=== PATIENT | female | born 1965 | race Two or more races ===

== ENCOUNTER → 2020-08-04 08:57 | Outpatient (BNVA) | payer OTHER, SELFPAY | PROVIDERS: PCP Physician Assistant; Referring Provider Physician Assistant; Visit Provider Surgery | DX: Z76.89 Persons encountering health services in other specified circumstances (principal) ==

== ENCOUNTER 2020-09-07 07:04 | Outpatient (REF) | payer OTHER, SELFPAY ==
[2020-09-07 07:45] LABS: MANUAL DIFF FLAG NO
[2020-09-07 07:52] LABS: Basophils Percent Auto 0.7 % (0-2); Eosinophils Absolute Auto 0.3 X10*3/uL (0.0-0.4); Eosinophils Percent Auto 4.5 % (0-4); Hematocrit 40.1 % (37-47); Hemoglobin 12.8 g/dl (12.0-16.0); Imm Gran Abs Auto 0.03 X10*3/uL (0.00-0.03); Imm Gran Pct Auto 0.5 % (0.0-0.4); Lymphocytes Absolute Auto 1.7 X10*3/uL (1.2-4.9); Lymphocytes Percent Auto 29.1 % (20-40); Mean Corpuscular HGB Conc 31.9 g/dl (31.0-35.0); Mean Corpuscular Hemoglobin 30.1 pg (27.0-33.0); Mean Corpuscular Volume 94.4 fL (80-98); Mean Platelet Volume 9.8 fL (9.4-12.3); Monocytes Absolute Auto 0.3 X10*3/uL (0.1-1.2); Monocytes Percent Auto 4.2 % (2-11); Neutrophils Absolute Auto 3.6 X10*3/uL (2.0-8.3); Platelet Count 352 X10*3/uL (160-400); Red Blood Count 4.25 X10*6/uL (4.20-5.50); Red Cell Distribution Width 12.5 % (11.0-16.0); White Blood Count 5.9 X10*3/uL (4.8-10.8)
[2020-09-07 08:25] LABS: Alanine Aminotransferase 82 U/L (0-31); Alkaline Phosphatase 161 U/L (39-117); Amylase 64 U/L (28-100); Aspartate Amino Transferase 64 U/L (5-31); Bilirubin Direct 0.2 mg/dL (0.0-0.5); Bilirubin Total 0.4 mg/dL (0.0-1.0); Lipase 26 U/L (8-78); Total Protein 6.9 g/dL (6.5-8.0)
== END 2020-09-07 07:05 | disposition home or self-care (01) ==
LOC: HO.LAB 07:04
PROVIDERS: PCP Physician Assistant; Visit Provider Internal Medicine
DX: R10.13 Epigastric pain (principal)
CPT/HCPCS: 36415; 80076; 82150; 83690; 85025

== ENCOUNTER 2020-09-13 07:14 | Outpatient (REF) | payer OTHER, SELFPAY ==
[2020-09-13 08:31] LABS: Alanine Aminotransferase 43 U/L (0-31); Albumin Level 4.2 g/dL (3.5-5.0); Alkaline Phosphatase 158 U/L (39-117); Aspartate Amino Transferase 33 U/L (5-31); Bilirubin Direct 0.2 mg/dL (0.0-0.5); Bilirubin Total 0.5 mg/dL (0.0-1.0); Iron 73 mcg/dL (30-160); Percent Iron Saturation 21 % (15-50); Total Iron Binding Capacity 344 mcg/dL (228-428); Total Protein 7.5 g/dL (6.5-8.0); Unsaturated Iron Binding 271 ug/dL
[2020-09-13 13:28] LABS: Ferritin 32 ng/mL (10-250)
[2020-09-14 09:04] LABS: HBS Num1 0.62 mIU/mL (0-7.99); HBc Num1 0.06 S/CO (0.00-0.79); HBsAGNum1 0.16 S/CO (0.00-0.99); Hepatitis B Core Antibody Nonreactive (Nonreactive); Hepatitis B Surface Antigen Negative (Negative); ~HepC Num1 0.07 S/CO (0.00-0.79); ~Hepatitis B Surface Antibody NONREACTIVE (Nonreactive); ~Hepatitis C Antibody Nonreactive (Nonreactive)
[2020-09-14 13:57] LABS: Mitochondrial Antibodies NEGATIVE (NEGATIVE)
[2020-09-14 14:22] LABS: Anti Nuclear Antibody Screen NEGATIVE (NEGATIVE)
[2020-09-14 16:42] LABS: Alpha 1 Anti-trypsin 135 mg/dL (83-199)
[2020-09-19 11:12] LABS: Smooth Muscle Antibody <20 U (<20)
== END 2020-09-13 07:15 | disposition home or self-care (01) ==
LOC: HO.LAB 07:14
PROVIDERS: PCP Physician Assistant; Visit Provider Internal Medicine
DX: Z01.84 Encounter for antibody response examination (principal); R79.89 Other specified abnormal findings of blood chemistry
CPT/HCPCS: 36415; 80076; 82103; 82728; 83540; 86038; 86039; 86255; 86256; 86704; 86706; 86803; 87340

== ENCOUNTER 2021-01-16 07:06 | Outpatient (REF) | payer OTHER, SELFPAY ==
[2021-01-16 08:30] LABS: Alanine Aminotransferase 20 U/L (0-31); Alkaline Phosphatase 166 U/L (39-117); Aspartate Amino Transferase 23 U/L (5-31); Bilirubin Direct 0.2 mg/dL (0.0-0.5); Bilirubin Total 0.6 mg/dL (0.0-1.0); Total Protein 7.3 g/dL (6.5-8.0)
== END 2021-01-16 07:07 | disposition home or self-care (01) ==
LOC: HO.LAB 07:06
PROVIDERS: PCP Physician Assistant; Visit Provider Internal Medicine
DX: R79.89 Other specified abnormal findings of blood chemistry (principal); K76.0 Fatty (change of) liver, not elsewhere classified
CPT/HCPCS: 36415; 80076

== ENCOUNTER 2021-04-21 07:15 | Outpatient (REF) | payer OTHER, SELFPAY ==
--- NOTE | ~2021-04-21 | MM_ITS ---
EXAMINATION: MM SCREENING DIGITAL BREAST TOMOSYNTHESIS, BILATERAL CLINICAL INFORMATION: Screening. Asymptomatic. The lifetime risk of breast cancer based on the Tyrer-Cuzick Model is 14%. COMPARISON: Mammography: 01/22/2020, 01/16/2019, 12/19/2016, 12/12/2016 TECHNIQUE: Digital breast tomosynthesis is performed in both the craniocaudal and mediolateral oblique views along with computer-aided detection (CAD). Synthesized 2D images are generated from the tomosynthesis. FINDINGS: There are scattered areas of fibroglandular density (ACR BI-RADS breast composition Category b). There are no significant masses, abnormal calcifications, or other abnormalities. Parenchymal pattern is similar to prior studies. No significant changes. MM/MM tomosynthesis screening BI IMPRESSION: No mammographic evidence of malignancy. ASSESSMENT: BI-RADS 1: Negative RECOMMENDATION: Routine annual mammography screening. This patient's information was entered into a reminder system with a target due date for their next mammogram.
== END 2021-04-21 07:16 | disposition home or self-care (01) ==
LOC: HO.MAMMO 07:15
PROVIDERS: Visit Provider Physician Assistant
DX: Z12.31 Encounter for screening mammogram for malignant neoplasm of breast (principal)
CPT/HCPCS: 77063; 77067

== ENCOUNTER 2021-08-31 06:33 | Outpatient (REF) | payer OTHER, SELFPAY ==
[2021-08-31 07:38] LABS: Hematocrit 44.1 % (37-47); Mean Corpuscular HGB Conc 31.7 g/dl (31.0-35.0); Mean Corpuscular Volume 94.4 fL (80-98); Mean Platelet Volume 9.8 fL (9.4-12.3); Platelet Count 408 X10*3/uL (160-400); Red Blood Count 4.67 X10*6/uL (4.20-5.50); Red Cell Distribution Width 11.6 % (11.0-16.0); White Blood Count 6.6 X10*3/uL (4.8-10.8)
[2021-08-31 08:05] LABS: Alanine Aminotransferase 22 U/L (0-31); Albumin Level 4.1 g/dL (3.5-5.0); Alkaline Phosphatase 153 U/L (39-117); Anion Gap 14 (12-20); Aspartate Amino Transferase 22 U/L (5-31); Bilirubin Total 0.5 mg/dL (0.0-1.0); Blood Urea Nitrogen 14 mg/dL (9-16); Calcium 9.6 mg/dL (8.4-10.2); Carbon Dioxide 28 mmol/L (22-29); Chloride 104 mmol/L (96-108); Cholesterol 245 mg/dL; Estimated Glomerular Filt Rate 52; Glucose Fasting 96 mg/dL (60-99); HDL Cholesterol 54 mg/dL; LDL Cholesterol Calculated 165 mg/dl; Potassium 4.3 mmol/L (3.3-5.1); Sodium 142 mmol/L (135-145); Total Protein 7.6 g/dL (6.5-8.0); Triglycerides 134 mg/dL
[2021-08-31 08:26] LABS: TSH reflex Free T4 0.86 uIU/mL (0.32-4.0)
[2021-08-31 08:27] LABS: Free T4 (Free Thyroxine) 1.32 ng/dL (0.71-1.85); Thyroid Stimulating Hormone 0.87 uIU/mL (0.32-4.0)
== END 2021-08-31 06:34 | disposition home or self-care (01) ==
LOC: HO.LAB 06:33
PROVIDERS: Absent Provider Physician Assistant; PCP Physician Assistant; Visit Provider Internal Medicine
DX: E03.9 Hypothyroidism, unspecified (principal); I10 Essential (primary) hypertension
CPT/HCPCS: 36415; 80053; 80061; 84439; 84443; 85027

== ENCOUNTER 2021-09-06 14:03 | Outpatient (REF) | payer OTHER, SELFPAY ==
[2021-09-06 14:19] LABS: MANUAL DIFF FLAG NO
[2021-09-06 14:39] LABS: Basophils Percent Auto 0.6 % (0-2); Eosinophils Absolute Auto 0.2 X10*3/uL (0.0-0.4); Eosinophils Percent Auto 3.7 % (0-4); Hematocrit 41.9 % (37.0-47.0); Hemoglobin 13.8 g/dl (12.0-16.0); Imm Gran Abs Auto 0.02 X10*3/uL (0.00-0.03); Imm Gran Pct Auto 0.3 % (0.0-0.4); Lymphocytes Absolute Auto 2.8 X10*3/uL (1.2-4.9); Lymphocytes Percent Auto 42.7 % (20-40); Mean Corpuscular HGB Conc 32.9 g/dl (31.0-35.0); Mean Corpuscular Hemoglobin 30.9 pg (27.0-33.0); Mean Corpuscular Volume 93.7 fL (80.0-98.0); Mean Platelet Volume 9.3 fL (9.4-12.3); Monocytes Absolute Auto 0.3 X10*3/uL (0.1-1.2); Neutrophils Absolute Auto 3.13 x10*3/uL (2.0-8.3); Neutrophils Percent Auto 47.7 % (45-73); Platelet Count 406 X10*3/uL (160-400); Red Blood Count 4.47 X10*6/uL (4.20-5.50); Red Cell Distribution Width 11.6 % (11.0-16.0); White Blood Count 6.6 X10*3/uL (4.8-10.8)
[2021-09-06 15:03] LABS: Alanine Aminotransferase 35 U/L (0-31); Albumin Level 4.2 g/dL (3.5-5.0); Alkaline Phosphatase 160 U/L (39-117); Anion Gap 13 (12-20); Aspartate Amino Transferase 30 U/L (5-31); Bilirubin Total 0.3 mg/dL (0.0-1.0); Blood Urea Nitrogen 12 mg/dL (9-16); Calcium 9.5 mg/dL (8.4-10.2); Carbon Dioxide 28 mmol/L (22-29); Chloride 106 mmol/L (96-108); Estimated Glomerular Filt Rate 59; Glucose Random 106 mg/dL (60-115); Potassium 4.3 mmol/L (3.3-5.1); Sodium 143 mmol/L (135-145); Total Protein 7.5 g/dL (6.5-8.0)
[2021-09-06 15:26] LABS: Creatinine Urine 136.55 mg/dL; Protein/Creatinine Ratio, Ur 0.06 (<0.2); Total Protein Urine Random 8 mg/dL (<12)
== END 2021-09-06 14:04 | disposition home or self-care (01) ==
LOC: HO.LAB 14:03
PROVIDERS: PCP Physician Assistant; Visit Provider Internal Medicine Hypertension Specialist
DX: R19.09 Other intra-abdominal and pelvic swelling, mass and lump (principal)
CPT/HCPCS: 36415; 80053; 84156; 85025

== ENCOUNTER 2021-09-10 14:31 | Outpatient (REF) | payer OTHER, SELFPAY ==
[2021-09-10 14:43] LABS: MANUAL DIFF FLAG NO
[2021-09-10 15:12] LABS: Basophils Percent Auto 0.5 % (0-2); Eosinophils Absolute Auto 0.2 X10*3/uL (0.0-0.4); Eosinophils Percent Auto 2.7 % (0-4); Hematocrit 42.6 % (37.0-47.0); Hemoglobin 13.8 g/dl (12.0-16.0); Imm Gran Abs Auto 0.02 X10*3/uL (0.00-0.03); Imm Gran Pct Auto 0.3 % (0.0-0.4); Lymphocytes Absolute Auto 2.6 X10*3/uL (1.2-4.9); Lymphocytes Percent Auto 34.6 % (20-40); Mean Corpuscular HGB Conc 32.4 g/dl (31.0-35.0); Mean Corpuscular Hemoglobin 30.6 pg (27.0-33.0); Mean Corpuscular Volume 94.5 fL (80.0-98.0); Mean Platelet Volume 9.4 fL (9.4-12.3); Monocytes Absolute Auto 0.3 X10*3/uL (0.1-1.2); Monocytes Percent Auto 4.5 % (2-11); Neutrophils Absolute Auto 4.4 x10*3/uL (2.0-8.3); Neutrophils Percent Auto 57.4 % (45-73); Platelet Count 402 X10*3/uL (160-400); Red Blood Count 4.51 X10*6/uL (4.20-5.50); Red Cell Distribution Width 11.5 % (11.0-16.0); White Blood Count 7.6 X10*3/uL (4.8-10.8)
[2021-09-10 15:28] LABS: Anion Gap 14 (12-20); Blood Urea Nitrogen 12 mg/dL (9-16); Calcium 9.9 mg/dL (8.4-10.2); Carbon Dioxide 28 mmol/L (22-29); Chloride 103 mmol/L (96-108); Estimated Glomerular Filt Rate 59; Glucose Random 90 mg/dL (60-115); Potassium 4.8 mmol/L (3.3-5.1); Sodium 140 mmol/L (135-145)
[2021-09-10 17:55] LABS: Creatinine Urine 123.94 mg/dL; Protein/Creatinine Ratio, Ur 0.09 (<0.2); Total Protein Urine Random 11 mg/dL (<12)
[2021-09-10 17:56] LABS: Appearance Urine HAZY; Color Urine YELLOW; Glucose Urine UA NEG (NEG); Leukocyte Esterase Urine NEG (NEG); Nitrite Urine POS (NEG); Specific Gravity - Urine 1.025 (1.005-1.025); Urine Blood 1+ (NEG); Urine Ketones NEG (NEG); Urine Protein NEG (NEG-TRACE)
[2021-09-10 18:50] LABS: Bacteria Urine 4+ /LPF
== END 2021-09-10 14:32 | disposition home or self-care (01) ==
LOC: HO.LAB 14:31
PROVIDERS: PCP Physician Assistant; Visit Provider Internal Medicine Hypertension Specialist
DX: R19.09 Other intra-abdominal and pelvic swelling, mass and lump (principal)
CPT/HCPCS: 36415; 80048; 81001; 84156; 85025

== ENCOUNTER 2021-11-13 07:39 | Outpatient (REF) | payer OTHER, SELFPAY ==
--- NOTE | ~2021-11-13 | CT_ITS ---
EXAMINATION: CT ABDOMEN AND PELVIS WITHOUT CONTRAST CLINICAL INFORMATION: Epigastric/abdominal pain COMPARISON: Previous CT scans of the abdomen and pelvis most recent June 2020 TECHNIQUE: Multidetector volumetric imaging was performed from the superior aspect of the liver through the pubic symphysis. Sagittal and coronal reformatted images were obtained on the technologist's workstation. This CT examination was performed using dose optimization techniques as appropriate, variously including the following: *Automated exposure control *Adjustment of mA and/or kV according to patient size (this includes techniques or standardized protocols for targeted exams where dose is matched to indication/reason for exam; i.e. extremities or head) *Use of iterative reconstruction technique DLP: 511 mGy-cm FINDINGS: LUNG BASES: The visualized lung bases are unremarkable. LIVER, GALLBLADDER, AND BILIARY TREE: The liver is normal in size, shape, and attenuation. No focal hepatic lesion or biliary ductal dilatation is present. The gallbladder has been removed. PANCREAS: Unremarkable. SPLEEN: Unremarkable. ADRENAL GLANDS: There is a stable 2.5 x 2.8 cm right adrenal lesion. Hounsfield units without contrast measure 19 which is indeterminate. This is similar to multiple old exams just suggestive of a benign adrenal lesion. The left adrenal gland has been removed. KIDNEYS AND URETERS: There is a small 1 cm low-attenuation lesion in the posterior upper pole of the right kidney that is stable and probably represents a cyst. The right kidney is otherwise unremarkable. The left kidney has been removed. BLADDER: Not optimally distended. GASTROINTESTINAL TRACT: The small and large bowel are unremarkable. The appendix is not seen. ABDOMINAL WALL: There are postsurgical changes to the anterior abdominal wall. There is atrophy of the left rectus muscle. No fluid collection is seen. No hernia is seen. The previously identified superficial abdominal wall fluid collections June 2020 have resolved. LYMPH NODES: Normal. VASCULAR: Unremarkable. PELVIC VISCERA: The uterus appears to have been removed. No pelvic mass is seen. OSSEOUS STRUCTURES: Unremarkable. CT/CT abdomen pelvis wo con IMPRESSION: No acute findings. Postsurgical changes following left radical nephrectomy. Stable 2.5 x 2.8 cm right adrenal lesion and probable right renal cyst. Fleischner guidelines were followed.
[2021-11-13] MEDS: Barium Sulfate Oral (Mocha) 450 ML ORAL.SUSP 900 ML PO (09:59)
== END 2021-11-13 07:40 | disposition home or self-care (01) ==
LOC: HO.CT 07:39
PROVIDERS: PCP Physician Assistant; Visit Provider Internal Medicine
DX: R10.13 Epigastric pain (principal)
CPT/HCPCS: 74176

== ENCOUNTER 2022-03-26 06:00 | Outpatient (REF) | payer OTHER, SELFPAY ==
[2022-03-26 07:25] LABS: Hematocrit 40.8 % (37.0-47.0); Hemoglobin 12.8 g/dl (12.0-16.0); Mean Corpuscular HGB Conc 31.4 g/dl (31.0-35.0); Mean Corpuscular Hemoglobin 30.3 pg (27.0-33.0); Mean Corpuscular Volume 96.5 fL (80.0-98.0); Mean Platelet Volume 9.7 fL (9.4-12.3); Platelet Count 358 X10*3/uL (160-400); Red Blood Count 4.23 X10*6/uL (4.20-5.50); Red Cell Distribution Width 11.8 % (11.0-16.0); White Blood Count 6.6 X10*3/uL (4.8-10.8)
[2022-03-26 07:50] LABS: Alanine Aminotransferase 32 U/L (0-31); Albumin Level 3.7 g/dL (3.5-5.0); Alkaline Phosphatase 142 U/L (39-117); Anion Gap 13 (12-20); Aspartate Amino Transferase 25 U/L (5-31); Bilirubin Total 0.4 mg/dL (0.0-1.0); Blood Urea Nitrogen 15 mg/dL (9-16); Calcium 9.2 mg/dL (8.4-10.2); Carbon Dioxide 26 mmol/L (22-29); Chloride 108 mmol/L (96-108); Cholesterol 235 mg/dL; Estimated Glomerular Filt Rate > 60; Glucose Fasting 97 mg/dL (60-99); HDL Cholesterol 58 mg/dL; LDL Cholesterol Calculated 156 mg/dl; Potassium 4.6 mmol/L (3.3-5.1); Sodium 142 mmol/L (135-145); Total Protein 6.8 g/dL (6.5-8.0); Triglycerides 108 mg/dL
[2022-03-26 08:14] LABS: TSH reflex Free T4 1.59 uIU/mL (0.32-4.0)
== END 2022-03-26 06:01 | disposition home or self-care (01) ==
LOC: HO.LAB 06:00
PROVIDERS: PCP Physician Assistant; Visit Provider Physician Assistant
DX: E03.9 Hypothyroidism, unspecified (principal); E78.9 Disorder of lipoprotein metabolism, unspecified
CPT/HCPCS: 36415; 80053; 80061; 84443; 85027

== ENCOUNTER 2022-04-23 16:33 | Outpatient (REF) | payer OTHER, SELFPAY ==
[2022-04-29 06:07] LABS: Metanephrine, Free <25 pg/mL (<=57); Normetanephrines, Free 44 pg/mL (<=148); Total Metanephrine, Free 44 pg/mL (<=205)
== END 2022-04-23 16:34 | disposition home or self-care (01) ==
LOC: HO.LAB 16:33
PROVIDERS: PCP Physician Assistant; Visit Provider Internal Medicine Endocrinology, Diabetes & Metabolism
DX: D35.00 Benign neoplasm of unspecified adrenal gland (principal); E66.9 Obesity, unspecified
CPT/HCPCS: 36415; 83835

== ENCOUNTER 2022-04-26 06:24 | Outpatient (REF) | payer OTHER, SELFPAY ==
--- NOTE | ~2022-04-26 | US_ITS ---
EXAMINATION: US ABDOMEN LIMITED CLINICAL INFORMATION: Left upper quadrant lump. COMPARISON: CT abdomen and pelvis without contrast dated 11/13/2021. Ultrasound abdomen limited dated 05/12/2018. Ultrasound abdomen complete dated 01/23/2018. X-ray abdomen dated 11/15/2011. TECHNIQUE: Real-time imaging of the left upper quadrant abdominal wall anterior to the ribs. FINDINGS: No abnormality is evident by ultrasound. No soft tissue mass, fluid collection or hernia is appreciated. US/US abdomen limited IMPRESSION: No abnormality seen by ultrasound.
[2022-04-26 11:01] LABS: Cortisol Random 1.6 ug/dL
[2022-05-08 11:52] LABS: Dexamethasone 396 ng/dL
== END 2022-04-26 06:25 | disposition home or self-care (01) ==
LOC: HO.US 06:24
PROVIDERS: Absent Provider Internal Medicine Endocrinology, Diabetes & Metabolism; PCP Physician Assistant; Visit Provider Physician Assistant
DX: D35.00 Benign neoplasm of unspecified adrenal gland (principal); R19.02 Left upper quadrant abdominal swelling, mass and lump
CPT/HCPCS: 36415; 76705; 80299; 82533

== ENCOUNTER 2022-04-29 07:19 | Outpatient (REF) | payer OTHER, SELFPAY ==
--- NOTE | ~2022-04-29 | MM_ITS ---
EXAMINATION: MM SCREENING DIGITAL BREAST TOMOSYNTHESIS, BILATERAL CLINICAL INFORMATION: Screening. Asymptomatic. The lifetime risk of breast cancer based on the Tyrer-Cuzick Model is 13%. COMPARISON: Mammography: 04/21/2021, 01/22/2020, 01/16/2019 TECHNIQUE: Digital breast tomosynthesis is performed in both the craniocaudal and mediolateral oblique views along with computer-aided detection (CAD). Synthesized 2D images are generated from the tomosynthesis. Additional left MLO view is provided. FINDINGS: There are scattered areas of fibroglandular density (ACR BI-RADS breast composition Category b). There are no significant masses, abnormal calcifications, or other abnormalities. Parenchymal pattern is similar to prior studies. No developing density. The axilla and skin contours are unremarkable. No significant changes. MM/MM tomosynthesis screening BI IMPRESSION: No mammographic evidence of malignancy. ASSESSMENT: BI-RADS 1: Negative RECOMMENDATION: Routine annual mammography screening. This patient's information was entered into a reminder system with a target due date for their next mammogram.
== END 2022-04-29 07:20 | disposition home or self-care (01) ==
LOC: HO.MAMMO 07:19
PROVIDERS: PCP Physician Assistant; Visit Provider Physician Assistant
DX: Z12.31 Encounter for screening mammogram for malignant neoplasm of breast (principal)
CPT/HCPCS: 77063; 77067

== ENCOUNTER 2022-08-13 08:20 | Outpatient (REF) | payer OTHER, SELFPAY ==
[2022-08-13 08:31] LABS: MANUAL DIFF FLAG NO
[2022-08-13 08:34] LABS: Basophils Absolute Auto 0.1 X10*3/uL (0.0-0.2); Basophils Percent Auto 0.8 % (0-2); Eosinophils Absolute Auto 0.2 X10*3/uL (0.0-0.4); Eosinophils Percent Auto 2.6 % (0-4); Hemoglobin 13.8 g/dl (12.0-16.0); Imm Gran Abs Auto 0.03 X10*3/uL (0.00-0.03); Imm Gran Pct Auto 0.5 % (0.0-0.4); Lymphocytes Absolute Auto 1.7 X10*3/uL (1.2-4.9); Mean Corpuscular HGB Conc 32.1 g/dl (31.0-35.0); Mean Corpuscular Hemoglobin 30.3 pg (27.0-33.0); Mean Corpuscular Volume 94.5 fL (80.0-98.0); Mean Platelet Volume 9.1 fL (9.4-12.3); Monocytes Absolute Auto 0.3 X10*3/uL (0.1-1.2); Neutrophils Absolute Auto 4.3 x10*3/uL (2.0-8.3); Neutrophils Percent Auto 66.1 % (45-73); Platelet Count 382 X10*3/uL (160-400); Red Blood Count 4.55 X10*6/uL (4.20-5.50); Red Cell Distribution Width 11.7 % (11.0-16.0); White Blood Count 6.4 X10*3/uL (4.8-10.8)
[2022-08-13 09:04] LABS: Alanine Aminotransferase 31 U/L (0-31); Albumin Level 4.2 g/dL (3.5-5.0); Alkaline Phosphatase 170 U/L (39-117); Amylase 74 U/L (28-100); Aspartate Amino Transferase 32 U/L (5-31); Bilirubin Direct < 0.2 mg/dL (0.0-0.5); Bilirubin Total 0.2 mg/dL (0.0-1.0); Lipase 35 U/L (8-78); Total Protein 7.7 g/dL (6.5-8.0)
== END 2022-08-13 08:21 | disposition home or self-care (01) ==
LOC: HO.LAB 08:20
PROVIDERS: PCP Physician Assistant; Visit Provider Internal Medicine
DX: R10.13 Epigastric pain (principal)
CPT/HCPCS: 36415; 80076; 82150; 83690; 85025

== ENCOUNTER 2022-08-14 07:26 | Outpatient (REF) | payer OTHER, SELFPAY | END 2022-08-14 07:27 | disposition home or self-care (01) | LOC: HO.LNP 07:26 | PROVIDERS: Visit Provider Internal Medicine | DX: R10.13 Epigastric pain (principal) | CPT/HCPCS: 87338 ==

== ENCOUNTER 2022-08-28 11:07 | Outpatient (REF) | payer OTHER, SELFPAY ==
--- NOTE | 2022-08-28 | ECG_ITS ---
Test Reason : preop Blood Pressure : / mmHG Vent. Rate : 075 BPM Atrial Rate : 075 BPM P-R Int : 148 ms QRS Dur : 062 ms QT Int : 366 ms P-R-T Axes : 055 050 064 degrees QTc Int : 408 ms Normal sinus rhythm Normal ECG When compared with ECG of 09-MAY-2020 10:37, No significant change was found Referred By: Chintan Cardenas Electronically Signed By:KT AYALA MD
--- NOTE | ~2022-08-28 | XR_ITS ---
EXAMINATION: XR CHEST CLINICAL INFORMATION: Preop COMPARISON: Previous chest x-ray most recent May 2020 TECHNIQUE: 2 views of the chest were obtained. FINDINGS: No significant abnormality is noted involving the heart, lungs, mediastinum, bony thorax or soft tissues. Surgical clips under the left hemidiaphragm. XR/XR chest 2V IMPRESSION: Unremarkable examination.
[2022-08-28 11:27] LABS: MANUAL DIFF FLAG NO
[2022-08-28 11:50] LABS: Basophils Absolute Auto 0.1 X10*3/uL (0.0-0.2); Basophils Percent Auto 0.9 % (0-2); Eosinophils Absolute Auto 0.2 X10*3/uL (0.0-0.4); Eosinophils Percent Auto 2.2 % (0-4); Hematocrit 42.9 % (37.0-47.0); Hemoglobin 13.7 g/dl (12.0-16.0); INTERNATIONAL NORM RATIO 0.9 (0.9-1.1); Imm Gran Abs Auto 0.04 X10*3/uL (0.00-0.03); Imm Gran Pct Auto 0.6 % (0.0-0.4); Lymphocytes Absolute Auto 1.9 X10*3/uL (1.2-4.9); Lymphocytes Percent Auto 28.2 % (20-40); Mean Corpuscular HGB Conc 31.9 g/dl (31.0-35.0); Mean Corpuscular Hemoglobin 29.8 pg (27.0-33.0); Mean Corpuscular Volume 93.3 fL (80.0-98.0); Mean Platelet Volume 9.5 fL (9.4-12.3); Monocytes Absolute Auto 0.3 X10*3/uL (0.1-1.2); Monocytes Percent Auto 4.2 % (2-11); Neutrophils Absolute Auto 4.4 x10*3/uL (2.0-8.3); Neutrophils Percent Auto 63.9 % (45-73); Platelet Count 401 X10*3/uL (160-400); Prothrombin Time 10.8 SEC (10.0-13.1); Red Cell Distribution Width 11.5 % (11.0-16.0); White Blood Count 6.9 X10*3/uL (4.8-10.8)
[2022-08-28 11:52] LABS: Partial Thromboplastin Time 34.1 SEC (26.0-36.4)
[2022-08-28 12:06] LABS: Estimated Average Glucose 97 mg/dL
[2022-08-28 12:16] LABS: Anion Gap 17 (12-20); Blood Urea Nitrogen 16 mg/dL (9-16); Carbon Dioxide 29 mmol/L (22-29); Chloride 104 mmol/L (96-108); Estimated Glomerular Filt Rate 47; Glucose Random 93 mg/dL (60-115); Potassium 4.6 mmol/L (3.3-5.1); Sodium 145 mmol/L (135-145)
[2022-08-28 12:26] LABS: Appearance Urine Clear; Color Urine Dark Yellow; Glucose Urine UA Negative (Negative); Leukocyte Esterase Urine Small (1+) (Negative); Nitrite Urine Negative (Negative); PH 7.5 (5.0-9.0); Specific Gravity - Urine 1.015 (1.005-1.025); UMIC TRIGGER UA YES; Urine Blood Negative (Negative); Urine Ketones Negative (Negative); Urine Protein Negative (Neg-Trace)
[2022-08-28 12:27] LABS: HIV AB/AG Nonreactive (Nonreactive); HIV Num 1 0.06 S/CO (0.00-0.99)
[2022-08-28 12:30] LABS: HCG Quantitative < 2 mIU/mL; T4 Thyroxine 8.7 ug/dL (4.5-12.0); Thyroid Stimulating Hormone 0.42 uIU/mL (0.32-4.0)
[2022-08-28 12:44] LABS: Bacteria Urine Trace (None Seen); Hyaline Casts Urine 0-2 /LPF (0-2); RBC Urine 0-2 /HPF (0-2); WBC Urine 0-5 /HPF (0-5)
[2022-08-29 17:02] LABS: T3 Uptake 26 % (22-35)
== END 2022-08-28 11:08 | disposition home or self-care (01) ==
LOC: HO.XRAY 11:07
PROVIDERS: PCP Physician Assistant; Visit Provider Plastic Surgery
DX: Z01.818 Encounter for other preprocedural examination (principal)
CPT/HCPCS: 36415; 71046; 80048; 81001; 81003; 83036; 84436; 84443; 84479; 84702; 85025; 85610; 85730; 87389; 93005

== ENCOUNTER 2022-08-30 10:22 | Outpatient (REF) | payer OTHER, SELFPAY ==
[2022-08-30 11:58] LABS: HIV AB/AG Nonreactive (Nonreactive); HIV Num 1 0.06 S/CO (0.00-0.99)
[2022-08-30 12:01] LABS: HCG Quantitative 3 mIU/mL
== END 2022-08-30 10:23 | disposition home or self-care (01) ==
LOC: HO.LAB 10:22
PROVIDERS: Visit Provider Plastic Surgery
DX: Z01.818 Encounter for other preprocedural examination (principal); Z11.4 Encounter for screening for human immunodeficiency virus [HIV]
CPT/HCPCS: 36415; 84702; 87389

== ENCOUNTER 2022-10-22 08:44 | Outpatient (REF) | payer OTHER, SELFPAY ==
[2022-10-30 15:33] LABS: Saliva Cortisol 0.21 mcg/dL
== END 2022-10-22 08:45 | disposition home or self-care (01) ==
LOC: HO.LAB 08:44
PROVIDERS: Visit Provider Internal Medicine Endocrinology, Diabetes & Metabolism
DX: D35.00 Benign neoplasm of unspecified adrenal gland (principal)
CPT/HCPCS: 82530

== ENCOUNTER → 2022-10-23 15:59 | Outpatient (BNVA) | payer OTHER, SELFPAY | PROVIDERS: PCP Physician Assistant; Visit Provider Internal Medicine Endocrinology, Diabetes & Metabolism | DX: D35.00 Benign neoplasm of unspecified adrenal gland (principal) ==

== ENCOUNTER 2022-11-11 08:10 | Outpatient (REF) | payer OTHER, SELFPAY ==
[2022-11-20 14:48] LABS: Saliva Cortisol <0.03 mcg/dL
== END 2022-11-11 08:11 | disposition home or self-care (01) ==
LOC: HO.LNP 08:10
PROVIDERS: Visit Provider Internal Medicine Endocrinology, Diabetes & Metabolism
DX: D35.00 Benign neoplasm of unspecified adrenal gland (principal)
CPT/HCPCS: 82530

== ENCOUNTER 2022-11-11 09:04 | Outpatient (REF) | payer OTHER, SELFPAY | END 2022-11-11 09:05 | disposition home or self-care (01) | LOC: HO.LAB 09:04 | PROVIDERS: PCP Physician Assistant; Visit Provider Internal Medicine Endocrinology, Diabetes & Metabolism | DX: Z13.89 Encounter for screening for other disorder (principal) ==

== ENCOUNTER 2023-03-18 06:50 | Outpatient (REF) | payer OTHER, SELFPAY ==
--- NOTE | ~2023-03-18 | XR_ITS ---
EXAMINATION: XR KNEE AP STANDING CLINICAL INFORMATION: Pain COMPARISON: Previous x-ray from 2018 TECHNIQUE: AP bilateral standing view of the knees was obtained. FINDINGS: Bones and soft tissues are normal. No fracture or joint effusion. Alignment is anatomic. Joint spaces are well maintained. No abnormal soft tissue calcification. XR/XR knee standing BI IMPRESSION: Normal knees.
--- NOTE | ~2023-03-18 | XR_ITS ---
EXAMINATION: Bilateral ankle x-ray CLINICAL INFORMATION: Pain COMPARISON: None. TECHNIQUE: 3 views of each ankle FINDINGS: Bone alignment is normal. No fracture or dislocation. Normal ankle mortise. Normal soft tissues. XR/XR ankle LT 2V IMPRESSION: Unremarkable examination.
--- NOTE | ~2023-03-18 | XR_ITS ---
EXAMINATION: Bilateral ankle x-ray CLINICAL INFORMATION: Pain COMPARISON: None. TECHNIQUE: 3 views of each ankle FINDINGS: Bone alignment is normal. No fracture or dislocation. Normal ankle mortise. Normal soft tissues. XR/XR ankle RT 2V IMPRESSION: Unremarkable examination.
[2023-03-18 07:44] LABS: Hemoglobin 13.7 g/dl (12.0-16.0); Mean Corpuscular HGB Conc 31.9 g/dl (31.0-35.0); Mean Corpuscular Hemoglobin 30.1 pg (27.0-33.0); Mean Corpuscular Volume 94.5 fL (80.0-98.0); Mean Platelet Volume 9.9 fL (9.4-12.3); Platelet Count 402 X10*3/uL (160-400); Red Blood Count 4.55 X10*6/uL (4.20-5.50); Red Cell Distribution Width 11.7 % (11.0-16.0); White Blood Count 5.8 X10*3/uL (4.8-10.8)
[2023-03-18 08:24] LABS: Alanine Aminotransferase 25 U/L (0-31); Alkaline Phosphatase 159 U/L (39-117); Anion Gap 14 (12-20); Aspartate Amino Transferase 25 U/L (5-31); Bilirubin Total 0.5 mg/dL (0.0-1.0); Blood Urea Nitrogen 11 mg/dL (9-16); Calcium 9.7 mg/dL (8.4-10.2); Carbon Dioxide 26 mmol/L (22-29); Chloride 108 mmol/L (96-108); Cholesterol 270 mg/dL; Estimated Glomerular Filt Rate > 60; Glucose Fasting 95 mg/dL (60-99); HDL Cholesterol 55 mg/dL; LDL Cholesterol Calculated 191 mg/dl; Potassium 4.8 mmol/L (3.3-5.1); Rheumatoid Factor < 13.0 IU/mL (<15.0); Sodium 143 mmol/L (135-145); Total Protein 7.2 g/dL (6.5-8.0); Triglycerides 123 mg/dL
[2023-03-18 08:27] LABS: TSH reflex Free T4 1.01 uIU/mL (0.32-4.0)
[2023-03-23 12:23] LABS: Cyclic Citrullinated Peptide <16 UNITS
== END 2023-03-18 06:51 | disposition home or self-care (01) ==
LOC: HO.LAB 06:50
PROVIDERS: PCP Physician Assistant; Visit Provider Physician Assistant
DX: E03.9 Hypothyroidism, unspecified (principal); E78.9 Disorder of lipoprotein metabolism, unspecified; M25.561 Pain in right knee; M25.562 Pain in left knee; M25.571 Pain in right ankle and joints of right foot; M25.572 Pain in left ankle and joints of left foot
CPT/HCPCS: 36415; 73565; 73600; 80053; 80061; 84443; 85027; 86200; 86431

== ENCOUNTER → 2023-04-22 15:52 | Outpatient (BNVA) | payer OTHER, SELFPAY | PROVIDERS: PCP Physician Assistant; Visit Provider Internal Medicine Endocrinology, Diabetes & Metabolism ==

== ENCOUNTER 2023-05-08 07:38 | Outpatient (REF) | payer OTHER, SELFPAY ==
--- NOTE | ~2023-05-08 | MM_ITS ---
EXAMINATION: MM SCREENING DIGITAL BREAST TOMOSYNTHESIS, BILATERAL CLINICAL INFORMATION: Screening. Asymptomatic. The lifetime risk of breast cancer based on the Tyrer-Cuzick Model is 11.4%. COMPARISON: Mammography: This study is compared with prior exams dating back to 2017. TECHNIQUE: Digital breast tomosynthesis is performed in both the craniocaudal and mediolateral oblique views along with computer-aided detection (CAD). Synthesized 2D images are generated from the tomosynthesis. FINDINGS: There are scattered areas of fibroglandular density (ACR BI-RADS breast composition Category b). There are no significant masses, abnormal calcifications, or other abnormalities. MM/MM tomosynthesis screening BI IMPRESSION: No mammographic evidence of malignancy. ASSESSMENT: BI-RADS BI-RADS 1 - Negative RECOMMENDATION: Routine annual mammography screening. 1 year F/U This examination should not preclude the clinical evaluation of a suspicious palpable abnormality. This patient's information was entered into a reminder system with a target due date for their next mammogram.
== END 2023-05-08 07:39 | disposition home or self-care (01) ==
LOC: HO.MAMMO 07:38
PROVIDERS: PCP Physician Assistant; Visit Provider Physician Assistant
DX: Z12.31 Encounter for screening mammogram for malignant neoplasm of breast (principal)
CPT/HCPCS: 77063; 77067

== ENCOUNTER → 2023-05-08 07:45 | Outpatient (BNV) | payer OTHER, SELFPAY | PROVIDERS: PCP Physician Assistant; Visit Provider Radiology Diagnostic Radiology | DX: Z12.31 Encounter for screening mammogram for malignant neoplasm of breast (principal) | CPT/HCPCS: 77063; 77067 ==

== ENCOUNTER 2023-06-12 15:50 | Outpatient (AMB) | payer OTHER, SELFPAY ==
[2023-06-12 16:02] VITALS: BP 122/80; PULSE 71; O2SAT 99; BMI 31.8
--- NOTE | 2023-06-12 16:02 | MHC.PC.OV ---
Vital Signs 06/12/23 16:02 Height 5 ft 4 in Weight 185 lb BMI 31.8 BP 122/80 Blood Pressure Location Lt brachial Position Sitting Pulse 71 Pulse Source Pulse Oximeter Temp Source Skin Pulse Oximetry (%) 99 Oxygen Delivery Method Room Air Intake Visit Reasons: L side stomach pain Intake Note: pt states on ongoing abdominal pain Sql Database Developer Required: No Allergies Iodinated Contrast Media [IV DYE, IODINE CONTAINING CONTRAST ] Allergy (Intermediate, Verified 06/12/23 16:22) HIVES bupropion [From WELLBUTRIN] Allergy (Unknown, Verified 06/12/23 16:22) HALLUCINATION Medication List - Last Reconciled 06/12/23 by JAIDEN Severino levothyroxine 125 mcg PO DAILY 90 days omeprazole 40 mg PO QAM pravastatin 10 mg PO DAILY 30 days sumatriptan succinate take 1 tab at onset of headache; if no relief may repeat 1 tab after at least 2 hrs; max = 4 tabs/24 hr PO zolpidem 10 mg PO BEDTIME PRN 30 days Tobacco use date assessed: 06/12/23 Dental Screening Dental Screen Date: 06/12/23 Did you have a dental visit in the last 12 months?: Yes Did you have a dental problem in the last 6 months where you did not have access to dental care?: No Was dental information given to patient?: Patient has dentist HPI L side stomach pain HPI Details Patient is a 58-year-old female who presents today with intermittent left upper quadrant pain for very long time now. Patient of MATILDA Rutledge. medical history significant for hypothyroid is, migraine, insomnia, adrenal adenoma-followed by endocrinology, hyperlipidemia, history of left nephrectomy. Patient denies nausea or vomiting, reports GERD is stable with omeprazole. Reports chronic constipation alternating with diarrhea for long time now. No shortness of breath or chest pain. Denies pain presently. No fever or chills. Reports bilateral arms increased pigmentation since 04/2023, denies changes in body wash, no new medications, no new detergent. Denies pruritus. [facility] Medical History Adrenal adenoma Hypothyroidism Migraine Urinary frequency Surgical History History of abdominoplasty History of arthroscopy of left knee History of arthroscopy of right shoulder History of cholecystectomy History of hysterectomy History of nephrectomy History of ovarian cystectomy History of tubal ligation Family History Father History of throat cancer Mother No problems noted. Sister History of breast cancer History of ovarian cancer Brother History of kidney problems Maternal Grandmother History of pancreatic cancer Brother No problems noted. Son No problems noted. Daughter No problems noted. Daughter No problems noted. Daughter No problems noted. Social History Housing: House Alcohol intake: current Alcohol intake frequency: holidays/special occasions only Patient Tobacco Use Status: Never used Tobacco e-Cigarette/Vaping Use: Never Used Second Hand Smoke Exposure: No service: No Current occupational status: employed Current occupation: Working at [employer] Cognitive needs: No Hearing needs: No Vision needs: Yes Questionnaire Thrive Questionnaire Date Thrive assessed: 03/17/23 AUDIT C Alcohol Use Questionnaire (AUDIT-C) 1. How often do you have a drink containing alcohol?: Never Total Score: 0 Score Reviewed/Action Taken: No GEORGE-7 AMB Questionnaire GEORGE-7 Date GEORGE - 7 assessed: 03/17/23 Source: Developed by Drs. Yadiel Loera, Jeanne Rea, Dennys Vivar and colleagues, with an educational adamaris from [employer]. Review of Systems Const Denies body aches, Denies chills, Denies fever(s) and Denies headache(s) Eyes Denies change in vision ENT Denies dizziness, Denies otalgia, Denies headache(s), Denies nasal discharge, Denies sinus pain and Denies sore throat Card Denies chest pain, Denies edema, Denies lightheadedness and Denies dyspnea Resp Denies cough, Denies dyspnea and Denies wheezing GI Reports abdominal pain, Reports constipation, Reports diarrhea, Denies nausea and Denies vomiting Denies dysuria Musc Denies myalgias Skin/Breast Reports rash Neuro Denies dizziness and Denies headache(s) Aller/Immun Denies wheezing Physical exam (Primary Care) Vital Signs: Last Vital Signs Pulse 71 06/12/23 16:02 BP 122/80 06/12/23 16:02 Pulse Ox 99 06/12/23 16:02 Oxygen Delivery Method Room Air 08/10/23 16:02 BMI result Body Mass Index 31.8 Tobacco/Smoking Status: Tobacco use Status Tobacco use date assessed 06/12/23 06/12/23 16:06 Patient Tobacco Use Status Never used Tobacco 06/12/23 16:06 e-Cigarette/Vaping Use Never Used 06/12/23 16:06 Thrive Assessment: Date of Thrive Assessment Date Thrive assessed 03/17/23 06/12/23 16:06 Const General: cooperative and no acute distress Orientation/consciousness: patient oriented x3 HENMT Head: Yes normocephalic and Yes atraumatic Ears: TM's normal bilaterally Face and sinus: Yes sinuses nontender Mouth: oropharynx normal and moist mucous membranes Throat: Yes posterior oropharynx normal Eyes General: appearance normal, both eyes and all related structures Pupils: Equal, round and reactive pupils present EOM: EOMs intact bilaterally Neck Neck: Yes normal visual inspection, Yes full ROM and Yes no lymphadenopathy Resp Effort & Inspection: normal respiratory effort and able to speak in complete sentences Auscultation: clear to auscultation bilaterally, no crackles, no rales, no rhonchi and no wheezes Cardio Rate: regular rate Rhythm: regular rhythm Heart sounds: S1 normal heart sound present, S2 normal heart sound present and no murmurs GI Palpation (GI): Soft to palpation, not firm, Tenderness to palpation present (GI) in the LUQ; with no rebound tenderness, no guarding, not rigid and no hepatosplenomegaly Auscultation: normal bowel sounds General: No CVA tenderness Back/Spine/Pelvis Back: No CVA tenderness Skin Other: Bilateral upper extremity distal aspect with mildly increased pigmentation, patient denies pruritus, no signs of infection noted Neuro General: patient oriented x3 Cranial nerves: Yes Equal, round and reactive pupils present Gait exam (Neuro): Normal gait present Extrem General: Yes full ROM and No edema Results AMB Urinalysis, Automated UA Leukoctes 0 Arpan/uL Last Edit by RAYNE Blakely on 06/12/23 16:14 UA Nitrite Negative Last Edit by RAYNE Blakely on 06/12/23 16:14 UA Urobilinogen 0.2 mg/dL Last Edit by RAYNE Blakely on 06/12/23 16:14 UA Protein 0 mg/dL Last Edit by Leni Huishin A on 06/12/23 16:14 UA pH 6.0 Last Edit by Leni Huishin A on 06/12/23 16:14 UA Blood 10 Efrain/uL Last Edit by Leni Byers A on 06/12/23 16:14 UA Specific Elcho 1.030 Last Edit by Leni Huishin A on 06/12/23 16:14 UA Ketone Negative Last Edit by Leni Huishin A on 06/12/23 16:14 UA Bilirubin 0 mg/dL Last Edit by Leni Huishin A on 06/12/23 16:14 UA Glucose 0 mg/dL Last Edit by Leni Modesta A on 06/12/23 16:14 Results Reviewed Results Reviewed: Laboratory Last Values Urine pH (Auto) 6.0 06/12/23 16:12 Specific Elcho (Auto) 1.030 06/12/23 16:12 Urine Protein (Auto) 0 mg/dL 06/12/23 16:12 Glucose (UA)(Auto) 0 mg/dL 06/12/23 16:12 Urine Ketones (Auto) Negative 06/12/23 16:12 Urine Blood (Auto) 10 Efrain/uL 06/12/23 16:12 Urine Nitrite (Auto) Negative 06/12/23 16:12 Urine Bilirubin (Auto) 0 mg/dL 06/12/23 16:12 Urine Urobilinogen (Auto) 0.2 mg/dL 06/12/23 16:12 Leukocyte Esterase (Auto) 0 Arpan/uL 06/12/23 16:12 Assessment and Plan Assessment & Plan (1) Rash: Code(s): R21 - Rash and other nonspecific skin eruption Plan: Bilateral upper extremity distal aspect with mildly increased pigmentation, patient denies pruritus, no signs of infection noted Dermatology referral for an evaluation and treatment (2) LUQ pain: Code(s): R10.12 - Left upper quadrant pain Plan: Patient presents with intermittent left upper quadrant pain for very long time now, denies pain in the office today. Physical exam with left upper quadrant tenderness, no rebound tenderness. Will order blood work and obtain abdominal ultrasound. Patient denies any urinary symptoms. Urinalysis negative for UTI, but did show blood 10, will send urine for culture. Blood work ordered. Keep appointment with PCP as scheduled or follow-up sooner as needed. Signs and symptoms reviewed when to notify provider or go to the emergency department. Patient agreed with plan. Orders: Orders Comprehensive Met. Panel Today R10.12 - Left upper quadrant pain Lipase Today R10.12 - Left upper quadrant pain Complete Blood Count Auto Diff Today R10.12 - Left upper quadrant pain US abdomen complete Today R10.12 - Left upper quadrant pain Urine Culture Today R10.12 - Left upper quadrant pain AMB Urinalysis Automated Today R10.9 - Unspecified abdominal pain Referrals Dermatology Referral R21 - Rash and other nonspecific skin eruption Coding Level of Care Code Est Pt Level 3 (96752) Diagnoses Rash R21 LUQ pain R10.12
== END 2023-06-12 16:40 | disposition home or self-care (01) ==
LOC: HO.HMGH 15:50
PROVIDERS: PCP Physician Assistant; Visit Provider Nurse Practitioner Family
DX: R21 Rash and other nonspecific skin eruption (principal); R10.12 Left upper quadrant pain; R10.9 Unspecified abdominal pain
CPT/HCPCS: 81003; 99213

== ENCOUNTER 2023-06-12 16:39 | Outpatient (REF) | payer OTHER, SELFPAY | END 2023-06-12 16:40 | disposition home or self-care (01) | LOC: HO.LAB 16:39 | PROVIDERS: Visit Provider Nurse Practitioner Family | DX: R10.12 Left upper quadrant pain (principal) | CPT/HCPCS: 87086 ==

== ENCOUNTER 2023-06-16 10:38 | Outpatient (REF) | payer OTHER, SELFPAY ==
[2023-06-16 10:50] LABS: MANUAL DIFF FLAG NO
[2023-06-16 13:47] LABS: Basophils Percent Auto 0.7 % (0-2); Eosinophils Absolute Auto 0.3 X10*3/uL (0.0-0.4); Eosinophils Percent Auto 4.5 % (0-4); Hematocrit 43.2 % (37.0-47.0); Hemoglobin 13.6 g/dl (12.0-16.0); Imm Gran Abs Auto 0.01 X10*3/uL (0.00-0.03); Imm Gran Pct Auto 0.2 % (0.0-0.4); Lymphocytes Absolute Auto 2.2 X10*3/uL (1.2-4.9); Lymphocytes Percent Auto 36.4 % (20-40); Mean Corpuscular HGB Conc 31.5 g/dl (31.0-35.0); Mean Corpuscular Hemoglobin 29.9 pg (27.0-33.0); Mean Corpuscular Volume 94.9 fL (80.0-98.0); Mean Platelet Volume 10.3 fL (9.4-12.3); Monocytes Absolute Auto 0.3 X10*3/uL (0.1-1.2); Monocytes Percent Auto 4.8 % (2-11); Neutrophils Absolute Auto 3.2 x10*3/uL (2.0-8.3); Neutrophils Percent Auto 53.4 % (45-73); Platelet Count 375 X10*3/uL (160-400); Red Blood Count 4.55 X10*6/uL (4.20-5.50); Red Cell Distribution Width 11.9 % (11.0-16.0)
[2023-06-16 15:04] LABS: Alanine Aminotransferase 36 U/L (0-31); Alkaline Phosphatase 156 U/L (39-117); Anion Gap 13 (12-20); Aspartate Amino Transferase 44 U/L (5-31); Blood Urea Nitrogen 10 mg/dL (9-16); Calcium 9.5 mg/dL (8.4-10.2); Carbon Dioxide 25 mmol/L (22-29); Chloride 108 mmol/L (96-108); Estimated Glomerular Filt Rate > 60; Glucose Random 83 mg/dL (60-115); Lipase 18 U/L (8-78); Potassium 3.9 mmol/L (3.3-5.1); Sodium 142 mmol/L (135-145); Total Protein 7.8 g/dL (6.5-8.0)
[2023-06-16 18:49] LABS: Bilirubin Total 0.5 mg/dL (0.0-1.0)
== END 2023-06-16 10:39 | disposition home or self-care (01) ==
LOC: HO.LAB 10:38
PROVIDERS: PCP Physician Assistant; Visit Provider Nurse Practitioner Family
DX: R10.12 Left upper quadrant pain (principal)
CPT/HCPCS: 36415; 80053; 83690; 85025

== ENCOUNTER 2023-07-17 07:56 | Outpatient (REF) | payer OTHER, SELFPAY ==
--- NOTE | ~2023-07-17 | US_ITS ---
EXAMINATION: US ABDOMEN LIMITED CLINICAL INFORMATION: Left upper quadrant pain. COMPARISON: CT abdomen and pelvis 11/13/2021. TECHNIQUE: Real-time imaging of the left upper quadrant area of pain, spleen. FINDINGS: Spleen is normal in size measuring 8.9 cm in span. Status post left nephrectomy. Otherwise unremarkable upper quadrant ultrasound. US/US abdomen limited IMPRESSION: 1. Spleen is normal in size measuring 8.9 cm in span. 2. Status post left nephrectomy.
== END 2023-07-17 07:57 | disposition home or self-care (01) ==
LOC: HO.US 07:56
PROVIDERS: PCP Physician Assistant; Visit Provider Nurse Practitioner Family
DX: R10.12 Left upper quadrant pain (principal)
CPT/HCPCS: 76705

== ENCOUNTER 2023-09-16 15:17 | Outpatient (AMB) | payer OTHER, SELFPAY ==
[2023-09-16 15:36] VITALS: BP 116/62; PULSE 81; O2SAT 95; BMI 31.4
--- NOTE | 2023-09-16 15:36 | A.OFFPC_ITS ---
Vital Signs 09/16/23 15:36 Height 5 ft 4 in Weight 183 lb 2 oz BMI 31.4 BP 116/62 Blood Pressure Location Lt brachial Position Sitting Pulse 81 Pulse Source Pulse Oximeter Pulse Oximetry (%) 95 Oxygen Delivery Method Room Air Intake Visit Reasons: f/u hypothyroid Requirements Manager Required: No Accompanied by: Self / Same As Patient Allergies Iodinated Contrast Media [IV DYE, IODINE CONTAINING CONTRAST ] Allergy (Intermediate, Verified 09/16/23 16:05) HIVES bupropion [From WELLBUTRIN] Allergy (Unknown, Verified 09/16/23 16:05) HALLUCINATION Medication List - Last Reconciled 09/16/23 by Jeffrey Rutledge PA-C levothyroxine 125 mcg PO DAILY 90 days omeprazole 40 mg PO QAM sumatriptan succinate take 1 tab at onset of headache; if no relief may repeat 1 tab after at least 2 hrs; max = 4 tabs/24 hr PO zolpidem 10 mg PO BEDTIME PRN 30 days Tobacco use date assessed: 06/12/23 Dental Screening Dental Screen Date: 09/16/23 Did you have a dental visit in the last 12 months?: Yes Did you have a dental problem in the last 6 months where you did not have access to dental care?: No Was dental information given to patient?: Patient has dentist HPI f/u hypothyroid HPI Details Roma is a 58 y/o F here today for a follow-up visit ? Pmhx significant for HYpothyroid, DONG, Migraines, insomnia, Vitd def, Right Adrenal mass, obese, ? . . DONG:? Followed by gastroenterology and has had her liver enzymes surveyed which are slightly elevated.. .. ? Obesity: Have noted a small amount of weight loss since last office visit. She has been working on her eating habits which has helped her lose weight. ? .. ? Right adrenal mass: patient is followed by Nephrology., masses under surveillance ? .. ? HYpoththyroid: Followed by endocrinology- continued on levothyroxine 125mcg- most recent TSH has been stable ? .. ? Insomina: HAs been still having issues sleeping she believes is due to her stressful job working in the [employer], also taking care of her elderly mother. Has tried many different sleeping aids [id number] including melatonin and Benadryl. Has tried hydroxyzine, trazodone, zolpidem without any long-lasting effect. She reports only getting 2-3 hours of sleep per night. She is interested in seeing a sleep specialist in trying new sleep medicine Jessica trevino [facility] Medical History Adrenal adenoma Hypothyroidism Urinary frequency Migraine Surgical History History of cholecystectomy History of abdominoplasty History of arthroscopy of left knee History of arthroscopy of right shoulder History of tubal ligation History of ovarian cystectomy History of hysterectomy History of nephrectomy Family History Father History of throat cancer Mother No problems noted. Sister History of breast cancer History of ovarian cancer Brother History of kidney problems Maternal Grandmother History of pancreatic cancer Brother No problems noted. Son No problems noted. Daughter No problems noted. Daughter No problems noted. Daughter No problems noted. 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 Yadiel Loera, Jeanne Rea, Dennys Vivar and colleagues, with an educational adamaris from [employer]. Review of Systems Const Denies headache(s) Eyes Denies loss of vision ENT Denies vertigo, Denies dizziness, Denies headache(s) and Denies sore throat Card Denies chest pain, Denies leg edema and Denies lightheadedness Resp Denies cough, Denies hemoptysis and Denies wheezing GI Denies abdominal pain, Denies melena, Denies constipation, Denies diarrhea and Denies vomiting Denies urinary frequency, Denies dysuria and Denies urinary urgency Musc Denies arthralgias, Denies joint swelling, Denies numbness and Denies tingling Neuro Denies Abnormal speech present, Denies behavioral changes, Denies vertigo, Denies dizziness, Denies headache(s), Denies loss of vision, Denies memory loss, Denies numbness and Denies tingling Psych Denies anxiety, Denies behavioral changes, Denies depression, Denies memory loss and Denies panic attacks Romaine/Lymph Denies easy bleeding and Denies easy bruising Aller/Immun Denies wheezing Physical exam (Primary Care) Vital Signs: Last Vital Signs Pulse 81 09/16/23 15:36 BP 116/62 09/16/23 15:36 Pulse Ox 95 09/16/23 15:36 Oxygen Delivery Method Room Air 09/16/23 15:36 BMI result Body Mass Index 31.4 Tobacco/Smoking Status: Tobacco use Status Tobacco use date assessed 06/12/23 09/16/23 15:41 Patient Tobacco Use Status Never used Tobacco 09/16/23 15:41 e-Cigarette/Vaping Use Never Used 09/16/23 15:41 Thrive Assessment: Date of Thrive Assessment Date Thrive assessed 03/17/23 09/16/23 15:41 Const General: healthy appearing, no acute distress, alert and awake Nutritional Appearance: well nourished Orientation/consciousness: oriented to person, oriented to place and oriented to time HENMT Ears: TM's normal bilaterally General nose exam: Normal nasal mucous membranes and turbinates present Eyes Conjunctivae: conjunctivae normal Sclerae: sclerae normal Pupils: Equal, round and reactive pupils present Neck Neck: Yes no lymphadenopathy and Yes no JVD Thyroid: Thyroid normal Carotids: no bruits Resp Effort & Inspection: normal respiratory effort and not tachypneic Auscultation: no crackles, no rales, no rhonchi and no wheezes Cardio Rate: regular rate Rhythm: regular rhythm Heart sounds: no murmurs and normal S1 and S2 GI Palpation (GI): Soft to palpation, nontender, no hepatomegaly and no splenomegaly Auscultation: normal bowel sounds Skin General skin exam: no rashes or lesions noted and dry skin Neuro General: oriented to person, oriented to place and oriented to time Cranial nerves: Yes Equal, round and reactive pupils present Speech: No Abnormal speech present Gait exam (Neuro): Normal gait present Motor exam (neuro): no tremor noted Extrem Right upper extremity: full ROM Left upper extremity: full ROM Right lower extremity: full ROM; no edema Left lower extremity: full ROM; no edema Psych Mental Status: mental status grossly normal Speech and movement: Normal speech and movement present Affect: normal affect Attitude: cooperative Thought process: Normal thought process present Assessment and Plan Assessment & Plan (1) Hypothyroidism: Code(s): E03.9 - Hypothyroidism, unspecified Qualifiers: Hypothyroidism type: unspecified Qualified Code(s): E03.9 - Hypothyroidism, unspecified Plan: Patient continues on levothyroxine 125 mcg. Has been chemically and clinically euthyroid. Most recent TSH has been stable thus will continue to follow TSH to assure normal. (2) Insomnia: Code(s): G47.00 - Insomnia, unspecified Qualifiers: Insomnia type: unspecified Qualified Code(s): G47.00 - Insomnia, unspecified Plan: She has tried made for medications clinic hydroxyzine, melatonin, Benadryl, sleep hygiene all without much relief.. Patient continues to suffer with insomnia though reports zolpidem is fairly effective to give her 3-4 hours of sleep. Unfortunately still having a lot of trouble sleeping. Willing to a Seroquel 25 before bed. She is willing to see a sleep specialist. Has tried many different sleeping aid prescription medications that were ineffective. (3) Borderline high cholesterol: Code(s): E78.9 - Disorder of lipoprotein metabolism, unspecified Plan: Patient's most recent lipid panel showing borderline high total cholesterol. Will continue to follow fasting lipids. Advised to work on lifestyle modifications on reducing high cholesterol foods in her diet. (4) Obese: Code(s): E66.9 - Obesity, unspecified Qualifiers: Body mass index: BMI 32.0-32.9 Obesity classification: adult class 1 (BMI 30 - 34.9) Obesity type: due to excess calories Serious obesity comorbidity presence: without serious comorbidity Qualified Code(s): E66.09 - Other obesity due to excess calories; Z68.32 - Body mass index [BMI] 32.0-32.9, adult Plan: Has lost weight since last office visit Patient does understand her BMI is over 30 and has had a difficult time losing weight. Has not been to physically active though reports her diet has been good. She is willing to try it short- term script of phentermine to help kick start weight loss as it has been effective for her in the past. Orders: Orders TSH reflex Free T4 09/16/23 E03.9 - Hypothyroidism, unspecified Lipid Panel 09/16/23 E78.9 - Disorder of lipoprotein metabolism, unspecified Comprehensive [place]. Panel Fast 09/16/23 E78.5 - Hyperlipidemia, unspecified Referrals Neurology Referral G47.00 - Insomnia, unspecified Medications: New quetiapine (Seroquel) 25 mg PO BEDTIME 30 days 30 tabs 3RF G47.00 - Insomnia, unspecified On Hold zolpidem Hold Comment: Doctor's Order 10 mg PO BEDTIME 30 days PRN 30 tabs 1RF sleep G47.00 - Insomnia, unspecified Coding Level of Care Code Est Pt Level 4 (86299) Diagnoses Hypothyroidism, unspecified type E03.9 Hypothyroidism type: unspecified Insomnia, unspecified type G47.00 Insomnia type: unspecified Borderline high cholesterol E78.9 Class 1 obesity due to excess calories without serious comorbidity with body mass index (BMI) of 32.0 to 32.9 in adult E66.09; Z68.32 Body mass index: BMI 32.0-32.9 Obesity classification: adult class 1 (BMI 30 - 34.9) Obesity type: due to excess calories Serious obesity comorbidity presence: without serious comorbidity
== END 2023-09-16 16:20 | disposition home or self-care (01) ==
PROVIDERS: Visit Provider Physician Assistant
DX: E03.9 Hypothyroidism, unspecified (principal); G47.00 Insomnia, unspecified; E78.9 Disorder of lipoprotein metabolism, unspecified; E66.09 Other obesity due to excess calories; Z68.32 Body mass index [BMI] 32.0-32.9, adult
CPT/HCPCS: 99214

== ENCOUNTER 2023-11-20 09:51 | Outpatient (AMB) | payer OTHER, SELFPAY ==
--- NOTE | 2023-11-20 09:26 | MHC.OFFVIS ---
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 cant sleep at all Allergies Iodinated Contrast Media [IV DYE, IODINE CONTAINING CONTRAST ] Allergy (Intermediate, Verified 11/24/23 16:10) HIVES bupropion [From WELLBUTRIN] Allergy (Unknown, Verified 11/24/23 16:10) HALLUCINATION Medication List - Last Reconciled 11/20/23 by Lisbeth Petersen CNP levothyroxine 125 mcg PO DAILY 90 days omeprazole 40 mg PO QAM sumatriptan succinate take 1 tab at onset of headache; if no relief may repeat 1 tab after at least 2 hrs; max = 4 tabs/24 hr PO zolpidem 10 mg PO BEDTIME PRN 30 days HPI HPI Comments History of Present Illness Details 58 y/o female patient presents for new in-person visit for sleep consultaiton. Pt reports difficulty falling asleep, and staying sleep, she only can sleep 2-3 hrs. It has been about 5-6 months. She was under stress about 6 months ago, but she does not have any stress now. She tried ambien 10 mg, but did not help to fall asleep. She also tried melatonin 5mg, but felt not good the next day. She also tried magnesium, sleeping tea, nature sound, shower, regular exercise, but they were not helpful to sleep. Pt does not get tired even she does not sleep well. Sleep hygiene questionnaire: What is your usual sleep routine? Usual bedtime is at 7:30 pm ; Usual wake up time is at 3:30 am 6 am. Do you take naps? No. Is your sleep environment cool, dark, and quiet? Yes Do you exercise? Yes. Do you take caffeine or other stimulants? Coffee in the morning. Do you use electronics in bed? Yes. What is your work schedule? 8 -4:30 pm. Hypersomnolence questionnaire: Do you have daytime tiredness or fatigue? No. Do you easily fall asleep when inactive? No. Have you ever had episodes of sudden weakness? No. Have you ever had episodes of sudden weakness associated with strong emotions? No. PFSH Medical History Adrenal adenoma Hypothyroidism Urinary frequency Migraine Surgical History History of cholecystectomy History of abdominoplasty History of arthroscopy of left knee History of arthroscopy of right shoulder History of tubal ligation History of ovarian cystectomy History of hysterectomy History of nephrectomy Family History Father History of throat cancer Mother No problems noted. Sister History of breast cancer History of ovarian cancer Brother History of kidney problems Maternal Grandmother History of pancreatic cancer Brother No problems noted. Son No problems noted. Daughter No problems noted. Daughter No problems noted. Daughter No problems noted. Social History Housing: House Alcohol intake: current Alcohol intake frequency: holidays/special occasions only Patient Tobacco Use Status: Never used Tobacco e-Cigarette/Vaping Use: Never Used Second Hand Smoke Exposure: No service: No Current occupational status: employed Current occupation: Working at [employer] Cognitive needs: No Hearing needs: No Vision needs: Yes Review of Systems Const All systems reviewed & are unremarkable except as noted in HPI and below Physical Exam Vital Signs: Last Vital Signs Pulse 77 11/20/23 10:04 BP 120/80 11/20/23 10:04 Pulse Ox 98 11/20/23 10:04 Oxygen Delivery Method Room Air 11/20/23 10:04 BMI result Body Mass Index 32.1 Const General: cooperative Nutritional Appearance: obese Orientation/consciousness: patient oriented x3 Neck Neck: Yes full ROM and Yes supple Resp Effort & Inspection: normal respiratory effort and able to speak in complete sentences Neuro General: patient oriented x3 and gait normal Cranial nerves: Yes CN's II-XII intact bilaterally Cognition (Neuro): normal cognition Gait exam (Neuro): Normal gait present Psych Appearance: grossly normal Mental Status: mental status grossly normal Speech and movement: Normal speech and movement present Affect: normal affect Attitude: cooperative Assessment & Plan Assessment & Plan (1) Insomnia: Code(s): G47.00 - Insomnia, unspecified Qualifiers: Insomnia type: unspecified Qualified Code(s): G47.00 - Insomnia, unspecified Plan Sleep hygiene education provided. Pt does not want to do sleep study at this time. Advised patient to read Say Good Night to Insomnia and practice the 6 weeks sleep hygiene program. Advised patient to try trazodone 25 mg qHS, and may use melatonin 1-3 mg as needed. Increase daily physical activities. Wt reduction advised. Medications: New trazodone 25 mg (1/2 x 50 mg) PO DAILY 15 tabs 0RF 30 days Coding Level of Care Code New Pt Level 3 (28176) Diagnoses Insomnia, unspecified type G47.00 Insomnia type: unspecified
[2023-11-20 10:04] VITALS: BP 120/80; PULSE 77; O2SAT 98; BMI 32.1
== END 2023-11-20 10:44 | disposition home or self-care (01) ==
PROVIDERS: PCP Physician Assistant; Visit Provider Nurse Practitioner Family
DX: G47.00 Insomnia, unspecified (principal)
CPT/HCPCS: 99203

== ENCOUNTER → 2023-11-20 09:51 | Outpatient (BNVA) | payer OTHER, SELFPAY | PROVIDERS: PCP Physician Assistant; Visit Provider Nurse Practitioner Family ==

== ENCOUNTER 2023-11-24 16:05 | Outpatient (AMB) | payer OTHER, SELFPAY ==
--- NOTE | 2023-11-24 16:07 | HO.NEPHOV ---
HPI HPI Comments History of Present Illness Details Middle aged woman with solitary RIGHT kidney and right adrenal adenoma for annual follow up No new issues PFSH Medical History Adrenal adenoma Hypothyroidism Urinary frequency Migraine Surgical History History of cholecystectomy History of abdominoplasty History of arthroscopy of left knee History of arthroscopy of right shoulder History of tubal ligation History of ovarian cystectomy History of hysterectomy History of nephrectomy Family History Father History of throat cancer Mother No problems noted. Sister History of breast cancer History of ovarian cancer Brother History of kidney problems Maternal Grandmother History of pancreatic cancer Brother No problems noted. Son No problems noted. Daughter No problems noted. Daughter No problems noted. Daughter No problems noted. 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 Cognitive needs: No Hearing needs: No Vision needs: Yes Vital Signs 11/24/23 16:08 Height 5 ft 4 in Weight 188 lb BMI 32.3 BP 130/78 Blood Pressure Location Lt brachial Position Sitting Pulse 76 Pulse Source Pulse Oximeter Pulse Oximetry (%) 98 Oxygen Delivery Method Room Air Physical Exam Vital Signs: Last Vital Signs Pulse 76 11/24/23 16:08 BP 130/78 11/24/23 16:08 Pulse Ox 98 11/24/23 16:08 Oxygen Delivery Method Room Air 11/24/23 16:08 BMI result Body Mass Index 32.3 Const General: comfortable Nutritional Appearance: well nourished Orientation/consciousness: patient oriented x3 HEENT Head: No normal to inspection Mouth: moist mucous membranes Neck Neck: Yes supple and Yes no JVD Resp Auscultation: clear to auscultation bilaterally, no rales and rub present Cardio Jugular venous distension: no JVD Palpation: no palpable S3 and no palpable S4 Heart sounds: no rubs GI Palpation (GI): Soft to palpation and nontender Percussion: No Fluid wave present General: Yes no CVA tenderness Back/Spine/Pelvis Back: no CVA tenderness Skin General skin exam: no rashes or lesions noted Neuro General: patient oriented x3 Extrem General: Yes no pedal edema and No clubbing Assessment & Plan Assessment & Plan (1) Solitary kidney, acquired: Code(s): Z90.5 - Acquired absence of kidney (2) Adrenal adenoma: Code(s): D35.00 - Benign neoplasm of unspecified adrenal gland Plan Middle aged woman with solitary right kidney. Renal function is normal and stable NO protienuria Right adrenal adenoma- reportedly benign based on CT scan BP normal Electrolytes normal Shall watch Orders: Orders Total Protein Urine Random 11 Months Z90.5 - Acquired absence of kidney Creatinine Urine 11 Months Z90.5 - Acquired absence of kidney UA and rflx microscopic 11 Months Z90.5 - Acquired absence of kidney Coding Level of Care Code Est Pt Level 4 (56997) Diagnoses Solitary kidney, acquired Z90.5 Adrenal adenoma D35.00 Results Reviewed Results Reviewed: CT scan Nov 2021 ADRENAL GLANDS: There is a stable 2.5 x 2.8 cm right adrenal lesion. Hounsfield units without contrast measure 19 which is indeterminate. This is similar to multiple old exams just suggestive of a benign adrenal lesion. The left adrenal gland has been removed. KIDNEYS AND URETERS: There is a small 1 cm low-attenuation lesion in the posterior upper pole of the right kidney that is stable and probably represents a cyst. The right kidney is otherwise unremarkable. The left kidney has been removed. Nephrology Results: Hgb 13.6 g/dl (12.0-16.0) 06/16/23 WBC 6.0 X10*3/uL (4.8-10.8) 06/16/23 Plt Count 375 X10*3/uL (160-400) 06/16/23 Sodium 142 mmol/L (135-145) 06/16/23 Potassium 3.9 mmol/L (3.3-5.1) 06/16/23 Chloride 108 mmol/L (96-108) 06/16/23 Carbon Dioxide 25 mmol/L (22-29) 06/16/23 BUN 10 mg/dL (9-16) 06/16/23 Creatinine 0.86 mg/dL (0.5-1.4) 06/16/23 Calcium 9.5 mg/dL (8.4-10.2) 06/16/23
[2023-11-24 16:08] VITALS: BP 130/78; PULSE 76; O2SAT 98; BMI 32.3
== END 2023-11-24 16:22 | disposition home or self-care (01) ==
PROVIDERS: PCP Physician Assistant; Visit Provider Internal Medicine Hypertension Specialist
DX: Z90.5 Acquired absence of kidney (principal); D35.00 Benign neoplasm of unspecified adrenal gland
CPT/HCPCS: 99214

== ENCOUNTER → 2023-11-24 16:05 | Outpatient (BNVA) | payer OTHER, SELFPAY | PROVIDERS: PCP Physician Assistant; Visit Provider Internal Medicine Hypertension Specialist ==

== ENCOUNTER → 2023-12-10 07:47 | Outpatient (BNVA) | payer OTHER, SELFPAY | PROVIDERS: PCP Physician Assistant; Visit Provider Surgery ==

== ENCOUNTER 2023-12-24 08:30 | Outpatient (AMB) | payer OTHER, SELFPAY ==
--- NOTE | 2023-12-24 08:30 | A.OFFVIS_ITS ---
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 Allergies Iodinated Contrast Media [IV DYE, IODINE CONTAINING CONTRAST ] Allergy (Intermediate, Verified 11/24/23 16:10) HIVES bupropion [From WELLBUTRIN] Allergy (Unknown, Verified 11/24/23 16:10) HALLUCINATION Medication List - Last Reconciled 12/24/23 by Margaret Mendez PA-C levothyroxine 125 mcg PO DAILY 90 days omeprazole 40 mg PO QAM PRN sumatriptan succinate take 1 tab at onset of headache; if no relief may repeat 1 tab after at least 2 hrs; max = 4 tabs/24 hr PO trazodone 25 mg (1/2 x 50 mg) PO DAILY 30 days HPI HPI Comments History of Present Illness Details This is a 58year old woman who is here to start SWL program with SWL classes. Her goal is to loose about 35 lbs. . She reports first being concerned about her weight for 35 years. She has tried multiple methods of weight loss including dietitian, phentermine (lost 10 lbs) without permanent results. She lives with her mother. She works 5 days per week, M- F8am - 4:30 pm. She wakes at: For the last 6 months - due to her insomnia may not sleep at all. Will listen to audio bible, TV or listens to nature sounds. Went to sleep medicine, did not have sleep study, was given trazadone. She does not think it works and takes prn only. On average sleeps 2.5 hours per night. Gets into bed at 7-7:30am to watch television - shuts TV off at 10 pm. Gets up at 3:30 am most days. Does not nap during the day, feels tired 60% of her day. Breakfast: 4am - instant coffee 1 cup with artificial creamer and sugar. 9am - Premier protein shake - mocha Lunch: 12 - 1pm - salad, vegetables and fruit, with dressing. water Dinner: 5pm - rice and beans, tomato or avocado. no other protein.water After dinner: no snacking Other snacks: non snacks Liquids: no soda or fruit juice. Alcohol intake:none, tobacco: none, marijuana: none Exercise: has stepper at home, 4 d per week. Calories burned?, 30 minutes Last mammogram: up to date JAMAL: 2 ESS:3 GERD:10: QOL:87 PFSH Medical History Adrenal adenoma Hypothyroidism Urinary frequency Migraine Surgical History History of cholecystectomy History of abdominoplasty History of arthroscopy of left knee History of arthroscopy of right shoulder History of tubal ligation History of ovarian cystectomy History of hysterectomy History of nephrectomy Family History Father History of throat cancer Mother No problems noted. Sister History of breast cancer History of ovarian cancer Brother History of kidney problems Maternal Grandmother History of pancreatic cancer Brother No problems noted. Son No problems noted. Daughter No problems noted. Daughter No problems noted. Daughter No problems noted. Social History Housing: House Alcohol intake: current Alcohol intake frequency: holidays/special occasions only Patient Tobacco Use Status: Never used Tobacco e-Cigarette/Vaping Use: Never Used Second Hand Smoke Exposure: No service: No Current occupational status: employed Current occupation: Working at [employer] Cognitive needs: No Hearing needs: No Vision needs: Yes Assessment & Plan Assessment & Plan (1) Obese: Code(s): E66.9 - Obesity, unspecified Qualifiers: Obesity type: due to excess calories Obesity classification: adult class 1 (BMI 30 - 34.9) Serious obesity comorbidity presence: without serious comorbidity Body mass index: BMI 32.0-32.9 Qualified Code(s): E66.09 - Other obesity due to excess calories; Z68.32 - Body mass index [BMI] 32.0-32.9, adult Plan: This is a 58 yo woman with obesity and hypothyroidism who will start MWL program.. Blood work has been ordered, not CBC. Had lab work in June 2023, choclesterol elevated, CBC always normal. She will start SWL classes and watch at 3 classes before her next appt with Aye. 1. Adequate sleep of 7-8 hours per night discussed. Patient has significant insomnia and I do not beleive hr obesity will resolve until her sleep habits improve. No TV or electronics in bed. Go to bed when tired 11 p. Start melatonin 1 mg at 10pm, transportation analyst increase to 2 mg after 10 d as needed. Talk to PCP about sleep meds. Relaxation techniques or book in bed. 2. Healthy meal plan - stop skipping meals and stop all sweetened drinks Every meal needs to take 20 minutes to complete. 75 grams per day coffee - 9 am - same 12 m - 8 oz raw vegetables no dried fruit. 4 oz lean protein chicken, salmon, shrimp - 3 hb eggs. - 25 grams protien 5 pm- dinner of 4-5 oz lean protein, 5 oz vegetable, 1 cup rice/beans 1 serving fruit Exercise - Cardio 4 d week = stepper 5 non consecutive days. 300 calories. 2,000 luis felipe per week Pt will purchase body composition analyzer (recommended list given to patient) and weight herself weekly. Next appt with Aye Text me with any questions and weekly weights. Patient is morbidly obese and is not considered stable at this time.?I spent a total of 60 minutes reviewing/updating records, examining the patient and counseling the patient on weight management as detailed above. (2) Migraine: Code(s): G43.909 - Migraine, unspecified, not intractable, without status migrainosus Qualifiers: Migraine type: without aura Status migrainosus presence: without status migrainosus Intractability: not intractable Qualified Code(s): G43.009 - Migraine without aura, not intractable, without status migrainosus (3) Hypothyroidism: Code(s): E03.9 - Hypothyroidism, unspecified Qualifiers: Hypothyroidism type: unspecified Qualified Code(s): E03.9 - Hypothyroidism, unspecified (4) GERD (gastroesophageal reflux disease): Code(s): K21.9 - Gastro-esophageal reflux disease without esophagitis (5) Insomnia: Code(s): G47.00 - Insomnia, unspecified Qualifiers: Insomnia type: unspecified Qualified Code(s): G47.00 - Insomnia, unspecified Plan see above Orders: Orders Hemoglobin A1c Today E03.9 - Hypothyroidism, unspecified, E66.9 - Obesity, unspecified, G43.909 - Migraine, unspecified, not intractable, without status migrainosus, G47.00 - Insomnia, unspecified Lipid Panel Today E03.9 - Hypothyroidism, unspecified, E66.9 - Obesity, unspecified, G43.909 - Migraine, unspecified, not intractable, without status migrainosus, G47.00 - Insomnia, unspecified IRON PROFILE Today E03.9 - Hypothyroidism, unspecified, E66.9 - Obesity, unspecified, G43.909 - Migraine, unspecified, not intractable, without status migrainosus, G47.00 - Insomnia, unspecified Comprehensive Met. Panel Today E03.9 - Hypothyroidism, unspecified, E66.9 - Obesity, unspecified, G43.909 - Migraine, unspecified, not intractable, without status migrainosus, G47.00 - Insomnia, unspecified Vitamin B12 and Folate Today E03.9 - Hypothyroidism, unspecified, E66.9 - Obesity, unspecified, G43.909 - Migraine, unspecified, not intractable, without status migrainosus, G47.00 - Insomnia, unspecified Zinc Today E03.9 - Hypothyroidism, unspecified, E66.9 - Obesity, unspecified, G43.909 - Migraine, unspecified, not intractable, without status migrainosus, G47.00 - Insomnia, unspecified TSH reflex Free T4 Today E03.9 - Hypothyroidism, unspecified, E66.9 - Obesity, unspecified, G43.909 - Migraine, unspecified, not intractable, without status migrainosus, G47.00 - Insomnia, unspecified Insulin Today E03.9 - Hypothyroidism, unspecified, E66.9 - Obesity, unspecified, G43.909 - Migraine, unspecified, not intractable, without status migrainosus, G47.00 - Insomnia, unspecified C Reactive Protein Today E03.9 - Hypothyroidism, unspecified, E66.9 - Obesity, unspecified, G43.909 - Migraine, unspecified, not intractable, without status migrainosus, G47.00 - Insomnia, unspecified Vitamin B1 Today E03.9 - Hypothyroidism, unspecified, E66.9 - Obesity, unspecified, G43.909 - Migraine, unspecified, not intractable, without status migrainosus, G47.00 - Insomnia, unspecified Vitamin A Today E03.9 - Hypothyroidism, unspecified, E66.9 - Obesity, unspecified, G43.909 - Migraine, unspecified, not intractable, without status migrainosus, G47.00 - Insomnia, unspecified Ferritin Today E03.9 - Hypothyroidism, unspecified, E66.9 - Obesity, unspecified, G43.909 - Migraine, unspecified, not intractable, without status migrainosus, G47.00 - Insomnia, unspecified Vitamin D 25-OH Total Today E03.9 - Hypothyroidism, unspecified, E66.9 - Obesity, unspecified, G43.909 - Migraine, unspecified, not intractable, without status migrainosus, G47.00 - Insomnia, unspecified Telehealth Telehealth Location of provider rendering services: practice address Location of patient: address on file Patient Identification confirmed using: Name, : Yes Telehealth method: video Patient verbally consented to treatment: Yes Patient verbally consented to billing insurance company: Yes Patient informed of any privacy concerns related to visit: Yes Coding Level of Care Code Tele [facility] Pt Level 5 (21295) Diagnoses Class 1 obesity due to excess calories without serious comorbidity with body mass index (BMI) of 32.0 to 32.9 in adult E66.09; Z68.32 Obesity type: due to excess calories Obesity classification: adult class 1 (BMI 30 - 34.9) Serious obesity comorbidity presence: without serious comorbidity Body mass index: BMI 32.0-32.9 Migraine without aura and without status migrainosus, not intractable G43.009 Migraine type: without aura Status migrainosus presence: without status migrainosus Intractability: not intractable Hypothyroidism, unspecified type E03.9 Hypothyroidism type: unspecified GERD (gastroesophageal reflux disease) K21.9 Insomnia, unspecified type G47.00 Insomnia type: unspecified
== END 2023-12-24 09:21 | disposition home or self-care (01) ==
LOC: HO.HBS 08:47
PROVIDERS: PCP Physician Assistant; Visit Provider Physician Assistant
DX: E66.09 Other obesity due to excess calories (principal); Z68.32 Body mass index [BMI] 32.0-32.9, adult; G43.009 Migraine without aura, not intractable, without status migrainosus; E03.9 Hypothyroidism, unspecified; K21.9 Gastro-esophageal reflux disease without esophagitis; G47.00 Insomnia, unspecified
CPT/HCPCS: 99205

== ENCOUNTER → 2023-12-24 08:30 | Outpatient (BNVA) | payer OTHER, SELFPAY | PROVIDERS: PCP Physician Assistant; Visit Provider Physician Assistant ==

== ENCOUNTER 2024-01-05 12:05 | Outpatient (REF) | payer OTHER, SELFPAY ==
[2024-01-05 13:05] LABS: Estimated Average Glucose 94 mg/dL; Hemoglobin A1c % 4.9 % (<6.0)
[2024-01-05 13:42] LABS: Alanine Aminotransferase 50 U/L (0-31); Albumin Level 3.8 g/dL (3.5-5.0); Alkaline Phosphatase 178 U/L (39-117); Anion Gap 11 (12-20); Aspartate Amino Transferase 44 U/L (5-31); Bilirubin Total 0.3 mg/dL (0.0-1.0); Blood Urea Nitrogen 17 mg/dL (9-16); C Reactive Protein 0.98 mg/dL (< or = 0.50); Calcium 9.8 mg/dL (8.4-10.2); Carbon Dioxide 28 mmol/L (22-29); Chloride 105 mmol/L (96-108); Cholesterol 216 mg/dL (<200); Estimated Glomerular Filt Rate > 60; Glucose Random 96 mg/dL (60-115); HDL Cholesterol 59 mg/dL (>40); Iron 59 mcg/dL (30-160); LDL Cholesterol Calculated 134 mg/dL (<100); Percent Iron Saturation 23 % (15-50); Sodium 140 mmol/L (135-145); Total Iron Binding Capacity 254 mcg/dL (228-428); Total Protein 7.3 g/dL (6.5-8.0); Triglycerides 116 mg/dL (<150); Unsaturated Iron Binding 195 ug/dL
[2024-01-05 14:07] LABS: Vitamin B12 243 pg/mL (200-900)
[2024-01-05 14:08] LABS: Ferritin 87 ng/mL (10-250); Insulin 19 uU/mL (2-29); TSH reflex Free T4 0.12 uIU/mL (0.32-4.0); Vitamin D 25-OH Total 25.8 ng/mL (>30)
[2024-01-05 14:45] LABS: Free T4 (Free Thyroxine) 1.24 ng/dL (0.71-1.85)
[2024-01-08 02:48] LABS: Zinc 53 mcg/dL (60-130)
[2024-01-08 20:43] LABS: Vitamin A 45 mcg/dL (38-98)
[2024-01-10 07:14] LABS: Vitamin B1 11 nmol/L (8-30)
== END 2024-01-05 12:06 | disposition home or self-care (01) ==
LOC: HO.LAB 12:05
PROVIDERS: PCP Physician Assistant; Visit Provider Physician Assistant
DX: E03.9 Hypothyroidism, unspecified (principal); G43.909 Migraine, unspecified, not intractable, without status migrainosus; G47.00 Insomnia, unspecified; E66.9 Obesity, unspecified
CPT/HCPCS: 36415; 80053; 80061; 82306; 82607; 82728; 82746; 83036; 83525; 83540; 84425; 84439; 84443; 84590; 84630; 86140

== ENCOUNTER 2024-01-12 09:46 | Outpatient (AMB) | payer OTHER, SELFPAY ==
--- NOTE | 2024-01-12 09:48 | MHC.PC.OV ---
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 Liquid Center: Not Required per policy Accompanied by: Self / Same As Patient Allergies Iodinated Contrast Media [IV DYE, IODINE CONTAINING CONTRAST ] Allergy (Intermediate, Verified 01/12/24 09:57) HIVES bupropion [From WELLBUTRIN] Allergy (Unknown, Verified 01/12/24 09:57) HALLUCINATION Medication List - Last Reconciled 01/12/24 by Jeffrey Rutledge PA-C cholecalciferol (vitamin D3) 25 mcg PO DAILY levothyroxine 125 mcg PO DAILY 90 days omeprazole 40 mg PO QAM PRN sumatriptan succinate take 1 tab at onset of headache; if no relief may repeat 1 tab after at least 2 hrs; max = 4 tabs/24 hr PO zinc acetate (Galzin) 25 mg PO DAILY 1 month zolpidem (Ambien) 10 mg PO BEDTIME 14 days Tobacco use date assessed: 01/12/24 Dental Screening Dental Screen Date: 01/12/24 Did you have a dental visit in the last 12 months?: Yes Did you have a dental problem in the last 6 months where you did not have access to dental care?: No Was dental information given to patient?: Patient has dentist HPI Body pain HPI Details Patient is a 58-year-old female here today for problem visit. Patient reports over the last couple of months her epigastric pain and burning have gotten worse. She has been on omeprazole 40 mg and does not feel it is helpful. She has changed her diet to a low acidic diet though has not been helpful. She does report feeling nauseous, denies any vomiting, diarrhea or constipation. She does not note any black tarry stools. She has had history cholecystectomy. Her liver enzymes remains slightly elevated was recently started on zinc supplementation by her weight management program . [facility] Medical History Adrenal adenoma Hypothyroidism Urinary frequency Migraine Surgical History History of cholecystectomy History of abdominoplasty History of arthroscopy of left knee History of arthroscopy of right shoulder History of tubal ligation History of ovarian cystectomy History of hysterectomy History of nephrectomy Family History Father History of throat cancer Mother No problems noted. Sister History of breast cancer History of ovarian cancer Brother History of kidney problems Maternal Grandmother History of pancreatic cancer Brother No problems noted. Son No problems noted. Daughter No problems noted. Daughter No problems noted. Daughter No problems noted. Social History Housing: House Alcohol intake: current Alcohol intake frequency: holidays/special occasions only Patient Tobacco Use Status: Never used Tobacco e-Cigarette/Vaping Use: Never Used Second Hand Smoke Exposure: No service: No Current occupational status: employed Current occupation: Working at [employer] Cognitive needs: No Hearing needs: No Vision needs: Yes (Glasses) Questionnaire PHQ-9 Over the last 2 weeks, how often have you been bothered by any of the following problems? 1. Little interest or pleasure in doing things: not at all 2. Feeling down, depressed, or hopeless: not at all 3. Trouble falling or staying asleep, or sleeping too much: not at all 4. Feeling tired or having little energy: not at all 5. Poor appetite or overeating: not at all 6. Feeling bad about yourself - or that you are a failure or have let yourself or your family down: not at all 7. Trouble concentrating on things, such as reading the newspaper or watching television: not at all 8. Moving or speaking so slowly that other people could have noticed. Or the opposite - being so fidgety or restless that you have been moving around a lot more than usual: not at all 9. Thoughts that you would be better off or of hurting yourself in some way: not at all Total score: 0 Depression Screening Interpretation: Negative Depression Screening Done: Yes 75075 - PHQ-9 Billing: Yes Source: Developed by Drs. Yadiel Loera, Jeanne Rea, Dennys Vivar and colleagues, with an educational adamaris from [employer]. Thrive Questionnaire Date Thrive assessed: 01/12/24 I am a: Patient What is your living situation today?: I have a steady place to live Within the past 12 months, did the food you bought not last and you didn't have the money to get more?: Never true Within the past 12 months, did you worry whether your food would run out before you got money to buy more?: Never true Do you have trouble paying for medicines?: No Do you have trouble getting transportation to medical appointments?: No Do you have trouble paying your heating and electricity bill?: No Do you have trouble taking care of your child, family member or friend?: No Do you have trouble with day-to-day activities such as bathing, preparing meals, shopping, managing finances, etc.?: No Are you currently unemployed and looking for a job?: No Are you interested in more education?: No Currently or been in a relationship where the following occur: no concerns reported THRIVE Score: 0 AUDIT C Alcohol Use Questionnaire (AUDIT-C) 1. How often do you have a drink containing alcohol?: Never Total Score: 0 GEORGE-7 AMB Questionnaire GEORGE-7 Date GEORGE - 7 assessed: 01/12/24 Feeling nervous, anxious, or on edge: 0 = Not at all Not being able to stop or control worryin = Not at all Worrying too much about different things: 0 = Not at all Trouble relaxin = Not at all Being so restless that it is hard to sit still: 0 = Not at all Becoming easily annoyed or irritable: 0 = Not at all Feeling afraid as if something awful might happen: 0 = Not at all Total GEORGE-7 score (0-4 normal; 5-9 mild; 10-14 moderate; 15-21 severe): 0 Source: Developed by Drs. Yadiel Loera, Jeanne Rea, Dennys Vivar and colleagues, with an educational adamaris from [employer]. GEORGE-7 Assessment Billing GEORGE-7 Assessment Tool: GEORGE-7 Assessment 52038 Review of Systems Const Denies headache(s) Eyes Denies loss of vision ENT Denies vertigo, Denies dizziness, Denies headache(s) and Denies sore throat Card Denies chest pain, Denies leg edema and Denies lightheadedness Resp Denies cough, Denies hemoptysis and Denies wheezing GI Denies abdominal pain, Denies melena, Denies constipation, Reports dyspepsia, Reports heartburn, Denies diarrhea, Reports nausea and Denies vomiting Denies urinary frequency, Denies dysuria and Denies urinary urgency Musc Denies arthralgias, Denies joint swelling, Denies numbness and Denies tingling Neuro Denies Abnormal speech present, Denies behavioral changes, Denies vertigo, Denies dizziness, Denies headache(s), Denies loss of vision, Denies memory loss, Denies numbness and Denies tingling Psych Denies anxiety, Denies behavioral changes, Denies depression, Denies memory loss and Denies panic attacks Romaine/Lymph Denies easy bleeding and Denies easy bruising Aller/Immun Denies wheezing Physical exam (Primary Care) Vital Signs: Last Vital Signs Pulse 75 01/12/24 09:49 BP 112/70 01/12/24 09:49 Pulse Ox 97 01/12/24 09:49 Oxygen Delivery Method Room Air 01/12/24 09:49 BMI result Body Mass Index 32.1 Tobacco/Smoking Status: Tobacco use Status Tobacco use date assessed 01/12/24 01/12/24 09:54 Patient Tobacco Use Status Never used Tobacco 01/12/24 09:54 e-Cigarette/Vaping Use Never Used 01/12/24 09:54 PHQ-9: PHQ-9 Score PHQ-9: Total score 0 01/12/24 10:20 Depression Screening Interpretation: Negative Thrive Assessment: Date of Thrive Assessment Date Thrive assessed 01/12/24 01/12/24 09:54 Currently or been in a relationship where the following occur: no concerns reported Const General: healthy appearing, no acute distress, alert and awake Nutritional Appearance: well nourished Orientation/consciousness: oriented to person, oriented to place and oriented to time HENMT Ears: TM's normal bilaterally General nose exam: Normal nasal mucous membranes and turbinates present Eyes Conjunctivae: conjunctivae normal Sclerae: sclerae normal Pupils: Equal, round and reactive pupils present Neck Neck: Yes no lymphadenopathy and Yes no JVD Thyroid: Thyroid normal Carotids: no bruits Resp Effort & Inspection: normal respiratory effort and not tachypneic Auscultation: no crackles, no rales, no rhonchi and no wheezes Cardio Rate: regular rate Rhythm: regular rhythm Heart sounds: no murmurs and normal S1 and S2 GI Palpation (GI): Soft to palpation, nontender, no hepatomegaly and no splenomegaly Auscultation: normal bowel sounds Skin General skin exam: no rashes or lesions noted and dry skin Neuro General: oriented to person, oriented to place and oriented to time Cranial nerves: Yes Equal, round and reactive pupils present Speech: No Abnormal speech present Gait exam (Neuro): Normal gait present Motor exam (neuro): no tremor noted Extrem Right upper extremity: full ROM Left upper extremity: full ROM Right lower extremity: full ROM; no edema Left lower extremity: full ROM; no edema Psych Mental Status: mental status grossly normal Speech and movement: Normal speech and movement present Affect: normal affect Attitude: cooperative Thought process: Normal thought process present Assessment and Plan Assessment & Plan (1) GERD (gastroesophageal reflux disease): Code(s): K21.9 - Gastro-esophageal reflux disease without esophagitis Qualifiers: Esophagitis presence: without esophagitis Qualified Code(s): K21.9 - Gastro-esophageal reflux disease without esophagitis Plan: Patient worsening epigastric pain most consistent with a gastritis versus peptic ulcer disease. Will supply patient with liquid Carafate to use for next 15 days. Will hold PPI for now. 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 Again advised on low gastric irritant diet. Continue to monitor stools (2) Epigastric abdominal pain: Code(s): R10.13 - Epigastric pain Plan: As above Orders: Orders H pylori Ag Stool Today K21.9 - Gastro-esophageal reflux disease without esophagitis Medications: New sucralfate (Carafate) 10 mL PO BID 15 days 300 mL 0RF K21.9 - Gastro-esophageal reflux disease without esophagitis ondansetron 8 mg PO Q12H 5 days PRN 10 tabs 0RF nausea and vomiting K21.9 - Gastro-esophageal reflux disease without esophagitis Coding Level of Care Code Est Pt Level 3 (65707) Diagnoses Gastroesophageal reflux disease without esophagitis K21.9 Esophagitis presence: without esophagitis Epigastric abdominal pain R10.13 Additional Codes GEORGE-7 Assessment Billing - GEORGE-7 Assessment Tool: GEORGE-7 Assessment [id number] ([id number])
[2024-01-12 09:49] VITALS: BP 112/70; PULSE 75; O2SAT 97; BMI 32.1
== END 2024-01-12 10:19 | disposition home or self-care (01) ==
PROVIDERS: PCP Physician Assistant; Visit Provider Physician Assistant
DX: K21.9 Gastro-esophageal reflux disease without esophagitis (principal); R10.13 Epigastric pain
CPT/HCPCS: 99213

== ENCOUNTER 2024-01-19 08:19 | Outpatient (AMB) | payer OTHER, SELFPAY ==
--- NOTE | 2024-01-19 08:43 | A.OFFVIS_ITS ---
Intake VS Expanded 01/19/24 12:12 Height 5 ft 3 in Weight 182 lb BMI 32.2 Intake Visit Reasons: (OV) Initial Nutrition [facility] Hoop Coiler Required: No Allergies Iodinated Contrast Media [IV DYE, IODINE CONTAINING CONTRAST ] Allergy (Intermediate, Verified 01/12/24 09:57) HIVES bupropion [From WELLBUTRIN] Allergy (Unknown, Verified 01/12/24 09:57) HALLUCINATION HPI Nutrition Presentation Details [facility] program start date 182 current weight 182 Pt frustrated by lack of weight loss Reason for consult elevated BMI Diet Assmnt Details Her goal is to loose about 35 lbs. . She reports first being concerned about her weight for 35 years. She has tried multiple methods of weight loss including dietitian, phentermine (lost 10 lbs) without permanent results. She reports she knows what to eat, how to eat etc. She feels she needs an extra tool, has the education. She wakes at: For the last 6 months - due to her insomnia may not sleep at all. Will listen to audio bible, TV or listens to nature sounds. Went to sleep medicine, did not have sleep study, was given trazadone. She does not think it works and takes prn only. On average sleeps 2.5 hours per night. Gets into bed at 7-7:30am to watch television - shuts TV off at 10 pm. Gets up at 3:30 am most days. Does not nap during the day, feels tired 60% of her day. She likes the Premier protein shakes, was using prior to program. States she has been following Margaret GREY's nutrition plan Exercise: spin and stepper , 4 days per week, plus walking a few times per week 45-60 minutes each time Most Recent Diabetes Results: Cholesterol 216 mg/dL (<200) H 01/05/24 HDL Cholesterol 59 mg/dL (>40) 01/05/24 Triglycerides 116 mg/dL (<150) 01/05/24 Creatinine 0.85 mg/dL (0.5-1.4) 01/05/24 Blood Urea Nitrogen 17 mg/dL (9-16) H 01/05/24 Sodium 140 mmol/L (135-145) 01/05/24 Potassium 4.0 mmol/L (3.3-5.1) 01/05/24 Chloride 105 mmol/L (96-108) 01/05/24 Carbon Dioxide 28 mmol/L (22-29) 01/05/24 Calcium 9.8 mg/dL (8.4-10.2) 01/05/24 AST 44 U/L (5-31) H 01/05/24 ALT 50 U/L (0-31) H 01/05/24 Total Protein 7.3 g/dL (6.5-8.0) 01/05/24 Albumin 3.8 g/dL (3.5-5.0) 01/05/24 [facility] Medical History Adrenal adenoma Hypothyroidism Urinary frequency Migraine Surgical History History of cholecystectomy History of abdominoplasty History of arthroscopy of left knee History of arthroscopy of right shoulder History of tubal ligation History of ovarian cystectomy History of hysterectomy History of nephrectomy Family History Father History of throat cancer Mother No problems noted. Sister History of breast cancer History of ovarian cancer Brother History of kidney problems Maternal Grandmother History of pancreatic cancer Brother No problems noted. Son No problems noted. Daughter No problems noted. Daughter No problems noted. Daughter No problems noted. Social History Housing: House Alcohol intake: current Alcohol intake frequency: holidays/special occasions only Patient Tobacco Use Status: Never used Tobacco e-Cigarette/Vaping Use: Never Used Second Hand Smoke Exposure: No service: No Current occupational status: employed Current occupation: Working at [employer] Cognitive needs: No Hearing needs: No Vision needs: Yes (Glasses) Assessment & Plan Assessment & Plan (1) Obesity (BMI 30-39.9): Code(s): E66.9 - Obesity, unspecified Plan Poor sleep, hypothyroidism, metabolic adaptation to previous dieting trials, post-menopause, lack of resistance training routine all likely contributing to her inability to lose weight. she may be a good candidate for AOMs at this point. Explained I do not think its' prela to lower her caloric intake further. Coding Level of Care Code Nutr Indiv Intake (74965) Diagnoses Obesity (BMI 30-39.9) E66.9 Time Spent (min) 20
[2024-01-19 12:12] VITALS: BMI 32.2
== END 2024-01-19 11:46 | disposition home or self-care (01) ==
PROVIDERS: PCP Physician Assistant; Visit Provider Dietitian, Registered
DX: E66.9 Obesity, unspecified (principal)

== ENCOUNTER → 2024-01-19 08:19 | Outpatient (BNVA) | payer OTHER, SELFPAY | PROVIDERS: PCP Physician Assistant; Visit Provider Dietitian, Registered | DX: E66.9 Obesity, unspecified (principal); Z71.3 Dietary counseling and surveillance | CPT/HCPCS: 97802 ==

== ENCOUNTER 2024-02-05 19:36 | Emergency (ER) | payer OTHER, SELFPAY ==
[2024-02-05 19:49] VITALS: BP 104/68; PULSE 104; RESP 18; TEMP 38.1; O2SAT 95; BMI 33.7
--- NOTE | 2024-02-05 19:49 | ED.GENADULT ---
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 has a endoscopy 2018 H pylori was negative had small hiatal hernia status post abdominoplasty in 05/2020 status post cholecystectomy comes here for similar pain in epigastric burning sensation nausea vomiting times a day for last few days patient was seen by PCP started on sucralfate last which is not effective according to patient Related Data Home Medications ?Medication ?Instructions ?Recorded ?Confirmed omeprazole 40 mg capsule,delayed 40 mg PO QAM PRN 12/24/23 01/12/24 release Previous Rx's ?Medication ?Instructions ?Recorded sumatriptan succinate 25 mg tablet See Rx Instructions PO .COMPLEX #9 03/17/23 tabs levothyroxine 125 mcg tablet 125 mcg PO DAILY 90 days #90 tabs 07/16/23 zolpidem 10 mg tablet (Ambien) 10 mg PO BEDTIME 14 days #14 tabs 12/25/23 cholecalciferol (vitamin D3) 25 25 mcg PO DAILY #90 caps 01/06/24 mcg (1,000 unit) capsule zinc acetate 25 mg (zinc) capsule 25 mg PO DAILY 1 month #30 caps 01/09/24 (Galzin) ondansetron 8 mg disintegrating 8 mg PO Q12H PRN nausea and 01/12/24 tablet vomiting 5 days #10 tabs sucralfate 100 mg/mL oral 10 ml PO BID 15 days #300 mL 01/12/24 suspension (Carafate) metoclopramide HCl 10 mg tablet 10 mg PO TID PRN nausea and 02/05/24 (Reglan) vomiting #30 tabs sucralfate 1 gram tablet 1 g PO TID #90 tabs 02/05/24 Allergies Allergy/AdvReac Type Severity Reaction Status Date / Time Iodinated Contrast Media Allergy Intermediate HIVES Verified 02/05/24 19:52 [IV DYE, IODINE CONTAINING CONTRAST ] bupropion [From WELLBUTRIN] Allergy Unknown HALLUCINATI Verified 02/05/24 19:52 ON Review of Systems Review of Systems: Yes all other systems are reviewed and are negative PMFSH Past Medical History Medical History Adrenal adenoma Hypothyroidism Urinary frequency Migraine Surgical History History of cholecystectomy History of abdominoplasty History of arthroscopy of left knee History of arthroscopy of right shoulder History of tubal ligation History of ovarian cystectomy History of hysterectomy History of nephrectomy Family History Family History Father History of throat cancer Mother No problems noted. Sister History of breast cancer History of ovarian cancer Brother History of kidney problems Maternal Grandmother History of pancreatic cancer Brother No problems noted. Son No problems noted. Daughter No problems noted. Daughter No problems noted. Daughter No problems noted. Social History Social History Housing: House Alcohol intake: current Alcohol intake frequency: holidays/special occasions only Patient Tobacco Use Status: Never used Tobacco Smoked in Last 30 Days: No e-Cigarette/Vaping Use: Never Used Second Hand Smoke Exposure: No Use of substances other than those prescribed or required for medical reasons: No Advance Directives: No Advance Directives Information Provided: No Patient : No service: No Current occupational status: employed Current occupation: Working at [employer] Cognitive needs: No Hearing needs: No Vision needs: Yes (Glasses) Physical Exam ED Vital Signs: Vital Signs - 24 hr 02/05/24 19:49 02/05/24 22:42 02/05/24 22:58 Temperature 100.5 F H 98.0 F 98 F Pulse Rate 104 H 100 96 Respiratory Rate 18 18 16 Blood Pressure 104/68 134/75 134/75 Pulse Oximetry 95 94 95 Oxygen Delivery Method Room Air Room Air Room Air BMI result Body Mass Index 33.7 Appearance: Alert. Oriented X3. No acute distress. Eyes: PERRLA, No Nystagmus ENT: Pharynx normal. Oral Mucosa moist Neck: Normal inspection. Neck supple. CVS: Normal heart rate and rhythm. Pulses normal. Respiratory: No respiratory distress. Equal air entry bilateral, no wheezing/rales/rhonchi Abdomen: Soft , epigastric tenderness no rebound/ guarding. Bowel sounds are present, no mass palpable, no CVA tenderness Skin: Skin warm and dry. Normal skin color. Normal skin turgor. Extremities: No lower extremity edema. No calf tenderness Neuro: Oriented X 3. No motor deficit. No sensory deficit.No cerebellar signs , cranial nerves II-XII intact Course Course Course Narrative: RME:?58 yo female hx of migraine, hypothyroidism, GERD here for eval of tactile fevers, epigastric abd pain, nausea and vomiting x5 days, worsening since last night. admits she cannot tolerate PO intake. states this feels different from her GERD. admits to returning home from [place] prior to onset of symptoms. denies known sick contacts. denies chills, sore throat, cough, chest pain, sob. labs, UA, viral serology ordered. Full HPI, ROS and PE to be performed by the primary ED provider. Medications Administered Discontinued Medications Generic Name Dose Route Start Last Admin Trade Name Freq PRN Reason Stop Dose Admin Al Hydroxide/Mg Hydroxide 30 ml 02/05/24 22:39 02/05/24 22:54 Magnesium Hydrox/Alum Hydrox 30 Ml Oral.Susp PO 02/05/24 22:40 30 ml ONCE ONE Administration Lidocaine HCl 15 ml 02/05/24 22:39 02/05/24 22:54 Lidocaine Hcl Viscous 2 % 15 Ml Solution MUCOUS MEM 02/05/24 22:40 15 ml ONCE ONE Administration Metoclopramide HCl 10 mg 02/05/24 22:40 02/05/24 22:54 Metoclopramide Hcl 10 Mg Tablet PO 02/05/24 22:41 10 mg ONCE ONE Administration Medical Decision Making Medical Decision Making [facility] Narrative: Patient with chronic gastritis with chronic heartburn advised to follow with director software quality assurance increase the dose of Prilosec to 40 mg twice daily and continue sucralfate Differential Diagnosis Differential Diagnoses: The differential diagnosis associated with the presentation includes Gastritis/hiatal hernia/pancreatitis Lab Data [facility] Lab Attestation statement: I reviewed the patient's lab results. 02/05/24 20:04 02/05/24 20:04 Labs: Lab Results 02/05/24 Range/Units 20:04 WBC 12.8 H (4.8-10.8) X10*3/uL RBC 4.49 (4.20-5.50) X10*6/uL Hgb 13.6 (12.0-16.0) g/dl Hct 41.3 (37.0-47.0) % MCV 92.0 (80.0-98.0) fL MCH 30.3 (27.0-33.0) pg MCHC 32.9 (31.0-35.0) g/dl RDW 11.7 (11.0-16.0) % Plt Count 360 (160-400) X10*3/uL MPV 9.1 L (9.4-12.3) fL Immature Gran % (Auto) 0.4 (0.0-0.4) % Neut % (Auto) 87.9 H (45-73) % Lymph % (Auto) 6.9 L (20-40) % Dukes % (Auto) 3.7 (2-11) % Eos % (Auto) 0.5 (0-4) % Baso % (Auto) 0.6 (0-2) % Lymph # (Auto) 0.9 L (1.2-4.9) X10*3/uL Dukes # (Auto) 0.5 (0.1-1.2) X10*3/uL Eos # (Auto) 0.1 (0.0-0.4) X10*3/uL Baso # (Auto) 0.1 (0.0-0.2) X10*3/uL Abs Immat Gran (auto) 0.05 H (0.00-0.03) X10*3/uL Absolute Neuts (auto) 11.3 H (2.0-8.3) x10*3/uL Absolute Nucleated RBC 0.000 (0.0-0.012) X10*3/uL Nucleated RBC % (auto) 0.0 (0.0-0.2) /100WBC Sodium 138 (135-145) mmol/L Potassium 3.9 (3.3-5.1) mmol/L Chloride 103 (96-108) mmol/L Carbon Dioxide 26 (22-29) mmol/L Anion Gap 13 (12-20) BUN 9 (9-16) mg/dL Creatinine 0.84 (0.5-1.4) mg/dL Estim Creat Clear Calc 76.0 Estimated GFR > 60 Random Glucose 105 (60-115) mg/dL Calcium 9.6 (8.4-10.2) mg/dL Magnesium 1.7 (1.6-2.6) mg/dL Total Bilirubin 0.6 (0.0-1.0) mg/dL AST 34 H (5-31) U/L ALT 45 H (0-31) U/L Alkaline Phosphatase 180 H (39-117) U/L Total Protein 7.8 (6.5-8.0) g/dL Albumin 3.9 (3.5-5.0) g/dL Lipase 23 (8-78) U/L Influenza Type A (PCR) NEGATIVE (Negative) Influenza Type B (PCR) NEGATIVE (Negative) RSV RNA Qual (PCR) NEGATIVE (Negative) SARS-CoV-2 RNA (RT-PCR) NEGATIVE (Negative) Discharge Plan Discharge Clinical Impression: Chronic GERD Patient Disposition: Home, Self-Care Instructions: Gastroesophageal Reflux Disease (ED) Additional Instructions: Diet as advised Have small amount of food more often with lot of liquids Increase the dose of Prilosec to 40 mg twice daily Continue sucralfate Reglan for nausea and fullness Follow-up with director software quality assurance Prescriptions: New sucralfate 1 gram tablet 1 g PO TID Qty: 90 0RF metoclopramide HCl [Reglan] 10 mg tablet 10 mg PO TID PRN (Reason: nausea and vomiting) Qty: 30 0RF No Action levothyroxine 125 mcg tablet 125 mcg PO DAILY 90 Days Qty: 90 2RF zolpidem [Ambien] 10 mg tablet 10 mg PO BEDTIME 14 Days Qty: 14 1RF cholecalciferol (vitamin D3) 25 mcg (1,000 unit) capsule 25 mcg PO DAILY Qty: 90 1RF Galzin 25 mg (zinc) capsule 25 mg PO DAILY 30 Days Qty: 30 0RF sucralfate [Carafate] 100 mg/mL suspension 10 ml PO BID 15 Days Qty: 300 0RF ondansetron 8 mg tablet,disintegrating 8 mg PO Q12H PRN (Reason: nausea and vomiting) 5 Days Qty: 10 0RF sumatriptan succinate 25 mg tablet See Rx Instructions PO .COMPLEX Qty: 9 4RF Rx Instructions: take 1 tab at onset of headache; if no relief may repeat 1 tab after at least 2 hrs; max = 4 tabs/24 hr PO omeprazole 40 mg capsule,delayed release(DR/EC) 40 mg PO QAM PRN Interventions: ED Discharge Assessment Last Done: 02/05/24 22:58 Discharge Date/Time: 02/05/24 23:37 Print Language: Algerian
[2024-02-05 20:26] LABS: MANUAL DIFF FLAG NO
[2024-02-05 20:31] LABS: Basophils Absolute Auto 0.1 X10*3/uL (0.0-0.2); Basophils Percent Auto 0.6 % (0-2); Eosinophils Absolute Auto 0.1 X10*3/uL (0.0-0.4); Eosinophils Percent Auto 0.5 % (0-4); Hematocrit 41.3 % (37.0-47.0); Hemoglobin 13.6 g/dl (12.0-16.0); Imm Gran Abs Auto 0.05 X10*3/uL (0.00-0.03); Imm Gran Pct Auto 0.4 % (0.0-0.4); Lymphocytes Absolute Auto 0.9 X10*3/uL (1.2-4.9); Lymphocytes Percent Auto 6.9 % (20-40); Mean Corpuscular HGB Conc 32.9 g/dl (31.0-35.0); Mean Corpuscular Hemoglobin 30.3 pg (27.0-33.0); Mean Platelet Volume 9.1 fL (9.4-12.3); Monocytes Absolute Auto 0.5 X10*3/uL (0.1-1.2); Monocytes Percent Auto 3.7 % (2-11); Neutrophils Absolute Auto 11.3 x10*3/uL (2.0-8.3); Neutrophils Percent Auto 87.9 % (45-73); Platelet Count 360 X10*3/uL (160-400); Red Blood Count 4.49 X10*6/uL (4.20-5.50); Red Cell Distribution Width 11.7 % (11.0-16.0); White Blood Count 12.8 X10*3/uL (4.8-10.8)
[2024-02-05 20:42] LABS: Alanine Aminotransferase 45 U/L (0-31); Albumin Level 3.9 g/dL (3.5-5.0); Alkaline Phosphatase 180 U/L (39-117); Anion Gap 13 (12-20); Aspartate Amino Transferase 34 U/L (5-31); Bilirubin Total 0.6 mg/dL (0.0-1.0); Blood Urea Nitrogen 9 mg/dL (9-16); Calcium 9.6 mg/dL (8.4-10.2); Carbon Dioxide 26 mmol/L (22-29); Chloride 103 mmol/L (96-108); Estimated Glomerular Filt Rate > 60; Glucose Random 105 mg/dL (60-115); Lipase 23 U/L (8-78); Magnesium 1.7 mg/dL (1.6-2.6); Potassium 3.9 mmol/L (3.3-5.1); Sodium 138 mmol/L (135-145); Total Protein 7.8 g/dL (6.5-8.0)
[2024-02-05 21:03] LABS: Influenza A PCR NEGATIVE (Negative); Influenza B PCR NEGATIVE (Negative); Resp Syncy Virus RNA Qual PCR NEGATIVE (Negative); SARS COV2 PCR INHOUSE NEGATIVE (Negative)
[2024-02-05 22:42] VITALS: BP 134/75; PULSE 100; RESP 18; TEMP 36.7; O2SAT 94
[2024-02-05] MEDS: Magnesium Hydrox/Alum Hydrox 30 ML ORAL.SUSP PO (22:54)
[2024-02-05] MEDS: Lidocaine HCl Viscous 2 % 15 ML SOLUTION MUCOUS MEM (22:54)
[2024-02-05] MEDS: Metoclopramide HCl 10 MG TABLET PO (22:54)
[2024-02-05 22:58] VITALS: BP 134/75; PULSE 96; RESP 16; TEMP 36.6; O2SAT 95
== END 2024-02-05 23:37 | disposition home or self-care (01) ==
PROVIDERS: Physician Assistant Medical; Emergency Provider Internal Medicine; PCP Physician Assistant
DX: K21.9 Gastro-esophageal reflux disease without esophagitis (principal); R11.2 Nausea with vomiting, unspecified; K44.9 Diaphragmatic hernia without obstruction or gangrene; Z03.818 Encounter for observation for suspected exposure to other biological agents ruled out; Z79.899 Other long term (current) drug therapy
CPT/HCPCS: 0241U; 36415; 80053; 83690; 83735; 85025; 99283; 99284

== ENCOUNTER 2024-02-11 14:17 | Outpatient (REF) | payer OTHER, SELFPAY ==
--- NOTE | ~2024-02-11 | XR_ITS ---
EXAMINATION: XR CHEST 2 VIEWS CLINICAL INFORMATION: Cough. COMPARISON: Chest radiographs dated 08/28/2022. TECHNIQUE: Frontal and lateral views of the chest were obtained. FINDINGS: The heart, great vessels, pulmonary vasculature and mediastinum are normal. The lungs show no focal infiltrate, effusion or pneumothorax. There is no acute osseous abnormality. There are upper abdominal surgical clips. XR/XR chest 2V IMPRESSION: No active cardiopulmonary disease.
== END 2024-02-11 14:18 | disposition home or self-care (01) ==
LOC: HO.XRAY 14:17
PROVIDERS: PCP Physician Assistant; Visit Provider Physician Assistant
DX: R05.9 Cough, unspecified (principal)
CPT/HCPCS: 71046

== ENCOUNTER 2024-03-18 15:49 | Outpatient (AMB) | payer OTHER, SELFPAY ==
--- NOTE | 2024-03-18 15:52 | MHC.PC.OV ---
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 Accompanied by: Self / Same As Patient Allergies Iodinated Contrast Media [IV DYE, IODINE CONTAINING CONTRAST ] Allergy (Intermediate, Verified 03/18/24 15:55) HIVES bupropion [From WELLBUTRIN] Allergy (Unknown, Verified 03/18/24 15:55) HALLUCINATION Medication List - Last Reconciled 03/18/24 by Jeffrey Rutledge PA-C cholecalciferol (vitamin D3) 25 mcg PO DAILY levothyroxine 125 mcg PO DAILY 90 days metoclopramide HCl (Reglan) 10 mg PO TID PRN omeprazole 40 mg PO QAM PRN ondansetron 8 mg PO Q12H PRN 5 days sucralfate 1 g PO TID sucralfate (Carafate) 10 mL PO BID 15 days sumatriptan succinate take 1 tab at onset of headache; if no relief may repeat 1 tab after at least 2 hrs; max = 4 tabs/24 hr PO zinc acetate (Galzin) 25 mg PO DAILY 1 month zolpidem (Ambien) 10 mg PO BEDTIME 14 days Tobacco use date assessed: 01/12/24 Dental Screening Dental Screen Date: 01/12/24 HPI pe HPI Details Roma is a 58 y/o F here today for a routine annual physical ? Pmhx significant for HYpothyroid, DONG, Migraines, insomnia, Vitd def, Right Adrenal mass, obese, ? Concerns--> has a lump over the posterior aspect of her left shoulder. Has had surgical removal of a lipoma in the past though seems to have recurred. She would like to see general surgeon for again a removal. She also reports feeling very achy in her joints over the last several years. She does attribute this to age. Has gotten rheumatology workup in the past which was negative. . DONG:? Followed by gastroenterology and has had her liver enzymes surveyed which are slightly elevated.. .. ? Obesity: Have noted a small amount of weight loss since last office visit. She has been working on her eating habits which has helped her lose weight. ? .. ? Right adrenal mass: patient is followed by Nephrology., masses under surveillance ? .. ? HYpoththyroid: Followed by endocrinology- continued on levothyroxine 125mcg- most recent TSH has been stable ? .. ? Insomina: Patient continues with p.r.n. use of Ambien 10 mg with good effect on sleep. 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 Colonoscopy 2014- normal - repeat 10 yrs ? Vaccine: Up-to-date with tetanus, declines flu, UTD? COVID ( [facility])?, Considering shingles vaccine PFSH Medical History Adrenal adenoma Hypothyroidism Urinary frequency Migraine Surgical History History of cholecystectomy History of abdominoplasty History of arthroscopy of left knee History of arthroscopy of right shoulder History of tubal ligation History of ovarian cystectomy History of hysterectomy History of nephrectomy Family History Father History of throat cancer Mother No problems noted. Sister History of breast cancer History of ovarian cancer Brother History of kidney problems Maternal Grandmother History of pancreatic cancer Brother No problems noted. Son No problems noted. Daughter No problems noted. Daughter No problems noted. Daughter No problems noted. Social History (Updated 03/18/24 @ 15:59 by Jeffrey Rutledge PA-C) Housing: House Alcohol intake: current Alcohol intake frequency: holidays/special occasions only Patient Tobacco Use Status: Never used Tobacco e-Cigarette/Vaping Use: Never Used Second Hand Smoke Exposure: No service: No Current occupational status: employed Current occupation: Working at [employer] Cognitive needs: No Hearing needs: No Vision needs: Yes (Glasses) Questionnaire Thrive Questionnaire Date Thrive assessed: 01/12/24 GEORGE-7 AMB Questionnaire GEORGE-7 Date GEORGE - 7 assessed: 01/12/24 Source: Developed by Drs. Yadiel Loera, Jeanne Rea, Dennys Vivar and colleagues, with an educational adamaris from [employer]. Review of Systems Const Denies body aches, Denies chills, Denies excessive sweating, Denies fatigue, Denies fever(s) and Denies headache(s) Eyes Denies blurry vision ENT Denies dysphagia, Denies vertigo, Denies dizziness, Denies headache(s), Denies hearing loss and Denies tinnitus Card Denies chest pain, Denies chest pain with activity, Denies syncope, Denies irregular heart rhythm and Denies dyspnea Resp Denies chest congestion, Denies cough, Denies hemoptysis, Denies dyspnea and Denies wheezing GI Denies abdominal pain, Denies melena, Denies hematochezia, Denies coffee ground emesis, Denies dysphagia, Denies diarrhea, Denies nausea and Denies vomiting Denies urinary frequency, Denies dysuria, Denies urinary hesitancy and Denies urinary urgency Musc Denies arthralgias, Denies limited range of motion, Denies muscle cramps and Denies muscle weakness Skin/Breast Denies rash and Denies skin ulcer Neuro Denies Abnormal speech present, Denies confusion, Denies vertigo, Denies dizziness, Denies syncope, Denies headache(s), Denies memory loss and Denies seizure-like activity Psych Denies anxiety, Denies confusion, Denies depression, Denies memory loss, Denies panic attacks and Denies paranoia Endo Denies excessive sweating, Denies fatigue, Denies flushing, Denies polydipsia and Denies polyuria Aller/Immun Denies wheezing Physical exam (Primary Care) Tobacco/Smoking Status: Tobacco use Status Tobacco use date assessed 01/12/24 03/18/24 15:54 Patient Tobacco Use Status Never used Tobacco 03/18/24 15:54 e-Cigarette/Vaping Use Never Used 03/18/24 15:54 Thrive Assessment: Date of Thrive Assessment Date Thrive assessed 01/12/24 03/18/24 15:54 Const General: cooperative, comfortable, no acute distress, alert and awake; No confusion Orientation/consciousness: oriented to person, oriented to place, patient oriented x3 and No confusion HENMT Head: Yes normocephalic Ears: external ears normal and TM's normal bilaterally Face and sinus: No sinus tenderness Mouth: Normal oral and palatal mucosa present and tongue normal Teeth and gingiva: dentition normal and gingiva normal Throat: Yes posterior oropharynx normal, Yes tonsils normal and Yes uvula midline Eyes Conjunctivae: conjunctivae normal Sclerae: sclerae normal Pupils: Equal, round and reactive pupils present EOM: EOMs intact bilaterally Direct Ophthalmoscopy: No no photophobia Neck Neck: Yes no lymphadenopathy, No tender and Yes no JVD Thyroid: Thyroid normal Carotids: no bruits Chest Chest palpation & inspection: no tenderness Resp Effort & Inspection: normal respiratory effort, no audible wheezes, not labored and no stridor Auscultation: no crackles, no rales, no rhonchi and no wheezes Cardio Jugular venous distension: no JVD Rate: regular rate, not bradycardic and not tachycardic Rhythm: regular rhythm Bruits: no carotid bruits Peripheral pulses: Peripheral pulses 2+ throughout GI Inspection: Yes normal to inspection, No abdominal wall ecchymosis and No visible herniation Palpation (GI): Soft to palpation, nontender, no guarding, not rigid and No hepatosplenomegaly present Auscultation: normoactive bowel sounds General: Yes no CVA tenderness Back/Spine/Pelvis Back: no CVA tenderness and No back tenderness Cervical Spine: cervical ROM normal Thoracic/Lumbar Spine: thoracic and lumbar spine normal to inspection, straight leg raise negative bilaterally, No thoraco-lumbar ROM limited and No lumbar spinal tenderness Back/spine/pelvis image: 1. RIGHT SUBCUTANEOUS SOFT LUMP IN THE AREA OUTLINED. Skin Lesions: no lesions Rashes: no rashes Wounds: no wounds Neuro General: oriented to person, oriented to place, patient oriented x3, CN's II-XI intact bilaterally and No confusion Cranial nerves: Yes Equal, round and reactive pupils present and Yes Normal accommodation reflex present Cognition (Neuro): normal cognition Speech: No Abnormal speech present Gait exam (Neuro): Normal gait present Motor exam (neuro): 5/5 motor strength present throughout Extrem Right upper extremity: full ROM; no cyanosis Left upper extremity: full ROM; no cyanosis Right lower extremity: no edema Left lower extremity: no edema Psych Appearance: grossly normal Mental Status: mental status grossly normal Affect: normal affect Attitude: cooperative Thought process: Normal thought process present Assessment and Plan Assessment & Plan (1) Annual physical exam: Code(s): Z00.00 - Encounter for general adult medical examination without abnormal findings (2) Hypothyroidism: Code(s): E03.9 - Hypothyroidism, unspecified Qualifiers: Hypothyroidism type: unspecified Qualified Code(s): E03.9 - Hypothyroidism, unspecified Plan: Patient continues on levothyroxine 125 mcg. MOST RECENT TSH SLIGHTLY LOW. WILL RECHECK TSH IN IF CONTINUES TO BE LOW WILL REDUCE HER LEVOTHYROXINE DOSE TO 100 MCG. (3) Insomnia: Code(s): G47.00 - Insomnia, unspecified Qualifiers: Insomnia type: unspecified Qualified Code(s): G47.00 - Insomnia, unspecified Plan: Patient reports Ambien 10 mg has been very effective for her sleep. (4) Borderline high cholesterol: Code(s): E78.9 - Disorder of lipoprotein metabolism, unspecified Plan: Patient's most recent lipid panel showing borderline high total cholesterol. Will continue to follow fasting lipids. Advised to work on lifestyle modifications on reducing high cholesterol foods in her diet. (5) Obese: Code(s): E66.9 - Obesity, unspecified Qualifiers: Obesity type: due to excess calories Obesity classification: adult class 1 (BMI 30 - 34.9) Serious obesity comorbidity presence: without serious comorbidity Body mass index: BMI 32.0-32.9 Qualified Code(s): E66.09 - Other obesity due to excess calories; Z68.32 - Body mass index [BMI] 32.0-32.9, adult Plan: Has lost weight since last office visit Patient does understand her BMI is over 30 and has had a difficult time losing weight. Has not been to physically active though reports her diet has been good. She is willing to try it short-term script of phentermine to help kick start weight loss as it has been effective for her in the past. (6) Lipoma: Code(s): D17.9 - Benign lipomatous neoplasm, unspecified Qualifiers: Lipoma location: upper extremity Laterality: right Qualified Code(s): D17.21 - Benign lipomatous neoplasm of skin and subcutaneous tissue of right arm Plan: Would like to see general surgeon again for removal of subcutaneous mass Orders: Orders Complete Blood Count no Diff 6 Months E78.9 - Disorder of lipoprotein metabolism, unspecified Comprehensive [place]. Panel Fast 6 Months E78.9 - Disorder of lipoprotein metabolism, unspecified TSH reflex Free T4 Today E03.9 - Hypothyroidism, unspecified Lipid Panel 6 Months E78.9 - Disorder of lipoprotein metabolism, unspecified Referrals General Surgery Referral D17.21 - Benign lipomatous neoplasm of skin and subcutaneous tissue of right arm Medications: Refilled zolpidem (Ambien) 10 mg PO BEDTIME 14 days 14 tabs 3RF G47.00 - Insomnia, unspecified Patient Instructions: Goal: Continue to maintain euthyroid Barriers: Adherence to healthy eating habits and physical activity Coding Level of Care Code Est Pt Prev Care 40-64y(47126) Diagnoses Annual physical exam Z00.00 Hypothyroidism, unspecified type E03.9 Hypothyroidism type: unspecified Insomnia, unspecified type G47.00 Insomnia type: unspecified Borderline high cholesterol E78.9 Class 1 obesity due to excess calories without serious comorbidity with body mass index (BMI) of 32.0 to 32.9 in adult E66.09; Z68.32 Obesity type: due to excess calories Obesity classification: adult class 1 (BMI 30 - 34.9) Serious obesity comorbidity presence: without serious comorbidity Body mass index: BMI 32.0-32.9 Lipoma of right upper extremity D17.21 Lipoma location: upper extremity Laterality: right
[2024-03-18 15:55] VITALS: BP 120/78; PULSE 78; O2SAT 98; BMI 33.0
== END 2024-03-18 16:22 | disposition home or self-care (01) ==
PROVIDERS: PCP Physician Assistant; Visit Provider Physician Assistant
DX: Z00.00 Encounter for general adult medical examination without abnormal findings (principal); E03.9 Hypothyroidism, unspecified; G47.00 Insomnia, unspecified; E78.9 Disorder of lipoprotein metabolism, unspecified; E66.09 Other obesity due to excess calories; Z68.32 Body mass index [BMI] 32.0-32.9, adult; D17.21 Benign lipomatous neoplasm of skin and subcutaneous tissue of right arm
CPT/HCPCS: 99396

== ENCOUNTER 2024-03-19 06:21 | Outpatient (REF) | payer OTHER, SELFPAY ==
[2024-03-19 08:59] LABS: Alanine Aminotransferase 19 U/L (0-31); Albumin Level 3.9 g/dL (3.5-5.0); Alkaline Phosphatase 145 U/L (39-117); Anion Gap 15 (12-20); Aspartate Amino Transferase 20 U/L (5-31); Bilirubin Total 0.3 mg/dL (0.0-1.0); Blood Urea Nitrogen 15 mg/dL (9-16); Calcium 9.6 mg/dL (8.4-10.2); Carbon Dioxide 24 mmol/L (22-29); Chloride 108 mmol/L (96-108); Cholesterol 229 mg/dL (<200); Estimated Glomerular Filt Rate > 60; Glucose Fasting 87 mg/dL (60-99); HDL Cholesterol 53 mg/dL (>40); LDL Cholesterol Calculated 156 mg/dL (<100); Potassium 4.2 mmol/L (3.3-5.1); Sodium 143 mmol/L (135-145); Total Protein 7.4 g/dL (6.5-8.0); Triglycerides 103 mg/dL (<150)
[2024-03-19 09:00] LABS: TSH reflex Free T4 0.36 uIU/mL (0.32-4.0)
== END 2024-03-19 06:22 | disposition home or self-care (01) ==
LOC: HO.LAB 06:21
PROVIDERS: PCP Physician Assistant; Visit Provider Physician Assistant
DX: E03.9 Hypothyroidism, unspecified (principal); E78.9 Disorder of lipoprotein metabolism, unspecified; E78.5 Hyperlipidemia, unspecified
CPT/HCPCS: 36415; 80053; 80061; 84443

== ENCOUNTER 2024-03-30 15:37 | Outpatient (AMB) | payer OTHER, SELFPAY ==
--- NOTE | 2024-03-30 15:39 | A.OFFVIS_ITS ---
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 Noticed enlarging since 2wks. Had a lipoma removed from back many yrs ago. Patient c/o: tender to touch. Clinic Cma Required: No Accompanied by: Self / Same As Patient Allergies Iodinated Contrast Media [IV DYE, IODINE CONTAINING CONTRAST ] Allergy (Intermediate, Verified 03/18/24 15:55) HIVES bupropion [From WELLBUTRIN] Allergy (Unknown, Verified 03/18/24 15:55) HALLUCINATION HPI Comments Details: Patient presents for evaluation of a right posterior recurrent lipoma. She had this excised several years ago but it has recurred and increased in size and become more symptomatic. She would like to have it removed. Chart was reviewed and patient evaluated [facility] Medical History Adrenal adenoma Hypothyroidism Urinary frequency Migraine Surgical History History of cholecystectomy History of abdominoplasty History of arthroscopy of left knee History of arthroscopy of right shoulder History of tubal ligation History of ovarian cystectomy History of hysterectomy History of nephrectomy Family History Father History of throat cancer Mother No problems noted. Sister History of breast cancer History of ovarian cancer Brother History of kidney problems Maternal Grandmother History of pancreatic cancer Brother No problems noted. Son No problems noted. Daughter No problems noted. Daughter No problems noted. Daughter No problems noted. Social History Housing: House Alcohol intake: current Alcohol intake frequency: holidays/special occasions only Patient Tobacco Use Status: Never used Tobacco e-Cigarette/Vaping Use: Never Used Second Hand Smoke Exposure: No service: No Current occupational status: employed Current occupation: Working at [email or web address] Cognitive needs: No Hearing needs: No Vision needs: Yes (Glasses) Physical Exam Vital Signs: Last Vital Signs Pulse 80 03/30/24 15:44 BP 142/87 H 03/30/24 15:44 BMI result Body Mass Index 32.8 Chest Other: Chest breath sounds bilaterally, HS 1 in 2 GI Other: Abdomen is soft, benign Extrem Other: Patient has a right posterior scar from a previous excision of a soft tissue mass. Exam demonstrates approximately 6 x 4 cm recurrent lipoma of the same area. Assessment & Plan Assessment & Plan (1) Lipoma: Code(s): D17.9 - Benign lipomatous neoplasm, unspecified Category: Surgical Qualifiers: Laterality: right Lipoma location: upper extremity Qualified Code(s): D17.21 - Benign lipomatous neoplasm of skin and subcutaneous tissue of right arm Plan Risks, benefits, and alternatives of excision of recurrent right posterior shoulder lipoma were reviewed with the patient and included but not limited to bleeding, infection, recurrence, numbness, pain, scarring, seroma formation, wound dehiscence and the patient wished to proceed. All questions answered. Arrangements were made for this. Coding Level of Care Code New Pt Level 5 (79971) Diagnoses Lipoma of right upper extremity D17.21 Laterality: right Lipoma location: upper extremity
[2024-03-30 15:44] VITALS: BP 142/87; PULSE 80; BMI 32.8
== END 2024-03-30 15:52 | disposition home or self-care (01) ==
PROVIDERS: PCP Physician Assistant; Visit Provider Surgery
DX: D17.21 Benign lipomatous neoplasm of skin and subcutaneous tissue of right arm (principal)
CPT/HCPCS: 99204

== ENCOUNTER → 2024-03-30 15:37 | Outpatient (BNVA) | payer OTHER, SELFPAY | PROVIDERS: PCP Physician Assistant; Visit Provider Surgery ==

== ENCOUNTER 2024-04-23 09:04 | Day surgery (SDC) | payer OTHER, SELFPAY ==
[2024-04-21 07:11] VITALS: BMI 32.8
--- NOTE | 2024-04-21 10:22 | HO.ANESPROP2 ---
Documented by User: Leticia Landers NP 04/21/24 10:23 HPI - Anesthesia Eval Consult details Narrative: 58yo F for Right Wide Local Excision Lipoma Recurrent Post Shoulder Mass/Lipoma PMFSH Active Problems Active Problems: All Active Problems Lipoma (Acute) Cough (Acute) Pharyngitis (Acute) Epigastric abdominal pain (Acute) GERD (gastroesophageal reflux disease) (Acute) Solitary kidney, acquired (Acute) Rash (Acute) LUQ pain (Acute) HLD (hyperlipidemia) (Acute) Bilateral ankle joint pain (Acute) Bilateral knee pain (Acute) Polyarthralgia (Acute) Adrenal adenoma (Acute) Pre-op exam (Acute) Abdominal wall mass of left upper quadrant (Acute) Obese (Acute) Borderline high cholesterol (Acute) Urinary tract infection (Acute) Cellulitis (Acute) Insomnia (Acute) Annual physical exam (Acute) Infection following a procedure, other surgical site, initial encounter (Acute) Migraine (Acute) Hypothyroidism (Acute) Past Medical History Medical History GERD (gastroesophageal reflux disease) Borderline high cholesterol Adrenal adenoma Hypothyroidism Urinary frequency Migraine Family History Family History Father History of throat cancer Mother No problems noted. Sister History of breast cancer History of ovarian cancer Brother History of kidney problems Maternal Grandmother History of pancreatic cancer Brother No problems noted. Son No problems noted. Daughter No problems noted. Daughter No problems noted. Daughter No problems noted. Surgical History Surgical History History of cholecystectomy History of abdominoplasty History of arthroscopy of left knee History of arthroscopy of right shoulder History of tubal ligation History of ovarian cystectomy History of hysterectomy History of nephrectomy Social History Social History Housing: House Alcohol intake: current Alcohol intake frequency: holidays/special occasions only Patient Tobacco Use Status: Never used Tobacco e-Cigarette/Vaping Use: Never Used Second Hand Smoke Exposure: No Use of substances other than those prescribed or required for medical reasons: No Are you DNR?: No Advance Directives: No Advance Directives Information Provided: Yes service: No Current occupational status: employed Current occupation: Working at [employer] Cognitive needs: No Hearing needs: No Vision needs: Yes (Glasses) Meds Allergies Allergy/AdvReac Type Severity Reaction Status Date / Time Iodinated Contrast Media Allergy Intermediate HIVES Verified 04/23/24 09:30 [IV DYE, IODINE CONTAINING CONTRAST ] bupropion [From WELLBUTRIN] Allergy Unknown HALLUCINATI Verified 04/23/24 09:30 ON Home Medications ?Medication ?Instructions ?Recorded ?Confirmed ?Last Taken ?Type omeprazole 40 mg capsule,delayed 40 mg PO QAM 12/24/23 04/23/24 04/23/24 03:00 History release Exam Height,Weight and Vital Signs: Height 5 ft 3 in Weight 83.915 kg Pertinent Lab Results Pertinent Lab Results: Laboratory Tests 02/05/24 03/19/24 20:04 06:39 WBC 12.8 H Hgb 13.6 Hct 41.3 Plt Count 360 Sodium 143 Potassium 4.2 Chloride 108 Carbon Dioxide 24 BUN 15 Creatinine 0.90 Assessment and Plan Assessment Anesthesia Assessment: Chart Reviewed Documented by User: Rossana Medina MD 04/23/24 10:12 [facility] Past Medical History Medical History GERD (gastroesophageal reflux disease) Borderline high cholesterol Adrenal adenoma Hypothyroidism Urinary frequency Migraine Family History Family History Father History of throat cancer Mother No problems noted. Sister History of breast cancer History of ovarian cancer Brother History of kidney problems Maternal Grandmother History of pancreatic cancer Brother No problems noted. Son No problems noted. Daughter No problems noted. Daughter No problems noted. Daughter No problems noted. Surgical History Surgical History History of cholecystectomy History of abdominoplasty History of arthroscopy of left knee History of arthroscopy of right shoulder History of tubal ligation History of ovarian cystectomy History of hysterectomy History of nephrectomy History of Problems with Anesthesia: No Social History Social History Housing: House Alcohol intake: current Alcohol intake frequency: holidays/special occasions only Patient Tobacco Use Status: Never used Tobacco e-Cigarette/Vaping Use: Never Used Second Hand Smoke Exposure: No Use of substances other than those prescribed or required for medical reasons: No Are you DNR?: No Advance Directives: No Advance Directives Information Provided: Yes service: No Current occupational status: employed Current occupation: Working at [employer] Cognitive needs: No Hearing needs: No Vision needs: Yes (Glasses) Meds Allergies Allergy/AdvReac Type Severity Reaction Status Date / Time Iodinated Contrast Media Allergy Intermediate HIVES Verified 04/23/24 09:30 [IV DYE, IODINE CONTAINING CONTRAST ] bupropion [From WELLBUTRIN] Allergy Unknown HALLUCINATI Verified 04/23/24 09:30 ON Home Medications ?Medication ?Instructions ?Recorded ?Confirmed ?Last Taken ?Type omeprazole 40 mg capsule,delayed 40 mg PO QAM 12/24/23 04/23/24 04/23/24 03:00 History release Exam Airway Mallampati Class: II TM Dist: >3cm Neck ROM: Full Loose/Missing/Broken Teeth: No Heart: RRR Lungs: CTA Assessment and Plan Assessment Anesthesia Assessment: Anesthesia Plan Discussed Final Anesthetic Review History of Problems with Anesthesia: No NPO: Yes ASA Class: II Final Preanesthetic Review: Meds/Allgs Chart Reviewed, Consent Obtained/Reviewed and Anes Risks/Benef Reviewed Patient Risk: Low Procedure Risk: Low Anesthetic Plan Anesthetic Plan: MAC: Disposition: Standard PACU
--- NOTE | 2024-04-22 12:29 | MHC.SHP ---
Pre-Procedural Eval Section A - 24 Hr Update-Section A only Date of Service: 04/23/24 The patient is an INPATIENT: No Changes since office visit: No Cold of Flu in the past 2 weeks, No New Medical Problems, No Changes in Medication and No Patient answered all questions Section B - Complete if H&P > 30 days Chief Complaint: Benign lipomatous neoplasm of skin and subcutaneou Allergies: Allergies Allergy/AdvReac Type Severity Reaction Status Date / Time Iodinated Contrast Media Allergy Intermediate HIVES Verified 03/18/24 15:55 [IV DYE, IODINE CONTAINING CONTRAST ] bupropion [From WELLBUTRIN] Allergy Unknown HALLUCINATI Verified 03/18/24 15:55 ON Plan I have reviewed the history and physical and performed a pertinent physical examination on my patient. No changes have occurred unless specified. Time Spent With Patient Time: Total time managing care of this patient today ____ minutes.
[2024-04-23 09:34] VITALS: BMI 32.7
[2024-04-23 09:36] VITALS: BP 138/83; PULSE 82; RESP 15; TEMP 36.2; O2SAT 98
[2024-04-23] MEDS: Lactated Ringers 1,000 ML 100 ML IVCONT (09:48)
--- NOTE | 2024-04-23 12:10 | W.PM.OPN ---
Operative Note Operative Note Date of Service: 04/23/24 Narrative: Preoperative diagnosis: [] Recurrent right posterior shoulder lipoma Postop diagnosis: [The same Procedure [] wide local excision recurrent left posterior shoulder lipoma Surgeon: [] Jatin Histopathology Technician: [] Mio Type of Anesthesia: [] MAC Indication for surgery: [] Final specimen measured approximately 8 x 5 cm consistent with of a multilobulated lipoma Findings: [] Patient brought to the operating room, placed on operative table in supine position, after an adequate level of MAC anesthesia was induced, patient was placed in left lateral decubitus position. Shoulder area was prepped and draped in usual sterile fashion. Using an incision from the prior scar from the previous surgery, this carried down through skin, subcutaneous tissue, were circumferentially flaps were developed using Bovie and excision using Bovie of a lipoma as described above was uneventfully performed. This was dissected down to the deltoid muscle. Specimen sent to pathology. Wound was irrigated, secured hemostasis, and closed using interrupted inverted dermal 3-0 Vicryl sutures followed by Steri-Strips and sterile dressings. Wound was infiltrated at the beginning at the end of the case with 0.5% Marcaine/1% lidocaine. Sponge, needle, and instrument counts reported correct. Patient tolerated the procedure well and emerged from anesthesia stable condition. EBL minimal
[2024-04-23 12:12] VITALS: BP 130/81; PULSE 81; RESP 16; TEMP 36.6; O2SAT 97
[2024-04-23 12:15] VITALS: BP 134/77; PULSE 74; RESP 16; O2SAT 97
[2024-04-23 12:20] VITALS: BP 143/97; PULSE 71; RESP 16; O2SAT 97
[2024-04-23 12:25] VITALS: BP 157/101; PULSE 66; RESP 16; O2SAT 97
[2024-04-23 12:38] VITALS: BP 153/85; PULSE 71; RESP 16; TEMP 36.6; O2SAT 97
== END 2024-04-23 13:00 | disposition home or self-care (01) ==
PROVIDERS: PCP Physician Assistant; Visit Provider Surgery
PROC: (CPT 23071; principal; 2024-04-23 11:20)
DX: D17.21 Benign lipomatous neoplasm of skin and subcutaneous tissue of right arm (principal); Z91.041 Radiographic dye allergy status; E03.9 Hypothyroidism, unspecified; R35.0 Frequency of micturition; Z90.5 Acquired absence of kidney; Z88.8 Allergy status to other drugs, medicaments and biological substances; Z98.890 Other specified postprocedural states
CPT/HCPCS: 23071; 88304; J0690; J1100; J2250; J2405; J2704; J2795; J3010

== ENCOUNTER → 2024-04-23 09:04 | Outpatient (BNV) | payer OTHER, SELFPAY | PROVIDERS: PCP Physician Assistant; Visit Provider Surgery | DX: D17.21 Benign lipomatous neoplasm of skin and subcutaneous tissue of right arm (principal) | CPT/HCPCS: 23071 ==

== ENCOUNTER 2024-05-03 10:48 | Outpatient (AMB) | payer OTHER, SELFPAY ==
--- NOTE | 2024-05-03 10:58 | A.OFFVIS_ITS ---
Intake Visit Reasons: S/P WLE recurrent Rt. post shoulder mass/lipoma Intake Note: Patient here s/p WLE lipoma on Rt post shoulder. Reports incision healing well. Patient c/o: no concerns. EXC: 04-23-24. Project Management It Specialist Required: No Accompanied by: Self / Same As Patient Allergies Iodinated Contrast Media [IV DYE, IODINE CONTAINING CONTRAST ] Allergy (Intermediate, Verified 05/03/24 11:01) HIVES bupropion [From WELLBUTRIN] Allergy (Unknown, Verified 05/03/24 11:01) HALLUCINATION HPI Comments Details: Patient presents follow-up status post attempted lung biopsy. This was technically unable to be performed per IR. In the meantime, patient is scheduled at the end of this month for bilateral mastectomies with reconstruction and Reserve. Genetic testing also was positive. Patient has no new respiratory issues. She is complaining of costal pain which I have suggested she discuss with her Reserve physicians. The meantime, patient has no new respiratory issues or complaints. [facility] Medical History GERD (gastroesophageal reflux disease) Borderline high cholesterol Adrenal adenoma Hypothyroidism Urinary frequency Migraine Surgical History (Updated 05/03/24 @ 11:23 by Ariel Steiner MD) Hx of surgical procedure (04/23/24) History of cholecystectomy History of abdominoplasty History of arthroscopy of left knee History of arthroscopy of right shoulder History of tubal ligation History of ovarian cystectomy History of hysterectomy History of nephrectomy Family History Father History of throat cancer Mother No problems noted. Sister History of breast cancer History of ovarian cancer Brother History of kidney problems Maternal Grandmother History of pancreatic cancer Brother No problems noted. Son No problems noted. Daughter No problems noted. Daughter No problems noted. Daughter No problems noted. Social History Housing: House Alcohol intake: current Alcohol intake frequency: holidays/special occasions only Patient Tobacco Use Status: Never used Tobacco e-Cigarette/Vaping Use: Never Used Second Hand Smoke Exposure: No service: No Current occupational status: employed Current occupation: Working at [employer] Cognitive needs: No Hearing needs: No Vision needs: Yes (Glasses) Physical Exam Chest Other: Status quo Assessment & Plan Assessment & Plan (1) Lesion of lung: Code(s): R91.1 - Solitary pulmonary nodule Category: Surgical Plan: Current plan is to repeat CT scan of chest in 6 months for surveillance of the lung lesion. All questions answered. Patient will see me after that study. Orders: Orders CT chest wo/w IV con 6 Months R91.1 - Solitary pulmonary nodule Coding Level of Care Code Est Pt Level 4 (25756) Diagnoses Lesion of lung R91.1
--- NOTE | 2024-05-03 11:26 | MHC.OFFVIS ---
Intake Visit Reasons: S/P WLE recurrent Rt. post shoulder mass/lipoma Allergies Iodinated Contrast Media [IV DYE, IODINE CONTAINING CONTRAST ] Allergy (Intermediate, Verified 05/03/24 11:01) HIVES bupropion [From WELLBUTRIN] Allergy (Unknown, Verified 05/03/24 11:01) HALLUCINATION Medication List - Last Reconciled 05/03/24 by Ariel Steiner MD cholecalciferol (vitamin D3) 25 mcg PO DAILY levothyroxine 125 mcg PO DAILY 90 days omeprazole 40 mg PO QAM sumatriptan succinate take 1 tab at onset of headache; if no relief may repeat 1 tab after at least 2 hrs; max = 4 tabs/24 hr PO zolpidem 10 mg PO BEDTIME 14 days HPI Comments Details: Patient presents for follow-up. She has no wound issues or complaints. Pathology is benign. [facility] Medical History GERD (gastroesophageal reflux disease) Borderline high cholesterol Adrenal adenoma Hypothyroidism Urinary frequency Migraine Surgical History (Updated 05/03/24 @ 11:23 by Ariel Steiner MD) Hx of surgical procedure (04/23/24) History of cholecystectomy History of abdominoplasty History of arthroscopy of left knee History of arthroscopy of right shoulder History of tubal ligation History of ovarian cystectomy History of hysterectomy History of nephrectomy Family History Father History of throat cancer Mother No problems noted. Sister History of breast cancer History of ovarian cancer Brother History of kidney problems Maternal Grandmother History of pancreatic cancer Brother No problems noted. Son No problems noted. Daughter No problems noted. Daughter No problems noted. Daughter No problems noted. Social History Housing: House Alcohol intake: current Alcohol intake frequency: holidays/special occasions only Patient Tobacco Use Status: Never used Tobacco e-Cigarette/Vaping Use: Never Used Second Hand Smoke Exposure: No service: No Current occupational status: employed Current occupation: Working at [employer] Cognitive needs: No Hearing needs: No Vision needs: Yes (Glasses) Physical Exam Extrem Other: Shoulder wound incisions clean dry intact , healing well Assessment & Plan Assessment & Plan (1) Lesion of lung: Code(s): R91.1 - Solitary pulmonary nodule Category: Surgical Plan: Patient has been given local instructions, and will follow-up p.r.n.. All questions answered. Orders: Orders CT chest wo/w IV con 6 Months R91.1 - Solitary pulmonary nodule Coding Level of Care Code Global (98388) Diagnoses Lesion of lung R91.1
== END 2024-05-03 11:28 | disposition home or self-care (01) ==
PROVIDERS: PCP Physician Assistant; Visit Provider Surgery
DX: R91.1 Solitary pulmonary nodule (principal)
CPT/HCPCS: 99024

== ENCOUNTER → 2024-05-03 10:48 | Outpatient (BNVA) | payer OTHER, SELFPAY | PROVIDERS: PCP Physician Assistant; Visit Provider Surgery ==

== ENCOUNTER 2024-05-05 07:42 | Outpatient (REF) | payer OTHER, SELFPAY ==
--- NOTE | ~2024-05-05 | XR_ITS ---
EXAMINATION: XR ANKLE, RIGHT CLINICAL INFORMATION: Pain in right ankle and joints of right foot. COMPARISON: 03/18/2023. TECHNIQUE: AP, lateral, and mortise views of the right ankle. FINDINGS: Soft tissue swelling more notable laterally. Linear lucency along the inferior aspect of the fibula is characteristic of a mildly displaced fracture. Ankle mortise is preserved. Tiny dorsal and plantar calcaneal spurs. Ankle joint effusion. XR/XR ankle RT min 3V IMPRESSION: Mildly displaced fracture of the inferior aspect of the lateral malleolus with soft tissue swelling and joint effusion. This study was presented to me May for interpretation. PSA staff will provide results to referring provider at this time.
== END 2024-05-05 07:43 | disposition home or self-care (01) ==
LOC: HO.HOSX 07:42
PROVIDERS: PCP Physician Assistant; Visit Provider Internal Medicine Endocrinology, Diabetes & Metabolism
DX: S93.401A Sprain of unspecified ligament of right ankle, initial encounter (principal); E66.9 Obesity, unspecified; E03.9 Hypothyroidism, unspecified; D35.00 Benign neoplasm of unspecified adrenal gland; X58.XXXA Exposure to other specified factors, initial encounter; Y93.9 Activity, unspecified; Y92.9 Unspecified place or not applicable; Y99.9 Unspecified external cause status
CPT/HCPCS: 73610

== ENCOUNTER 2024-05-05 07:42 | Outpatient (AMB) | payer OTHER, SELFPAY ==
--- NOTE | 2024-05-05 07:43 | MHC.OFFVIS ---
Vital Signs 05/05/24 07:44 Height 5 ft 3 in Weight 184 lb 4.903 oz BMI 32.6 BP 130/82 Blood Pressure Location Lt brachial Position Sitting Pulse 84 Pulse Source Pulse Oximeter Intake Visit Reasons: f/u adrenal adenoma, hypothyroidism-confirmed Intake Note: Patient present today for adrenal adenoma and hypothyroidism follow up visit. 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 Accompanied by: Self / Same As Patient Allergies bupropion [From WELLBUTRIN] Allergy (Intermediate, Verified 05/05/24 07:48) HALLUCINATION Iodinated Contrast Media [IV DYE, IODINE CONTAINING CONTRAST ] Allergy (Intermediate, Verified 05/05/24 07:48) HIVES Medication List - Last Reconciled 05/05/24 by Yadiel Cm MD cholecalciferol (vitamin D3) 25 mcg PO DAILY levothyroxine 125 mcg PO DAILY 90 days omeprazole 40 mg PO QAM sumatriptan succinate take 1 tab at onset of headache; if no relief may repeat 1 tab after at least 2 hrs; max = 4 tabs/24 hr PO zolpidem 10 mg PO BEDTIME 14 days HPI Comments Details: This is a 59-year-old female for management of obesity and hypothyroidism. Patient has ?There is a stable 2.5 x 2.8 cm right adrenal lesion and history of left adrenalectomy. She previously had a dexamethasone suppression test which was normal in 2018. A recent repeat dexamethasone suppression test showed cortisol level 1.6. . A midnight salivary cortisol at midnight was normal For the hypothyroidism she is currently on 125 mcg levothyroxine. No sx of Junie's . No sx of pheo. [facility] Medical History (Updated 05/05/24 @ 08:45 by Ann Strauss PA-C) Fatty liver Depression Solitary kidney, acquired GERD (gastroesophageal reflux disease) Borderline high cholesterol Adrenal adenoma Hypothyroidism Urinary frequency Migraine Surgical History H/O colonoscopy History of esophagogastroduodenoscopy (EGD) Hx of surgical procedure (04/23/24) History of cholecystectomy History of abdominoplasty History of arthroscopy of left knee History of arthroscopy of right shoulder History of tubal ligation History of ovarian cystectomy History of hysterectomy History of nephrectomy Family History Father History of throat cancer Mother No problems noted. Sister History of breast cancer History of ovarian cancer Brother History of kidney problems Maternal Grandmother History of pancreatic cancer Brother No problems noted. Son No problems noted. Daughter No problems noted. Daughter No problems noted. Daughter No problems noted. Social History Housing: House Alcohol intake: current Alcohol intake frequency: holidays/special occasions only Patient Tobacco Use Status: Never used Tobacco e-Cigarette/Vaping Use: Never Used Second Hand Smoke Exposure: No service: No Current occupational status: employed Current occupation: Working at [employer] Cognitive needs: No Hearing needs: No Vision needs: Yes (Glasses) Physical Exam Vital Signs: Last Vital Signs Pulse 84 05/05/24 07:44 BP 130/82 05/05/24 07:44 BMI result Body Mass Index 32.6 Const Other: There are no cushingoid features. Thyroid gland is normal size weighs about 15 g . There are no thyroid nodules palpated Assessment & Plan Assessment & Plan (1) Adrenal adenoma: Code(s): D35.00 - Benign neoplasm of unspecified adrenal gland Category: Medical Plan: This is a 57-year-old female with a history of left adrenalectomy and right adrenal mass stable in size and chronically present. Workup for pheochromocytoma was negative. she had a borderline dexamethasone suppression test but midnight salivary cortisol was normal Will repeat midnight salivary cortisol. If negative, we will continue to follow patient on a yearly basis (2) Hypothyroidism: Code(s): E03.9 - Hypothyroidism, unspecified Category: Medical Qualifiers: Hypothyroidism type: unspecified Qualified Code(s): E03.9 - Hypothyroidism, unspecified Plan: Clinically and biochemically euthyroid on levothyroxine 125 mcg. She appears to be clinically and biochemically euthyroid Plan is to continue the current management. At this point, patient referred back to her primary care provider for management of hypothyroidism returned back to endocrinology (3) Adrenal adenoma: Code(s): D35.00 - Benign neoplasm of unspecified adrenal gland Plan: See management above Orders: Orders Saliva Cortisol Today D35.00 - Benign neoplasm of unspecified adrenal gland Saliva Cortisol 1 Year D35.00 - Benign neoplasm of unspecified adrenal gland Coding Level of Care Code Est Pt Level 3 (67825) Diagnoses Adrenal adenoma D35.00 Hypothyroidism, unspecified type E03.9 Hypothyroidism type: unspecified
[2024-05-05 07:44] VITALS: BP 130/82; PULSE 84; BMI 32.6
== END 2024-05-05 08:14 | disposition home or self-care (01) ==
PROVIDERS: PCP Physician Assistant; Visit Provider Internal Medicine Endocrinology, Diabetes & Metabolism
DX: D35.00 Benign neoplasm of unspecified adrenal gland (principal); E03.9 Hypothyroidism, unspecified
CPT/HCPCS: 99213

== ENCOUNTER 2024-05-05 08:16 | Outpatient (AMB) | payer OTHER, SELFPAY ==
--- NOTE | 2024-05-05 08:25 | MHC.OFFVIS ---
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 Patient reports she twisted her ankle causing her to fall down. Currently her pain is located at the lateral aspect of ankle and her pain increases with going down the stairs. Denies numbness or tingling. No other tx. Finds relief with use of a compression sock. 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 She did not go to any ER. She currently states she has mild improvement however she does have pain at the lateral aspect of her ankle. Her pain is aggravated with going downstairs. She denies any numbness or tingling. She has not had any previous treatment. She finds relief with compression socks. HPI Comments Details: [facility] Medical History (Updated 05/05/24 @ 11:11 by Ann Strauss PA-C) Fatty liver Depression Solitary kidney, acquired GERD (gastroesophageal reflux disease) Borderline high cholesterol Adrenal adenoma Hypothyroidism Urinary frequency Migraine Surgical History H/O colonoscopy History of esophagogastroduodenoscopy (EGD) Hx of surgical procedure (04/23/24) History of cholecystectomy History of abdominoplasty History of arthroscopy of left knee History of arthroscopy of right shoulder History of tubal ligation History of ovarian cystectomy History of hysterectomy History of nephrectomy Family History Father History of throat cancer Mother No problems noted. Sister History of breast cancer History of ovarian cancer Brother History of kidney problems Maternal Grandmother History of pancreatic cancer Brother No problems noted. Son No problems noted. Daughter No problems noted. Daughter No problems noted. Daughter No problems noted. Social History Housing: House Alcohol intake: current Alcohol intake frequency: holidays/special occasions only Patient Tobacco Use Status: Never used Tobacco e-Cigarette/Vaping Use: Never Used Second Hand Smoke Exposure: No service: No Current occupational status: employed Current occupation: Working at [employer] Cognitive needs: No Hearing needs: No Vision needs: Yes (Glasses) Review of Systems Const All systems reviewed & are unremarkable except as noted in HPI and below Physical Exam Const General: cooperative, healthy appearing, comfortable, no acute distress, well developed and alert Orientation/consciousness: patient oriented x3 HEENT Head: Yes normal to inspection, Yes normocephalic and Yes atraumatic Eyes General: appearance normal, both eyes and all related structures Resp Effort & Inspection: normal respiratory effort and able to speak in complete sentences Cardio Rate: regular rate Peripheral pulses: Peripheral pulses 2+ throughout GI Palpation (GI): Soft to palpation Skin Lesions: no lesions Rashes: no rashes Neuro General: patient oriented x3 Extrem Other: Right ankle: Normal to inspection with trace swelling over the medial and malleolus with tenderness along the soft tissues. No discomfort along the posterior aspect of the ankle, no deformity along the Achilles tendon, negative White?s. No pain along the syndesmosis or anterior tibia. No laxity, NVI. Results Reviewed Results Reviewed: Xrays were obtained in the office today and personally reviewed by me show avulsion fragment along the lateral malleolus. Ankle mortise intact. Assessment & Plan Assessment & Plan (1) Right ankle sprain: Code(s): S93.401A - Sprain of unspecified ligament of right ankle, initial encounter Category: Medical Qualifiers: Encounter type: initial encounter Involved ligament of ankle: anterior talofibular ligament Qualified Code(s): S93.491A - Sprain of other ligament of right ankle, initial encounter Plan: Plan We discussed options which include PT, NSAIDs and bracing. The patient will proceed with PT and NSAIDs. She was given a lace up ankle brace in the office today. If symptoms persist, she will contact me , otherwise, PRN. Orders: Orders PT Evaluation and Treatment Today S93.401A - Sprain of unspecified ligament of right ankle, initial encounter XR ankle RT min 3V Today M25.571 - Pain in right ankle and joints of right foot Medications: New celecoxib (Celebrex) 200 mg PO BID 60 caps 3RF 30 days Patient Instructions: Scribed for Ann Strauss PA-C, by Joshua Rodriguez medical fee clerk, on 05/05/2024 at 8:30 AM EST.? I, Ann Strauss PA-C, have personally reviewed and agree with the information entered by the scribe. Coding Level of Care Code New Pt Level 3 (67559) Diagnoses Sprain of anterior talofibular ligament of right ankle, initial encounter S93.491A Encounter type: initial encounter Involved ligament of ankle: anterior talofibular ligament
== END 2024-05-05 08:59 | disposition home or self-care (01) ==
PROVIDERS: PCP Physician Assistant; Visit Provider Physician Assistant
DX: S93.491A Sprain of other ligament of right ankle, initial encounter (principal)
CPT/HCPCS: 99203

== ENCOUNTER 2024-05-07 09:04 | Day surgery (SDC) | payer OTHER, SELFPAY ==
[2024-05-04 14:15] VITALS: BMI 32.1
[2024-05-07 09:37] VITALS: BMI 31.6
[2024-05-07 09:43] VITALS: BP 114/73; PULSE 76; RESP 15; TEMP 36; O2SAT 96
--- NOTE | 2024-05-07 09:52 | HO.ANESPROP2 ---
[facility] Active Problems Active Problems: All Active Problems Right ankle sprain (Acute) Lesion of lung (Acute) Lipoma (Acute) Cough (Acute) Pharyngitis (Acute) Epigastric abdominal pain (Acute) GERD (gastroesophageal reflux disease) (Acute) Solitary kidney, acquired (Acute) Rash (Acute) LUQ pain (Acute) HLD (hyperlipidemia) (Acute) Bilateral ankle joint pain (Acute) Bilateral knee pain (Acute) Polyarthralgia (Acute) Pre-op exam (Acute) Abdominal wall mass of left upper quadrant (Acute) Obese (Acute) Borderline high cholesterol (Acute) Urinary tract infection (Acute) Cellulitis (Acute) Insomnia (Acute) Annual physical exam (Acute) Infection following a procedure, other surgical site, initial encounter (Acute) Adrenal adenoma (Acute) Migraine (Acute) Hypothyroidism (Acute) Past Medical History Medical History Fatty liver Depression Solitary kidney, acquired GERD (gastroesophageal reflux disease) Borderline high cholesterol Adrenal adenoma Hypothyroidism Urinary frequency Migraine Family History Family History Father History of throat cancer Mother No problems noted. Sister History of breast cancer History of ovarian cancer Brother History of kidney problems Maternal Grandmother History of pancreatic cancer Brother No problems noted. Son No problems noted. Daughter No problems noted. Daughter No problems noted. Daughter No problems noted. Surgical History Surgical History H/O colonoscopy History of esophagogastroduodenoscopy (EGD) Hx of surgical procedure (04/23/24) History of cholecystectomy History of abdominoplasty History of arthroscopy of left knee History of arthroscopy of right shoulder History of tubal ligation History of ovarian cystectomy History of hysterectomy History of nephrectomy History of Problems with Anesthesia: No Social History Social History Housing: House Alcohol intake: current Alcohol intake frequency: holidays/special occasions only Patient Tobacco Use Status: Never used Tobacco e-Cigarette/Vaping Use: Never Used Second Hand Smoke Exposure: No Use of substances other than those prescribed or required for medical reasons: No Are you DNR?: No Advance Directives: No Advance Directives Information Provided: Yes service: No Current occupational status: employed Current occupation: Working at [employer] Cognitive needs: No Hearing needs: No Vision needs: Yes (Glasses) Meds Allergies Allergy/AdvReac Type Severity Reaction Status Date / Time bupropion [From WELLBUTRIN] Allergy Intermediate HALLUCINATI Verified 05/07/24 09:36 ON Iodinated Contrast Media Allergy Intermediate HIVES Verified 05/07/24 09:36 [IV DYE, IODINE CONTAINING CONTRAST ] Home Medications ?Medication ?Instructions ?Recorded ?Confirmed ?Last Taken ?Type omeprazole 40 mg capsule,delayed 40 mg PO QAM 12/24/23 05/07/24 04/23/24 03:00 History release Exam Height,Weight and Vital Signs: Height 5 ft 3.5 in Weight 82.1 kg Last Vital Signs Temp 96.8 F 05/07/24 09:43 Pulse 76 05/07/24 09:43 Resp 15 05/07/24 09:43 BP 114/73 05/07/24 09:43 Pulse Ox 96 05/07/24 09:43 O2 Del Method Room Air 05/07/24 09:43 Airway Mallampati Class: II TM Dist: >3cm Neck ROM: Full Loose/Missing/Broken Teeth: No Heart: RRR Lungs: CTA Assessment and Plan Assessment Anesthesia Assessment: Anesthesia Plan Discussed and Chart Reviewed Final Anesthetic Review History of Problems with Anesthesia: No NPO: Yes ASA Class: II Final Preanesthetic Review: Meds/Allgs Chart Reviewed, Consent Obtained/Reviewed and Anes Risks/Benef Reviewed Patient Risk: Low Procedure Risk: Intermediate Anesthetic Plan Anesthetic Plan: MAC: Disposition: Standard PACU
[2024-05-07] MEDS: Lactated Ringers 1,000 ML 50 ML IVCONT (09:55)
[2024-05-07 10:52] VITALS: BP 123/76; PULSE 94; RESP 14; TEMP 36.1; O2SAT 93
--- NOTE | 2024-05-07 10:58 | PM.OP ---
Brief Operative Note Date of Service: 05/07/24 Pre-op diagnosis: Abdominal pain Post-op diagnosis: other (Small hiatal hernia) Procedure: EGD with biopsies Surgeon: Yadiel Li MD Anesthesia: MAC Was an Monitoring Specialist used for this Procedure?: No Estimated blood loss (mL): 2.0 Pathology: other (A. Gastric antrum B. EG Junction at 36cm) Condition: stable Disposition: PACU
[2024-05-07 11:06] VITALS: BP 133/87; PULSE 82; RESP 16; TEMP 36.1; O2SAT 96
--- NOTE | 2024-05-07 11:08 | OP_ITS ---
DATE OF SERVICE: 05/07/2024 SURGEON: Yadiel Li MD INDICATIONS: The patient presents for evaluation of some upper abdominal pain and heartburn. Full consent has been obtained from her for this, including risks of bleeding and perforation. PREOPERATIVE DIAGNOSIS: POSTOPERATIVE DIAGNOSIS: PROCEDURE PERFORMED: Esophagogastroduodenoscopy with biopsy. ESTIMATED BLOOD LOSS: COMPLICATIONS: ANESTHESIA: Monitored anesthesia care. ASSISTANTS: SPECIMENS: PREOPERATIVE DIAGNOSES: Abdominal pain and heartburn. POSTOPERATIVE DIAGNOSES: Abdominal pain, heartburn, small hiatal hernia. DESCRIPTION OF PROCEDURE: The patient was placed in the left lateral decubitus position. The Olympus video gastroscope was passed in the posterior oropharynx and upper esophagus under direct vision. The scope was passed slowly into the distal esophagus. The gastroesophageal junction appeared at 36 cm. There was some minimal irregularity, but no evidence of esophagitis nor any definitive evidence of Jaffe mucosa. The scope entered the stomach. There was a small hiatal hernia. The scope was advanced to pylorus and the duodenum was cannulated to the descending portion. The duodenum including the bulb appeared normal without mass or ulceration. The scope was withdrawn back in the stomach. The gastric antrum and body appeared normal with good peristalsis. Biopsies were obtained from the antrum. The scope was retroflexed, visualizing the proximal stomach carefully, which appeared normal, without any sign of mass or ulceration. The scope was straightened and withdrawn back into the esophagus. Biopsies were obtained from the EG junction at 36 cm. Proximal to this, the esophageal mucosa appeared normal. The scope was withdrawn from the patient. She tolerated the procedure well and was returned to the recovery area in stable condition. IMPRESSION: 1. Small hiatal hernia. 2. Gastroesophageal reflux. PLAN: The results of the biopsies will be checked. She does report that she has been doing better since switching her 2nd dose of omeprazole from the middle of the night to taking it in the evening before she goes to bed. She will continue her 40 mg omeprazole each morning and the 20 mg omeprazole each evening. She will see me on a p.r.n. basis. She will be due for a followup colonoscopy for screening in 2025. MD JULIO Huitron/SULMA / [id number]
== END 2024-05-07 11:34 | disposition home or self-care (01) ==
PROVIDERS: PCP Physician Assistant; Visit Provider Internal Medicine
PROC: 0DJ08ZZ Inspection of Upper Intestinal Tract, Via Natural or Artificial Opening Endoscopic (ICD-10-PCS; CPT 43235; principal; 2024-05-07 10:40)
DX: R10.13 Epigastric pain (principal); K21.9 Gastro-esophageal reflux disease without esophagitis; K44.9 Diaphragmatic hernia without obstruction or gangrene; K76.0 Fatty (change of) liver, not elsewhere classified; F32.A Depression, unspecified; E03.9 Hypothyroidism, unspecified; Z85.528 Personal history of other malignant neoplasm of kidney; Z90.5 Acquired absence of kidney; Z79.899 Other long term (current) drug therapy; Z88.8 Allergy status to other drugs, medicaments and biological substances; Z91.041 Radiographic dye allergy status
CPT/HCPCS: 43239; 88305; 88313; 88342; J1596; J2704

== ENCOUNTER 2024-05-10 07:23 | Outpatient (REF) | payer OTHER, SELFPAY | END 2024-05-10 07:24 | disposition home or self-care (01) | LOC: HO.MAMMO 07:23 | PROVIDERS: PCP Physician Assistant; Visit Provider Physician Assistant | DX: Z12.31 Encounter for screening mammogram for malignant neoplasm of breast (principal) | CPT/HCPCS: 77063; 77067 ==

== ENCOUNTER → 2024-05-10 07:45 | Outpatient (BNV) | payer OTHER, SELFPAY | PROVIDERS: PCP Physician Assistant; Visit Provider Radiology Diagnostic Radiology | DX: Z12.31 Encounter for screening mammogram for malignant neoplasm of breast (principal) | CPT/HCPCS: 77063; 77067 ==

== ENCOUNTER 2024-09-22 14:47 | Outpatient (AMB) | payer OTHER, SELFPAY ==
[2024-09-22 14:48] VITALS: BP 134/86; PULSE 78; O2SAT 97; BMI 30.3
--- NOTE | 2024-09-22 14:48 | A.OFFPC_ITS ---
Vital Signs 09/22/24 14:48 Height 5 ft 3.5 in Weight 174 lb 0.4 oz BMI 30.3 BP 134/86 Blood Pressure Location Lt brachial Position Sitting Pulse 78 Pulse Source Pulse Oximeter Pulse Oximetry (%) 97 Oxygen Delivery Method Room Air Intake Visit Reasons: Follow-up hypothyroid Allergies bupropion [From WELLBUTRIN] Allergy (Intermediate, Verified 09/22/24 14:53) HALLUCINATION Iodinated Contrast Media [IV DYE, IODINE CONTAINING CONTRAST ] Allergy (Intermediate, Verified 09/22/24 14:53) HIVES Medication List - Last Reconciled 09/22/24 by Jeffrey Rutledge PA-C celecoxib (Celebrex) 200 mg PO BID 30 days cholecalciferol (vitamin D3) 25 mcg PO DAILY levothyroxine 125 mcg PO DAILY 90 days omeprazole 40 mg PO QAM sumatriptan succinate take 1 tab at onset of headache; if no relief may repeat 1 tab after at least 2 hrs; max = 4 tabs/24 hr PO zolpidem 10 mg PO BEDTIME 14 days Tobacco use date assessed: 01/12/24 Dental Screening Dental Screen Date: 01/12/24 HPI Follow-up hypothyroid HPI Details Roma is a 59 y/o F here today for a follow-up visit ? Pmhx significant for HYpothyroid, DONG, Migraines, insomnia, Vitd def, Right Adrenal mass, obese, ? Concerns--> she reports over last 2 weeks having an upper respiratory infection/allergy type symptoms. She reports having a cough, itchy throat and watery eyes. She denies any sick contacts. She has been using [id number] cough cold medication without much relief . DONG:? Followed by gastroenterology and has had her liver enzymes surveyed which are slightly elevated.. She also has gastritis noted on most recent EGD. She has a small hiatal hernia. She feels that her hernia has been causing her a lot of epigastric pain when she eats. She was on omeprazole and reports her gastritis/reflux has gone away. 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 ? Obesity: Has lost weight since last office visit Have noted a small amount of weight loss since last office visit. She has been working on her eating habits which has helped her lose weight. ? .. ? Right adrenal mass: patient is followed by Nephrology., mass is under surveillance ? .. ? HYpoththyroid: Followed by endocrinology- continued on levothyroxine 125mcg- most recent TSH has been stable ? .. ? Insomina: Patient continues with p.r.n. use of Ambien 10 mg with good effect on sleep. She does report waking in the middle night and not being able to fall back asleep. She is wondering if there is a extended release formulation of the medication. Laboratory Tests 03/18/23 06/16/23 02/05/24 06:53 10:48 20:04 WBC 12.8 H RBC 4.49 AST 44 H 34 H ALT 36 H 45 H Cholesterol LDL Cholesterol, C alc TSH 1.01 Rheumatoid Factor < 13.0 Cycl Citrul Peptid e IgG <16 03/19/24 06:39 WBC RBC AST ALT Cholesterol 229 H LDL Cholesterol, C alc 156 H TSH 0.36 Rheumatoid Factor Cycl Citrul Peptid e IgG PFSH Medical History Fatty liver Depression Solitary kidney, acquired GERD (gastroesophageal reflux disease) Borderline high cholesterol Adrenal adenoma Hypothyroidism Urinary frequency Migraine Surgical History H/O colonoscopy History of esophagogastroduodenoscopy (EGD) Hx of surgical procedure (04/23/24) History of cholecystectomy History of abdominoplasty History of arthroscopy of left knee History of arthroscopy of right shoulder History of tubal ligation History of ovarian cystectomy History of hysterectomy History of nephrectomy Family History Father History of throat cancer Mother No problems noted. Sister History of breast cancer History of ovarian cancer Brother History of kidney problems Maternal Grandmother History of pancreatic cancer Brother No problems noted. Son No problems noted. Daughter No problems noted. Daughter No problems noted. Daughter No problems noted. Social History Housing: House Alcohol intake: current Alcohol intake frequency: holidays/special occasions only Patient Tobacco Use Status: Never used Tobacco e-Cigarette/Vaping Use: Never Used Second Hand Smoke Exposure: No service: No Current occupational status: employed Current occupation: Working at [employer] Cognitive needs: No Hearing needs: No Vision needs: Yes (Glasses) Questionnaire Thrive Questionnaire Date Thrive assessed: 01/12/24 AUDIT C Alcohol Use Questionnaire (AUDIT-C) 1. How often do you have a drink containing alcohol?: Never Total Score: 0 GEORGE-7 AMB Questionnaire GEORGE-7 Date GEORGE - 7 assessed: 01/12/24 Source: Developed by Drs. Yadiel Loera, Jeanne Rea, Dennys Vivar and colleagues, with an educational adamaris from [employer]. Review of Systems Const Denies headache(s) Eyes Denies loss of vision ENT Denies vertigo, Denies dizziness, Denies headache(s) and Denies sore throat Card Denies chest pain, Denies leg edema and Denies lightheadedness Resp Denies cough, Denies hemoptysis and Denies wheezing GI Details: + epigastric pain Denies abdominal pain, Denies melena, Denies constipation, Denies diarrhea and Denies vomiting Denies urinary frequency, Denies dysuria and Denies urinary urgency Musc Denies arthralgias, Denies joint swelling, Denies numbness and Denies tingling Neuro Denies Abnormal speech present, Denies behavioral changes, Denies vertigo, Denies dizziness, Denies headache(s), Denies loss of vision, Denies memory loss, Denies numbness and Denies tingling Psych Denies anxiety, Denies behavioral changes, Denies depression, Denies memory loss and Denies panic attacks Romaine/Lymph Denies easy bleeding and Denies easy bruising Aller/Immun Denies wheezing Physical exam (Primary Care) Vital Signs: Last Vital Signs Pulse 78 09/22/24 14:48 BP 134/86 09/22/24 14:48 Pulse Ox 97 09/22/24 14:48 Oxygen Delivery Method Room Air 09/22/24 14:48 BMI result Body Mass Index 30.3 Tobacco/Smoking Status: Tobacco use Status Tobacco use date assessed 01/12/24 09/22/24 14:48 Patient Tobacco Use Status Never used Tobacco 09/22/24 14:48 e-Cigarette/Vaping Use Never Used 09/22/24 14:48 Thrive Assessment: Date of Thrive Assessment Date Thrive assessed 01/12/24 09/22/24 14:48 Const General: healthy appearing, no acute distress, alert and awake Nutritional Appearance: well nourished Orientation/consciousness: oriented to person, oriented to place and oriented to time HENMT Ears: TM's normal bilaterally General nose exam: Normal nasal mucous membranes and turbinates present Eyes Conjunctivae: conjunctivae normal Sclerae: sclerae normal Pupils: Equal, round and reactive pupils present Neck Neck: Yes no lymphadenopathy and Yes no JVD Thyroid: Thyroid normal Carotids: no bruits Resp Effort & Inspection: normal respiratory effort and not tachypneic Auscultation: no crackles, no rales, no rhonchi and no wheezes Cardio Rate: regular rate Rhythm: regular rhythm Heart sounds: no murmurs and normal S1 and S2 GI Palpation (GI): Soft to palpation, nontender, no hepatomegaly and no splenomegaly Auscultation: normal bowel sounds Skin General skin exam: no rashes or lesions noted and dry skin Neuro General: oriented to person, oriented to place and oriented to time Cranial nerves: Yes Equal, round and reactive pupils present Speech: No Abnormal speech present Gait exam (Neuro): Normal gait present Motor exam (neuro): no tremor noted Extrem Right upper extremity: full ROM Left upper extremity: full ROM Right lower extremity: full ROM; no edema Left lower extremity: full ROM; no edema Psych Mental Status: mental status grossly normal Speech and movement: Normal speech and movement present Affect: normal affect Attitude: cooperative Thought process: Normal thought process present Coding Level of Care Code Est Pt Level 4 (87575) Diagnoses Insomnia, unspecified type G47.00 Insomnia type: unspecified Acute midline low back pain with right-sided sciatica M54.41 Back pain laterality: midline Chronicity: acute Sciatica laterality: sciatica of right side Sciatica presence: with sciatica Bronchitis J40 Adenoma of right adrenal gland D35.01 Laterality: right Hypothyroidism, unspecified type E03.9 Hypothyroidism type: unspecified Assessment & Plan Assessment & Plan (1) Insomnia: Code(s): G47.00 - Insomnia, unspecified Category: Medical Qualifiers: Insomnia type: unspecified Qualified Code(s): G47.00 - Insomnia, unspecified Plan: Patient does report getting good sleep 4 hours with the use of zolpidem though wakes up in do in the morning and can not get back to sleep. . She is interested in extended release formulation of the medication. (2) Low back pain: Code(s): M54.50 - Low back pain, unspecified Category: Medical Qualifiers: Back pain laterality: midline Chronicity: acute Sciatica laterality: sciatica of right side Sciatica presence: with sciatica Qualified Code(s): M54.41 - Lumbago with sciatica, right side Plan: Patient reports she has been having low back pain over last 2 weeks though has clinically been getting better. She would like an x-ray of her back to evaluate. (3) Bronchitis: Code(s): J40 - Bronchitis, not specified as acute or chronic Category: Medical Plan: Patient's signs and symptoms most consistent with a bronchitis. Will send for x-ray to evaluate for pulmonary infiltrate. Will send a antibiotic to her pharmacy to hold onto if symptoms worsen to go ahead and take the antibiotic. (4) Adrenal adenoma: Code(s): D35.00 - Benign neoplasm of unspecified adrenal gland Category: Medical Qualifiers: Laterality: right Qualified Code(s): D35.01 - Benign neoplasm of right adrenal gland Plan: Patient followed by endocrinology. She is under surveillance (5) Hypothyroidism: Code(s): E03.9 - Hypothyroidism, unspecified Category: Medical Qualifiers: Hypothyroidism type: unspecified Qualified Code(s): E03.9 - Hypothyroidism, unspecified Plan: Patient's most recent TSH has been stable. She continues on levothyroxine on a daily basis with good effect. Of note has lost weight since last office visit. Orders: Orders XR lumbar spine 2-3V Today M54.41 - Lumbago with sciatica, right side XR chest 2V Today J40 - Bronchitis, not specified as acute or chronic Medications: New zolpidem ER 12.5 mg PO BEDTIME PRN 14 tabs 0RF sleep 14 days G47.00 - Insomnia, unspecified azithromycin For 250 mg dose pack: take 500 mg today (day 1), then 250 mg for 4 days (days 2-5) PO 6 tabs 0RF J40 - Bronchitis, not specified as acute or chronic
== END 2024-09-22 15:17 | disposition home or self-care (01) ==
PROVIDERS: PCP Physician Assistant; Visit Provider Physician Assistant
DX: G47.00 Insomnia, unspecified (principal); M54.41 Lumbago with sciatica, right side; J40 Bronchitis, not specified as acute or chronic; D35.01 Benign neoplasm of right adrenal gland; E03.9 Hypothyroidism, unspecified

== ENCOUNTER → 2024-09-22 14:47 | Outpatient (BNVA) | payer OTHER, SELFPAY | PROVIDERS: PCP Physician Assistant; Visit Provider Physician Assistant ==

== ENCOUNTER 2024-09-23 06:46 | Outpatient (REF) | payer OTHER, SELFPAY ==
--- NOTE | ~2024-09-23 | XR_ITS ---
EXAMINATION: XR LUMBOSACRAL SPINE CLINICAL INFORMATION: M54.41 - Lumbago with sciatica, right side COMPARISON: CT abdomen and pelvis 11/13/2021 TECHNIQUE: Three views of the lumbosacral spine. FINDINGS: Minimal age indeterminate superior endplate compression deformity of L1 vertebral body. The remaining lumbar vertebral bodies demonstrate normal height. Overall sagittal alignment is maintained. Mild multilevel intervertebral space narrowing. Mild facet arthropathy of the lower lumbar spine. Multiple surgical clips within the abdomen and pelvis. The lateral sacroiliac joints and pubic symphysis are intact. XR/XR lumbar spine 2-3V IMPRESSION: Mild age-indeterminate superior endplate compression deformity of L1 vertebral body. Mild multilevel degenerative changes. Electronically signed by: Stefan Deutsch MD 09/23/2024 11:58 AM [facility]
--- NOTE | ~2024-09-23 | XR_ITS ---
EXAMINATION: XR CHEST CLINICAL INFORMATION: J40 - Bronchitis, not specified as acute or chronic COMPARISON: Chest radiograph 02/11/2024 TECHNIQUE: 2 views of the chest were obtained. FINDINGS: The lungs are adequately expanded. No focal consolidation. No pleural effusions or pneumothorax. The cardiac mediastinal silhouette is within normal limits. Mild degenerative changes of the thoracic spine. Surgical clips in the epigastric region. XR/XR chest 2V IMPRESSION: No acute pulmonary disease. Electronically signed by: Stefan Deutsch MD 09/23/2024 11:53 AM [facility]
[2024-09-23 07:33] LABS: Hematocrit 40.3 % (37.0-47.0); Hemoglobin 13.2 g/dl (12.0-16.0); Mean Corpuscular HGB Conc 32.8 g/dl (31.0-35.0); Mean Corpuscular Hemoglobin 30.3 pg (27.0-33.0); Mean Corpuscular Volume 92.6 fL (80.0-98.0); Mean Platelet Volume 9.2 fL (9.4-12.3); Platelet Count 370 X10*3/uL (160-400); Red Blood Count 4.35 X10*6/uL (4.20-5.50); Red Cell Distribution Width 11.6 % (11.0-16.0); White Blood Count 7.3 X10*3/uL (4.8-10.8)
[2024-09-23 08:08] LABS: Alanine Aminotransferase 25 U/L (0-31); Albumin Level 3.9 g/dL (3.5-5.0); Alkaline Phosphatase 133 U/L (39-117); Anion Gap 10 (12-20); Aspartate Amino Transferase 27 U/L (5-31); Bilirubin Total 0.4 mg/dL (0.0-1.0); Blood Urea Nitrogen 10 mg/dL (9-16); Carbon Dioxide 28 mmol/L (22-29); Chloride 108 mmol/L (96-108); Cholesterol 209 mg/dL (<200); Estimated Glomerular Filt Rate > 60; Glucose Fasting 88 mg/dL (60-99); HDL Cholesterol 44 mg/dL (>40); LDL Cholesterol Calculated 141 mg/dL (<100); Sodium 142 mmol/L (135-145); Total Protein 7.4 g/dL (6.5-8.0); Triglycerides 123 mg/dL (<150)
== END 2024-09-23 06:47 | disposition home or self-care (01) ==
LOC: HO.XRAY 06:46
PROVIDERS: PCP Physician Assistant; Visit Provider Physician Assistant
DX: E78.9 Disorder of lipoprotein metabolism, unspecified (principal); M54.41 Lumbago with sciatica, right side; J40 Bronchitis, not specified as acute or chronic; E78.00 Pure hypercholesterolemia, unspecified
CPT/HCPCS: 36415; 71046; 72100; 80053; 80061; 85027

== ENCOUNTER 2024-10-22 08:48 | Outpatient (AMB) | payer OTHER, SELFPAY ==
--- NOTE | 2024-10-22 09:03 | A.OFFVIS_ITS ---
Vital Signs 10/22/24 09:07 Height 5 ft 3.5 in Weight 172 lb 8 oz BMI 30.1 BP 132/75 Blood Pressure Location Rt brachial Position Sitting Pulse 77 Pulse Source Pulse Oximeter Pulse Oximetry (%) 98 Oxygen Delivery Method Room Air Intake Visit Reasons: Wedge Compression Fracture/davon from 10/14 Intake Note: Pain today 3/10 Community Health Nursing Director Required: No Accompanied by: Self / Same As Patient Allergies bupropion [From WELLBUTRIN] Allergy (Intermediate, Verified 10/22/24 09:07) HALLUCINATION Iodinated Contrast Media [IV DYE, IODINE CONTAINING CONTRAST ] Allergy (Intermediate, Verified 10/22/24 09:07) HIVES HPI Comments Details: Roma is a very pleasant 59-year-old female who presents to the office today for evaluation and management of her chronic lower back pain She has been suffering with this pain for approximately 4 months. Denies inciting injury, fall, trauma Endorses left lower back pain with radiation down posterior thigh to the knee. Also endorses midline lower back pain without radiation down either lower extremity Pain is worse with sitting, standing, twisting, bending Denies lower extremity numbness, tingling, weakness Pain today is rated as a 3/10 constant. Worse in the evenings after she gives a work She has been taking NSAIDs with some improvement. Though she only has one kidney therefore she uses this sparingly Prescribed tramadol for PCP but did not like how it makes her feel so she stop ped taking it No improvement with heat or lidocaine patches Denies recent physical therapy, acupuncture, massage chiropractor interventions Recent lumbar spine x-ray reviewed, results as per below Notable for L1 compression fracture, patient denies worsening pain with coughing, sneezing, deep breathing. Denies red flag symptoms including new loss of bowel, bladder or saddle anesthesia In terms of muscle damage condition is described as dull, aching, sore, hurting Pain is negatively impacting patient's sleep, ability to perform activities daily living, mood, general activity Denies current use of anticoagulants Denies implantable devices, pacemaker or defibrillator Denies current use of nicotine, tobacco, alcohol or illicit substances [facility] Medical History Fatty liver Depression Solitary kidney, acquired GERD (gastroesophageal reflux disease) Borderline high cholesterol Adrenal adenoma Hypothyroidism Urinary frequency Migraine Surgical History H/O colonoscopy History of esophagogastroduodenoscopy (EGD) Hx of surgical procedure (04/23/24) History of cholecystectomy History of abdominoplasty History of arthroscopy of left knee History of arthroscopy of right shoulder History of tubal ligation History of ovarian cystectomy History of hysterectomy History of nephrectomy Family History Father History of throat cancer Mother No problems noted. Sister History of breast cancer History of ovarian cancer Brother History of kidney problems Maternal Grandmother History of pancreatic cancer Brother No problems noted. Son No problems noted. Daughter No problems noted. Daughter No problems noted. Daughter No problems noted. Social History Housing: House Alcohol intake: current Alcohol intake frequency: holidays/special occasions only Patient Tobacco Use Status: Never used Tobacco e-Cigarette/Vaping Use: Never Used Second Hand Smoke Exposure: No service: No Current occupational status: employed Current occupation: Working at [employer] Cognitive needs: No Hearing needs: No Vision needs: Yes (Glasses) Review of Systems Const All systems reviewed & are unremarkable except as noted in HPI and below Physical Exam Vital Signs: Last Vital Signs Pulse 77 10/22/24 09:07 BP 132/75 10/22/24 09:07 Pulse Ox 98 10/22/24 09:07 Oxygen Delivery Method Room Air 10/22/24 09:07 BMI result Body Mass Index 30.1 General: awake, alert, oriented. Answers questions appropriately. Fully engaged in examination. Skin: warm, dry, intact HEENT: Normocephalic. Hearing intact. Cardiac: External chest normal in appearance. Respiratory: No cough, audible wheezing or stridor. Abdomen: without gross distension. MS: No obvious swelling or deformities. Able to stand on bilateral tiptoes and bilateral heels.? Able to transition from sit to stand unassisted. Ambulates with bilaterally normal heel strike and toe off Tenderness over midline lumbar vertebrae and lumbar paraspinal muscles. Nontender over L1 lumbar vertebrae Valsalva negative Spurling positive SLR negative Tenderness over left PSIS. Left SI: Gaenslen positive, thigh thrust positive, SI compression positive Neurological: Oriented to person, place, time and situation. Thought process intact. No gait abnormalities appreciated. Psychiatric: Appropriate mood and affect. Good judgment and insight. Results Reviewed Results Reviewed: 09/23/24 XR/XR lumbar spine 2-3V FINDINGS: Minimal age indeterminate superior endplate compression deformity of L1 vertebral body. The remaining lumbar vertebral bodies demonstrate normal height. Overall sagittal alignment is maintained. Mild multilevel intervertebral space narrowing. Mild facet arthropathy of the lower lumbar spine. Multiple surgical clips within the abdomen and pelvis. The lateral sacroiliac joints and pubic symphysis are intact. IMPRESSION: Mild age-indeterminate superior endplate compression deformity of L1 vertebral body. Mild multilevel degenerative changes. Assessment & Plan Assessment & Plan (1) Sacroiliac joint dysfunction of left side: Code(s): M53.3 - Sacrococcygeal disorders, not elsewhere classified Category: Medical (2) Compression fracture of L1 lumbar vertebra: Code(s): S32.010A - Wedge compression fracture of first lumbar vertebra, initial encounter for closed fracture Category: Medical (3) Low back pain: Code(s): M54.50 - Low back pain, unspecified Category: Medical Qualifiers: Back pain laterality: midline Chronicity: acute Sciatica laterality: sciatica of right side Sciatica presence: with sciatica Qualified Code(s): M54.41 - Lumbago with sciatica, right side Plan Roma is a very pleasant 59-year-old female who presented to the office today for evaluation management of her chronic lower back pain History, physical exam and provocative testing consistent with lumbar spondylosis, left sacroiliac joint dysfunction and L1 compression fracture age indeterminate. MRI was ordered to evaluate the age and severity of L1 compression fracture to aid treatment plan X-ray ordered to evaluate SI joint Diclofenac 1% topical gel. Apply to most painful area 4 times daily as needed. Do not use this while taking oral NSAIDs. Cyclobenzaprine 5 mg p.o. q.h.s.. She was advised on cautions for use. Patient recently prescribed tramadol from PCP, she states she is no longer taking this medication. All questions and concerns were answered, patient agrees with the plan. Follow up after PT, sooner if needed Orders: Orders XR hip LT w PEL1V Today M47.816 - Spondylosis without myelopathy or radiculopathy, lumbar region, M53.3 - Sacrococcygeal disorders, not elsewhere classified PT Evaluation and Treatment Today M47.816 - Spondylosis without myelopathy or radiculopathy, lumbar region, M53.3 - Sacrococcygeal disorders, not elsewhere classified MR lumbar spine wo con Today M54.41 - Lumbago with sciatica, right side, S32.010A - Wedge compression fracture of first lumbar vertebra, initial encounter for closed fracture Medications: New cyclobenzaprine Do not take with tramadol, alcohol or other [employer] depressants. May cause drowsiness. No driving while taking this medication. 5 mg PO BEDTIME PRN 30 tabs 1RF muscle spasm diclofenac sodium 1% (Arthritis Pain (diclofenac)) apply to single knee, ankle, foot; for foot includes sole/toes/top of foot Do not use while taking other nonsteroidal anti-inflammatory medications. 4 grams topical QID 100 grams 0RF Discontinued tramadol Discontinued Reason: Patient no longer taking 50 mg PO BID 5 days PRN 10 tabs 0RF pain S32.010A - Wedge compression fracture of first lumbar vertebra, initial encounter for closed fracture Coding Level of Care Code New Pt Level 4 (32370) Complex EM visit Add On G2211 Diagnoses Sacroiliac joint dysfunction of left side M53.3 Compression fracture of L1 lumbar vertebra S32.010A Acute midline low back pain with right-sided sciatica M54.41 Back pain laterality: midline Chronicity: acute Sciatica laterality: sciatica of right side Sciatica presence: with sciatica
[2024-10-22 09:07] VITALS: BP 132/75; PULSE 77; O2SAT 98; BMI 30.1
== END 2024-10-22 09:28 | disposition home or self-care (01) ==
PROVIDERS: PCP Physician Assistant; Visit Provider Registered Nurse Emergency
DX: M53.3 Sacrococcygeal disorders, not elsewhere classified (principal); S32.010A Wedge compression fracture of first lumbar vertebra, initial encounter for closed fracture; M54.41 Lumbago with sciatica, right side
CPT/HCPCS: 99204

== ENCOUNTER 2024-10-26 11:42 | Outpatient (REF) | payer OTHER, SELFPAY | END 2024-10-26 11:43 | disposition home or self-care (01) | LOC: HO.XRAY 11:42 | PROVIDERS: PCP Physician Assistant; Visit Provider Registered Nurse Emergency | DX: M47.816 Spondylosis without myelopathy or radiculopathy, lumbar region (principal); M53.3 Sacrococcygeal disorders, not elsewhere classified | CPT/HCPCS: 73502 ==

== ENCOUNTER 2024-11-05 06:08 | Outpatient (REF) | payer OTHER, SELFPAY ==
[2024-11-05 08:33] LABS: Appearance Urine Cloudy; Color Urine Yellow; Glucose Urine UA Negative (Negative); Leukocyte Esterase Urine Small (1+) (Negative); Nitrite Urine Negative (Negative); PH 5.5 (5.0-9.0); UMIC TRIGGER UA YES; Urine Blood Negative (Negative); Urine Ketones Negative (Negative); Urine Protein Negative (Neg-Trace)
[2024-11-05 08:51] LABS: Bacteria Urine 4+ (None Seen); Calcium Oxalate Crystals Urine Present; Hyaline Casts Urine 0-2 /LPF (0-2); RBC Urine 0-2 /HPF (0-2); WBC Urine 0-5 /HPF (0-5)
[2024-11-05 09:18] LABS: Creatinine Urine 212.33 mg/dL; Total Protein Urine Random 14 mg/dL (<12)
== END 2024-11-05 06:09 | disposition home or self-care (01) ==
LOC: HO.LAB 06:08
PROVIDERS: PCP Physician Assistant; Visit Provider Internal Medicine Hypertension Specialist
DX: Z90.5 Acquired absence of kidney (principal)
CPT/HCPCS: 81001; 82570; 84156

== ENCOUNTER 2024-11-08 15:43 | Outpatient (AMB) | payer OTHER, SELFPAY ==
--- NOTE | 2024-11-08 15:43 | HO.NEPHOV ---
Vital Signs 11/08/24 15:44 Height 5 ft 3.5 in Weight 175 lb BMI 30.5 BP 122/80 Blood Pressure Location Rt brachial Position Sitting Intake Visit Reasons: 1 year FU/CONF [place] Management Specialist Required: No Accompanied by: Self / Same As Patient Allergies bupropion [From WELLBUTRIN] Allergy (Intermediate, Verified 11/08/24 15:46) HALLUCINATION Iodinated Contrast Media [IV DYE, IODINE CONTAINING CONTRAST ] Allergy (Intermediate, Verified 11/08/24 15:46) HIVES Medication List - Last Reconciled 11/08/24 by Pete White MD cholecalciferol (vitamin D3) 25 mcg PO DAILY cyclobenzaprine 5 mg PO BEDTIME PRN diclofenac sodium 1% (Arthritis Pain (diclofenac)) 4 grams topical QID levothyroxine 125 mcg PO DAILY 90 days omeprazole 40 mg PO QAM sumatriptan succinate take 1 tab at onset of headache; if no relief may repeat 1 tab after at least 2 hrs; max = 4 tabs/24 hr PO zolpidem ER 12.5 mg PO BEDTIME PRN 14 days HPI Comments Details: Middle aged woman with solitary RIGHT kidney and right adrenal adenoma for annual follow up No new issues [facility] Medical History Fatty liver Depression Solitary kidney, acquired GERD (gastroesophageal reflux disease) Borderline high cholesterol Adrenal adenoma Hypothyroidism Urinary frequency Migraine Surgical History H/O colonoscopy History of esophagogastroduodenoscopy (EGD) Hx of surgical procedure (04/23/24) History of cholecystectomy History of abdominoplasty History of arthroscopy of left knee History of arthroscopy of right shoulder History of tubal ligation History of ovarian cystectomy History of hysterectomy History of nephrectomy Family History Father History of throat cancer Mother No problems noted. Sister History of breast cancer History of ovarian cancer Brother History of kidney problems Maternal Grandmother History of pancreatic cancer Brother No problems noted. Son No problems noted. Daughter No problems noted. Daughter No problems noted. Daughter No problems noted. Social History Housing: House Alcohol intake: current Alcohol intake frequency: holidays/special occasions only Patient Tobacco Use Status: Never used Tobacco e-Cigarette/Vaping Use: Never Used Second Hand Smoke Exposure: No service: No Current occupational status: employed Current occupation: Working at [employer] Cognitive needs: No Hearing needs: No Vision needs: Yes (Glasses) Physical Exam Vital Signs: Last Vital Signs BP 122/80 11/08/24 15:44 BMI result Body Mass Index 30.5 Comfortable Neck supple no JVD. Lungs entry equal no rales. Heart S1-S2 heard no gallop or rub. Abdomen soft nontender. Neuro alert awake oriented. No asterixis. Extremities no edema. Results Reviewed Nephrology Results: Hgb 13.2 g/dl (12.0-16.0) 09/23/24 WBC 7.3 X10*3/uL (4.8-10.8) 09/23/24 Plt Count 370 X10*3/uL (160-400) 09/23/24 Sodium 142 mmol/L (135-145) 09/23/24 Potassium 4.0 mmol/L (3.3-5.1) 09/23/24 Chloride 108 mmol/L (96-108) 09/23/24 Carbon Dioxide 28 mmol/L (22-29) 09/23/24 BUN 10 mg/dL (9-16) 09/23/24 Creatinine 0.95 mg/dL (0.5-1.4) 09/23/24 Calcium 10.0 mg/dL (8.4-10.2) 09/23/24 Urine Protein Negative mg/dL (Neg-Trace) 11/05/24 Urine Creatinine 212.33 mg/dL 11/05/24 Assessment & Plan Assessment & Plan (1) Solitary kidney, acquired: Code(s): Z90.5 - Acquired absence of kidney Category: Medical (2) Adrenal adenoma: Code(s): D35.00 - Benign neoplasm of unspecified adrenal gland Category: Medical Qualifiers: Laterality: right Qualified Code(s): D35.01 - Benign neoplasm of right adrenal gland Plan Middle aged woman with solitary right kidney. Renal function is normal and stable NO protienuria Right adrenal adenoma- reportedly benign based on CT scan BP normal Electrolytes normal Shall watch Orders: Orders Basic Metabolic Panel 1 Year Z90.5 - Acquired absence of kidney UA and rflx microscopic 1 Year Z90.5 - Acquired absence of kidney Creatinine Urine 1 Year Z90.5 - Acquired absence of kidney Total Protein Urine Random 1 Year Z90.5 - Acquired absence of kidney Coding Level of Care Code Est Pt Level 3 (74180) Diagnoses Solitary kidney, acquired Z90.5 Adenoma of right adrenal gland D35.01 Laterality: right
[2024-11-08 15:44] VITALS: BP 122/80; BMI 30.5
== END 2024-11-08 15:57 | disposition home or self-care (01) ==
PROVIDERS: PCP Physician Assistant; Visit Provider Internal Medicine Hypertension Specialist
DX: Z90.5 Acquired absence of kidney (principal); D35.01 Benign neoplasm of right adrenal gland
CPT/HCPCS: 99213

== ENCOUNTER → 2024-11-24 07:16 | Outpatient (BNV) | payer OTHER, SELFPAY | PROVIDERS: PCP Physician Assistant; Visit Provider Radiology Diagnostic Radiology | DX: M51.369 Other intervertebral disc degeneration, lumbar region without mention of lumbar back pain or lower extremity pain (principal) | CPT/HCPCS: 72148 ==

== ENCOUNTER 2024-11-24 07:22 | Outpatient (REF) | payer OTHER, SELFPAY ==
--- NOTE | ~2024-11-24 | MR_ITS ---
CLINICAL HISTORY: S32.010A - Wedge compression fracture of first lumbar vertebra, initial ... MR lumbar spine without gadolinium Comparison: CR/SR - XR LUMBAR SPINE 2-3V - 09/23/24 07:11 EST Findings: Bony alignment of the lumbar vertebral bodies is anatomic. No fracture or concerning bone marrow signal alteration is identified. The conus terminates at L1-2. No abnormal signal intensity is identified within the conus medullaris. Partial visualization of an 8 mm cyst within the right kidney. No concerning retroperitoneal mass lesions are identified. Segmental analysis: L1-2: Mild disc desiccation without disc bulge or protrusion. Central canal and neural foramina are patent. L2-3: Minimal disc desiccation without significant disc height loss. Mild facet joint degenerative change. Central canal and neural foramina are patent. L3-4: Mild broad-based disc bulge with facet joint degenerative change bilaterally, ixdx-poofzyf-zakl-right. There is hypertrophy of the ligamentum flavum. Central canal remains patent. Neural foramina are patent. L4-5: Minimal posterior annular bulging, asymmetric to the right. Lnxc-fj-qzkodkkd facet joint degenerative change. Central canal and neural foramina are patent. L5-S1: Broad-based disc bulge with subtle high intensity zone within the central left central location indicative of an annular tear. No protrusion. Kuha-il-nujvjgpx facet joint degenerative change. Central canal and neural foramina are patent. IMPRESSION: Degenerative changes as above without neural impingement. This document has been electronically signed by: Oscar Zurita MD on 11/24/2024 10:03:44
== END 2024-11-24 07:23 | disposition home or self-care (01) ==
LOC: HO.MRI 07:22
PROVIDERS: PCP Physician Assistant; Visit Provider Registered Nurse Emergency
DX: S32.010A Wedge compression fracture of first lumbar vertebra, initial encounter for closed fracture (principal); M54.41 Lumbago with sciatica, right side
CPT/HCPCS: 72148

== ENCOUNTER 2024-12-03 08:31 | Outpatient (AMB) | payer OTHER, SELFPAY ==
--- NOTE | 2024-12-03 08:33 | A.OFFVIS_ITS ---
Vital Signs 12/03/24 08:37 Height 5 ft 3.5 in Weight 170 lb BMI 29.6 BP 129/90 H Blood Pressure Location Rt brachial Position Sitting Pulse 110 H Pulse Source Pulse Oximeter Intake Visit Reasons: MRI FOLLOW UP/RESULTS Intake Note: Pain today 5/10 Net Web Developer Required: No Accompanied by: Self / Same As Patient Allergies bupropion [From WELLBUTRIN] Allergy (Intermediate, Verified 12/03/24 08:38) HALLUCINATION Iodinated Contrast Media [IV DYE, IODINE CONTAINING CONTRAST ] Allergy (Intermediate, Verified 12/03/24 08:38) HIVES HPI Comments Details: Patient presents back to the office today for follow-up, review recent MRI MRI reviewed, results as per below Physical therapy was ordered at last visit, patient has yet to be called to schedule. Continues with left lower back pain with radiation posteriorly down leg to the knee. Denies red flag symptoms including new loss of bowel, bladder or saddle anesthesia Prior: Roma is a very pleasant 59-year-old female who presents to the office today for evaluation and management of her chronic lower back pain She has been suffering with this pain for approximately 4 months. Denies inciting injury, fall, trauma Endorses left lower back pain with radiation down posterior thigh to the knee. Also endorses midline lower back pain without radiation down either lower extremity Pain is worse with sitting, standing, twisting, bending Denies lower extremity numbness, tingling, weakness Pain today is rated as a 3/10 constant. Worse in the evenings after she gives a work She has been taking NSAIDs with some improvement. Though she only has one kidney therefore she uses this sparingly Prescribed tramadol for PCP but did not like how it makes her feel so she stopped taking it No improvement with heat or lidocaine patches Denies recent physical therapy, acupuncture, massage chiropractor interventions Recent lumbar spine x-ray reviewed, results as per below Notable for L1 compression fracture, patient denies worsening pain with coughing, sneezing, deep breathing. Denies red flag symptoms including new loss of bowel, bladder or saddle anesthesia In terms of muscle damage condition is described as dull, aching, sore, hurting Pain is negatively impacting patient's sleep, ability to perform activities daily living, mood, general activity Denies current use of anticoagulants Denies implantable devices, pacemaker or defibrillator Denies current use of nicotine, tobacco, alcohol or illicit substances [facility] Medical History Fatty liver Depression Solitary kidney, acquired GERD (gastroesophageal reflux disease) Borderline high cholesterol Adrenal adenoma Hypothyroidism Urinary frequency Migraine Surgical History H/O colonoscopy History of esophagogastroduodenoscopy (EGD) Hx of surgical procedure (04/23/24) History of cholecystectomy History of abdominoplasty History of arthroscopy of left knee History of arthroscopy of right shoulder History of tubal ligation History of ovarian cystectomy History of hysterectomy History of nephrectomy Family History Father History of throat cancer Mother No problems noted. Sister History of breast cancer History of ovarian cancer Brother History of kidney problems Maternal Grandmother History of pancreatic cancer Brother No problems noted. Son No problems noted. Daughter No problems noted. Daughter No problems noted. Daughter No problems noted. Social History Housing: House Alcohol intake: current Alcohol intake frequency: holidays/special occasions only Patient Tobacco Use Status: Never used Tobacco e-Cigarette/Vaping Use: Never Used Second Hand Smoke Exposure: No service: No Current occupational status: employed Current occupation: Working at [employer] Cognitive needs: No Hearing needs: No Vision needs: Yes (Glasses) Review of Systems Const All systems reviewed & are unremarkable except as noted in HPI and below Physical Exam Vital Signs: Last Vital Signs Pulse 110 H 12/03/24 08:37 BP 129/90 H 12/03/24 08:37 BMI result Body Mass Index 29.6 General: awake, alert, oriented. Answers questions appropriately. Fully engaged in examination. Skin: warm, dry, intact HEENT: Normocephalic. Hearing intact. Cardiac: External chest normal in appearance. Respiratory: No cough, audible wheezing or stridor. Abdomen: without gross distension. Neurological: Oriented to person, place, time and situation. Thought process intact. No gait abnormalities appreciated. Psychiatric: Appropriate mood and affect. Good judgment and insight. Results Reviewed Results Reviewed: 11/2024 MRI LS Findings: Bony alignment of the lumbar vertebral bodies is anatomic. No fracture or concerning bone marrow signal alteration is identified. The conus terminates at L1-2. No abnormal signal intensity is identified within the conus medullaris. Partial visualization of an 8 mm cyst within the right kidney. No concerning retroperitoneal mass lesions are identified. Segmental analysis: L1-2: Mild disc desiccation without disc bulge or protrusion. Central canal and neural foramina are patent. L2-3: Minimal disc desiccation without significant disc height loss. Mild facet joint degenerative change. Central canal and neural foramina are patent. L3-4: Mild broad-based disc bulge with facet joint degenerative change bilaterally, inbn-dxftxwq-yaia-right. There is hypertrophy of the ligamentum flavum. Central canal remains patent. Neural foramina are patent. L4-5: Minimal posterior annular bulging, asymmetric to the right. Mpun-zj-iazvlrtq facet joint degenerative change. Central canal and neural foramina are patent. L5-S1: Broad-based disc bulge with subtle high intensity zone within the central left central location indicative of an annular tear. No protrusion. Icax-hf-lxyzndxy facet joint degenerative change. Central canal and neural foramina are patent. IMPRESSION: Degenerative changes as above without neural impingement. 09/23/24 XR/XR lumbar spine 2-3V FINDINGS: Minimal age indeterminate superior endplate compression deformity of L1 vertebral body. The remaining lumbar vertebral bodies demonstrate normal height. Overall sagittal alignment is maintained. Mild multilevel intervertebral space narrowing. Mild facet arthropathy of the lower lumbar spine. Multiple surgical clips within the abdomen and pelvis. The lateral sacroiliac joints and pubic symphysis are intact. IMPRESSION: Mild age-indeterminate superior endplate compression deformity of L1 vertebral body. Mild multilevel degenerative changes. Assessment & Plan Assessment & Plan (1) Sacroiliac joint dysfunction of left side: Code(s): M53.3 - Sacrococcygeal disorders, not elsewhere classified Category: Medical (2) Compression fracture of L1 lumbar vertebra: Code(s): S32.010A - Wedge compression fracture of first lumbar vertebra, initial encounter for closed fracture Category: Medical (3) Low back pain: Code(s): M54.50 - Low back pain, unspecified Category: Medical Qualifiers: Chronicity: acute Back pain laterality: midline Sciatica presence: with sciatica Sciatica laterality: sciatica of right side Qualified Code(s): M54.41 - Lumbago with sciatica, right side Plan oRma is a very pleasant 59-year-old female who presented to the office today for follow-up, review recent MRI MRI reviewed, results as per above Continue with plan for physical therapy, order was placed at last visit. Patient was treated for sacroiliac belt in the office. She was provided instructions for use. All questions and concerns were answered, patient agrees with the plan. Follow up after PT, sooner if needed Coding Level of Care Code Est Pt Level 3 (54684) Complex EM visit Add On G2211 Diagnoses Sacroiliac joint dysfunction of left side M53.3 Compression fracture of L1 lumbar vertebra S32.010A Acute midline low back pain with right-sided sciatica M54.41 Chronicity: acute Back pain laterality: midline Sciatica presence: with sciatica Sciatica laterality: sciatica of right side
[2024-12-03 08:37] VITALS: BP 129/90; PULSE 110; BMI 29.6
--- OUTSIDE RECORDS SUMMARY | 2024-12-03 08:39 | XMS_ITS | Clinical Summary ---
Author Organization [facility] Address [address] [place] [address] Phone Care Team Providers Care Fitness And Wellness Manager Name Role Phone Noel Carrizales DO Primary Care Provider [phone] Allergies Active Allergy Reactions Criticality Noted Date Comments Bupropion Other (see comments) 09/03/2021 Medications cholecalciferol (VITAMIN D-3) 25 MCG (1000 UT) capsule Take 1 capsule by mouth 1 (one) time each day Active levothyroxine (SYNTHROID, LEVOTHROID) 125 MCG tablet Take 1 tablet by mouth 1 (one) time each day Active omeprazole (PriLOSEC) [address] capsule Take 40 mg by mouth 1 Active silver sulfADIAZINE (SILVADENE, SSD) 1 % cream APPLY A 1.5MM THICKNESS TOPICALLY DAILY 1 Active SUMAtriptan (IMITREX) 100 MG tablet as needed Active Active Problems Problem Noted Date Diagnosed Date Adrenal mass 09/03/2021 Chronic kidney disease due t o and following excision of neoplasm of kidney 09/03/2021 Family History Medical History Relation Comments Cancer Father Kidney disease Sibling 1 alcoholic Cancer Sibling 2 ovarian Relation Status Comments Father Mother Unknown Sibling 1 Sibling 2 Social History Tobacco Use Types Packs/Day Years Used Date Smoking Tobacco: Never Smokeless Tobacco: Never Alcohol Use Standard Drinks/Week Comments Yes 0 (1 standard drink = 0.6 oz pure alcohol) Alcoholic Drinks/day: Occasional social drink Comments Unknown Sex and Gender Information Value Date Recorded Sex Assigned at Not on file Legal Sex Female 4:54 PM EST Gender Identity Not on file Sexual Orientation Not on file Last Filed Vital Signs Vital Sign Reading Time Taken Comments Blood Pressure 126/80 09/10/2021 1:57 PM EST Pulse 87 09/10/2021 1:57 PM EST Temperature - - Respiratory Rate - - Oxygen Saturation 96% 09/10/2021 1:57 PM EST Inhaled Oxygen Concentration - - Weight 84 kg (185 lb 3.2 oz) 09/10/2021 1:57 PM EST Height 160 cm (5' 3 ) 09/09/2019 12:00 PM EST Body Mass Index 32.81 09/09/2019 12:00 PM EST Plan of Treatment Health Maintenance Due Date Last Done Comments Breast Cancer Screening 1965 Pneumococcal Vaccine: Pediat rics (0 to 5 Years) and At-Risk Patients (6 to 64 Years) (1 of 2 - PCV) 1971 Hepatitis B Vaccine (1 of 3 - 19+ 3-dose series) 04/22 Colorectal Cancer Screening: Annual FOBT 2014 Colorectal Cancer Screening: Colonoscopy 2014 Colorectal Cancer Screening: Sigmoidoscopy 2014 Influenza Vaccine (#1) 2024 Insurance [facility] Care Teams Fitness And Wellness Manager Relationship Specialty Start Date End Date Noel Carrizales DO [facility] [address] [place], [place] PCP - General 11/13/20
== END 2024-12-03 08:52 | disposition home or self-care (01) ==
PROVIDERS: PCP Physician Assistant; Visit Provider Registered Nurse Emergency
DX: M53.3 Sacrococcygeal disorders, not elsewhere classified (principal); S32.010A Wedge compression fracture of first lumbar vertebra, initial encounter for closed fracture; M54.41 Lumbago with sciatica, right side
CPT/HCPCS: 99213

== ENCOUNTER → 2024-12-03 08:31 | Outpatient (BNVA) | payer OTHER, SELFPAY | PROVIDERS: PCP Physician Assistant; Visit Provider Registered Nurse Emergency ==

== ENCOUNTER 2025-01-12 06:42 | Outpatient (RCR) | payer OTHER, SELFPAY ==
--- NOTE | 2024-12-27 08:41 | MHC.PT.EP ---
[facility] [place] Office [place] Office [place] Office [address] [phone] F: [phone] F: [phone] F: [phone] F: [phone] Physical Therapy Plan of Care Date of Evaluation: 12/27/24 Date of Surgery: Diagnosis: spondylosis without myelopathy or radiculopathy, lumbar region sacrococcygeal disorders Assessment: 59 y/o female referred to PT with spondylosis without myelopathy or radiculopathy, lumbar region; sacrococcygeal disorders. Pain and difficulty with sitting, standing, walking lifting, sleeping, and transitional movements. Examination shows decreased lumbar AROM, decreased hip ER/IR ROM, decreased core/hip strength (weaker on R), TTP, and impaired gait pattern. Recommend PT 2x/week for 5 weeks to address impairments, implement HEP, and optimize functional mobility. Frequency and Duration: The patient will be seen 2x/week for 5 weeks Short Term Goals: 3 weeks i with HEP Pt will demonstrate sit to stand without gowers sign and appropriate breathing pattern Music Leader Goals: 5 weeks I with HEP and self management of sx Pt will be able to sleep through > 75% of the night Pt will reports > 50% decrease in pain with functional activities (IR 5-08/12) Treatment Plan: Modalities to reduce pain, spasms and effusion. Manual therapy to restore motion and function. Therapeutic exercise to improve strength and flexibility. Neuromuscular re-education for posture and balance. Therapeutic activities to return to functional activities of daily living. Electronically signed by: Sayda Lane PT Please sign and return to therapist. Thank you for your referral.
--- NOTE | 2025-02-03 08:06 | MHC.PT.DC ---
[facility] [place] [facility] [place] [facility] [place] [facility] [address] Joseph Shah [address] [phone] F: [phone] F: [phone] F: [phone] F: [phone] Physical Therapy Discharge Report Diagnosis: spondylosis without myelopathy or radiculopathy, lumbar region sacrococcygeal disorders Date of Surgery: Date of Evaluation: 12/27/24 Date of Discharge: 01/20/25 Treatments to Date: 5 Cancellations to Date: 0 No Shows to Date: 2 Discharge Status: Independent with HEP Visit Non-compliance Discharge Summary: Pt with 2 consecutive no show visits and will be d/c according to attendance policy. At time of last attended visit, still needed cues for neutral pelvis and avoiding lumbar lockout. I with HEP at time of last visit as well. Electronically signed by: Sayda Lane PT Please sign and return to therapist. Thank you for your referral.
== END 2025-02-03 08:06 | disposition home or self-care (01) ==
LOC: HO.PT 06:42
PROVIDERS: PCP Physician Assistant; Visit Provider Registered Nurse Emergency
DX: M47.816 Spondylosis without myelopathy or radiculopathy, lumbar region (principal); M53.3 Sacrococcygeal disorders, not elsewhere classified
CPT/HCPCS: 97110; 97112; 97161; 97530

== ENCOUNTER 2025-01-31 09:18 | Outpatient (AMB) | payer OTHER, SELFPAY ==
--- NOTE | 2025-01-31 10:14 | AM.OFFWIN_ITS ---
Intake Vital Signs 01/31/25 10:18 Weight 170 lb BP 128/78 Blood Pressure Location Lt brachial Position Sitting Pulse 74 Pulse Source Pulse Oximeter Pulse Oximetry (%) 98 Oxygen Delivery Method Room Air Intake Visit Reasons: EP ? allergic reaction on the face Intake Note: Patient here for allergic reaction on the face that started last friday. Patient Tobacco Use Status: Never used Tobacco Allergies bupropion [From WELLBUTRIN] Allergy (Intermediate, Verified 01/31/25 10:19) HALLUCINATION Iodinated Contrast Media [IV DYE, IODINE CONTAINING CONTRAST ] Allergy (Intermediate, Verified 01/31/25 10:19) HIVES Do you need a note to return to daycare/school/sports/work: No HPI HPI Comments History of Present Illness Details History of Present Illness - The patient is a 59-year-old female pr esenting with facial itching and rash. - Symptoms began 4 days ago on , noted after returning from [place] 6 days ago on Friday. - Initial itching started on the face an d subsequently spread towards the ears and eyes, accompanied by redness. - The patient denied new topical or oral exposures including face creams, makeup, dental hygiene products, or dental procedures. - Her only new environmental exposure wa s traveling via airplane from [place]. - There is no prior history of similar s ymptoms or dermatologic issues. - Prednisone has been utilized previousl y as per patient. Physical Exam General: Cooperative, healthy appearing, comfortable, no acute distress and well developed Orientation: Patient oriented x3 Limitations: No limitations Head: Normal to inspection Ears: Hearing grossly normal bilaterally, but patient reports itching Nose: Normal External nose present Face and sinus: Itching and redness noted on the face Eyes: Appearance normal, both eyes and all related structures, but patient reports itching Neck: Normal visual inspection and Yes full ROM Respiratory: Normal respiratory effort and able to speak in complete sentences. Skin: right chin/lower cheek has area of raised, confluent erythema with some pinpoint areas surrounding it, extends to left side of face towards left lower cheek. no warmth Neuro: Patient oriented x3 Extremities: Normal to inspection [facility] Medical History Fatty liver Depression Solitary kidney, acquired GERD (gastroesophageal reflux disease) Borderline high cholesterol Adrenal adenoma Hypothyroidism Urinary frequency Migraine Surgical History H/O colonoscopy History of esophagogastroduodenoscopy (EGD) Hx of surgical procedure (04/23/24) History of cholecystectomy History of abdominoplasty History of arthroscopy of left knee History of arthroscopy of right shoulder History of tubal ligation History of ovarian cystectomy History of hysterectomy History of nephrectomy Family History Father History of throat cancer Mother No problems noted. Sister History of breast cancer History of ovarian cancer Brother History of kidney problems Maternal Grandmother History of pancreatic cancer Brother No problems noted. Son No problems noted. Daughter No problems noted. Daughter No problems noted. Daughter No problems noted. Social History Housing: House Alcohol intake: current Alcohol intake frequency: holidays/special occasions only Patient Tobacco Use Status: Never used Tobacco e-Cigarette/Vaping Use: Never Used Second Hand Smoke Exposure: No service: No Current occupational status: employed Current occupation: Working at [employer] Cognitive needs: No Hearing needs: No Vision needs: Yes (Glasses) Review of Systems Const All systems reviewed & are unremarkable except as noted in HPI and below Physical Exam Vital Signs: Last Vital Signs Pulse 74 01/31/25 10:18 BP 128/78 01/31/25 10:18 Pulse Ox 98 01/31/25 10:18 Oxygen Delivery Method Room Air 01/31/25 10:18 Assessment & Plan Assessment & Plan (1) Allergic contact dermatitis: Code(s): L23.9 - Allergic contact dermatitis, unspecified cause Qualifiers: Contact dermatitis trigger: unspecified trigger Qualified Code(s): L23.9 - Allergic contact dermatitis, unspecified cause Plan: I have determined that the patient's facial itching and rash are likely due to contact dermatitis, possibly from an allergen or irritant encountered during air travel. To manage the inflammation and allergic response, a prednisone taper regimen is prescribed, starting with a higher dose and gradually decreasing over eight days. It is essential to take prednisone in the morning to avoid insomnia. Hydroxyzine is prescribed for symptomatic relief of itching, particularly at night, as it may cause drowsiness. The medications have been sent to her pharmacy for prompt initiation of therapy. Further evaluation will be considered if there is no improvement in symptoms. Patient was informed and verbally consented to the use of an ambient scribe for clinic note documentation during this visit. Medications: New prednisone take 4 tablets on days 1-2, take 3 tablets on days 3-4, take 2 tablets on days 5-6, take 1 tablet on days 7-8. 10 mg PO DIRECTED 20 tabs 0RF hydroxyzine HCl 25 mg PO BEDTIME 7 tabs 0RF Coding Level of Care Code Est Pt Level 3 (83289) Diagnoses Allergic contact dermatitis, unspecified trigger L23.9 Contact dermatitis trigger: unspecified trigger
[2025-01-31 10:18] VITALS: BP 128/78; PULSE 74; O2SAT 98
== END 2025-01-31 10:39 | disposition home or self-care (01) ==
PROVIDERS: PCP Physician Assistant; Visit Provider Physician Assistant
DX: L23.9 Allergic contact dermatitis, unspecified cause (principal)

== ENCOUNTER 2025-02-14 16:16 | Outpatient (REF) | payer OTHER, SELFPAY ==
--- NOTE | ~2025-02-14 | XR_ITS ---
CLINICAL HISTORY: M77.8 - Other enthesopathies, not elsewhere classified 4 view right shoulder Comparison: None Findings: No fractures or dislocations. No significant loss of joint space or osteophytes. No erosions. No radiopaque foreign body. IMPRESSION: 1. No acute findings This document has been electronically signed by: Marguerite Hicks MD on 02/16/2025 14:35:23
--- OUTSIDE RECORDS SUMMARY | 2025-02-14 18:23 | XMS_ITS ---
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 Name Role Phone Jeffrey Rutledge Primary Care Provider Unavailab Yadiel Nixon Unavailable [phone] Elie BERNARD, Apollo Unavailable Unavailable REASON FOR VISIT epigastric pain,gerd Problems Problem Type SNOMED Code ICD Code Onset Dates Problem Status W/U Status Risk Notes Problem Gastroesophageal reflux disease with esophagitis (disorder) (487715446) Gastro-esoph ageal reflux disease with esophagitis, without bleeding (K21.00) Active confirmed Encounters Encounter Location Date Provider Diagnosis [facility] Outpatient [address] [place] [id number] 05/07/2024 Yadiel Li Gastro-esophageal reflux disease with [...] Information Progress Notes * PHOENIX HERNANDESOB:1965 ( 59 yo F)Acc No.[id number]:05/07/2024 EGD/MAC Patient:?DONNA HERNANDES Provider:?Yadiel Li MD :1965???Age:59 Y???Sex:Female D ate:05/07/2024 Address:[address] [place], [place] [id number] Pcp:Jeffrey Rutledge Subjective: * Chief Complaints: * ???1. Epigastric pain,gerd. * Medical History:? Objective: * Vitals:? Assessment: * Assessment: 1.?Gastro-esophageal reflux disease with esophagitis, without bleeding - K21.00 (Primary)???2.?Hiatal hernia - K44.9???3.?Pain of upper abdomen - R10.10???4.?Heartburn - R12??? Plan: * Treatment: * Procedure Codes:?88177 UPPER GI ENDOSCOPY, BIOPSY * * The named appointment provid er may or may not be the originator of this progress note, and it is not deemed complete until electronically signed by the appointment provider. Sign off status: Pending * Provider:?Yadiel Li MD Date:? 024 Generated for Valerie cotto/Andrea/eTransmitting on:?02/14/2025 06:23 PM EDT
--- OUTSIDE RECORDS SUMMARY | 2025-02-14 18:24 | XMS_ITS | Patient Health Record ---
Author Organization [facility] Address [address] [place] [id number] Care Team Providers Care Medical Field Representative Name Role Phone Ping Lamb Unavailable [phone] MONIQUEBIMAL STUART Unavailable [phone] ALLERGIES No Known Allergies REASON FOR REFERRAL No Information MEDICATIONS Medication SIG (Take, Route, Frequency, Duration) Notes Start Date End Date Status Zepbound 5 MG/0.5ML 0.5 mL Subcutaneous once weekly for 30 days replaces wegovy Active Wegovy 2.4 MG/0.75ML 0.75 mL Subcutaneous once a week for 30 days Not-Taking Levothyroxine Sodium 125 MCG TAKE 1 TABLET BY MOUTH DAILY Oral for 90 Days Active Zolpidem Tartrate 10 MG TAKE 1 TABLET BY MOUTH AT BEDTIME FOR 14 DAYS Oral for 14 Days Not-Taking Vitamin D3 25 MCG (1000 UT) TAKE 1 CAPSULE BY MOUTH EVERY DAY Oral for 90 Days Not-Taking Sucralfate 1 GM TAKE 1 TABLET BY MOUTH THREE TIMES DAILY Oral for 30 Days Not-Taking Metoclopramide HCl 10 MG TAKE 1 TABLET BY MOUTH THREE TIMES DAILY NEEDED FOR NAUSEA OR VOMITING Oral for 10 Days Not-Taking Topiramate 25 MG TAKE 1 TABLET BY MOUTH ONE A DAY for 90 Not-Taking Omeprazole 20 MG 1 capsule 30 minutes before morning meal Orally Once a day for 30 day(s) 02/24/2024 Not-Taking SOCIAL HISTORY Tobacco Use: Social History Observation Description Date Details (start date - stop date) Never Smoker NA - NA Sex Assigned At : Social History Observation Description Sex Assigned At Unknown Tobacco Use/Smoking Question Answer Notes Are you a nonsmoker Alcohol Screen (Audit-C) Question Answer Notes Did you have a drink contain ing alcohol in the past year? Yes How often did you have a dri nk containing alcohol in the past year? 2 to 4 times a month (2 points) Points 2 Interpretation Negative PROBLEMS Problem Type ICD Code Onset Dates Problem Status W/U Status Risk SNOMED Code Notes Problem Other obesity due to excess calories (E66.09) Active confirmed 194930848 Problem Body mass index [BMI] 32.0-32.9, adult (Z68.32) Active confirmed 186806345 Problem BMI 30.0-30.9,adul t (Z68.30) Active confirmed [id number] VITAL SIGNS Heart Rate 78 /min 02/01/2025 Oximetry 97 % 02/01/2025 Blood pressure diastolic 80 mm Hg 02/01/2025 Height 63.25 in 02/01/2025 Blood pressure systolic 126 mm Hg 02/01/2025 Weight 168 lbs 02/01/2025 BMI 29.52 kg/m2 02/01/2025 Encounters Encounter Location Date Provider Diagnosis [facility] [address] [facility] [address] [place] [address] 03/02/[address] [facility] [facility] [address] [facility] [address] [place] [address] 03/09/[address] [facility] [address] [facility] [address] [facility] [address] [place] [address] 03/16/[address] [facility] [facility] [address] [facility] [address] [place] [address] 03/23/[address] [facility] [address] [facility] [address] [facility] [address] [place] [address] 03/30/[address] [facility] [address] [facility] [address] [facility] [address] [place] [address] 04/06/[address] [facility] [address] [facility] [address] [facility] [address] [place] [address] 04/13/[address] [facility] [address] [facility] [address] [facility] [address] [place] [address] 04/20/[address] [facility] [address] [facility] [address] [facility] [address] [place] [address] 05/04/[address] [facility] [address] [facility] [address] [facility] [address] [place] [address] 05/11/[address] [facility] [address] [facility] [address] [facility] [address] [place] [address] 05/17/[address] [facility] [address] [facility] [address] [facility] [address] [place], [place] 05/25/[address] [facility] [address] [facility] [address] [facility] [address] [place] [address] 06/01/2024 BIMAL ALEXANDRAT [address] [facility] [address] [place] [address] 08/25/2024 Ping Svrcek [address] [facility] [address] [facility] [address] [place] [address] 02/24/2024 Ping Svrcek Other obesity due to excess calories E66.09 ; Body mass index [BMI] 32.0-32.9, adult Z68.32 and Elevated blood pressure reading R03.0 [address] [facility] [address] [address] 03/23/2024 Ping Svrcek Other obesity due to excess calories E66.09 and Body mass index [BMI] 32.0-32.9, adult Z68.32 [address] [facility] [address] [address] 04/27/2024 Ping Svrcek Other obesity due to excess calories E66.09 and Body mass index [BMI] 32.0-32.9, adult Z68.32 [address] [facility] [address] [address] 06/08/2024 Ping Svrcek Other obesity due to excess calories E66.09 and Body mass index [BMI] 32.0-32.9, adult Z68.32 [address] [facility] [address] [address] 07/22/2024 Ping Svrcek Other obesity due to excess calories E66.09 and BMI 30.0-30.9,adult Z68.30 [address] [facility] [address] [address] 08/18/2024 Ping Svrcek Other obesity due to excess calories E66.09 and BMI 30.0-30.9,adult Z68.30 [address] [facility] [address] [address] 09/16/2024 Ping Svrcek Other obesity due to excess calories E66.09 and BMI 30.0-30.9,adult Z68.30 [address] [address] 10/25/2024 Ping Svrcek Other obesity due to excess calories E66.09 and BMI 29.0-29.9,adult Z68.29 [address] [address] 11/30/2024 Ping Svrcek Other obesity due to excess calories E66.09 and BMI 29.0-29.9,adult Z68.29 [address] [address] 01/05/2025 Ping Svrcek Other obesity due to excess calories E66.09 ; BMI 29.0-29.9,adult Z68.29 and Weight loss counseling, encounter for Z71.3 [address] [address] 02/01/2025 Ping Svrcek Other obesity due to excess calories E66.09 ; BMI 29.0-29.9,adult Z68.29 and Weight loss counseling, encounter for Z71.3 [facility] [address] [place] [address] 03/30/2024 Ping Svrcek [facility] [address] [place] [address] 10/14/2024 Ping Svrcek Other obesity due to excess calories E66.09 [address] [address] 01/05/[address] [facility] [address] [place] [address] 03/18/2024 Ping Svrcek [facility] [address] [facility] [address] [place] [address] 05/26/2024 Ping Svrcek [address] [address] 09/20/2024 Ping Svrcek Other obesity due to excess calories E66.09 [address] [address] 09/20/2024 Ping Svrcek [address] [address] 12/14/2024 Ping Ashleyk [address] [facility] [address] [place] [address] 01/16/2025 Ping Lamb Other obesity due to excess calories E66.09 ASSESSMENTS Encounter Date Diagnosis Assessment Notes Treatment Notes Treatment Clinical Notes Section Notes 03/23/2024 Other obesity due to excess calories (ICD-10 - E66.09) #Obesity. 03/23/24:185.4, BMI 32.4 Sema 0.5 mg. Repeat SECA reviewed. Weight up 1 pound. She has completed 4 weeks of 0.25 mg of compounded semaglutide weekly. She has not noticed significant benefit thus far. Will increase to 0.5 mg weekly today. We did discuss if after 3 weeks of 0.5 she is still not noticing benefit we can consider increasing to 1 mg at that time. Continue to work on high-protein diet, hydration and regular exercise. Reviewed risk benefits adverse effects of medication with patient. Follow-up with me in 4 weeks sooner with any concerns. 03/16/24: Sema 0.25 mg 03/09/24: Sema 0.25 mg 03/02/24: Sema 0.25 mg 02/24/24: 184.3 pounds, BMI 32.3. Sema 0.25 mg The patient will continue exercise regimen with an emphasis on improving/increasing steps to at least 6,000-10,000 steps per day. Increasing cardio and strength training exercises as tolerated to improve weight loss and work on building muscle mass. Patient is committed to smarter eating with calorie counting and mindful eating. Limiting processed foods and carbohydrates and increasing leafy greens and lean proteins as well as fruits into their diet. Patient was counseled on the importance of eating local, organic food when possible. Patient has been counseled regarding effects of GLP/GIP-1 agonists and other FDA approved weight loss medications with regards to a multifactorial approach of weight loss as mentioned above and that the medication alone will not be sufficient to meet patients goals. We discussed holistic medication approach with emphasis on lifestyle modification. Discussed obesity as it increases risk of diabetes, cardiovascular disease, and/or organ damage. We spent a lot of time discussing the relationship between food, exercise, sleep, mental health, and obesity. We discussed the importance of having SECAs done every visit and having accountability done during these visits. That the scale is done to monitor not only weight loss but the body composition during medication management and healthy lifestyle changes. We discussed that if the patient is unable at times to financially afford this scale that we would rather waive the fee and have the scale done than have the patient not have the scale obtained. Will follow up with the patient in 4 weeks time to monitor weight loss. Total time was 30 min, greater than 50 % of time was spent on care coordination Case discussed with collaborating physician Jesús Valerio who reviewed the assessment and plan. Chart, medications, labs, vital signs reviewed. Dictation was accomplished with the use of [employer] voice recognition software, prone to medical misidentifications and grammatical errors. This is unintentional and the practitioner does try to identify and correct these, but some could still be present. Please do not hesitate to contact practitioner for clarification. All questions answered to patients satisfaction. Patient verbalized understanding of diagnosis and treatments explained. To call sooner prior to next visit it any questions/concerns arise. 03/23/2024 Body mass index [BMI] 32.0-32.9, adult (ICD-10 - Z68.32) #Obesity. 03/23/24:185.4, BMI 32.4 Sema 0.5 mg. Repeat SECA reviewed. Weight up 1 pound. She has completed 4 weeks of 0.25 mg of compounded semaglutide weekly. She has not noticed significant benefit thus far. Will increase to 0.5 mg weekly today. We did discuss if after 3 weeks of 0.5 she is still not noticing benefit we can consider increasing to 1 mg at that time. Continue to work on high-protein diet, hydration and regular exercise. Reviewed risk benefits adverse effects of medication with patient. Follow-up with me in 4 weeks sooner with any concerns. 03/16/24: Sema 0.25 mg 03/09/24: Sema 0.25 mg 03/02/24: Sema 0.25 mg 02/24/24: 184.3 pounds, BMI 32.3. Sema 0.25 mg The patient will continue exercise regimen with an emphasis on improving/increasing steps to at least 6,000-10,000 steps per day. Increasing cardio and strength training exercises as tolerated to improve weight loss and work on building muscle mass. Patient is committed to smarter eating with calorie counting and mindful eating. Limiting processed foods and carbohydrates and increasing leafy greens and lean proteins as well as fruits into their diet. Patient was counseled on the importance of eating local, organic food when possible. Patient has been counseled regarding effects of GLP/GIP-1 agonists and other FDA approved weight loss medications with regards to a multifactorial approach of weight loss as mentioned above and that the medication alone will not be sufficient to meet patients goals. We discussed holistic medication approach with emphasis on lifestyle modification. Discussed obesity as it increases risk of diabetes, cardiovascular disease, and/or organ damage. We spent a lot of time discussing the relationship between food, exercise, sleep, mental health, and obesity. We discussed the importance of having SECAs done every visit and having accountability done during these visits. That the scale is done to monitor not only weight loss but the body composition during medication management and healthy lifestyle changes. We discussed that if the patient is unable at times to financially afford this scale that we would rather waive the fee and have the scale done than have the patient not have the scale obtained. Will follow up with the patient in 4 weeks time to monitor weight loss. Total time was 30 min, greater than 50 % of time was spent on care coordination Case discussed with collaborating physician Jesús Valerio who reviewed the assessment and plan. Chart, medications, labs, vital signs reviewed. Dictation was accomplished with the use of [employer] voice recognition software, prone to medical misidentifications and grammatical errors. This is unintentional and the practitioner does try to identify and correct these, but some could still be present. Please do not hesitate to contact practitioner for clarification. All questions answered to patients satisfaction. Patient verbalized understanding of diagnosis and treatments explained. To call sooner prior to next visit it any questions/concerns arise. 04/27/2024 Other obesity due to excess calories (ICD-10 - E66.09) #Obesity. 04/27/24: 184.3, BMI 32.2. She is tolerating the compounded semaglutide without any significant side effects however has not noticed significant benefit. She has completed 3 weeks of 1 mg. Will increase to 1.5 mg today. Once cleared by orthopedics will resume regular exercise regimen. Continue to focus on protein intake goal of 80 g a day, good hydration. Follow-up in 4 to 6 weeks sooner with any concerns. Will plan to submit Gersongovy to pharmacy at next visit. 04/20/24: Sema 1 mg 04/13/24: Sema 1 mg 04/06/24: Sema 1 mg 03/30/24: Sema 0.5 mg 03/23/24:185.4, BMI 32.4 Sema 0.5 mg. Repeat SECA reviewed. Weight up 1 pound. She has completed 4 weeks of 0.25 mg of compounded semaglutide weekly. She has not noticed significant benefit thus far. Will increase to 0.5 mg weekly today. We did discuss if after 3 weeks of 0.5 she is still not noticing benefit we can consider increasing to 1 mg at that time. Continue to work on high-protein diet, hydration and regular exercise. Reviewed risk benefits adverse effects of medication with patient. Follow-up with me in 4 weeks sooner with any concerns. 03/16/24: Sema 0.25 mg 03/09/24: Sema 0.25 mg 03/02/24: Sema 0.25 mg 02/24/24: 184.3 pounds, BMI 32.3. Sema 0.25 mg The patient will continue exercise regimen with an emphasis on improving/increasing steps to at least 6,000-10,000 steps per day. Increasing cardio and strength training exercises as tolerated to improve weight loss and work on building muscle mass. Patient is committed to smarter eating with calorie counting and mindful eating. Limiting processed foods and carbohydrates and increasing leafy greens and lean proteins as well as fruits into their diet. Patient was counseled on the importance of eating local, organic food when possible. Patient has been counseled regarding effects of GLP/GIP-1 agonists and other FDA approved weight loss medications with regards to a multifactorial approach of weight loss as mentioned above and that the medication alone will not be sufficient to meet patients goals. We discussed holistic medication approach with emphasis on lifestyle modification. Discussed obesity as it increases risk of diabetes, cardiovascular disease, and/or organ damage. We spent a lot of time discussing the relationship between food, exercise, sleep, mental health, and obesity. We discussed the importance of having SECAs done every visit and having accountability done during these visits. That the scale is done to monitor not only weight loss but the body composition during medication management and healthy lifestyle changes. We discussed that if the patient is unable at times to financially afford this scale that we would rather waive the fee and have the scale done than have the patient not have the scale obtained. Will follow up with the patient in 4 weeks time to monitor weight loss. Total time was 30 min, greater than 50 % of time was spent on care coordination Case discussed with collaborating physician Jesús Valerio who reviewed the assessment and plan. Chart, medications, labs, vital signs reviewed. Dictation was accomplished with the use of [employer] voice recognition software, prone to medical misidentifications and grammatical errors. This is unintentional and the practitioner does try to identify and correct these, but some could still be present. Please do not hesitate to contact practitioner for clarification. All questions answered to patients satisfaction. Patient verbalized understanding of diagnosis and treatments explained. To call sooner prior to next visit it any questions/concerns arise. 04/27/2024 Body mass index [BMI] 32.0-32.9, adult (ICD-10 - Z68.32) #Obesity. 04/27/24: 184.3, BMI 32.2. She is tolerating the compounded semaglutide without any significant side effects however has not noticed significant benefit. She has completed 3 weeks of 1 mg. Will increase to 1.5 mg today. Once cleared by orthopedics will resume regular exercise regimen. Continue to focus on protein intake goal of 80 g a day, good hydration. Follow-up in 4 to 6 weeks sooner with any concerns. Will plan to submit Wegovy to pharmacy at next visit. 04/20/24: Sema 1 mg 04/13/24: Sema 1 mg 04/06/24: Sema 1 mg 03/30/24: Sema 0.5 mg 03/23/24:185.4, BMI 32.4 Sema 0.5 mg. Repeat SECA reviewed. Weight up 1 pound. She has completed 4 weeks of 0.25 mg of compounded semaglutide weekly. She has not noticed significant benefit thus far. Will increase to 0.5 mg weekly today. We did discuss if after 3 weeks of 0.5 she is still not noticing benefit we can consider increasing to 1 mg at that time. Continue to work on high-protein diet, hydration and regular exercise. Reviewed risk benefits adverse effects of medication with patient. Follow-up with me in 4 weeks sooner with any concerns. 03/16/24: Sema 0.25 mg 03/09/24: Sema 0.25 mg 03/02/24: Sema 0.25 mg 02/24/24: 184.3 pounds, BMI 32.3. Sema 0.25 mg The patient will continue exercise regimen with an emphasis on improving/increasing steps to at least 6,000-10,000 steps per day. Increasing cardio and strength training exercises as tolerated to improve weight loss and work on building muscle mass. Patient is committed to smarter eating with calorie counting and mindful eating. Limiting processed foods and carbohydrates and increasing leafy greens and lean proteins as well as fruits into their diet. Patient was counseled on the importance of eating local, organic food when possible. Patient has been counseled regarding effects of GLP/GIP-1 agonists and other FDA approved weight loss medications with regards to a multifactorial approach of weight loss as mentioned above and that the medication alone will not be sufficient to meet patients goals. We discussed holistic medication approach with emphasis on lifestyle modification. Discussed obesity as it increases risk of diabetes, cardiovascular disease, and/or organ damage. We spent a lot of time discussing the relationship between food, exercise, sleep, mental health, and obesity. We discussed the importance of having SECAs done every visit and having accountability done during these visits. That the scale is done to monitor not only weight loss but the body composition during medication management and healthy lifestyle changes. We discussed that if the patient is unable at times to financially afford this scale that we would rather waive the fee and have the scale done than have the patient not have the scale obtained. Will follow up with the patient in 4 weeks time to monitor weight loss. Total time was 30 min, greater than 50 % of time was spent on care coordination Case discussed with collaborating physician Jesús Valerio who reviewed the assessment and plan. Chart, medications, labs, vital signs reviewed. Dictation was accomplished with the use of [employer] voice recognition software, prone to medical misidentifications and grammatical errors. This is unintentional and the practitioner does try to identify and correct these, but some could still be present. Please do not hesitate to contact practitioner for clarification. All questions answered to patients satisfaction. Patient verbalized understanding of diagnosis and treatments explained. To call sooner prior to next visit it any questions/concerns arise. 06/08/2024 Other obesity due to excess calories (ICD-10 - E66.09) #Obesity. 06/08/24: 178.8, BMI 31.3. She has transitioned to Wegovy. Tolerating it well. Mild constipation. Discussed magnesium supplement and miralax. Continue to work on protein intake and exercise as tolerated. Continue Wegovy 1.7 mg weekly. Follow up 4-6 weeks, sooner as needed. 04/27/24: 184.3, BMI 32.2. She is tolerating the compounded semaglutide without any significant side effects however has not noticed significant benefit. She has completed 3 weeks of 1 mg. Will increase to 1.5 mg today. Once cleared by orthopedics will resume regular exercise regimen. Continue to focus on protein intake goal of 80 g a day, good hydration. Follow-up in 4 to 6 weeks sooner with any concerns. Will plan to submit Wegovy to pharmacy at next visit. 04/20/24: Sema 1 mg 04/13/24: Sema 1 mg 04/06/24: Sema 1 mg 03/30/24: Sema 0.5 mg 03/23/24:185.4, BMI 32.4 Sema 0.5 mg. Repeat SECA reviewed. Weight up 1 pound. She has completed 4 weeks of 0.25 mg of compounded semaglutide weekly. She has not noticed significant benefit thus far. Will increase to 0.5 mg weekly today. We did discuss if after 3 weeks of 0.5 she is still not noticing benefit we can consider increasing to 1 mg at that time. Continue to work on high-protein diet, hydration and regular exercise. Reviewed risk benefits adverse effects of medication with patient. Follow-up with me in 4 weeks sooner with any concerns. 03/16/24: Sema 0.25 mg 03/09/24: Sema 0.25 mg 03/02/24: Sema 0.25 mg 02/24/24: 184.3 pounds, BMI 32.3. Sema 0.25 mg The patient will continue exercise regimen with an emphasis on improving/increasing steps to at least 6,000-10,000 steps per day. Increasing cardio and strength training exercises as tolerated to improve weight loss and work on building muscle mass. Patient is committed to smarter eating with calorie counting and mindful eating. Limiting processed foods and carbohydrates and increasing leafy greens and lean proteins as well as fruits into their diet. Patient was counseled on the importance of eating local, organic food when possible. Patient has been counseled regarding effects of GLP/GIP-1 agonists and other FDA approved weight loss medications with regards to a multifactorial approach of weight loss as mentioned above and that the medication alone will not be sufficient to meet patients goals. We discussed holistic medication approach with emphasis on lifestyle modification. Discussed obesity as it increases risk of diabetes, cardiovascular disease, and/or organ damage. We spent a lot of time discussing the relationship between food, exercise, sleep, mental health, and obesity. We discussed the importance of having SECAs done every visit and having accountability done during these visits. That the scale is done to monitor not only weight loss but the body composition during medication management and healthy lifestyle changes. We discussed that if the patient is unable at times to financially afford this scale that we would rather waive the fee and have the scale done than have the patient not have the scale obtained. Will follow up with the patient in 4 weeks time to monitor weight loss. Total time was 30 min, greater than 50 % of time was spent on care coordination Case discussed with collaborating physician Jesús Valerio who reviewed the assessment and plan. Chart, medications, labs, vital signs reviewed. Dictation was accomplished with the use of [employer] voice recognition software, prone to medical misidentifications and grammatical errors. This is unintentional and the practitioner does try to identify and correct these, but some could still be present. Please do not hesitate to contact practitioner for clarification. All questions answered to patients satisfaction. Patient verbalized understanding of diagnosis and treatments explained. To call sooner prior to next visit it any questions/concerns arise. 06/08/2024 Body mass index [BMI] 32.0-32.9, adult (ICD-10 - Z68.32) #Obesity. 06/08/24: 178.8, BMI 31.3. She has transitioned to Wegovy. Tolerating it well. Mild constipation. Discussed magnesium supplement and miralax. Continue to work on protein intake and exercise as tolerated. Continue Wegovy 1.7 mg weekly. Follow up 4-6 weeks, sooner as needed. 04/27/24: 184.3, BMI 32.2. She is tolerating the compounded semaglutide without any significant side effects however has not noticed significant benefit. She has completed 3 weeks of 1 mg. Will increase to 1.5 mg today. Once cleared by orthopedics will resume regular exercise regimen. Continue to focus on protein intake goal of 80 g a day, good hydration. Follow-up in 4 to 6 weeks sooner with any concerns. Will plan to submit [place] to pharmacy at next visit. 04/20/24: Sema 1 mg 04/13/24: Sema 1 mg 04/06/24: Sema 1 mg 03/30/24: Sema 0.5 mg 03/23/24:185.4, BMI 32.4 Sema 0.5 mg. Repeat SECA reviewed. Weight up 1 pound. She has completed 4 weeks of 0.25 mg of compounded semaglutide weekly. She has not noticed significant benefit thus far. Will increase to 0.5 mg weekly today. We did discuss if after 3 weeks of 0.5 she is still not noticing benefit we can consider increasing to 1 mg at that time. Continue to work on high-protein diet, hydration and regular exercise. Reviewed risk benefits adverse effects of medication with patient. Follow-up with me in 4 weeks sooner with any concerns. 03/16/24: Sema 0.25 mg 03/09/24: Sema 0.25 mg 03/02/24: Sema 0.25 mg 02/24/24: 184.3 pounds, BMI 32.3. Sema 0.25 mg The patient will continue exercise regimen with an emphasis on improving/increasing steps to at least 6,000-10,000 steps per day. Increasing cardio and strength training exercises as tolerated to improve weight loss and work on building muscle mass. Patient is committed to smarter eating with calorie counting and mindful eating. Limiting processed foods and carbohydrates and increasing leafy greens and lean proteins as well as fruits into their diet. Patient was counseled on the importance of eating local, organic food when possible. Patient has been counseled regarding effects of GLP/GIP-1 agonists and other FDA approved weight loss medications with regards to a multifactorial approach of weight loss as mentioned above and that the medication alone will not be sufficient to meet patients goals. We discussed holistic medication approach with emphasis on lifestyle modification. Discussed obesity as it increases risk of diabetes, cardiovascular disease, and/or organ damage. We spent a lot of time discussing the relationship between food, exercise, sleep, mental health, and obesity. We discussed the importance of having SECAs done every visit and having accountability done during these visits. That the scale is done to monitor not only weight loss but the body composition during medication management and healthy lifestyle changes. We discussed that if the patient is unable at times to financially afford this scale that we would rather waive the fee and have the scale done than have the patient not have the scale obtained. Will follow up with the patient in 4 weeks time to monitor weight loss. Total time was 30 min, greater than 50 % of time was spent on care coordination Case discussed with collaborating physician Jesús Valerio who reviewed the assessment and plan. Chart, medications, labs, vital signs reviewed. Dictation was accomplished with the use of [employer] voice recognition software, prone to medical misidentifications and grammatical errors. This is unintentional and the practitioner does try to identify and correct these, but some could still be present. Please do not hesitate to contact practitioner for clarification. All questions answered to patients satisfaction. Patient verbalized understanding of diagnosis and treatments explained. To call sooner prior to next visit it any questions/concerns arise. 07/22/2024 Other obesity due to excess calories (ICD-10 - E66.09) #Obesity. 07/22/24: 174.9 pounds, BMI 30.6. She is doing well on Wegovy 1.7 mg. Interested in increasing to 2.4 mg weekly on next fill. Discussed importance of lifestyle modifications including increased protein intake, increase water intake and regular exercise including walking as well as resistance training 2-3 times a week. Monitor for any side effects with increased dose. Follow-up in 1 month sooner with any concerns. 06/08/24: 178.8, BMI 31.3. She has transitioned to Wegovy. Continue Wegovy 1.7 mg weekly. 04/27/24: 184.3, BMI 32.2. 04/20/24: Sema 1 mg 04/13/24: Sema 1 mg 04/06/24: Sema 1 mg 03/30/24: Sema 0.5 mg 03/23/24:185.4, BMI 32.4 Sema 0.5 mg. 03/16/24: Sema 0.25 mg 03/09/24: Sema 0.25 mg 03/02/24: Sema 0.25 mg 02/24/24: 184.3 pounds, BMI 32.3. Sema 0.25 mg The patient will continue exercise regimen with an emphasis on improving/increasing steps to at least 6,000-10,000 steps per day. Increasing cardio and strength training exercises as tolerated to improve weight loss and work on building muscle mass. Patient is committed to smarter eating with calorie counting and mindful eating. Limiting processed foods and carbohydrates and increasing leafy greens and lean proteins as well as fruits into their diet. Patient was counseled on the importance of eating local, organic food when possible. Patient has been counseled regarding effects of GLP/GIP-1 agonists and other FDA approved weight loss medications with regards to a multifactorial approach of weight loss as mentioned above and that the medication alone will not be sufficient to meet patients goals. We discussed holistic medication approach with emphasis on lifestyle modification. Discussed obesity as it increases risk of diabetes, cardiovascular disease, and/or organ damage. We spent a lot of time discussing the relationship between food, exercise, sleep, mental health, and obesity. We discussed the importance of having SECAs done every visit and having accountability done during these visits. That the scale is done to monitor not only weight loss but the body composition during medication management and healthy lifestyle changes. We discussed that if the patient is unable at times to financially afford this scale that we would rather waive the fee and have the scale done than have the patient not have the scale obtained. Will follow up with the patient in 4 weeks time to monitor weight loss. Total time was 30 min, greater than 50 % of time was spent on care coordination Case discussed with collaborating physician Jesús Valerio who reviewed the assessment and plan. Chart, medications, labs, vital signs reviewed. Dictation was accomplished with the use of [employer] voice recognition software, prone to medical misidentifications and grammatical errors. This is unintentional and the practitioner does try to identify and correct these, but some could still be present. Please do not hesitate to contact practitioner for clarification. All questions answered to patients satisfaction. Patient verbalized understanding of diagnosis and treatments explained. To call sooner prior to next visit it any questions/concerns arise. 07/22/2024 BMI 30.0-30.9,faby lt (ICD-10 - Z68.30) #Obesity. 07/22/24: 174.9 pounds, BMI 30.6. She is doing well on Wegovy 1.7 mg. Interested in increasing to 2.4 mg weekly on next fill. Discussed importance of lifestyle modifications including increased protein intake, increase water intake and regular exercise including walking as well as resistance training 2-3 times a week. Monitor for any side effects with increased dose. Follow-up in 1 month sooner with any concerns. 06/08/24: 178.8, BMI 31.3. She has transitioned to Wegovy. Continue Wegovy 1.7 mg weekly. 04/27/24: 184.3, BMI 32.2. 04/20/24: Sema 1 mg 04/13/24: Sema 1 mg 04/06/24: Sema 1 mg 03/30/24: Sema 0.5 mg 03/23/24:185.4, BMI 32.4 Sema 0.5 mg. 03/16/24: Sema 0.25 mg 03/09/24: Sema 0.25 mg 03/02/24: Sema 0.25 mg 02/24/24: 184.3 pounds, BMI 32.3. Sema 0.25 mg The patient will continue exercise regimen with an emphasis on improving/increasing steps to at least 6,000-10,000 steps per day. Increasing cardio and strength training exercises as tolerated to improve weight loss and work on building muscle mass. Patient is committed to smarter eating with calorie counting and mindful eating. Limiting processed foods and carbohydrates and increasing leafy greens and lean proteins as well as fruits into their diet. Patient was counseled on the importance of eating local, organic food when possible. Patient has been counseled regarding effects of GLP/GIP-1 agonists and other FDA approved weight loss medications with regards to a multifactorial approach of weight loss as mentioned above and that the medication alone will not be sufficient to meet patients goals. We discussed holistic medication approach with emphasis on lifestyle modification. Discussed obesity as it increases risk of diabetes, cardiovascular disease, and/or organ damage. We spent a lot of time discussing the relationship between food, exercise, sleep, mental health, and obesity. We discussed the importance of having SECAs done every visit and having accountability done during these visits. That the scale is done to monitor not only weight loss but the body composition during medication management and healthy lifestyle changes. We discussed that if the patient is unable at times to financially afford this scale that we would rather waive the fee and have the scale done than have the patient not have the scale obtained. Will follow up with the patient in 4 weeks time to monitor weight loss. Total time was 30 min, greater than 50 % of time was spent on care coordination Case discussed with collaborating physician Jesús Valerio who reviewed the assessment and plan. Chart, medications, labs, vital signs reviewed. Dictation was accomplished with the use of [employer] voice recognition software, prone to medical misidentifications and grammatical errors. This is unintentional and the practitioner does try to identify and correct these, but some could still be present. Please do not hesitate to contact practitioner for clarification. All questions answered to patients satisfaction. Patient verbalized understanding of diagnosis and treatments explained. To call sooner prior to next visit it any questions/concerns arise. 08/18/2024 Other obesity due to excess calories (ICD-10 - E66.09) #Obesity. 08/18/24: 173.1 pounds, BMI 30.3. She is doing well on Wegovy 2.4 mg. Denies any side effects. Advised to continue probiotics and B complex. Discussed protein intake, increased exercise and increased water intake. Will continue current regimen and follow-up in 4 weeks sooner with any concerns. 07/22/24: 174.9 pounds, BMI 30.6. She is doing well on Wegovy 1.7 mg. Interested in increasing to 2.4 mg weekly on next fill. 06/08/24: 178.8, BMI 31.3. She has transitioned to Wegovy. Continue Wegovy 1.7 mg weekly. 04/27/24: 184.3, BMI 32.2. 04/20/24: Sema 1 mg 04/13/24: Sema 1 mg 04/06/24: Sema 1 mg 03/30/24: Sema 0.5 mg 03/23/24:185.4, BMI 32.4 Sema 0.5 mg. 03/16/24: Sema 0.25 mg 03/09/24: Sema 0.25 mg 03/02/24: Sema 0.25 mg 02/24/24: 184.3 pounds, BMI 32.3. Sema 0.25 mg The patient will continue exercise regimen with an emphasis on improving/increasing steps to at least 6,000-10,000 steps per day. Increasing cardio and strength training exercises as tolerated to improve weight loss and work on building muscle mass. Patient is committed to smarter eating with calorie counting and mindful eating. Limiting processed foods and carbohydrates and increasing leafy greens and lean proteins as well as fruits into their diet. Patient was counseled on the importance of eating local, organic food when possible. Patient has been counseled regarding effects of GLP/GIP-1 agonists and other FDA approved weight loss medications with regards to a multifactorial approach of weight loss as mentioned above and that the medication alone will not be sufficient to meet patients goals. We discussed holistic medication approach with emphasis on lifestyle modification. Discussed obesity as it increases risk of diabetes, cardiovascular disease, and/or organ damage. We spent a lot of time discussing the relationship between food, exercise, sleep, mental health, and obesity. We discussed the importance of having SECAs done every visit and having accountability done during these visits. That the scale is done to monitor not only weight loss but the body composition during medication management and healthy lifestyle changes. We discussed that if the patient is unable at times to financially afford this scale that we would rather waive the fee and have the scale done than have the patient not have the scale obtained. Will follow up with the patient in 4 weeks time to monitor weight loss. Total time was 30 min, greater than 50 % of time was spent on care coordination Case discussed with collaborating physician Jesús Valerio who reviewed the assessment and plan. Chart, medications, labs, vital signs reviewed. Dictation was accomplished with the use of [employer] voice recognition software, prone to medical misidentifications and grammatical errors. This is unintentional and the practitioner does try to identify and correct these, but some could still be present. Please do not hesitate to contact practitioner for clarification. All questions answered to patients satisfaction. Patient verbalized understanding of diagnosis and treatments explained. To call sooner prior to next visit it any questions/concerns arise. 08/18/2024 BMI 30.0-30.9,faby lt (ICD-10 - Z68.30) #Obesity. 08/18/24: 173.1 pounds, BMI 30.3. She is doing well on Wegovy 2.4 mg. Denies any side effects. Advised to continue probiotics and B complex. Discussed protein intake, increased exercise and increased water intake. Will continue current regimen and follow-up in 4 weeks sooner with any concerns. 07/22/24: 174.9 pounds, BMI 30.6. She is doing well on Wegovy 1.7 mg. Interested in increasing to 2.4 mg weekly on next fill. 06/08/24: 178.8, BMI 31.3. She has transitioned to Wegovy. Continue Wegovy 1.7 mg weekly. 04/27/24: 184.3, BMI 32.2. 04/20/24: Sema 1 mg 04/13/24: Sema 1 mg 04/06/24: Sema 1 mg 03/30/24: Sema 0.5 mg 03/23/24:185.4, BMI 32.4 Sema 0.5 mg. 03/16/24: Sema 0.25 mg 03/09/24: Sema 0.25 mg 03/02/24: Sema 0.25 mg 02/24/24: 184.3 pounds, BMI 32.3. Sema 0.25 mg The patient will continue exercise regimen with an emphasis on improving/increasing steps to at least 6,000-10,000 steps per day. Increasing cardio and strength training exercises as tolerated to improve weight loss and work on building muscle mass. Patient is committed to smarter eating with calorie counting and mindful eating. Limiting processed foods and carbohydrates and increasing leafy greens and lean proteins as well as fruits into their diet. Patient was counseled on the importance of eating local, organic food when possible. Patient has been counseled regarding effects of GLP/GIP-1 agonists and other FDA approved weight loss medications with regards to a multifactorial approach of weight loss as mentioned above and that the medication alone will not be sufficient to meet patients goals. We discussed holistic medication approach with emphasis on lifestyle modification. Discussed obesity as it increases risk of diabetes, cardiovascular disease, and/or organ damage. We spent a lot of time discussing the relationship between food, exercise, sleep, mental health, and obesity. We discussed the importance of having SECAs done every visit and having accountability done during these visits. That the scale is done to monitor not only weight loss but the body composition during medication management and healthy lifestyle changes. We discussed that if the patient is unable at times to financially afford this scale that we would rather waive the fee and have the scale done than have the patient not have the scale obtained. Will follow up with the patient in 4 weeks time to monitor weight loss. Total time was 30 min, greater than 50 % of time was spent on care coordination Case discussed with collaborating physician Jesús Valerio who reviewed the assessment and plan. Chart, medications, labs, vital signs reviewed. Dictation was accomplished with the use of [employer] voice recognition software, prone to medical misidentifications and grammatical errors. This is unintentional and the practitioner does try to identify and correct these, but some could still be present. Please do not hesitate to contact practitioner for clarification. All questions answered to patients satisfaction. Patient verbalized understanding of diagnosis and treatments explained. To call sooner prior to next visit it any questions/concerns arise. 09/16/2024 Other obesity due to excess calories (ICD-10 - E66.09) #Obesity. 09/16/24: 172.3 pounds, BMI 30.2. She is doing well on Wegovy 2.4 mg. Her weight has plateaued some. She denies any side effects. She has noticed increased sugar cravings this month. Exercise has also been down due to back injury. Discussed options with patient. She has previously tried phentermine and Contrave without any benefit. Discussed adding low-dose Topamax. Will start 25 mg daily. Discussed risk benefits and adverse effects of medication with patient. Continue Wegovy 2.4 mg. If no improvement could consider submitting to insurance for Zep[employer]. Continue to work on protein intake, hydration and exercise as she recovers from her injury. Follow-up in 1 month sooner with any concerns. 08/18/24: 173.1 pounds, BMI 30.3. She is doing well on Wegovy 2.4 mg. Denies any side effects. Advised to continue probiotics and B complex. Discussed protein intake, increased exercise and increased water intake. Will continue current regimen and follow-up in 4 weeks sooner with any concerns. 07/22/24: 174.9 pounds, BMI 30.6. She is doing well on Wegovy 1.7 mg. Interested in increasing to 2.4 mg weekly on next fill. 06/08/24: 178.8, BMI 31.3. She has transitioned to Wegovy. Continue Wegovy 1.7 mg weekly. 04/27/24: 184.3, BMI 32.2. 04/20/24: Sema 1 mg 04/13/24: Sema 1 mg 04/06/24: Sema 1 mg 03/30/24: Sema 0.5 mg 03/23/24:185.4, BMI 32.4 Sema 0.5 mg. 03/16/24: Sema 0.25 mg 03/09/24: Sema 0.25 mg 03/02/24: Sema 0.25 mg 02/24/24: 184.3 pounds, BMI 32.3. Sema 0.25 mg The patient will continue exercise regimen with an emphasis on improving/increasing steps to at least 6,000-10,000 steps per day. Increasing cardio and strength training exercises as tolerated to improve weight loss and work on building muscle mass. Patient is committed to smarter eating with calorie counting and mindful eating. Limiting processed foods and carbohydrates and increasing leafy greens and lean proteins as well as fruits into their diet. Patient was counseled on the importance of eating local, organic food when possible. Patient has been counseled regarding effects of GLP/GIP-1 agonists and other FDA approved weight loss medications with regards to a multifactorial approach of weight loss as mentioned above and that the medication alone will not be sufficient to meet patients goals. We discussed holistic medication approach with emphasis on lifestyle modification. Discussed obesity as it increases risk of diabetes, cardiovascular disease, and/or organ damage. We spent a lot of time discussing the relationship between food, exercise, sleep, mental health, and obesity. We discussed the importance of having SECAs done every visit and having accountability done during these visits. That the scale is done to monitor not only weight loss but the body composition during medication management and healthy lifestyle changes. We discussed that if the patient is unable at times to financially afford this scale that we would rather waive the fee and have the scale done than have the patient not have the scale obtained. Will follow up with the patient in 4 weeks time to monitor weight loss. Total time was 30 min, greater than 50 % of time was spent on care coordination Case discussed with collaborating physician Wai Valerio who reviewed the assessment and plan. Chart, medications, labs, vital signs reviewed. Dictation was accomplished with the use of [employer] voice recognition software, prone to medical misidentifications and grammatical errors. This is unintentional and the practitioner does try to identify and correct these, but some could still be present. Please do not hesitate to contact practitioner for clarification. All questions answered to patients satisfaction. Patient verbalized understanding of diagnosis and treatments explained. To call sooner prior to next visit it any questions/concerns arise. 09/16/2024 BMI 30.0-30.9,faby lt (ICD-10 - Z68.30) #Obesity. 09/16/24: 172.3 pounds, BMI 30.2. She is doing well on Wegovy 2.4 mg. Her weight has plateaued some. She denies any side effects. She has noticed increased sugar cravings this month. Exercise has also been down due to back injury. Discussed options with patient. She has previously tried phentermine and Contrave without any benefit. Discussed adding low-dose Topamax. Will start 25 mg daily. Discussed risk benefits and adverse effects of medication with patient. Continue Wegovy 2.4 mg. If no improvement could consider submitting to insurance for [employer]. Continue to work on protein intake, hydration and exercise as she recovers from her injury. Follow-up in 1 month sooner with any concerns. 08/18/24: 173.1 pounds, BMI 30.3. She is doing well on Wegovy 2.4 mg. Denies any side effects. Advised to continue probiotics and B complex. Discussed protein intake, increased exercise and increased water intake. Will continue current regimen and follow-up in 4 weeks sooner with any concerns. 07/22/24: 174.9 pounds, BMI 30.6. She is doing well on Wegovy 1.7 mg. Interested in increasing to 2.4 mg weekly on next fill. 06/08/24: 178.8, BMI 31.3. She has transitioned to Wegovy. Continue Wegovy 1.7 mg weekly. 04/27/24: 184.3, BMI 32.2. 04/20/24: Sema 1 mg 04/13/24: Sema 1 mg 04/06/24: Sema 1 mg 03/30/24: Sema 0.5 mg 03/23/24:185.4, BMI 32.4 Sema 0.5 mg. 03/16/24: Sema 0.25 mg 03/09/24: Sema 0.25 mg 03/02/24: Sema 0.25 mg 02/24/24: 184.3 pounds, BMI 32.3. Sema 0.25 mg The patient will continue exercise regimen with an emphasis on improving/increasing steps to at least 6,000-10,000 steps per day. Increasing cardio and strength training exercises as tolerated to improve weight loss and work on building muscle mass. Patient is committed to smarter eating with calorie counting and mindful eating. Limiting processed foods and carbohydrates and increasing leafy greens and lean proteins as well as fruits into their diet. Patient was counseled on the importance of eating local, organic food when possible. Patient has been counseled regarding effects of GLP/GIP-1 agonists and other FDA approved weight loss medications with regards to a multifactorial approach of weight loss as mentioned above and that the medication alone will not be sufficient to meet patients goals. We discussed holistic medication approach with emphasis on lifestyle modification. Discussed obesity as it increases risk of diabetes, cardiovascular disease, and/or organ damage. We spent a lot of time discussing the relationship between food, exercise, sleep, mental health, and obesity. We discussed the importance of having SECAs done every visit and having accountability done during these visits. That the scale is done to monitor not only weight loss but the body composition during medication management and healthy lifestyle changes. We discussed that if the patient is unable at times to financially afford this scale that we would rather waive the fee and have the scale done than have the patient not have the scale obtained. Will follow up with the patient in 4 weeks time to monitor weight loss. Total time was 30 min, greater than 50 % of time was spent on care coordination Case discussed with collaborating physician Wai Valerio who reviewed the assessment and plan. Chart, medications, labs, vital signs reviewed. Dictation was accomplished with the use of [employer] voice recognition software, prone to medical misidentifications and grammatical errors. This is unintentional and the practitioner does try to identify and correct these, but some could still be present. Please do not hesitate to contact practitioner for clarification. All questions answered to patients satisfaction. Patient verbalized understanding of diagnosis and treatments explained. To call sooner prior to next visit it any questions/concerns arise. 09/20/2024 Other obesity due to excess calories (ICD-10 - E66.09) 10/14/2024 Other obesity due to excess calories (ICD-10 - E66.09) 10/25/2024 Other obesity due to excess calories (ICD-10 - E66.09) #Obesity. 10/25/24: 170.3 pounds, BMI 29.8. She is doing well on Wegovy 2.4 mg. Encouraged to track her protein to get a better idea of how much she is getting. Discussed goal is 80 to 100 g a day. Continue to work on increased exercise. Encouraged to start resistance training 2-3 times a week. She briefly tried the Topamax but discontinued as she had a headache. She plans to retry it. Of note she does have a history of migraines as well. Discussed this may actually help as migraine prophylaxis. Will monitor for side effects. Follow-up in 1 month sooner with any concerns. 09/16/24: 172.3 pounds, BMI 30.2. She is doing well on Wegovy 2.4 mg. Her weight has plateaued some. She denies any side effects. She has noticed increased sugar cravings this month. Exercise has also been down due to back injury. Discussed options with patient. She has previously tried phentermine and Contrave without any benefit. Discussed adding low-dose Topamax. Will start 25 mg daily. Discussed risk benefits and adverse effects of medication with patient. Continue Wegovy 2.4 mg. If no improvement could consider submitting to insurance for Zepbound. Continue to work on protein intake, hydration and exercise as she recovers from her injury. Follow-up in 1 month sooner with any concerns. 08/18/24: 173.1 pounds, BMI 30.3. She is doing well on Wegovy 2.4 mg. Denies any side effects. Advised to continue probiotics and B complex. Discussed protein intake, increased exercise and increased water intake. Will continue current regimen and follow-up in 4 weeks sooner with any concerns. 07/22/24: 174.9 pounds, BMI 30.6. She is doing well on Wegovy 1.7 mg. Interested in increasing to 2.4 mg weekly on next fill. 06/08/24: 178.8, BMI 31.3. She has transitioned to Wegovy. Continue Wegovy 1.7 mg weekly. 04/27/24: 184.3, BMI 32.2. 04/20/24: Sema 1 mg 04/13/24: Sema 1 mg 04/06/24: Sema 1 mg 03/30/24: Sema 0.5 mg 03/23/24:185.4, BMI 32.4 Sema 0.5 mg. 03/16/24: Sema 0.25 mg 03/09/24: Sema 0.25 mg 03/02/24: Sema 0.25 mg 02/24/24: 184.3 pounds, BMI 32.3. Sema 0.25 mg The patient will continue exercise regimen with an emphasis on improving/increasing steps to at least 6,000-10,000 steps per day. Increasing cardio and strength training exercises as tolerated to improve weight loss and work on building muscle mass. Patient is committed to smarter eating with calorie counting and mindful eating. Limiting processed foods and carbohydrates and increasing leafy greens and lean proteins as well as fruits into their diet. Patient was counseled on the importance of eating local, organic food when possible. Patient has been counseled regarding effects of GLP/GIP-1 agonists and other FDA approved weight loss medications with regards to a multifactorial approach of weight loss as mentioned above and that the medication alone will not be sufficient to meet patients goals. We discussed holistic medication approach with emphasis on lifestyle modification. Discussed obesity as it increases risk of diabetes, cardiovascular disease, and/or organ damage. We spent a lot of time discussing the relationship between food, exercise, sleep, mental health, and obesity. We discussed the importance of having SECAs done every visit and having accountability done during these visits. That the scale is done to monitor not only weight loss but the body composition during medication management and healthy lifestyle changes. We discussed that if the patient is unable at times to financially afford this scale that we would rather waive the fee and have the scale done than have the patient not have the scale obtained. Will follow up with the patient in 4 weeks time to monitor weight loss. Total time was 30 min, greater than 50 % of time was spent on care coordination Case discussed with collaborating physician Wai Valerio who reviewed the assessment and plan. Chart, medications, labs, vital signs reviewed. Dictation was accomplished with the use of [employer] voice recognition software, prone to medical misidentifications and grammatical errors. This is unintentional and the practitioner does try to identify and correct these, but some could still be present. Please do not hesitate to contact practitioner for clarification. All questions answered to patients satisfaction. Patient verbalized understanding of diagnosis and treatments explained. To call sooner prior to next visit it any questions/concerns arise. 10/25/2024 BMI 29.0-29.9,faby lt (ICD-10 - Z68.29) #Obesity. 10/25/24: 170.3 pounds, BMI 29.8. She is doing well on Wegovy 2.4 mg. Encouraged to track her protein to get a better idea of how much she is getting. Discussed goal is 80 to 100 g a day. Continue to work on increased exercise. Encouraged to start resistance training 2-3 times a week. She briefly tried the Topamax but discontinued as she had a headache. She plans to retry it. Of note she does have a history of migraines as well. Discussed this may actually help as migraine prophylaxis. Will monitor for side effects. Follow-up in 1 month sooner with any concerns. 09/16/24: 172.3 pounds, BMI 30.2. She is doing well on Wegovy 2.4 mg. Her weight has plateaued some. She denies any side effects. She has noticed increased sugar cravings this month. Exercise has also been down due to back injury. Discussed options with patient. She has previously tried phentermine and Contrave without any benefit. Discussed adding low-dose Topamax. Will start 25 mg daily. Discussed risk benefits and adverse effects of medication with patient. Continue Wegovy 2.4 mg. If no improvement could consider submitting to insurance for Zepbound. Continue to work on protein intake, hydration and exercise as she recovers from her injury. Follow-up in 1 month sooner with any concerns. 08/18/24: 173.1 pounds, BMI 30.3. She is doing well on Wegovy 2.4 mg. Denies any side effects. Advised to continue probiotics and B complex. Discussed protein intake, increased exercise and increased water intake. Will continue current regimen and follow-up in 4 weeks sooner with any concerns. 07/22/24: 174.9 pounds, BMI 30.6. She is doing well on Wegovy 1.7 mg. Interested in increasing to 2.4 mg weekly on next fill. 06/08/24: 178.8, BMI 31.3. She has transitioned to Wegovy. Continue Wegovy 1.7 mg weekly. 04/27/24: 184.3, BMI 32.2. 04/20/24: Sema 1 mg 04/13/24: Sema 1 mg 04/06/24: Sema 1 mg 03/30/24: Sema 0.5 mg 03/23/24:185.4, BMI 32.4 Sema 0.5 mg. 03/16/24: Sema 0.25 mg 03/09/24: Sema 0.25 mg 03/02/24: Sema 0.25 mg 02/24/24: 184.3 pounds, BMI 32.3. Sema 0.25 mg The patient will continue exercise regimen with an emphasis on improving/increasing steps to at least 6,000-10,000 steps per day. Increasing cardio and strength training exercises as tolerated to improve weight loss and work on building muscle mass. Patient is committed to smarter eating with calorie counting and mindful eating. Limiting processed foods and carbohydrates and increasing leafy greens and lean proteins as well as fruits into their diet. Patient was counseled on the importance of eating local, organic food when possible. Patient has been counseled regarding effects of GLP/GIP-1 agonists and other FDA approved weight loss medications with regards to a multifactorial approach of weight loss as mentioned above and that the medication alone will not be sufficient to meet patients goals. We discussed holistic medication approach with emphasis on lifestyle modification. Discussed obesity as it increases risk of diabetes, cardiovascular disease, and/or organ damage. We spent a lot of time discussing the relationship between food, exercise, sleep, mental health, and obesity. We discussed the importance of having SECAs done every visit and having accountability done during these visits. That the scale is done to monitor not only weight loss but the body composition during medication management and healthy lifestyle changes. We discussed that if the patient is unable at times to financially afford this scale that we would rather waive the fee and have the scale done than have the patient not have the scale obtained. Will follow up with the patient in 4 weeks time to monitor weight loss. Total time was 30 min, greater than 50 % of time was spent on care coordination Case discussed with collaborating physician Wai Valerio who reviewed the assessment and plan. Chart, medications, labs, vital signs reviewed. Dictation was accomplished with the use of [employer] voice recognition software, prone to medical misidentifications and grammatical errors. This is unintentional and the practitioner does try to identify and correct these, but some could still be present. Please do not hesitate to contact practitioner for clarification. All questions answered to patients satisfaction. Patient verbalized understanding of diagnosis and treatments explained. To call sooner prior to next visit it any questions/concerns arise. 11/30/2024 Other obesity due to excess calories (ICD-10 - E66.09) #Obesity. 11/30/24: 170.6 pounds, BMI 29.9. She is doing well on Wegovy 2.4 mg. She has plateaued a bit. Weight is stable however fat mass is down and muscle mass is up. Encouraged to add an additional 20 to 30 g of protein a day. Continue to work on resistance training 2-3 times a week. She did not tolerate the Topamax as it increased her headaches. Will continue current regimen. If she continues to plateau consider submitting for Zepbound. Follow-up in 1 month sooner with any concerns. The patient will continue exercise regimen with an emphasis on improving/increasing steps to at least 6,000-10,000 steps per day. Increasing cardio and strength training exercises as tolerated to improve weight loss and work on building muscle mass. Patient is committed to smarter eating with calorie counting and mindful eating. Limiting processed foods and carbohydrates and increasing leafy greens and lean proteins as well as fruits into their diet. Patient was counseled on the importance of eating local, organic food when possible. Patient has been counseled regarding effects of GLP/GIP-1 agonists and other FDA approved weight loss medications with regards to a multifactorial approach of weight loss as mentioned above and that the medication alone will not be sufficient to meet patients goals. We discussed holistic medication approach with emphasis on lifestyle modification. Discussed obesity as it increases risk of diabetes, cardiovascular disease, and/or organ damage. We spent a lot of time discussing the relationship between food, exercise, sleep, mental health, and obesity. We discussed the importance of having SECAs done every visit and having accountability done during these visits. That the scale is done to monitor not only weight loss but the body composition during medication management and healthy lifestyle changes. We discussed that if the patient is unable at times to financially afford this scale that we would rather waive the fee and have the scale done than have the patient not have the scale obtained. Will follow up with the patient in 4 weeks time to monitor weight loss. Total time was 30 min, greater than 50 % of time was spent on care coordination Case discussed with collaborating physician Wai Valerio who reviewed the assessment and plan. Chart, medications, labs, vital signs reviewed. Dictation was accomplished with the use of [employer] voice recognition software, prone to medical misidentifications and grammatical errors. This is unintentional and the practitioner does try to identify and correct these, but some could still be present. Please do not hesitate to contact practitioner for clarification. All questions answered to patients satisfaction. Patient verbalized understanding of diagnosis and treatments explained. To call sooner prior to next visit it any questions/concerns arise. 11/30/2024 BMI 29.0-29.9,faby lt (ICD-10 - Z68.29) #Obesity. 11/30/24: 170.6 pounds, BMI 29.9. She is doing well on Wegovy 2.4 mg. She has plateaued a bit. Weight is stable however fat mass is down and muscle mass is up. Encouraged to add an additional 20 to 30 g of protein a day. Continue to work on resistance training 2-3 times a week. She did not tolerate the Topamax as it increased her headaches. Will continue current regimen. If she continues to plateau consider submitting for Zepbound. Follow-up in 1 month sooner with any concerns. The patient will continue exercise regimen with an emphasis on improving/increasing steps to at least 6,000-10,000 steps per day. Increasing cardio and strength training exercises as tolerated to improve weight loss and work on building muscle mass. Patient is committed to smarter eating with calorie counting and mindful eating. Limiting processed foods and carbohydrates and increasing leafy greens and lean proteins as well as fruits into their diet. Patient was counseled on the importance of eating local, organic food when possible. Patient has been counseled regarding effects of GLP/GIP-1 agonists and other FDA approved weight loss medications with regards to a multifactorial approach of weight loss as mentioned above and that the medication alone will not be sufficient to meet patients goals. We discussed holistic medication approach with emphasis on lifestyle modification. Discussed obesity as it increases risk of diabetes, cardiovascular disease, and/or organ damage. We spent a lot of time discussing the relationship between food, exercise, sleep, mental health, and obesity. We discussed the importance of having SECAs done every visit and having accountability done during these visits. That the scale is done to monitor not only weight loss but the body composition during medication management and healthy lifestyle changes. We discussed that if the patient is unable at times to financially afford this scale that we would rather waive the fee and have the scale done than have the patient not have the scale obtained. Will follow up with the patient in 4 weeks time to monitor weight loss. Total time was 30 min, greater than 50 % of time was spent on care coordination Case discussed with collaborating physician Wai Valerio who reviewed the assessment and plan. Chart, medications, labs, vital signs reviewed. Dictation was accomplished with the use of [employer] voice recognition software, prone to medical misidentifications and grammatical errors. This is unintentional and the practitioner does try to identify and correct these, but some could still be present. Please do not hesitate to contact practitioner for clarification. All questions answered to patients satisfaction. Patient verbalized understanding of diagnosis and treatments explained. To call sooner prior to next visit it any questions/concerns arise. 01/05/2025 Other obesity due to excess calories (ICD-10 - E66.09) #Obesity. 01/05/25: 170.5 pounds, BMI 29.8. She is doing well on Wegovy 2.4 mg, however, she has plateaued for the past several months despite consistent exercise, protein intake, hydration and good slee habits. She has also tried phentermine, Contrave and Topamax in the past which she has not tolerated. We will submit for Zepbound. Reviewed risk benefits adverse effects of medication. Demonstrated proper use of pen autoinjector here in the office. Will follow-up with me in 1 month sooner with any concerns. The patient will continue exercise regimen with an emphasis on improving/increasing steps to at least 6,000-10,000 steps per day. Increasing cardio and strength training exercises as tolerated to improve weight loss and work on building muscle mass. Patient is committed to smarter eating with calorie counting and mindful eating. Limiting processed foods and carbohydrates and increasing leafy greens and lean proteins as well as fruits into their diet. Patient was counseled on the importance of eating local, organic food when possible. Patient has been counseled regarding effects of GLP/GIP-1 agonists and other FDA approved weight loss medications with regards to a multifactorial approach of weight loss as mentioned above and that the medication alone will not be sufficient to meet patients goals. We discussed holistic medication approach with emphasis on lifestyle modification. Discussed obesity as it increases risk of diabetes, cardiovascular disease, and/or organ damage. We spent a lot of time discussing the relationship between food, exercise, sleep, mental health, and obesity. We discussed the importance of having SECAs done every visit and having accountability done during these visits. That the scale is done to monitor not only weight loss but the body composition during medication management and healthy lifestyle changes. We discussed that if the patient is unable at times to financially afford this scale that we would rather waive the fee and have the scale done than have the patient not have the scale obtained. Will follow up with the patient in 4 weeks time to monitor weight loss. Total time was 30 min, greater than 50 % of time was spent on care coordination These medications are being prescribed under the supervision of an obesity medicine certified physician, Dr. Zac Valerio. Case discussed with collaborating physician Jesús Valerio who reviewed the assessment and plan. Chart, medications, labs, vital signs reviewed. Dictation was accomplished with the use of [employer] voice recognition software, prone to medical misidentifications and grammatical errors. This is unintentional and the practitioner does try to identify and correct these, but some could still be present. Please do not hesitate to contact practitioner for clarification. All questions answered to patients satisfaction. Patient verbalized understanding of diagnosis and treatments explained. To call sooner prior to next visit it any questions/concerns arise. 01/05/2025 BMI 29.0-29.9,faby lt (ICD-10 - Z68.29) #Obesity. 01/05/25: 170.5 pounds, BMI 29.8. She is doing well on Wegovy 2.4 mg, however, she has plateaued for the past several months despite consistent exercise, protein intake, hydration and good slee habits. She has also tried phentermine, Contrave and Topamax in the past which she has not tolerated. We will submit for Zepbound. Reviewed risk benefits adverse effects of medication. Demonstrated proper use of pen autoinjector here in the office. Will follow-up with me in 1 month sooner with any concerns. The patient will continue exercise regimen with an emphasis on improving/increasing steps to at least 6,000-10,000 steps per day. Increasing cardio and strength training exercises as tolerated to improve weight loss and work on building muscle mass. Patient is committed to smarter eating with calorie counting and mindful eating. Limiting processed foods and carbohydrates and increasing leafy greens and lean proteins as well as fruits into their diet. Patient was counseled on the importance of eating local, organic food when possible. Patient has been counseled regarding effects of GLP/GIP-1 agonists and other FDA approved weight loss medications with regards to a multifactorial approach of weight loss as mentioned above and that the medication alone will not be sufficient to meet patients goals. We discussed holistic medication approach with emphasis on lifestyle modification. Discussed obesity as it increases risk of diabetes, cardiovascular disease, and/or organ damage. We spent a lot of time discussing the relationship between food, exercise, sleep, mental health, and obesity. We discussed the importance of having SECAs done every visit and having accountability done during these visits. That the scale is done to monitor not only weight loss but the body composition during medication management and healthy lifestyle changes. We discussed that if the patient is unable at times to financially afford this scale that we would rather waive the fee and have the scale done than have the patient not have the scale obtained. Will follow up with the patient in 4 weeks time to monitor weight loss. Total time was 30 min, greater than 50 % of time was spent on care coordination These medications are being prescribed under the supervision of an obesity medicine certified physician, Dr. Zac Valerio. Case discussed with collaborating physician Jesús Valerio who reviewed the assessment and plan. Chart, medications, labs, vital signs reviewed. Dictation was accomplished with the use of [employer] voice recognition software, prone to medical misidentifications and grammatical errors. This is unintentional and the practitioner does try to identify and correct these, but some could still be present. Please do not hesitate to contact practitioner for clarification. All questions answered to patients satisfaction. Patient verbalized understanding of diagnosis and treatments explained. To call sooner prior to next visit it any questions/concerns arise. 01/16/2025 Other obesity due to excess calories (ICD-10 - E66.09) 02/01/2025 Other obesity due to excess calories (ICD-10 - E66.09) #Obesity. 02/01/25: 168.2, BMI 29.4. She was able to transition to Zepbound after plateauing on max dose Wegovy. Continue Zepbound 2.5mg for next 2 doses, Increase to Zepbound 5mg at next refill. Pt will call if she has any side effects, otherwise follow-up in 1 month. Discussed importance of protein intake and continued exercise including resistance training. The patient will continue exercise regimen with an emphasis on improving/increasing steps to at least 6,000-10,000 steps per day. Increasing cardio and strength training exercises as tolerated to improve weight loss and work on building muscle mass. Patient is committed to smarter eating with calorie counting and mindful eating. Limiting processed foods and carbohydrates and increasing leafy greens and lean proteins as well as fruits into their diet. Patient was counseled on the importance of eating local, organic food when possible. Patient has been counseled regarding effects of GLP/GIP-1 agonists and other FDA approved weight loss medications with regards to a multifactorial approach of weight loss as mentioned above and that the medication alone will not be sufficient to meet patients goals. We discussed holistic medication approach with emphasis on lifestyle modification. Discussed obesity as it increases risk of diabetes, cardiovascular disease, and/or organ damage. We spent a lot of time discussing the relationship between food, exercise, sleep, mental health, and obesity. We discussed the importance of having SECAs done every visit and having accountability done during these visits. That the scale is done to monitor not only weight loss but the body composition during medication management and healthy lifestyle changes. We discussed that if the patient is unable at times to financially afford this scale that we would rather waive the fee and have the scale done than have the patient not have the scale obtained. Will follow up with the patient in 4 weeks time to monitor weight loss. Total time was 30 min, greater than 50 % of time was spent on care coordination These medications are being prescribed under the supervision of an obesity medicine certified physician, Dr. Zac Valerio. Case discussed with collaborating physician Jesús Valerio who reviewed the assessment and plan. Chart, medications, labs, vital signs reviewed. Dictation was accomplished with the use of [employer] voice recognition software, prone to medical misidentifications and grammatical errors. This is unintentional and the practitioner does try to identify and correct these, but some could still be present. Please do not hesitate to contact practitioner for clarification. All questions answered to patients satisfaction. Patient verbalized understanding of diagnosis and treatments explained. To call sooner prior to next visit it any questions/concerns arise. 02/01/2025 BMI 29.0-29.9,faby lt (ICD-10 - Z68.29) #Obesity. 02/01/25: 168.2, BMI 29.4. She was able to transition to Zepbound after plateauing on max dose Wegovy. Continue Zepbound 2.5mg for next 2 doses, Increase to Zepbound 5mg at next refill. Pt will call if she has any side effects, otherwise follow-up in 1 month. Discussed importance of protein intake and continued exercise including resistance training. The patient will continue exercise regimen with an emphasis on improving/increasing steps to at least 6,000-10,000 steps per day. Increasing cardio and strength training exercises as tolerated to improve weight loss and work on building muscle mass. Patient is committed to smarter eating with calorie counting and mindful eating. Limiting processed foods and carbohydrates and increasing leafy greens and lean proteins as well as fruits into their diet. Patient was counseled on the importance of eating local, organic food when possible. Patient has been counseled regarding effects of GLP/GIP-1 agonists and other FDA approved weight loss medications with regards to a multifactorial approach of weight loss as mentioned above and that the medication alone will not be sufficient to meet patients goals. We discussed holistic medication approach with emphasis on lifestyle modification. Discussed obesity as it increases risk of diabetes, cardiovascular disease, and/or organ damage. We spent a lot of time discussing the relationship between food, exercise, sleep, mental health, and obesity. We discussed the importance of having SECAs done every visit and having accountability done during these visits. That the scale is done to monitor not only weight loss but the body composition during medication management and healthy lifestyle changes. We discussed that if the patient is unable at times to financially afford this scale that we would rather waive the fee and have the scale done than have the patient not have the scale obtained. Will follow up with the patient in 4 weeks time to monitor weight loss. Total time was 30 min, greater than 50 % of time was spent on care coordination These medications are being prescribed under the supervision of an obesity medicine certified physician, Dr. Zac Valerio. Case discussed with collaborating physician Jesús Valerio who reviewed the assessment and plan. Chart, medications, labs, vital signs reviewed. Dictation was accomplished with the use of [employer] voice recognition software, prone to medical misidentifications and grammatical errors. This is unintentional and the practitioner does try to identify and correct these, but some could still be present. Please do not hesitate to contact practitioner for clarification. All questions answered to patients satisfaction. Patient verbalized understanding of diagnosis and treatments explained. To call sooner prior to next visit it any questions/concerns arise. 02/24/2024 Other obesity due to excess calories (ICD-10 - E66.09) #Obesity. 184.3 pounds, BMI 32.3. Ceca scale reviewed in detail with patient. Reviewed medical weight loss options in detail including phentermine, Contrave, Wegovy, compounded semaglutide, Zepp bound, compounded tirzepatide, Topamax, metformin. She has previously tried phentermine and Contrave without significant benefit. Comprehensive labs recently done in the past month were reviewed via her patient portal. After review of risk benefits adverse effects of medication she would like to start on compounded semaglutide today. We did discuss checking with her insurance company in regards to coverage for name brand Gersongovy. Patient will be started on Semaglutide compounded per our office protocol. They will start on 0.25 mg once weekly for weeks 1-4. They will follow up with me in 4 weeks at which time a repeat SECA scale will be reviewed. If Semaglutide has been tolerated well, the dose will increase to 0.5 mg once weekly for weeks 5-8. Follow up with the provider every 4 weeks with repeat SECA scale is required. If tolerated, dose will be increased to 1 mg after 8 weeks for weeks 9-12. Prior authorization for Wegovy will be started between weeks 11-13 and can take up to 4 weeks to complete. Out of pocket cost was reviewed with patient and escalating cost with escalating dose was reviewed. Discussed importance of supplementation with probiotics, B complex vitamins. We also reviewed lab monitoring routinely throughout. Discussed importance of protein intake, water intake, regular exercise and good sleep habits. The patient will continue exercise regimen with an emphasis on improving/increasing steps to at least 6,000-10,000 steps per day. Increasing cardio and strength training exercises as tolerated to improve weight loss and work on building muscle mass. Patient is committed to smarter eating with calorie counting and mindful eating. Limiting processed foods and carbohydrates and increasing leafy greens and lean proteins as well as fruits into their diet. Patient was counseled on the importance of eating local, organic food when possible. Patient has been counseled regarding effects of GLP/GIP-1 agonists and other FDA approved weight loss medications with regards to a multifactorial approach of weight loss as mentioned above and that the medication alone will not be sufficient to meet patients goals. We discussed holistic medication approach with emphasis on lifestyle modification. Discussed obesity as it increases risk of diabetes, cardiovascular disease, and/or organ damage. We spent a lot of time discussing the relationship between food, exercise, sleep, mental health, and obesity. We discussed the importance of having SECAs done every visit and having accountability done during these visits. That the scale is done to monitor not only weight loss but the body composition during medication management and healthy lifestyle changes. We discussed that if the patient is unable at times to financially afford this scale that we would rather waive the fee and have the scale done than have the patient not have the scale obtained. #Elevated blood pressure- Mildly elevated at visit today. Monitor and follow up with PCP. Weight Consult Plan: Patient has been found to be obese with a BMI of 32.3 Patient has class 1 obesity. Patient was reassured and welcomed to the practice.3 We discussed that we stress a hollistic medical approach with emphasis on lifestyle modification. Patient was informed that a healthy lifestyle with exercise and good eating habits can help reduce his risk of medical complications. He is explained that obesity increases his risk of diabetes, cardiovascular disease, or organ damage. We spent a lot of time discussing the relationship between food, exercise, sleep, mental health and obesity. Patient was counseled on the importance EATING local, organic food when possible. Patient was educated on clean 15 and dirty dozen. I provided information about reading books called The Food Rules by Andrade Pendleton and Eat Fat Get Lean by Dr Joce Posada. Self education is important in the journey for weight management. Patient was offered diagnostic testing. We want to measure visceral adiposity, advanced body composition, adverse lipids, fatty acid balance, risk for heart disease and atherosclerosis, markers of inflammation and genetic susceptibility. Patient was counseled on weight management and was advised to lose weight using B. Lifestyle management which includes several strategies as below 1. Eat a low carbohydrate good fat good protein diet. Eliminate refined carbohydrates from the diet. Continue blood sugar and sugared beverages. Eat local organic when possible. Cook your own meals. Read food labels. None about healthy snacks. Portion control and food with low glycemic index 2. Exercise regularly. Try to get at least 6000 steps a day. Use a predominant to track activity level. Consider using apps like [employer], myfitnesspal, lose it, stick as needed for self-monitoring and weight management. Consider group exercises. Consider hiring a first aid trainer. Regular exercise is sethi to sustainable health and prevents as a buffer against weight regain 3. Sleep is most important for healing. Tried to sleep at least 8 hours a night. A good quality sleep needs a sleep ritual with ideal room temperature of around 68. It might help to take a shower and have no electronics in the room and sleep in a very dark room without artificial light. Start her sleep routine and get up early in the morning and go to bed on time 4. Make a social connection. Surround yourself with positive people with positive energy. Connect with friends and family. 5. Get into the habit of meditating and mindfulness while doing everything. 6. Go outside and connect with nature. C. Prescription medications Patient was educated on the use of prescription medications for medical weight loss. This is a growing list and includes phentermine, Topamax,Qsymia, contrave, belviq and saxenda. All prescription medications could have side effects including but not limited to kidney stones, seizure disorder cardiac arrhythmias heart attack pancreatitis etc. etc.. Patient was encouraged to read the prescription insert and have coaching with their pharmacist and make an informed decision about taking medication and know that these medications are being prescribed with good intentions and we do not know how a patient would react to her medication. Sudden medications are FDA approved for weight loss and there is also off label use depending on patient's inability to afford medications in an attempt to lose weight D. Behavioral counseling was done to establish a relationship between food and an mood. Patient was provided information about local counseling and psychiatry and Dr Connelly at [facility]. We would like to cover regular topics and build on low glycemic eating exercise mindful eating, using yoga and meditation along with deep breathing and connecting with friends and family. E. MASS PAT reviewed, Patient's current medications were reviewed and opinion was given on medication that can cause weight gain and can be substituted F. Patient was assessed for risk with obesity including and not limiting to atherosclerosis heart disease stroke kidney disease, restrictive lung disease, irritable bowel syndrome and overall mortality. Risk of developing prediabetes diabetes and metabolic syndrome was discussed G. Therapeutic plan: We have decided to make therapeutic plan which would include choosing wisely on calories restricting portion getting active, tracking weight, getting good quality sleep and working on time management H. Patient will follow up in (4) weeks for weight management Total time spent today was 60 minutes of which greater than 50% was spent on coordinating and counseling Case discussed with collaborating physician Jesús Valerio who reviewed the assessment and plan. Chart, medications, labs, vital signs reviewed. Dictation was accomplished with the use of [employer] voice recognition software, prone to medical misidentifications and grammatical errors. This is unintentional and the practitioner does try to identify and correct these, but some could still be present. Please do not hesitate to contact practitioner for clarification. All questions answered to patients satisfaction. Patient verbalized understanding of diagnosis and treatments explained. To call sooner prior to next visit it any questions/concerns arise. 02/24/2024 Body mass index [BMI] 32.0-32.9, adult (ICD-10 - Z68.32) #Obesity. 184.3 pounds, BMI 32.3. Ceca scale reviewed in detail with patient. Reviewed medical weight loss options in detail including phentermine, Contrave, Wegovy, compounded semaglutide, Zepp bound, compounded tirzepatide, Topamax, metformin. She has previously tried phentermine and Contrave without significant benefit. Comprehensive labs recently done in the past month were reviewed via her patient portal. After review of risk benefits adverse effects of medication she would like to start on compounded semaglutide today. We did discuss checking with her insurance company in regards to coverage for name brand Wegovy. Patient will be started on Semaglutide compounded per our office protocol. They will start on 0.25 mg once weekly for weeks 1-4. They will follow up with me in 4 weeks at which time a repeat SECA scale will be reviewed. If Semaglutide has been tolerated well, the dose will increase to 0.5 mg once weekly for weeks 5-8. Follow up with the provider every 4 weeks with repeat SECA scale is required. If tolerated, dose will be increased to 1 mg after 8 weeks for weeks 9-12. Prior authorization for Wegovy will be started between weeks 11-13 and can take up to 4 weeks to complete. Out of pocket cost was reviewed with patient and escalating cost with escalating dose was reviewed. Discussed importance of supplementation with probiotics, B complex vitamins. We also reviewed lab monitoring routinely throughout. Discussed importance of protein intake, water intake, regular exercise and good sleep habits. The patient will continue exercise regimen with an emphasis on improving/increasing steps to at least 6,000-10,000 steps per day. Increasing cardio and strength training exercises as tolerated to improve weight loss and work on building muscle mass. Patient is committed to smarter eating with calorie counting and mindful eating. Limiting processed foods and carbohydrates and increasing leafy greens and lean proteins as well as fruits into their diet. Patient was counseled on the importance of eating local, organic food when possible. Patient has been counseled regarding effects of GLP/GIP-1 agonists and other FDA approved weight loss medications with regards to a multifactorial approach of weight loss as mentioned above and that the medication alone will not be sufficient to meet patients goals. We discussed holistic medication approach with emphasis on lifestyle modification. Discussed obesity as it increases risk of diabetes, cardiovascular disease, and/or organ damage. We spent a lot of time discussing the relationship between food, exercise, sleep, mental health, and obesity. We discussed the importance of having SECAs done every visit and having accountability done during these visits. That the scale is done to monitor not only weight loss but the body composition during medication management and healthy lifestyle changes. We discussed that if the patient is unable at times to financially afford this scale that we would rather waive the fee and have the scale done than have the patient not have the scale obtained. #Elevated blood pressure- Mildly elevated at visit today. Monitor and follow up with PCP. Weight Consult Plan: Patient has been found to be obese with a BMI of 32.3 Patient has class 1 obesity. Patient was reassured and welcomed to the practice.3 We discussed that we stress a hollistic medical approach with emphasis on lifestyle modification. Patient was informed that a healthy lifestyle with exercise and good eating habits can help reduce his risk of medical complications. He is explained that obesity increases his risk of diabetes, cardiovascular disease, or organ damage. We spent a lot of time discussing the relationship between food, exercise, sleep, mental health and obesity. Patient was counseled on the importance EATING local, organic food when possible. Patient was educated on clean 15 and dirty dozen. I provided information about reading books called The Food Rules by Andrade Pendleton and Eat Fat Get Lean by Dr Joce Posada. Self education is important in the journey for weight management. Patient was offered diagnostic testing. We want to measure visceral adiposity, advanced body composition, adverse lipids, fatty acid balance, risk for heart disease and atherosclerosis, markers of inflammation and genetic susceptibility. Patient was counseled on weight management and was advised to lose weight using B. Lifestyle management which includes several strategies as below 1. Eat a low carbohydrate good fat good protein diet. Eliminate refined carbohydrates from the diet. Continue blood sugar and sugared beverages. Eat local organic when possible. Cook your own meals. Read food labels. None about healthy snacks. Portion control and food with low glycemic index 2. Exercise regularly. Try to get at least 6000 steps a day. Use a predominant to track activity level. Consider using apps like [employer], [employer], lose it, stick as needed for self-monitoring and weight management. Consider group exercises. Consider hiring a first aid trainer. Regular exercise is sethi to sustainable health and prevents as a buffer against weight regain 3. Sleep is most important for healing. Tried to sleep at least 8 hours a night. A good quality sleep needs a sleep ritual with ideal room temperature of around 68. It might help to take a shower and have no electronics in the room and sleep in a very dark room without artificial light. Start her sleep routine and get up early in the morning and go to bed on time 4. Make a social connection. Surround yourself with positive people with positive energy. Connect with friends and family. 5. Get into the habit of meditating and mindfulness while doing everything. 6. Go outside and connect with nature. C. Prescription medications Patient was educated on the use of prescription medications for medical weight loss. This is a growing list and includes phentermine, Topamax,Qsymia, contrave, belviq and saxenda. All prescription medications could have side effects including but not limited to kidney stones, seizure disorder cardiac arrhythmias heart attack pancreatitis etc. etc.. Patient was encouraged to read the prescription insert and have coaching with their pharmacist and make an informed decision about taking medication and know that these medications are being prescribed with good intentions and we do not know how a patient would react to her medication. Sudden medications are FDA approved for weight loss and there is also off label use depending on patient's inability to afford medications in an attempt to lose weight D. Behavioral counseling was done to establish a relationship between food and an mood. Patient was provided information about local counseling and psychiatry and Dr Connelly at [facility]. We would like to cover regular topics and build on low glycemic eating exercise mindful eating, using yoga and meditation along with deep breathing and connecting with friends and family. E. MASS PAT reviewed, Patient's current medications were reviewed and opinion was given on medication that can cause weight gain and can be substituted F. Patient was assessed for risk with obesity including and not limiting to atherosclerosis heart disease stroke kidney disease, restrictive lung disease, irritable bowel syndrome and overall mortality. Risk of developing prediabetes diabetes and metabolic syndrome was discussed G. Therapeutic plan: We have decided to make therapeutic plan which would include choosing wisely on calories restricting portion getting active, tracking weight, getting good quality sleep and working on time management H. Patient will follow up in (4) weeks for weight management Total time spent today was 60 minutes of which greater than 50% was spent on coordinating and counseling Case discussed with collaborating physician Jesús Valerio who reviewed the assessment and plan. Chart, medications, labs, vital signs reviewed. Dictation was accomplished with the use of [employer] voice recognition software, prone to medical misidentifications and grammatical errors. This is unintentional and the practitioner does try to identify and correct these, but some could still be present. Please do not hesitate to contact practitioner for clarification. All questions answered to patients satisfaction. Patient verbalized understanding of diagnosis and treatments explained. To call sooner prior to next visit it any questions/concerns arise. 02/24/2024 Elevated blood pressure reading (ICD-10 - R03.0) #Obesity. 184.3 pounds, BMI 32.3. Ceca scale reviewed in detail with patient. Reviewed medical weight loss options in detail including phentermine, Contrave, Wegovy, compounded semaglutide, Zepp bound, compounded tirzepatide, Topamax, metformin. She has previously tried phentermine and Contrave without significant benefit. Comprehensive labs recently done in the past month were reviewed via her patient portal. After review of risk benefits adverse effects of medication she would like to start on compounded semaglutide today. We did discuss checking with her insurance company in regards to coverage for name brand Wegovy. Patient will be started on Semaglutide compounded per our office protocol. They will start on 0.25 mg once weekly for weeks 1-4. They will follow up with me in 4 weeks at which time a repeat SECA scale will be reviewed. If Semaglutide has been tolerated well, the dose will increase to 0.5 mg once weekly for weeks 5-8. Follow up with the provider every 4 weeks with repeat SECA scale is required. If tolerated, dose will be increased to 1 mg after 8 weeks for weeks 9-12. Prior authorization for Tylor will be started between weeks 11-13 and can take up to 4 weeks to complete. Out of pocket cost was reviewed with patient and escalating cost with escalating dose was reviewed. Discussed importance of supplementation with probiotics, B complex vitamins. We also reviewed lab monitoring routinely throughout. Discussed importance of protein intake, water intake, regular exercise and good sleep habits. The patient will continue exercise regimen with an emphasis on improving/increasing steps to at least 6,000-10,000 steps per day. Increasing cardio and strength training exercises as tolerated to improve weight loss and work on building muscle mass. Patient is committed to smarter eating with calorie counting and mindful eating. Limiting processed foods and carbohydrates and increasing leafy greens and lean proteins as well as fruits into their diet. Patient was counseled on the importance of eating local, organic food when possible. Patient has been counseled regarding effects of GLP/GIP-1 agonists and other FDA approved weight loss medications with regards to a multifactorial approach of weight loss as mentioned above and that the medication alone will not be sufficient to meet patients goals. We discussed holistic medication approach with emphasis on lifestyle modification. Discussed obesity as it increases risk of diabetes, cardiovascular disease, and/or organ damage. We spent a lot of time discussing the relationship between food, exercise, sleep, mental health, and obesity. We discussed the importance of having SECAs done every visit and having accountability done during these visits. That the scale is done to monitor not only weight loss but the body composition during medication management and healthy lifestyle changes. We discussed that if the patient is unable at times to financially afford this scale that we would rather waive the fee and have the scale done than have the patient not have the scale obtained. #Elevated blood pressure- Mildly elevated at visit today. Monitor and follow up with PCP. Weight Consult Plan: Patient has been found to be obese with a BMI of 32.3 Patient has class 1 obesity. Patient was reassured and welcomed to the practice.3 We discussed that we stress a hollistic medical approach with emphasis on lifestyle modification. Patient was informed that a healthy lifestyle with exercise and good eating habits can help reduce his risk of medical complications. He is explained that obesity increases his risk of diabetes, cardiovascular disease, or organ damage. We spent a lot of time discussing the relationship between food, exercise, sleep, mental health and obesity. Patient was counseled on the importance EATING local, organic food when possible. Patient was educated on clean 15 and dirty dozen. I provided information about reading books called The Food Rules by Andrade Pendleton and Eat Fat Get Lean by Dr Joce Posada. Self education is important in the journey for weight management. Patient was offered diagnostic testing. We want to measure visceral adiposity, advanced body composition, adverse lipids, fatty acid balance, risk for heart disease and atherosclerosis, markers of inflammation and genetic susceptibility. Patient was counseled on weight management and was advised to lose weight using B. Lifestyle management which includes several strategies as below 1. Eat a low carbohydrate good fat good protein diet. Eliminate refined carbohydrates from the diet. Continue blood sugar and sugared beverages. Eat local organic when possible. Cook your own meals. Read food labels. None about healthy snacks. Portion control and food with low glycemic index 2. Exercise regularly. Try to get at least 6000 steps a day. Use a predominant to track activity level. Consider using apps like [employer], [employer], lose it, stick as needed for self-monitoring and weight management. Consider group exercises. Consider hiring a first aid trainer. Regular exercise is sethi to sustainable health and prevents as a buffer against weight regain 3. Sleep is most important for healing. Tried to sleep at least 8 hours a night. A good quality sleep needs a sleep ritual with ideal room temperature of around 68. It might help to take a shower and have no electronics in the room and sleep in a very dark room without artificial light. Start her sleep routine and get up early in the morning and go to bed on time 4. Make a social connection. Surround yourself with positive people with positive energy. Connect with friends and family. 5. Get into the habit of meditating and mindfulness while doing everything. 6. Go outside and connect with nature. C. Prescription medications Patient was educated on the use of prescription medications for medical weight loss. This is a growing list and includes phentermine, Topamax,Qsymia, contrave, belviq and saxenda. All prescription medications could have side effects including but not limited to kidney stones, seizure disorder cardiac arrhythmias heart attack pancreatitis etc. etc.. Patient was encouraged to read the prescription insert and have coaching with their pharmacist and make an informed decision about taking medication and know that these medications are being prescribed with good intentions and we do not know how a patient would react to her medication. Sudden medications are FDA approved for weight loss and there is also off label use depending on patient's inability to afford medications in an attempt to lose weight D. Behavioral counseling was done to establish a relationship between food and an mood. Patient was provided information about local counseling and psychiatry and Dr Connelly at [facility]. We would like to cover regular topics and build on low glycemic eating exercise mindful eating, using yoga and meditation along with deep breathing and connecting with friends and family. E. MASS PAT reviewed, Patient's current medications were reviewed and opinion was given on medication that can cause weight gain and can be substituted F. Patient was assessed for risk with obesity including and not limiting to atherosclerosis heart disease stroke kidney disease, restrictive lung disease, irritable bowel syndrome and overall mortality. Risk of developing prediabetes diabetes and metabolic syndrome was discussed G. Therapeutic plan: We have decided to make therapeutic plan which would include choosing wisely on calories restricting portion getting active, tracking weight, getting good quality sleep and working on time management H. Patient will follow up in (4) weeks for weight management Total time spent today was 60 minutes of which greater than 50% was spent on coordinating and counseling Case discussed with collaborating physician Jesús Valerio who reviewed the assessment and plan. Chart, medications, labs, vital signs reviewed. Dictation was accomplished with the use of [employer] voice recognition software, prone to medical misidentifications and grammatical errors. This is unintentional and the practitioner does try to identify and correct these, but some could still be present. Please do not hesitate to contact practitioner for clarification. All questions answered to patients satisfaction. Patient verbalized understanding of diagnosis and treatments explained. To call sooner prior to next visit it any questions/concerns arise. 02/01/2025 Weight loss counseling, encounter for (ICD-10 - Z71.3) #Obesity. 02/01/25: 168.2, BMI 29.4. She was able to transition to Zepbound after plateauing on max dose Wegovy. Continue Zepbound 2.5mg for next 2 doses, Increase to Zepbound 5mg at next refill. Pt will call if she has any side effects, otherwise follow-up in 1 month. Discussed importance of protein intake and continued exercise including resistance training. The patient will continue exercise regimen with an emphasis on improving/increasing steps to at least 6,000-10,000 steps per day. Increasing cardio and strength training exercises as tolerated to improve weight loss and work on building muscle mass. Patient is committed to smarter eating with calorie counting and mindful eating. Limiting processed foods and carbohydrates and increasing leafy greens and lean proteins as well as fruits into their diet. Patient was counseled on the importance of eating local, organic food when possible. Patient has been counseled regarding effects of GLP/GIP-1 agonists and other FDA approved weight loss medications with regards to a multifactorial approach of weight loss as mentioned above and that the medication alone will not be sufficient to meet patients goals. We discussed holistic medication approach with emphasis on lifestyle modification. Discussed obesity as it increases risk of diabetes, cardiovascular disease, and/or organ damage. We spent a lot of time discussing the relationship between food, exercise, sleep, mental health, and obesity. We discussed the importance of having SECAs done every visit and having accountability done during these visits. That the scale is done to monitor not only weight loss but the body composition during medication management and healthy lifestyle changes. We discussed that if the patient is unable at times to financially afford this scale that we would rather waive the fee and have the scale done than have the patient not have the scale obtained. Will follow up with the patient in 4 weeks time to monitor weight loss. Total time was 30 min, greater than 50 % of time was spent on care coordination These medications are being prescribed under the supervision of an obesity medicine certified physician, Dr. Zac Valerio. Case discussed with collaborating physician Jesús Valerio who reviewed the assessment and plan. Chart, medications, labs, vital signs reviewed. Dictation was accomplished with the use of [employer] voice recognition software, prone to medical misidentifications and grammatical errors. This is unintentional and the practitioner does try to identify and correct these, but some could still be present. Please do not hesitate to contact practitioner for clarification. All questions answered to patients satisfaction. Patient verbalized understanding of diagnosis and treatments explained. To call sooner prior to next visit it any questions/concerns arise. 01/05/2025 Weight loss counseling, encounter for (ICD-10 - Z71.3) #Obesity. 01/05/25: 170.5 pounds, BMI 29.8. She is doing well on Wegovy 2.4 mg, however, she has plateaued for the past several months despite consistent exercise, protein intake, hydration and good slee habits. She has also tried phentermine, Contrave and Topamax in the past which she has not tolerated. We will submit for [employer] System[employer]. Reviewed risk benefits adverse effects of medication. Demonstrated proper use of pen autoinjector here in the office. Will follow-up with me in 1 month sooner with any concerns. The patient will continue exercise regimen with an emphasis on improving/increasing steps to at least 6,000-10,000 steps per day. Increasing cardio and strength training exercises as tolerated to improve weight loss and work on building muscle mass. Patient is committed to smarter eating with calorie counting and mindful eating. Limiting processed foods and carbohydrates and increasing leafy greens and lean proteins as well as fruits into their diet. Patient was counseled on the importance of eating local, organic food when possible. Patient has been counseled regarding effects of GLP/GIP-1 agonists and other FDA approved weight loss medications with regards to a multifactorial approach of weight loss as mentioned above and that the medication alone will not be sufficient to meet patients goals. We discussed holistic medication approach with emphasis on lifestyle modification. Discussed obesity as it increases risk of diabetes, cardiovascular disease, and/or organ damage. We spent a lot of time discussing the relationship between food, exercise, sleep, mental health, and obesity. We discussed the importance of having SECAs done every visit and having accountability done during these visits. That the scale is done to monitor not only weight loss but the body composition during medication management and healthy lifestyle changes. We discussed that if the patient is unable at times to financially afford this scale that we would rather waive the fee and have the scale done than have the patient not have the scale obtained. Will follow up with the patient in 4 weeks time to monitor weight loss. Total time was 30 min, greater than 50 % of time was spent on care coordination These medications are being prescribed under the supervision of an obesity medicine certified physician, Dr. Zac Valerio. Case discussed with collaborating physician Jesús Valerio who reviewed the assessment and plan. Chart, medications, labs, vital signs reviewed. Dictation was accomplished with the use of [employer] voice recognition software, prone to medical misidentifications and grammatical errors. This is unintentional and the practitioner does try to identify and correct these, but some could still be present. Please do not hesitate to contact practitioner for clarification. All questions answered to patients satisfaction. Patient verbalized understanding of diagnosis and treatments explained. To call sooner prior to next visit it any questions/concerns arise. PLAN OF TREATMENT Next Appt Details Provider Name:Ping Lamb, 0 03/09/2025 09:00:00 AM, [address] [facility] [facility] [address], [place], [address], Insurance Providers Payer Name Payer Address Payer Phone Subscriber Number Group Number Insured Name Patient Relationship to Insured Coverage Start Date Coverage End Date [facility] [address] [place] [address] [phone] [id number] Roma Irving Self - patient is the insured MEDICATIONS ADMINISTERED Medication Instructions Date of Administration Dosage Notes Semaglutide 02/24/2024 .25 mg Semaglutide 03/02/2024 0.25 mg Semaglutide 03/09/2024 Semaglutide 03/16/2024 0.25 mg Semaglutide 03/23/2024 5 mg Semaglutide 03/30/2024 0.5 mg Semaglutide 04/06/2024 1 mg Semaglutide 04/13/2024 1 mg Semaglutide 04/20/2024 1 mg Semaglutide 05/04/2024 1.5 mg Semaglutide 05/11/2024 1.5 mg Semaglutide 05/17/2024 1.5 mg Semaglutide 05/25/2024 1.5 mg MEDICAL (GENERAL) HISTORY Medical History History ICD Code weight gain headache Surgical History Surgery Date(Month/Year) hysterectomy cholecystectomy left kidney removed
--- OUTSIDE RECORDS SUMMARY | 2025-02-14 18:24 | XMS_ITS | Clinical Summary ---
Author Organization [facility] Address [address] [place] [address] Phone Care Team Providers Care Gas Meter Repair Supervisor Name Role Phone Noel Carrizales DO Primary Care Provider [phone] Allergies Active Allergy Reactions Criticality Noted Date [...] Last Done Comments Breast Cancer Screening 1965 Hepatitis B Vaccine (1 of 3 - 19+ 3-dose series) 04/22 Pneumococcal Vaccine: 50+ Years (1 of 2 - PCV) 984 Colorectal Cancer Screening: Annual FOBT 2014 Colorectal Cancer Screening: Colonoscopy 2014 Colorectal Cancer Screening: Sigmoidoscopy 2014 Influenza Vaccine (Season Ended) [address] [facility] Care Teams Gas Meter Repair Supervisor Relationship Specialty Start Date End Date Noel Carrizales DO [facility] PCP - General 11/13/20
--- OUTSIDE RECORDS SUMMARY | 2025-02-14 18:24 | XMS_ITS ---
Author Organization [facility] Address [address] [place] [id number] Care Team Providers Care Dumbwaiter Operator Name Role Phone Ping Lamb Unavailable [phone] ALLERGIES No Known Allergies REASON FOR VISIT patient seen in office for weight management follow up visit with RAUL. MEDICATIONS Medication SIG (Take, Route, Frequency, Duration) Notes Start Date End Date Status Zepbound 5 MG/0.5ML 0.5 mL Subcutaneous once weekly for 30 days replaces wegovy Active Zolpidem Tartrate 10 MG TAKE 1 TABLET BY MOUTH AT BEDTIME FOR 14 DAYS Oral for 14 Days Not-Taking Vitamin D3 25 MCG (1000 UT) TAKE 1 CAPSULE BY MOUTH EVERY DAY Oral for 90 Days Not-Taking Topiramate 25 MG TAKE 1 TABLET BY MOUTH ONE A DAY for 90 Not-Taking Omeprazole 20 MG 1 capsule 30 minutes before morning meal Orally Once a day for 30 day(s) 02/24/2024 Not-Taking Wegovy 2.4 MG/0.75ML 0.75 mL Subcutaneous once a week for 30 days Not-Taking Levothyroxine Sodium 125 MCG TAKE 1 TABLET BY MOUTH DAILY Oral for 90 Days Active Sucralfate 1 GM TAKE 1 TABLET BY MOUTH THREE TIMES DAILY Oral for 30 Days Not-Taking Metoclopramide HCl 10 MG TAKE 1 TABLET BY MOUTH THREE TIMES DAILY NEEDED FOR NAUSEA OR VOMITING Oral for 10 Days Not-Taking SOCIAL HISTORY Tobacco Use: Social History Observation Description Date Details (start date - stop date) Never Smoker NA - NA Sex Assigned At : Social History Observation Description Sex Assigned At Unknown Tobacco Use/Smoking Question Answer Notes Are you a nonsmoker VITAL SIGNS Blood pressure systolic 126 mm Hg 02/02/20 25 Blood pressure diastolic 80 mm Hg 025 Heart Rate 78 /min 02/01/2025 Height 63.25 in 02/01/2025 Weight 168 lbs 02/01/2025 BMI 29.52 kg/m2 02/01/2025 Oximetry 97 % 02/01/2025 Encounters Encounter Location Date Provider Diagnosis [address] [address] 02/01/2025 Ping Lamb Other obesity due to excess calories E66.09 ; BMI 29.0-29.9,adult Z68.29 and Weight loss counseling, encounter for Z71.3 ASSESSMENTS Encounter Date Diagnosis Assessment Notes Treatment Notes Treatment Clinical Notes Section Notes 02/01/2025 Other obesity due to excess calories [...] Dictation was accomplished with the use of [employer] voice recognition software, prone to medical misidentifications [...] Dictation was accomplished with the use of [employer] voice recognition software, prone to medical misidentifications [...] Dictation was accomplished with the use of [employer] voice recognition software, prone to medical misidentifications [...] it any questions/concerns arise. PLAN OF TREATMENT Medication Medication Name Sig Start Date Stop Date Notes Zepbound 5 MG/0.5ML 0.5 mL Subcutaneous once weekly for 30 days replaces wegovy Next Appt Details Follow Up: 4 Weeks, Reason: wegovy Provider Name:Ping Lamb, 0 03/09/2025 09:00:00 AM, [address] [facility], [place] [address], [place], [address], Progress Notes * Mary HERNANDESOB:1965 ( 59 yo F)Acc No.[id number]:02/01/2025 Patient:??Roma HERNANDES Provider:??Ping Lamb PA-C :1965?Age:59 Y?Sex:Fe male Date:02/01/2025 Address:[address] [place], [place] [id number] Subjective: * Chief Complaints: * ?1. patient seen in off ice for weight management follow up visit with RAUL.. * HPI: ?Constitutional:? Roma is a 59-year-old female here today for weight management follow up. She has past medical history of hysterectomy, cholecystectomy and nephrectomy in the past.She was previously on Wegovy 2.4 mg and plateaued. She was approved for Zepbound and has been on 2.5 mg of Zepbound weekly for the past 2 weeks without any side effects. States she recently had influenza and was not as active as normal. She has also tried phentermine, Contrave and Topamax in the past without any benefit or had side effects. ?PCP: Dr. Rutledge ?Highest weight: 187 ?Lowest weight: 137 ?Current weight: 168.2, BMI 29.4 ?Weight last visit: 170.5, BMI 29.8 ?Goal weight: 145 ?SECA reviewed. Weight has decreased about 2 pounds. Fat mass has increased 2 pounds. Skeletal muscle has decreased 2.7 pounds. Waist circumference has decresec by 1 inch. * ROS:?All Other Systems:?Review of Systems (ROS)??All others negative except those mentioned in HPI.? * Medical History:??Weight gai n, Headache. * Surgical History:??hysterect bella , cholecystectomy , left kidney removed . * Hospitalization/Major Diagno stic Procedure:??Denies Past Hospitalization. * Family History:??Father: dec eased.??Mother: alive.??1 sister(s) . .?? father-alcohol sister-breast cancer. * Social History:?Tobacco Use:??Tobacco Use/Smoking??Are you a??nonsmoker.?? * Medications:??Taking Zepboun d 2.5 MG/0.5ML Solution Auto-injector 2.5mg Subcutaneous once weekly , Notes to Pharmacist: replaces wegovy, Taking Levothyroxine Sodium 125 MCG Tablet TAKE 1 TABLET BY MOUTH DAILY Oral , Not-Taking Wegovy 2.4 MG/0.75ML Solution Auto-injector 0.75 mL Subcutaneous once a week , Not-Taking Metoclopramide HCl 10 MG Tablet TAKE 1 TABLET BY MOUTH THREE TIMES DAILY NEEDED FOR NAUSEA OR VOMITING Oral , Not-Taking Sucralfate 1 GM Tablet TAKE 1 TABLET BY MOUTH THREE TIMES DAILY Oral , Not-Taking Vitamin D3 25 MCG (1000 UT) Capsule TAKE 1 CAPSULE BY MOUTH EVERY DAY Oral , Not-Taking Zolpidem Tartrate 10 MG Tablet TAKE 1 TABLET BY MOUTH AT BEDTIME FOR 14 DAYS Oral , Not-Taking Omeprazole 20 MG Capsule Delayed Release 1 capsule 30 minutes before morning meal Orally Once a day , Not-Taking Topiramate 25 MG Tablet TAKE 1 TABLET BY MOUTH ONE A DAY , Medication List reviewed and reconciled with the patient * Allergies:??N.K.D.A. Objective: * Vitals:??HR:78/min, BP:126/8 0mm Hg, Wt:168lbs, BMI:29.52Index, Ht: 63.25 in, Oxygen sat %:97%. * Physical Examination:?General: Well appearing, well nourished, age appropriate in no acute distress. Speaking in full, clear sentences. ?SKIN: Warm, dry intact. No rashes/lesions. ?HEENT: Normocephalic atraumatic. EOM intact. No nystagmus noted. PERRLA. ?LUNGS: Clear to auscultation bilaterally, no wheezes, rales or rhonchi ?CARDIAC: Regular rate and rhythm, no murmurs, rubs or gallops. ?Extremities: Warm and well perfused. No edema noted. ?Neuro: CN II-XI grossly intact. Speaking in full sentences. Hearing intact. Assessment: * Assessment: 1.??Other obesity due to exc ess calories - E66.09 (Primary)??2.??BMI 29.0- 29.9,adult - Z68.29??3.??Weight loss counseling, encounter for - Z71.3?? #Obesity. 02/01/25: 168.2, BMI 29.4. She was [...] Dictation was accomplished with the use of [employer] voice recognition software, prone to medical misidentifications and grammatical errors. This is unintentional and the practitioner does try to identify and correct these, but some could still be present. Please do not hesitate to contact practitioner for clarification. All questions answered to patients satisfaction. Patient verbalized understanding of diagnosis and treatments explained. To call sooner prior to next visit it any questions/concerns arise. Plan: * Treatment: * Procedure Codes:??45055 P/M SUPERVISOR ROLLER SHOP, INDIV 15 MIN, Modifiers: 33 , SA * Follow Up:??4 Weeks (Reason: wegovy) * Images: Billing Information: * Visit Code:?? 23049 Office Visit, Est Pt., Level 4. Modifiers: 25, SA * Procedure Codes:?? 27549 P/M SUPERVISOR ROLLER SHOP, INDIV 15 MIN. Modifiers: 33, SA * Sign off status: Completed true * Provider:??Ping Lamb PA-C Date:??11/2024 History and Physical Notes * HPI (History of Present Illness) Category Sub-Category Detail Notes Category Not es Constitutional Roma is a 59-year-old female here today for weight management follow up. She has past medical history of hysterectomy, cholecystectomy and nephrectomy in the past.She was previously on Wegovy 2.4 mg and plateaued. She was approved for Zepbound and has been on 2.5 mg of Zepbound weekly for the past 2 weeks without any side effects. States she recently had influenza and was not as active as normal. She has also tried phentermine, Contrave and Topamax in the past without any benefit or had side effects. PCP: Dr. Rutledge Highest weight: 187 Lowest weight: 137 Current weight: 168.2, BMI 29.4 Weight last visit: 170.5, BMI 29.8 Goal weight: 145 SECA reviewed. Weight has decreased about 2 pounds. Fat mass has increased 2 pounds. Skeletal muscle has decreased 2.7 pounds. Waist circumference has decresec by 1 inch. Physical Examination Category Sub-Category Detail Notes Section Note s General: Well appearing, well nourished, age appropriate in no acute distress. Speaking in full, clear sentences. SKIN: Warm, dry intact. No rashes/lesions. HEENT: Normocephalic atraumatic. EOM intact. No nystagmus noted. PERRLA. LUNGS: Clear to auscultation bilaterally, no wheezes, rales or rhonchi CARDIAC: Regular rate and rhythm, no murmurs, rubs or gallops. Extremities: Warm and well perfused. No edema noted. Neuro: CN II-XI grossly intact. Speaking in full sentences. Hearing intact.
--- OUTSIDE RECORDS SUMMARY | 2025-02-14 18:24 | XMS_ITS ---
Author Organization [facility] Address [address] [place] [address] Care Team Providers Care Lubrication Supervisor Name Role Phone Ping Lamb Unavailable [phone] REASON FOR VISIT zepbound PA Encounters Encounter Location Date Provider Diagnosis [address] [place] [address] 01/05/2025 Ping Lamb PLAN OF TREATMENT Next Appt Details Provider Name:Ping Lamb, 0 03/09/2025 09:00:00 AM, [address], [place], [address], Progress Notes * Mary HERNANDESOB:1965 ( 59 yo F)Acc No.[id number]:01/05/2025 Patient:??Roma HERNANDES :1965?Age:59 Y?Sex:Fe male Address:[address] [place] [phone] * true * Date:??
--- OUTSIDE RECORDS SUMMARY | 2025-02-14 18:24 | XMS_ITS ---
Author Organization [facility] Address [address] [place] [address] Care Team Providers Care Scientific Editor Name Role Phone Ping Lamb Unavailable [phone] REASON FOR VISIT New Refill Request MEDICATIONS Medication SIG (Take, Route, Frequency, Duration) Notes Start Date End Date Status Zepbound 2.5 MG/0.5ML 2.5mg Subcutaneous once weekly for 30 days replaces wegovy 01/05/2025 Active Encounters Encounter Location Date Provider Diagnosis [address] [address] 01/16/2025 Pingfahad Ramirezk Other obesity due to excess calories E66.09 ASSESSMENTS Encounter Date Diagnosis Assessment Notes Treatment Notes Treatment Clinical Notes Section Notes 01/16/2025 Other obesity due to excess calories (ICD-10 - E66.09) PLAN OF TREATMENT Medication Medication Name Sig Start Date Stop Date Notes Zepbound 2.5 MG/0.5ML 2.5mg Subcutaneous once weekly for 30 days 01/05/2025 replaces wegovy Next Appt Details Provider Name:Ping Lamb, 0 03/09/2025 09:00:00 AM, [address] [facility], [address], [place], [address], Progress Notes * Mary HERNANDESOB:1965 ( 59 yo F)Acc No.[id number]:01/16/2025 Patient:??Roma HERNANDES :1965?Age:59 Y?Sex:Fe male Address:[address] [place] [address], [place] [address] * Refills?? Refill Zepbound Solution Auto-injector, 2.5 MG/0.5ML, Subcutaneous, 4 Pen Needle, 2.5mg, once weekly, 30 days, Refills=1 * true * Date:??
--- OUTSIDE RECORDS SUMMARY | 2025-02-14 18:25 | XMS_ITS | Patient Health Record ---
Author Organization [facility] Address [address] [place] [address] Care Team Providers Care Community Coordinator Name Role Phone Jeffrey Rutledge Primary Care Provider Unavailab Yadiel Nixon Unavailable [phone] Elie BERNARD, Apollo Unavailable Unavailable Allergies Allergen (clinical drug ingredient) Drug/Non Drug Allergy documented on EMR Reaction Allergy Type Onset Date Status bupropion BuPROPion HCl Unknown Drug Allergy Act mikayla Results Component Value Reference Range Notes Pathology Reviewed date:10/13/2024 03:36:18 PM Interpretation: Performing Lab:[facility], [address] [place] [id number] Notes/Report: Name: Roma Hernandes Ag e/Sex: 59/F : 1965 Unit#: [id number] Attend Dr: Yadiel Li MD Re05/07/24 Status : [facility] Location: [facility] Disch: SPEC : [id number] RECD : 05/07/24 STATUS: BRIAN MOSS NUM: [id number] MARRY: 05/07/[address] [facility] [address]: Yadiel Li MD ENTERED: 05/07/2411 50 SP TYPE: Surgical OTHR DR: Jeffrey Rutledge PA-C ORDERED: HE Stain/6, Gross Micro L4/2, IHC, Special st. 2/2, H. pylori, AB/PAS/2 Addendum Addendum 1 Entered: 05/11/24 Immunostain for H py abisai is nonreactive (A); no change is made to the diagnosis. Addendum Signed ____ __(signature on file) Darek Monk MD 05/11/241047 Diagnosis A. Gastric antrum, b iopsy: Gastric antral mucosa with minimal chronic inactive gastritis; negative for intestinal metaplasia and dysplasia (see comment). B. Esophagogastric j unction, at 36 cm, biopsy: Squamous mucosa with hyperplasia and focal intraepithelia l neutrophils and eosinophils (up to 10 per high-power field) consistent with esop hagitis, and columnar mucosa with mild chronic inflammation; negative for intestinal metap lasia and dysplasia. Comment: (A): Immunostain for H. pylori pending; addendum to follow. Clinical History Pre-Op Dx: Epigastric pain Post-Op Dx: Hiatal hernia Microscopic Description Microscopic sections reviewed. AB/PAS on A and B are negative for intestinal metaplasia. Control stains appropriately. Material Received A. Gastric antrum bx's B. EG junction 36 cm CONTINUED ON NEXT PAGE Name: Roma Hernandes ge/Sex: 59/F : 1965 Unit#: [id number] Attend Dr: Yadiel Li MD Re05/07/24 Status : [facility] Location: [facility] Disch: SPEC : [id number] RECD : 05/07/24114 STATUS: BRIAN MOSS NUM: [id number] MARRY: 05/07/24-[address] [facility] [address]: Yadiel Li MD ENTERED: 05/07/24-11 50 SP TYPE: Surgical OTHR DR: Jeffrey Rutledge PA-C ORDERED: HE Stain/6, Gross Micro L4/2, IHC, Special st. 2/2, H. pylori, AB/PAS/2 Gross Description A. Received in forma catherine are 3 collier 4-5 mm soft tissue fragments, totally submitted in cassette A1. B. Received in forma catherine are 2 collier 3 and 5 mm soft tissue fragments, totally submitted in cassette B1. (DTL) Excision time/formal in time: 10:42 on 05/07/2024; cold ischemic time: 0 minutes; total time in formalin: 65-70 hours. Special studies orde red and performed: Immunostain for H. pylori on A1; AB/PAS stains on A1 and B1. Copies To: Jeffrey Rutledge PA-C [address] [place] [address] [address] Yadiel Li MD [facility] [address] [place] [address] Signed (si gnature on file) Carol Kapadia 05/10/24 1509 (signature on file) Darek Monk MD 05/11/24 1048 END OF REPORT Reason For Referral No Information Medications Medication SIG (Take, Route, Frequency, Duration) Notes Start Date End Date Status Vitamin D Active Levothyroxine Sodium 75 MCG take 1 tablet by mouth every morning ON AN EMPTY STOMACH Oral for 90 Active Omeprazole 40 MG 1 Orally Once a day every morning for 30 day(s) 04/07/2024 Active Zolpidem Tartrate 10 MG TAKE 1 TABLET BY MOUTH AT BEDTIME FOR 14 DAYS Oral for 14 [id number],Unavailab le Active Immunizations Vaccine Route Administration Date Status Comme nts Influenza Unknown 07/14/2019 Refused Influenza Unknown 11/22/2020 Refused Influenza Unknown 11/07/2021 Refused Problems Problem Type SNOMED Code ICD Code Onset Dates Problem Status W/U Status Risk Notes Problem Epigastric pain (33938730) Epigastric abdominal pain (R10.13) Active confirmed Problem Epigastric pain (01438564) Epigastric pain (R10.13) Active confirmed Problem 787073592 Encounter for screening for malignant neoplasm of colon (Z12.11) Active confirmed Problem Screening for malignant neoplasm of rectum (603880804) Encounter for screening for malignant neoplasm of rectum (Z12.12) Active confirmed Problem Dysphagia (64360572) Dysphagia (R13.10) Active confirmed Problem 76325267 Abdominal pain, epigastric (R10.13) Active confirmed Problem Elevated liver enzymes level (769771635) Elevated liver function tests (R79.89) Active confirmed Problem 731191048 Gastroesophageal reflux disease without esophagitis (K21.9) Active confirmed Problem 86524089 Preprocedural examination (Z01.818) Active confirmed Problem Fatty liver (902978889) Fatty liver (K76.0) Active confirmed Problem 98789628 Constipation, unspecified constipation type (K59.00) Active confirmed Problem 057969091 GERD (gastroesophageal reflux disease) (K21.9) Active confirmed Problem Gastroesophageal reflux disease with esophagitis (disorder) (538335605) Gastro-esophageal reflux disease with esophagitis, without bleeding (K21.00) Active confirmed Problem 84816804768746668 Abnormal computerized tomography of abdominal wall (R93.5) Active confirmed Problem Gastroesophageal reflux disease (disorder) (672228990) Chronic GERD (K21.9) Active confirmed Problem Epigastric pain (54256377) Epigastric burning sensation (R10.13) Active confirmed Vital Signs Blood pressure diastolic 00 mm Hg 10/13/2024 Height 63.5 in 10/13/2024 Blood pressure systolic 00 mm Hg 10/13/2024 Weight 163 lbs 10/13/2024 BMI 28.42 kg/m2 10/13/2024 Encounters Encounter Location Date Provider Diagnosis [facility] Outpatient [address] [place], [place] [id number] 05/07/2024 Yadiel Li Gastro-esophageal reflux disease with esophagitis, without bleeding K21.00 ; Hiatal hernia K44.9 ; Pain of upper abdomen R10.10 and Heartburn R12 [facility] [address] [place] [phone] 04/06/2024 Yadiel Li Chronic GERD K21.9 and Epigastric burning sensation R10.13 [facility] [address] [place] [phone] 10/13/2024 Yadiel Li Encounter for screening for malignant neoplasm of colon Z12.11 ; Abdominal pain, epigastric R10.13 ; GERD (gastroesophageal reflux disease) K21.9 and Chronic GERD K21.9 [facility] [address] [place] [address] 01/17/2025 Yadiel Li Dysphagia R13.10 Assessments Encounter Date Diagnosis (ICD Code) Assessment Notes Treatment Notes Treatment Clinical Notes Section Notes 05/07/2024 Hiatal hernia (ICD-10 - K44.9) 05/07/2024 Gastro-esophag eal reflux disease with esophagitis, without bleeding (ICD-10 - K21.00) 04/06/2024 Chronic GERD (ICD-10 - K21.9) Use the 40mg omeprazole every morning at 7:00 or 8:00 AM and the 20mg omeprazole every early evening at 7:00 or 8:00 PM. Overall, Roma appears quite well. Her previous workups with the most recent upper endoscopy in 2019, laboratories, and imaging studies have all been unremarkable. I advised her that I suspect she may be having some ongoing issues with reflux but I don't think this is anything worrisome. At this point I don't think any imaging studies are required given the fact that she has had negative studies in the past plus she has had a cholecystectomy. Her symptoms don't sound consistent with any type of pancreatic or biliary process. At this point I recommended she continue her 40 mg omeprazole each morning and use a 20 mg omeprazole each evening rather than just on a p.r.n. basis in the middle of The night. Although I do not think she has any significant process such as ulcer disease or gastritis, I did recommend a followup endoscopy to definitively exclude any upper GI pathology, including H. pylori and celiac disease. I did advise her that I think the study will be unremarkable but she is quite motivated to have it done to definitively exclude any pathology. Full consent was obtained for this, including risks of bleeding and perforation. The procedure will be done with monitored anesthesia care. We did review that if the endoscopy is Unremarkable then I don't think any further studies would be required. We did review that she'll be due for a followup screening colonoscopy in 2025 given her negative colonoscopy in 2016 and no family history of colon cancer. Roma was comfortable with this plan. Thank you again for allowing me to proceed in Roma's care. I shall continue to keep you advised of her progress. 04/06/2024 Epigastric burning sensation (ICD-10 - R10.13) Overall, Roma appears quite well. Her previous workups with the most recent upper endoscopy in 2019, laboratories, and imaging studies have all been unremarkable. I advised her that I suspect she may be having some ongoing issues with reflux but I don't think this is anything worrisome. At this point I don't think any imaging studies are required given the fact that she has had negative studies in the past plus she has had a cholecystectomy. Her symptoms don't sound consistent with any type of pancreatic or biliary process. At this point I recommended she continue her 40 mg omeprazole each morning and use a 20 mg omeprazole each evening rather than just on a p.r.n. basis in the middle of The night. Although I do not think she has any significant process such as ulcer disease or gastritis, I did recommend a followup endoscopy to definitively exclude any upper GI pathology, including H. pylori and celiac disease. I did advise her that I think the study will be unremarkable but she is quite motivated to have it done to definitively exclude any pathology. Full consent was obtained for this, including risks of bleeding and perforation. The procedure will be done with monitored anesthesia care. We did review that if the endoscopy is Unremarkable then I don't think any further studies would be required. We did review that she'll be due for a followup screening colonoscopy in 2025 given her negative colonoscopy in 2016 and no family history of colon cancer. Roma was comfortable with this plan. Thank you again for allowing me to proceed in Roma's care. I shall continue to keep you advised of her progress. 10/13/2024 Encounter for screening for malignant neoplasm of colon (ICD-10 - Z12.11) Repeat colonoscopy in 2025 Overall, Roma appears quite well. Her symptoms of reflux seen to be much improved by dietary restriction and she is no longer needing to use her PPI on a regular basis. As such, I did advise her to certainly continue to watch her diet carefully, watch her weight, and use omeprazole just p.r.n. rather than regularly. I advised her that I don't think she needs any further workup with upper endoscopies at this time. As far as her midabdominal discomfort is concerned I advised her that this may very well be related to all of her surgeries that she has had. I don't think her discomfort reflects any intrinsic intra-abdominal pathology based on the clinical history, her excellent clinical appearance, and her negative workup over the years. I advised her that at this point I would be inclined to simply observe things rather than try other medications such as antispasmodics or acid suppression. I don't think she needs any further imaging studies. We did review that she will be due for a followup screening colonoscopy in 2025. I will plan to see her in the interim on a p.r.n. basis. Roma was comfortable with this plan. Thank you again for allowing me to participate in Roma's care. I shall continue to keep you advised of her progress as needed. 10/13/2024 Abdominal pain, epigastric (ICD-10 - R10.13) Overall, Roma appears quite well. Her symptoms of reflux seen to be much improved by dietary restriction and she is no longer needing to use her PPI on a regular basis. As such, I did advise her to certainly continue to watch her diet carefully, watch her weight, and use omeprazole just p.r.n. rather than regularly. I advised her that I don't think she needs any further workup with upper endoscopies at this time. As far as her midabdominal discomfort is concerned I advised her that this may very well be related to all of her surgeries that she has had. I don't think her discomfort reflects any intrinsic intra-abdominal pathology based on the clinical history, her excellent clinical appearance, and her negative workup over the years. I advised her that at this point I would be inclined to simply observe things rather than try other medications such as antispasmodics or acid suppression. I don't think she needs any further imaging studies. We did review that she will be due for a followup screening colonoscopy in 2025. I will plan to see her in the interim on a p.r.n. basis. Roma was comfortable with this plan. Thank you again for allowing me to participate in Roma's care. I shall continue to keep you advised of her progress as needed. 01/17/2025 Dysphagia (ICD-10 - R13.10) 05/07/2024 Pain of upper abdomen (ICD-10 - R10.10) 10/13/2024 GERD (gastroesophag eal reflux disease) (ICD-10 - K21.9) Use Omepraozole as needed for heartburn Overall, Roma appears quite well. Her symptoms of reflux seen to be much improved by dietary restriction and she is no longer needing to use her PPI on a regular basis. As such, I did advise her to certainly continue to watch her diet carefully, watch her weight, and use omeprazole just p.r.n. rather than regularly. I advised her that I don't think she needs any further workup with upper endoscopies at this time. As far as her midabdominal discomfort is concerned I advised her that this may very well be related to all of her surgeries that she has had. I don't think her discomfort reflects any intrinsic intra-abdominal pathology based on the clinical history, her excellent clinical appearance, and her negative workup over the years. I advised her that at this point I would be inclined to simply observe things rather than try other medications such as antispasmodics or acid suppression. I don't think she needs any further imaging studies. We did review that she will be due for a followup screening colonoscopy in 2025. I will plan to see her in the interim on a p.r.n. basis. Roma was comfortable with this plan. Thank you again for allowing me to participate in Roma's care. I shall continue to keep you advised of her progress as needed. 05/07/2024 Heartburn (ICD-10 - R12) 10/13/2024 Chronic GERD (ICD-10 - K21.9) Overall, Roma appears quite well. Her symptoms of reflux seen to be much improved by dietary restriction and she is no longer needing to use her PPI on a regular basis. As such, I did advise her to certainly continue to watch her diet carefully, watch her weight, and use omeprazole just p.r.n. rather than regularly. I advised her that I don't think she needs any further workup with upper endoscopies at this time. As far as her midabdominal discomfort is concerned I advised her that this may very well be related to all of her surgeries that she has had. I don't think her discomfort reflects any intrinsic intra-abdominal pathology based on the clinical history, her excellent clinical appearance, and her negative workup over the years. I advised her that at this point I would be inclined to simply observe things rather than try other medications such as antispasmodics or acid suppression. I don't think she needs any further imaging studies. We did review that she will be due for a followup screening colonoscopy in 2025. I will plan to see her in the interim on a p.r.n. basis. Roma was comfortable with this plan. Thank you again for allowing me to participate in Roma's care. I shall continue to keep you advised of her progress as needed. Plan Of Treatment Pending Test Test Name Order Date BUN 11/22/2020 CREATININE 11/22/2020 LIVER PROFILE 11/22/2020 LIVER PROFILE 07/31/2022 LIVER PROFILE 09/10/2020 LIVER PROFILE 08/28/2020 AMYLASE 08/28/2020 AMYLASE 07/31/2022 LIPASE 08/28/2020 LIPASE 07/31/2022 IRON + IBC (FE) 09/10/2020 FERRITIN 09/10/2020 CBC w DIFF 07/31/2022 CBC w DIFF 08/28/2020 HEPATITIS B, C PROFILE 09/10/2020 [id number] (A1A) 09/10/2020 MITOCHONDRIAL AB 09/10/2020 SMOOTH MUSCLE ANTIBODIES 09/10/2020 H PYLORI AG, STOOL 07/31/2022 CT ABD & PELVIS WITH CONTRAST 11/22/2020 CT ABD & PELVIS WITH PO CONT ONLY 2021 XR BARIUM SWALLOW-ESOPHAGUS 01/17/2025 FLUOR. ANTINUCLEAR AB SCREEN (SHRUTHI) 06/2020 Future Test Test Name Order Date COLONOSCOPY 11/16/2015 UPPER GI ENDOSCOPY 07/14/2019 UPPER GI ENDOSCOPY 04/06/2024 Insurance Providers Payer Name Payer Address Payer Phone Subscriber Number Group Number Insured Name Patient Relationship to Insured Coverage Start Date Coverage End Date [facility] [address] [place] [address] [phone] [id number] ROMA HERNANDES Self - patient is the insured Medical (General) History Medical History History ICD Code Renal cancer(left)-1990 Denies PA,DM,CVA,Lung disease She has undergone previous u pper endoscopies in [address] Do which were nonrevealing, including gastric biopsies that were negative for H. pylori. She also had a colonoscopy with him in 2001 which was negative for any significant pathology, although he could not advance beyond the transverse colon at that time EGD in 02/2014--minimal hiata l hernia-no reflux esophagitis, no Jaffe's esophagus, and biopsies were negative for eosinophilic esophagitis Screening colonoscopy in 12/05-negative polyps, sigmoid diverticulosis, internal hemorrhoids Depression Hypothyroidism EGD in 07/2019 with a small HH, no esopha gitis nor Jaffe's Fatty liver with slight elev ation of her liver enzymes, but with a negative complete liver workup in 2019 including viral serologies, autoimmune studies and iron studies. Upper endoscopy in May revealed a small hiatal hernia, but no evidence of any significant esophagitis, gastritis, nor ulcer disease. Biopsies were negative for H. pylori and Jaffe's esophagus. Surgical History Surgery Date(Month/Year) Left kidney removed for cancer-Theodora bradford 1990 Hysterectomy and BSO--2 separate operati ons 2012 Surgery for repair of a lace ration of the rectosigmoid colon during one of her RAIL [employer]ILLER surgeries--the repair was done by 2011 Right shoulder Right knee CCY APPY Abdominoplasty 05/2020 in [facility]--- CT scan of the abdomen and in June of 2020 at [facility] revealed 2 seromas in the upper and lower abdominal wall. A F/U CT in 2021 revealed resolution of that.
--- OUTSIDE RECORDS SUMMARY | 2025-02-14 18:25 | XMS_ITS ---
Author Organization [facility] Address [address] [place] [id number] Care Team Providers Care Mental Health Unit Lead Psychologist Name Role Phone Jeffrey Rutledge Primary Care Provider Unavailab Yadiel Nixon Unavailable [phone] Elie BERNARD, Apollo Unavailable Unavailable Allergies Allergen (clinical drug ingredient) Drug/Non Drug Allergy documented on EMR Reaction Allergy Type Onset Date Status bupropion BuPROPion HCl Unknown Drug Allergy Act mikayla REASON FOR VISIT Patient presents today for ABD PAIN Medications Medication SIG (Take, Route, Frequency, Duration) Notes Start Date End Date Status Vitamin D Active Omeprazole 40 MG 1 Orally Once a day every morning for 30 day(s) 04/07/2024 Active Zolpidem Tartrate 10 MG TAKE 1 TABLET BY MOUTH AT BEDTIME FOR 14 DAYS Oral for 14 G4700,Dez cheney Active Levothyroxine Sodium 75 MCG take 1 tablet by mouth every morning ON AN EMPTY STOMACH Oral for 90 Active Vital Signs Blood pressure systolic 00 mm Hg 10/13/20 24 Blood pressure diastolic 00 mm Hg 024 Height 63.5 in 10/13/2024 Weight 163 lbs 10/13/2024 BMI 28.42 kg/m2 10/13/2024 Encounters Encounter Location Date Provider Diagnosis [facility] [address] [place] [phone] 10/13/2024 Yadiel Li Encounter for screening for malignant neoplasm of colon Z12.11 ; Abdominal pain, epigastric R10.13 ; GERD (gastroesophageal reflux disease) K21.9 and Chronic GERD K21.9 Assessments Encounter Date Diagnosis (ICD Code) Assessment Notes Treatment Notes Treatment Clinical Notes Section Notes 10/13/2024 Encounter for screening for malignant neoplasm [...] in the interim on a p.r.n. basis. oRma was comfortable with this plan. Thank you again for allowing me to participate in Roma's care. I shall continue to keep you advised of her progress as needed. 10/13/2024 GERD (gastroesophag eal reflux disease) (ICD-10 [...] advised of her progress as needed. 10/13/2024 Chronic GERD (ICD-10 - K21.9) Overall, [...] her progress as needed. Plan Of Treatment Medication Medication Name Sig Start Date Stop Date Notes Omeprazole 40 MG 1 Orally Once a day every morning for 30 day(s) 04/07/2024 Treatment Notes Assessment Notes Encounter for screening for malignant neoplasm of colon Repeat colonoscopy in 2025 GERD (gastroesophageal reflux disease) U se Omepraozole as needed for heartburn Next Appt Details Follow Up: prn, Reason: Progress Notes * PHOENIX HERNANDESOB:1965 ( 59 yo F)Acc No.[id number]:10/13/2024 Progress Notes Patient:?ROMA HERNANDES Provider:?Yadiel Li MD :1965???Age:59 Y???Sex:Female D ate:10/13/2024 Address:[address] [place], [place] [id number] Pcp:Jeffrey Rutledge Subjective: * Chief Complaints: * ???Patient presents today fo r ABD PAIN * HPI: ???incontinence:? I saw Roma in followup today in regard to her chronic gastroesophageal reflux and abdominal discomfort. ?I last saw Roma in May, at which time she underwent an upper endoscopy. This revealed evidence of a small hiatal hernia, some mild gastritis, and some reflux. However, there was no evidence of any significant esophagitis, Jaffe's esophagus, ulcer disease, nor H. pylori. At that time she was using omeprazole once or twice a day for relief of heartburn, but subsequently has been able to stop it all together for the most part by watching her diet carefully. She does have occasional symptoms of heartburn for which she will take a p.r.n. omeprazole with good relief. However, things are overall much better in that regard. She denies any dysphagia, anorexia, nausea, nor vomiting. Her bowel movements have been regular and she denies any hematochezia or melena. ?Her only complaint is that of some fairly chronic mid-to upper abdominal discomfort. She describes that eating will occasionally exacerbate that. She denies any associated jaundice, fevers, or difficulty with eating because of the discomfort. As you know she had previous imaging studies including a CT scan in 2021 that was unremarkable other than some postsurgical changes to the anterior abdominal wall. She has found that medication such as omeprazole and antacids had not helped this abdominal discomfort. ?Laboratories in September revealed a normal CBC, chemistries and renal function, and LFTs. * ROS:?General/Constitutional:?Change in appetite?denies.?Chills?denies.?Fatigue?denies.?Ophthalmologic:?Patient denies? Negative..?ENT:?Patient denies?Negative..?Respiratory:?Patient denies?No coughing/hemoptysis..?Cardiovascular:?Patient denies? No chest pain/orthopnea..?Gastrointestinal:?Comments?See HPI for details.?Genitourinary:?Patient denies? No dysuria/hematuria..?Musculoskeletal:?Patient denies? No specific arthralgias/myalgias..?Skin:?Patient denies?No rash/pruritus..?Neurologic:?Patient denies?No seizures..?Admits?Headache.?Psychiatric:?Patient denies?Negative..? * Medical History:? * Surgical History:?Left ember y removed for cancer-[facility] 1991Hysterectomy and BSO--2 separate operations 2013Surgery for repair of a laceration of the rectosigmoid colon during one of her [employer] surgeries--the repair was done by 2011Right shoulder Right knee [facility] Abdominoplasty 05/2020 in [place]--- CT scan of the abdomen and in June of 2020 at [facility] revealed 2 seromas in the upper and lower abdominal wall. A F/U CT in 2021 revealed resolution of that. * Hospitalization/Major Diagno stic Procedure:?No Hospitalization History. * Family History:?Father: dece ased, throat cancer.?Mother: alive, arthritis, diagnosed with HTN (hypertension).?Siblings: sister/breast cancer.?Maternal Grand Mother: diagnosed with Heart disease.? Denies family hx of colon cancer, colon polyps or liver ds. * Social History:?Tobacco Use:?Tobacco Use/Smoking?Are you a: nonsmoker.?Drugs/Alcohol:?Alcohol Screen?Points: 1, Interpretation: Negative.?Miscellaneous:?Caffeine: 1-2 cups per day. Marital status: single. 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 ???Nonsmoker; no sig alcohol. * Medications:?TakingLevothyro xine Sodium 75 MCG Tablet take 1 tablet by mouth every morning ON AN EMPTY STOMACH Oral Vitamin D Zolpidem Tartrate 10 MG Tablet TAKE 1 TABLET BY MOUTH AT BEDTIME FOR 14 DAYS Oral , Notes: G4700,UnavailableOmeprazole 40 MG Capsule Delayed Release 1 Orally Once a day every morningTaking Levothyroxine Sodium 75 MCG Tablet take 1 tablet by mouth every morning ON AN EMPTY STOMACH Oral Taking Vitamin D Taking Zolpidem Tartrate 10 MG Tablet TAKE 1 TABLET BY MOUTH AT BEDTIME FOR 14 DAYS Oral , Notes: G4700,UnavailableTaking Omeprazole 40 MG Capsule Delayed Release 1 Orally Once a day every morningDiscontinuedOmeprazole 40 MG Capsule Delayed Release TAKE 1 CAPSULE BY MOUTH EVERY MORNING Omeprazole 20 MG Capsule Delayed Release TAKE 1 CAPSULE BY MOUTH EVERY DAY EARLY EVENING Medication List reviewed and reconciled with the patientDiscontinued Omeprazole 40 MG Capsule Delayed Release TAKE 1 CAPSULE BY MOUTH EVERY MORNING Discontinued Omeprazole 20 MG Capsule Delayed Release TAKE 1 CAPSULE BY MOUTH EVERY DAY EARLY EVENING Medication List reviewed and reconciled with the patient * Allergies:?BuPROPion HClyes[ Allergies Verified] Objective: * Vitals:?Wt: 163 lbs, Ht: 63. 5 in, BMI:28.42 Index, BP: 00/00 mm Hg. * Examination: ???General Examination: ?GENERAL APPEARANCE:?pleasant, well nourished, well developed, in no acute distress.?EYES:?sclera non-icteric.?ORAL CAVITY:?mucosa moist.?NECK/THYROID:?no cervical lymphadenopathy, neck supple.?SKIN:?nonjaundiced, no spider angiomata..?HEART:?S1, S2 normal.?LUNGS:?clear to auscultation bilaterally.?ABDOMEN:?normal bowel sounds, no guarding or rigidity, no hepatosplenomegaly, no masses palpable, soft, nondistended---mild epigastric tenderness.?EXTREMITIES:?no edema.?NEUROLOGIC:?alert and oriented.? Assessment: * Assessment: 1.?Abdominal pain, epigastri c - R10.13 (Primary)?2.?Encounter for screening for malignant neoplasm of colon - Z12.11?3.?GERD (gastroesophageal reflux disease) - K21.9?4.?Chronic GERD - K21.9? Overall, Roma appears quite well. Her symptoms [...] you advised of her progress as needed. Plan: * Treatment: 2.?GERD (gastroesophageal re flux disease)? Notes: Use Omepraozole as needed for heartburn?? 3.?Chronic GERD? Refill Omeprazole Capsule Delayed Release, 40 MG, 1, Orally, Once a day every morning, 30 day(s), 30, Refills 11.?? * Procedure Codes:?3017F COLOR ECTAL CA SCREEN DOC PRE8718M TOBACCO NON-[id number] BP SCR NOT PRFRM REC REASON NOS * Preventive Medicine:? ??Counseling:?Care goal follow-up plan:?Above Normal BMI Follow-up?Giving encouragement to exercise,?BMI management provided?Yes.? * Follow Up:?prn * * Sign off status: Completed true * Provider:?Yadiel Li MD Date:? 024 Generated for Valerie cotto/Andrea/eTaliyasmitting on:?02/14/2025 06:24 PM EDT History and Physical Notes * HPI (History of Present Illness) Category Sub-Category Detail Notes Category Not es incontinence I saw Roma in followup today in regard to her chronic gastroesophageal reflux and abdominal discomfort. I last saw Roma in May, at which time she underwent an upper endoscopy. This revealed evidence of a small hiatal hernia, some mild gastritis, and some reflux. However, there was no evidence of any significant esophagitis, Jaffe's esophagus, ulcer disease, nor H. pylori. At that time she was using omeprazole once or twice a day for relief of heartburn, but subsequently has been able to stop it all together for the most part by watching her diet carefully. She does have occasional symptoms of heartburn for which she will take a p.r.n. omeprazole with good relief. However, things are overall much better in that regard. She denies any dysphagia, anorexia, nausea, nor vomiting. Her bowel movements have been regular and she denies any hematochezia or melena. Her only complaint is that of some fairly chronic mid-to upper abdominal discomfort. She describes that eating will occasionally exacerbate that. She denies any associated jaundice, fevers, or difficulty with eating because of the discomfort. As you know she had previous imaging studies including a CT scan in 2021 that was unremarkable other than some postsurgical changes to the anterior abdominal wall. She has found that medication such as omeprazole and antacids had not helped this abdominal discomfort. Laboratories in September revealed a normal CBC, chemistries and renal function, and LFTs. Examination Category Sub-Category Detail Notes Category Not es General Examination GENERAL APPEARANCE: pleasant , well nourished, well developed, in no acute distress EYES: sclera non-icteric NECK/THYROID: no cervical lymphade nopathy, neck supple HEART: S1, S2 normal LUNGS: clear to auscultatio n bilaterally ABDOMEN: normal bowel sounds, no guarding or rigidity, no hepatosplenomegaly, no masses palpable, soft, nondistended---mild epigastric tenderness NEUROLOGIC: alert and oriented SKIN: nonjaundiced, no spi alison angiomata. EXTREMITIES: no edema ORAL CAVITY: mucosa moist
--- OUTSIDE RECORDS SUMMARY | 2025-02-14 18:25 | XMS_ITS ---
Author Organization [facility] Address [address] [place] [phone] Care Team Providers Care Car Scrubber Name Role Phone Aamir Jeffrey Primary Care Provider Unavailab Yadiel Nixon Unavailable [phone] Elie BERNARD, Apollo Unavailable Unavailable REASON FOR VISIT food is stuck Problems Problem Type SNOMED Code ICD Code Onset Dates Problem Status W/U Status Risk Notes Problem Dysphagia (07530005) Dysphagia (R13.10) Active confirmed Encounters Encounter Location Date Provider Diagnosis [facility] [address] [place] [phone] 01/17/2025 Yadiel Li Dysphagia R13.10 Assessments Encounter Date Diagnosis (ICD Code) Assessment Notes Treatment Notes Treatment Clinical Notes Section Notes 01/17/2025 Dysphagia (ICD-10 - R13.10) Plan Of Treatment Pending Test Test Name Order Date XR BARIUM SWALLOW-ESOPHAGUS 01/17/2025 Progress Notes * PHOENIX HERNANDESOB:1965 ( 59 yo F)Acc No.[id number]:01/17/2025 Patient:?HERNANDES DONNA :1965???Age:59 Y???Sex:Female Address:[address] [place] [address] Subjective: * Chief Complaints: * ???Food is stuck * Medical History:? * Surgical History:? * Hospitalization/Major Diagno stic Procedure:? * Medications:? Objective: * Vitals:? * Physical Examination:? Assessment: * Assessment: 1.?Dysphagia - R13.10 (Prima ry)??? Plan: * Treatment: * * Procedure Codes:? * true * Date:? Generated for Valerie cotto/Andrea/Alnia on:?02/14/2025 06:24 PM EDT
== END 2025-02-14 16:17 | disposition home or self-care (01) ==
LOC: HO.XRAY 16:16
PROVIDERS: PCP Physician Assistant; Visit Provider Physician Assistant
DX: M77.8 Other enthesopathies, not elsewhere classified (principal)
CPT/HCPCS: 73030

== ENCOUNTER → 2025-02-14 16:52 | Outpatient (BNV) | payer OTHER, SELFPAY | PROVIDERS: PCP Physician Assistant; Visit Provider Radiology Diagnostic Radiology | DX: M77.8 Other enthesopathies, not elsewhere classified (principal) | CPT/HCPCS: 73030 ==

== ENCOUNTER 2025-03-17 09:32 | Outpatient (AMB) | payer OTHER, SELFPAY ==
--- NOTE | 2025-03-17 09:35 | A.OFFPC_ITS ---
Vital Signs 03/17/25 09:39 Height 5 ft 3.5 in Weight 171 lb BMI 29.8 BP 110/70 Blood Pressure Location Lt brachial Position Sitting Pulse 72 Pulse Source Pulse Oximeter Temp 97.1 F Temp Source Temporal Artery Scan Pulse Oximetry (%) 98 Oxygen Delivery Method Room Air Intake Visit Reasons: food getting stuck Cleaners Required: No Accompanied by: Self / Same As Patient Allergies bupropion [From WELLBUTRIN] Allergy (Intermediate, Verified 03/17/25 09:42) HALLUCINATION Iodinated Contrast Media [IV DYE, IODINE CONTAINING CONTRAST ] Allergy (Intermediate, Verified 03/17/25 09:42) HIVES Medication List - Last Reconciled 03/17/25 by Jeffrey Rutledge PA-C cholecalciferol (vitamin D3) 25 mcg PO DAILY diclofenac sodium 1% (Arthritis Pain (diclofenac)) 4 grams topical QID hydroxyzine HCl 25 mg PO BEDTIME levothyroxine 125 mcg PO DAILY 90 days omeprazole 40 mg PO QAM prednisone 10 mg PO DIRECTED sumatriptan succinate take 1 tab at onset of headache; if no relief may repeat 1 tab after at least 2 hrs; max = 4 tabs/24 hr PO zolpidem ER 12.5 mg PO BEDTIME PRN 14 days Tobacco use date assessed: 03/17/25 Dental Screening Dental Screen Date: 03/17/25 Did you have a dental visit in the last 12 months?: Yes Did you have a dental problem in the last 6 months where you did not have access to dental care?: No Was dental information given to patient?: Patient has dentist HPI food getting stuck HPI Details The patient is a 59-year-old female presenting with chronic generalized pain. The symptoms encompass widespread musculoskeletal discomfort, with a significant impact on functionality and previous activity levels. Despite attempting self-management measures with ibuprofen, the patient has refrained from persistent use due to her prior nephrectomy. She reports no associated psychological stress but experiences substantial disruptions to her sleep cycle, where sleep duration is severely limited, potentially exacerbating her fatigue and pain perception. Laboratory and investigative work, including negative rheumatoid factor and NITESH tests, suggest a complex etiology potentially indicating fibromyalgia, while x- rays have not demonstrated any conclusive pathology relating to pain regions. The chronicity of pain, coupled with sleep disturbances and potential tick exposure, raises further investigative and management considerations. [facility] Medical History Fatty liver Depression Solitary kidney, acquired GERD (gastroesophageal reflux disease) Borderline high cholesterol Adrenal adenoma Hypothyroidism Urinary frequency Migraine Surgical History H/O colonoscopy History of esophagogastroduodenoscopy (EGD) Hx of surgical procedure (04/23/24) History of cholecystectomy History of abdominoplasty History of arthroscopy of left knee History of arthroscopy of right shoulder History of tubal ligation History of ovarian cystectomy History of hysterectomy History of nephrectomy Family History Father History of throat cancer Mother No problems noted. Sister History of breast cancer History of ovarian cancer Brother History of kidney problems Maternal Grandmother History of pancreatic cancer Brother No problems noted. Son No problems noted. Daughter No problems noted. Daughter No problems noted. Daughter No problems noted. Social History Housing: House Alcohol intake: current Alcohol intake frequency: holidays/special occasions only Patient Tobacco Use Status: Never used Tobacco e-Cigarette/Vaping Use: Never Used Second Hand Smoke Exposure: No service: No Current occupational status: employed Current occupation: Working at [employer] Cognitive needs: No Hearing needs: No Vision needs: Yes (Glasses) Questionnaire PHQ-9 Over the last 2 weeks, how often have you been bothered by any of the following problems? 1. Little interest or pleasure in doing things: not at all 2. Feeling down, depressed, or hopeless: nearly every day 3. Trouble falling or staying asleep, or sleeping too much: nearly every day 4. Feeling tired or having little energy: nearly every day 5. Poor appetite or overeating: not at all 6. Feeling bad about yourself - or that you are a failure or have let yourself or your family down: not at all 7. Trouble concentrating on things, such as reading the newspaper or watching television: not at all 8. Moving or speaking so slowly that other people could have noticed. Or the opposite - being so fidgety or restless that you have been moving around a lot more than usual: not at all 9. Thoughts that you would be better off or of hurting yourself in some way: not at all Total score: 9 Depression Screening Interpretation: Positive Depression Screening Follow-up: Existing condition Depression Screening Done: Yes 71548 - PHQ-9 Billing: Yes Source: Developed by Drs. Yadiel Loera, Jeanne Rae, Dennys Vivar and colleagues, with an educational adamaris from [employer]. Thrive Questionnaire Date Thrive assessed: 03/17/25 I am a: Patient What is your living situation today?: I have a steady place to live Within the past 12 months, did the food you bought not last and you didn't have the money to get more?: Never true Within the past 12 months, did you worry whether your food would run out before you got money to buy more?: Never true Do you have trouble paying for medicines?: No Do you have trouble getting transportation to medical appointments?: No Do you have trouble paying your heating and electricity bill?: No Do you have trouble taking care of your child, family member or friend?: No Do you have trouble with day-to-day activities such as bathing, preparing meals, shopping, managing finances, etc.?: No Are you currently unemployed and looking for a job?: No Are you interested in more education?: No Please select the resources that you would like help with: None Currently or been in a relationship where the following occur: No concerns reported THRIVE Score: 0 AUDIT C Alcohol Use Questionnaire (AUDIT-C) 1. How often do you have a drink containing alcohol?: Monthly or less 2. How many drinks containing alcohol do you have on a typical day when you are drinking?: 1 or 2 3. How often do you have six or more drinks on one occasion?: Never Total Score: 1 GEORGE-7 AMB Questionnaire GEORGE-7 Date GEORGE - 7 assessed: 03/17/25 Feeling nervous, anxious, or on edge: 0 = Not at all Not being able to stop or control worryin = Not at all Worrying too much about different things: 0 = Not at all Trouble relaxin = Not at all Being so restless that it is hard to sit still: 0 = Not at all Becoming easily annoyed or irritable: 0 = Not at all Feeling afraid as if something awful might happen: 0 = Not at all Total GEORGE-7 score (0-4 normal; 5-9 mild; 10-14 moderate; 15-21 severe): 0 Source: Developed by Drs. Yadiel Loera, Jeanne Rea, Dennys Vivar and colleagues, with an educational adamaris from [employer]. GEORGE-7 Assessment Billing GEORGE-7 Assessment Tool: GEORGE-7 Assessment 34142 Review of Systems Const Denies headache(s) Eyes Denies loss of vision ENT Denies vertigo, Denies dizziness, Denies headache(s) and Denies sore throat Card Denies chest pain, Denies leg edema and Denies lightheadedness Resp Denies cough, Denies hemoptysis and Denies wheezing GI Denies abdominal pain, Denies melena, Denies constipation, Denies diarrhea and Denies vomiting Denies urinary frequency, Denies dysuria and Denies urinary urgency Musc Reports back pain, Reports arthralgias, Denies joint swelling, Denies numbness and Denies tingling Neuro Denies Abnormal speech present, Denies behavioral changes, Denies vertigo, Denies dizziness, Denies headache(s), Denies loss of vision, Denies memory loss, Denies numbness and Denies tingling Psych Denies anxiety, Denies behavioral changes, Denies depression, Denies memory loss and Denies panic attacks Romaine/Lymph Denies easy bleeding and Denies easy bruising Aller/Immun Denies wheezing Physical exam (Primary Care) Vital Signs: Last Vital Signs Temp 97.1 F 03/17/25 09:39 Pulse 72 03/17/25 09:39 BP 110/70 03/17/25 09:39 Pulse Ox 98 03/17/25 09:39 Oxygen Delivery Method Room Air 03/17/25 09:39 BMI result Body Mass Index 29.8 Tobacco/Smoking Status: Tobacco use Status Tobacco use date assessed 03/17/25 03/17/25 09:36 Patient Tobacco Use Status Never used Tobacco 03/17/25 09:36 e-Cigarette/Vaping Use Never Used 03/17/25 09:36 PHQ-9: PHQ-9 Score PHQ-9: Total score 9 03/17/25 10:01 Depression Screening Interpretation: Positive Depression Screening Follow-up: Existing condition Thrive Assessment: Date of Thrive Assessment Date Thrive assessed 03/17/25 03/17/25 09:36 Currently or been in a relationship where the following occur: No concerns reported Const General: healthy appearing, no acute distress, alert and awake Nutritional Appearance: well nourished Orientation/consciousness: oriented to person, oriented to place and oriented to time [facility] Ears: TM's normal bilaterally General nose exam: Normal nasal mucous membranes and turbinates present Eyes Conjunctivae: conjunctivae normal Sclerae: sclerae normal Pupils: Equal, round and reactive pupils present Neck Neck: Yes no lymphadenopathy and Yes no JVD Thyroid: Thyroid normal Carotids: no bruits Resp Effort & Inspection: normal respiratory effort and not tachypneic Auscultation: no crackles, no rales, no rhonchi and no wheezes Cardio Rate: regular rate Rhythm: regular rhythm Heart sounds: no murmurs and normal S1 and S2 GI Palpation (GI): Soft to palpation, nontender, no hepatomegaly and no splenomegaly Auscultation: normal bowel sounds Skin General skin exam: no rashes or lesions noted and dry skin Neuro General: oriented to person, oriented to place and oriented to time Cranial nerves: Yes Equal, round and reactive pupils present Speech: No Abnormal speech present Gait exam (Neuro): Normal gait present Motor exam (neuro): no tremor noted Extrem Right upper extremity: full ROM Left upper extremity: full ROM Right lower extremity: full ROM; no edema Left lower extremity: full ROM; no edema Psych Mental Status: mental status grossly normal Speech and movement: Normal speech and movement present Affect: normal affect Attitude: cooperative Thought process: Normal thought process present Coding Level of Care Code Est Pt Level 3 (94580) Diagnoses Polyarthralgia M25.50 Additional Codes GEORGE-7 Assessment Billing - GEORGE-7 Assessment Tool: GEORGE-7 Assessment 80955 ([id number]) PHQ-9 - 62098 - PHQ-9 Billing: Yes ([id number]) Assessment & Plan Assessment & Plan (1) Polyarthralgia: Code(s): M25.50 - Pain in unspecified joint Category: Medical Plan: The patient?s generalized pain is suspected as fibromyalgia, treated with gabape ntin initiation at 100 mg twice daily. A rheumatology consult is pursued for comprehensive evaluation. Lyme testing is recommended due to potential past tick bite. Orders: Orders TSH reflex Free T4 Today E03.9 - Hypothyroidism, unspecified Lipid Panel Today E78.9 - Disorder of lipoprotein metabolism, unspecified Comprehensive [place]. Panel Fast Today E78.5 - Hyperlipidemia, unspecified Complete Blood Count no Diff Today E78.5 - Hyperlipidemia, unspecified Erythrocyte Sedimentation Rate Today M25.50 - Pain in unspecified joint CRP High Sensitivity Today M25.50 - Pain in unspecified joint Complement C4 Today M25.50 - Pain in unspecified joint Tick-borne Disease Molecular Today M25.50 - Pain in unspecified joint Complement C3 Today M25.50 - Pain in unspecified joint Anti DNA DS Antibody Today M25.50 - Pain in unspecified joint Referrals Rheumatology Referral M25.50 - Pain in unspecified joint Medications: New gabapentin 100 mg PO BID 60 caps 0RF 30 days M25.50 - Pain in unspecified joint Changed From zolpidem ER 12.5 mg PO BEDTIME 14 days PRN 14 tabs 2RF sleep G47.00 - Insomnia, unspecified To zolpidem ER 12.5 mg PO BEDTIME 30 tabs 2RF sleep 30 days G47.00 - Insomnia, unspecified Refilled zolpidem ER 12.5 mg PO BEDTIME 14 days PRN 14 tabs 2RF sleep G47.00 - Insomnia, unspecified
[2025-03-17 09:39] VITALS: BP 110/70; PULSE 72; TEMP 36.2; O2SAT 98; BMI 29.8
--- OUTSIDE RECORDS SUMMARY | 2025-03-17 10:21 | XMS_ITS ---
Author Organization [facility] Address [address] [place] [id number] Care Team Providers Care Door Furring Installer Name Role Phone Jeffrey Rutledge Primary Care Provider Unavailab Yadiel Nixon Unavailable [phone] Elie BERNARD, Apollo Unavailable Unavailable Allergies Allergen [...] 10/13/2024 Encounters Encounter Location Date Provider Diagnosis [facility] [address] [place] [phone] 10/13/2024 Yadiel Li Encounter for screening for [...] * PHOENIX HERNANDESOB:1965 ( 59 yo F)Acc No.[id number]:10/13/2024 Progress Notes Patient:?ROMA HERNANDES Provider:?Yadiel Li MD :1965???Age:59 Y???Sex:Female D ate:10/13/2024 Address:[address] [place], [place] [id number] Pcp:Jeffrey Rutledge Subjective: * Chief Complaints: * [...] * Surgical History:?Left ember y removed for cancer-[facility] 1991Hysterectomy and BSO--2 separate operations 2013Surgery for repair of a laceration of the rectosigmoid colon during one of her POLE FRAMER surgeries--the repair was done by 2011Right shoulder Right knee [facility]Y APPY Abdominoplasty 05/2020 in [place]--- CT scan of the abdomen [place] [facility] [place] in [...] cups per day. Marital status: single. 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 ???Nonsmoker; no sig alcohol. * Medications:?TakingLevothyro xine [...] Procedure Codes:?3017F COLOR ECTAL CA SCREEN DOC [id number] TOBACCO NON-HOFHK1824 BP SCR NOT PRFRM REC REASON NOS * Preventive Medicine:? ??Counseling:?Care goal follow-up plan:?Above Normal BMI Follow-up?Giving encouragement to exercise,?BMI management provided?Yes.? * Follow Up:?prn * * Sign off status: Completed true * Provider:?Yadiel Li MD Date:? 024 Generated for Valerie cotto/Andrea/eTransmitting on:?03/17/2025 10:21 AM EDT History and Physical Notes * HPI [...]
--- OUTSIDE RECORDS SUMMARY | 2025-03-17 10:21 | XMS_ITS | Clinical Summary ---
Author Organization [facility] Address [address] [place] [address] Phone Care Team Providers Care Rnfa Name Role Phone Noel Carrizales DO Primary Care Provider [phone] Allergies Active Allergy Reactions Criticality Noted Date [...] 2014 Influenza Vaccine (Season Ended) 2025 Insurance [facility] Care Teams Rnfa Relationship Specialty Start Date End Date Noel Carrizales DO [facility] PCP - General 11/13/20
--- OUTSIDE RECORDS SUMMARY | 2025-03-17 10:21 | XMS_ITS ---
Author Organization [facility] Address [address] [place] [address] Care Team Providers Care Customer Service Coordinator Name Role Phone Jeffrey Rutledge Primary Care Provider Unavailab Yadiel Nixon Unavailable [phone] Elie BERNARD, Apollo Unavailable Unavailable REASON FOR VISIT epigastric pain,gerd Problems Problem Type SNOMED Code ICD Code Onset Dates Problem Status W/U Status Risk Notes Problem Gastroesophageal reflux disease with esophagitis (disorder) (997091729) Gastro-esoph ageal reflux disease with esophagitis, without bleeding (K21.00) Active confirmed Encounters Encounter Location Date Provider Diagnosis [facility] [address] [place] [phone] 05/07/2024 Yadiel Li Gastro-esophageal reflux disease with [...] * PHOENIX HERNANDESOB:1965 ( 59 yo F)Acc No.[id number]:05/07/2024 EGD/MAC Patient:?DONNA HERNANDES Provider:?Yadiel Li MD :1965???Age:59 Y???Sex:Female D ate:05/07/2024 Address:[address] [place], [place] [id number] Pcp:Jeffrey Rutledge Subjective: * Chief Complaints: * ???1. Epigastric pain,gerd. * Medical History:? Objective: * Vitals:? Assessment: * Assessment: 1.?Gastro-esophageal reflux disease with esophagitis, without bleeding - K21.00 (Primary)???2.?Hiatal hernia - K44.9???3.?Pain of upper abdomen - R10.10???4.?Heartburn - R12??? Plan: * Treatment: * Procedure Codes:?22355 UPPER GI ENDOSCOPY, BIOPSY * * The named appointment provid er may or may not be the originator of this progress note, and it is not deemed complete until electronically signed by the appointment provider. Sign off status: Pending * Provider:?Yadiel Li MD Date:? 024 Generated for Valerie cotto/Andrea/eTransmitting on:?03/17/2025 10:21 AM EDT
--- OUTSIDE RECORDS SUMMARY | 2025-03-17 10:21 | XMS_ITS | Patient Health Record ---
Author Organization [facility] Address [address] [place] [address] Care Team Providers Care Cement Or Concrete Finishing Supervisor Name Role Phone Ping Lamb Unavailable [phone] MONIQUEBIMAL STUART Unavailable [phone] Allergies No Known Allergies Reason For Referral No Information Medications Medication SIG (Take, Route, Frequency, Duration) Notes Start Date End Date Status Sucralfate 1 GM TAKE 1 TABLET BY MOUTH THREE TIMES DAILY Oral for 30 Days Not-Taking Vitamin D3 25 MCG (1000 UT) TAKE 1 CAPSULE BY MOUTH EVERY DAY Oral for 90 Days Active Zolpidem Tartrate 10 MG TAKE 1 TABLET BY MOUTH AT BEDTIME FOR 14 DAYS Oral for 14 Days Active Omeprazole 20 MG 1 capsule 30 minutes before morning meal Orally Once a day for 30 day(s) 02/24/2024 Active Topiramate 25 MG TAKE 1 TABLET BY MOUTH ONE A DAY for 90 Active Levothyroxine Sodium 125 MCG TAKE 1 TABLET BY MOUTH DAILY Oral for 90 Days Active Zepbound 7.5 MG/0.5ML 0.5 mL Subcutaneous once weekly for 30 days replaces wegovy Active Social History Tobacco Use: Social History Observation Description Date Details (start date - stop date) Never Smoker NA - NA Tobacco Use/Smoking Question Answer Notes Are you a nonsmoker Alcohol Screen (Audit-C) Question Answer Notes Did you have a drink contain ing alcohol in the past year? Yes How often did you have a dri nk containing alcohol in the past year? 2 to 4 times a month (2 points) Points 2 Interpretation Negative Problems Problem Type SNOMED Code ICD Code Onset Dates Problem Status W/U Status Risk Notes Problem 824510540 Other obesity due to excess calories (E66.09) Active confirmed Problem 995209797 Overweight (E66.3) Active confirmed Problem 276708214 Body mass index [BMI] 32.0-32.9, adult (Z68.32) Active confirmed Problem 601991241 BMI 30.0-30.9,adult (Z68.30) Active confirmed Vital Signs Heart Rate 76 /min 03/09/2025 Oximetry 99 % 03/09/2025 Blood pressure diastolic 82 mm Hg 03/09/2025 Height 63.25 in 03/09/2025 Blood pressure systolic 116 mm Hg 03/09/2025 Weight 170.2 lbs 03/09/2025 BMI 29.91 kg/m2 03/09/2025 Encounters Encounter Location Date Provider Diagnosis [facility] [address] [place] [address] 03/30/2024 [facility] [address] [place] [address] 04/06/2024 [facility] [address] [facility] [address] [place] [address] 04/13/2024 [facility] [facility] [place] [address] 04/20/2024 [facility] [facility] [place] [address] 05/04/2024 [facility] [facility] [address] [place] [address] 05/11/2024 [facility] [facility] [address] [place] [address] 05/17/2024 [facility] [address] [facility] [address] [place] [address] 05/25/2024 [facility] [address] [place] [address] 03/23/2024 Ping Svrcek Other obesity due to excess calories E66.09 and Body mass index [BMI] 32.0-32.9, adult Z68.32 [address] [place] [address] 04/27/2024 Ping Svrcek Other obesity due to excess calories E66.09 and Body mass index [BMI] 32.0-32.9, adult Z68.32 [address] [address] 06/08/2024 Ping Svrcek Other obesity due to excess calories E66.09 and Body mass index [BMI] 32.0-32.9, adult Z68.32 [address] 07/22/2024 Ping Svrcek Other obesity due to excess calories E66.09 and BMI 30.0-30.9,adult Z68.30 [address] 08/18/2024 Ping Svrcek Other obesity due to excess calories E66.09 and BMI 30.0-30.9,adult Z68.30 [address] 09/16/2024 Ping Svrcek Other obesity due to excess calories E66.09 and BMI 30.0-30.9,adult Z68.30 [address] 10/25/2024 Ping Svrcek Other obesity due to excess calories E66.09 and BMI 29.0-29.9,adult Z68.29 [address] 11/30/2024 Ping Svrcek Other obesity due to excess calories E66.09 and BMI 29.0-29.9,adult Z68.29 [address] 01/05/2025 Ping Svrcek Other obesity due to excess calories E66.09 ; BMI 29.0-29.9,adult Z68.29 and Weight loss counseling, encounter for Z71.3 [address] 02/01/2025 Ping Svrcek Other obesity due to excess calories E66.09 ; BMI 29.0-29.9,adult Z68.29 and Weight loss counseling, encounter for Z71.3 [address] [address] 03/09/2025 Ping Svrcek BMI 29.0-29.9,adult Z68.29 ; Overweight E66.3 and Weight loss counseling, encounter for Z71.3 [facility] [address] [place] [address] 03/30/2024 Ping Svrcek [facility] [address] [place] [address] 10/14/2024 Ping Svrcek Other obesity due to excess calories E66.09 [address] [facility] [address] [place] [address] 01/05/2025 Ping Svrcek [facility] [address] [place] [address] 03/18/[address] [place] [address] 05/26/2024 Ping Svrcek [address] [place] [address] 09/20/2024 Ping Svrcek Other obesity due to excess calories E66.09 [address] [facility] [address] [facility] [address] [place] [address] 09/20/2024 Ping Svrcek [address] [place] [address] 12/14/2024 Ping Svrcek [address] [facility] [address] [place] [address] 01/16/2025 Ping Svrcek Other obesity due to excess calories E66.09 Assessments Encounter Date Diagnosis (ICD Code) Assessment [...] with any concerns. 03/16/24: Sema 0.25 mg 5/7/24: Sema 0.25 mg 03/02/24: Sema 0.25 mg [...] Dictation was accomplished with the use of [employer] voice recognition software, prone to medical misidentifications [...] Dictation was accomplished with the use of [employer] voice recognition software, prone to medical misidentifications [...] Dictation was accomplished with the use of [employer] voice recognition software, prone to medical misidentifications [...] Dictation was accomplished with the use of [employer] voice recognition software, prone to medical misidentifications [...] Dictation was accomplished with the use of [employer] voice recognition software, prone to medical misidentifications [...] Dictation was accomplished with the use of [employer] voice recognition software, prone to medical misidentifications [...] Dictation was accomplished with the use of [employer] voice recognition software, prone to medical misidentifications [...] visit it any questions/concerns arise. 07/22/2024 BMI 30.0-30.9,nohelia sellers (ICD-10 - Z68.30) #Obesity. 07/22/24: 174.9 pounds, [...] Dictation was accomplished with the use of [employer] voice recognition software, prone to medical misidentifications [...] Dictation was accomplished with the use of [employer] voice recognition software, prone to medical misidentifications [...] visit it any questions/concerns arise. 08/18/2024 BMI 30.0-30.9,adul t (ICD-10 - Z68.30) #Obesity. 08/18/24: 173.1 pounds, [...] Dictation was accomplished with the use of [employer] voice recognition software, prone to medical misidentifications [...] Dictation was accomplished with the use of [employer] voice recognition software, prone to medical misidentifications [...] visit it any questions/concerns arise. 09/16/2024 BMI 30.0-30.9,adul t (ICD-10 - Z68.30) #Obesity. 09/16/24: 172.3 pounds, [...] Dictation was accomplished with the use of [employer] voice recognition software, prone to medical misidentifications [...] improvement could consider submitting to insurance for 800razors. Continue to work on protein intake, hydration [...] Dictation was accomplished with the use of [employer] voice recognition software, prone to medical misidentifications [...] visit it any questions/concerns arise. 10/25/2024 BMI 29.0-29.9,adul t (ICD-10 - Z68.29) #Obesity. 10/25/24: 170.3 pounds, [...] improvement could consider submitting to insurance for 800razors. Continue to work on protein intake, hydration [...] Dictation was accomplished with the use of [employer] voice recognition software, prone to medical misidentifications [...] Dictation was accomplished with the use of [employer] voice recognition software, prone to medical misidentifications [...] visit it any questions/concerns arise. 11/30/2024 BMI 29.0-29.9,adul t (ICD-10 - Z68.29) #Obesity. 11/30/24: 170.6 pounds, [...] Dictation was accomplished with the use of [employer] voice recognition software, prone to medical misidentifications [...] Dictation was accomplished with the use of [employer] voice recognition software, prone to medical misidentifications [...] visit it any questions/concerns arise. 01/05/2025 BMI 29.0-29.9,adul t (ICD-10 - Z68.29) #Obesity. 01/05/25: 170.5 pounds, [...] Dictation was accomplished with the use of [employer] voice recognition software, prone to medical misidentifications [...] Dictation was accomplished with the use of [employer] voice recognition software, prone to medical misidentifications [...] visit it any questions/concerns arise. 02/01/2025 BMI 29.0-29.9,adul t (ICD-10 - Z68.29) #Obesity. 02/01/25: 168.2, BMI [...] Dictation was accomplished with the use of [employer] voice recognition software, prone to medical misidentifications and grammatical errors. This is unintentional and the practitioner does try to identify and correct these, but some could still be present. Please do not hesitate to contact practitioner for clarification. All questions answered to patients satisfaction. Patient verbalized understanding of diagnosis and treatments explained. To call sooner prior to next visit it any questions/concerns arise. 03/09/2025 Overweight (ICD-10 - E66.3) #Obesity. 03/09/25: 170.2, BMI 29.8. She was able to transition to Zepbound after plateauing on max dose Wegovy. Currently on Zepbound 5 mg. She is tolerating it well without side effects. Weight is up 2 pounds however fat mass is down and muscle mass is up. Will increase to 7.5 mg dose on next refill. Will plan to follow-up in 1 month. Continue higher protein diet in consistent exercise including resistance training. Follow-up sooner with any concerns. The patient will [...] Dictation was accomplished with the use of [employer] voice recognition software, prone to medical misidentifications and grammatical errors. This is unintentional and the practitioner does try to identify and correct these, but some could still be present. Please do not hesitate to contact practitioner for clarification. All questions answered to patients satisfaction. Patient verbalized understanding of diagnosis and treatments explained. To call sooner prior to next visit it any questions/concerns arise. 03/09/2025 BMI 29.0-29.9,adul t (ICD-10 - Z68.29) #Obesity. 03/09/25: 170.2, BMI 29.8. She was able to transition to Zepbound after plateauing on max dose Wegovy. Currently on Zepbound 5 mg. She is tolerating it well without side effects. Weight is up 2 pounds however fat mass is down and muscle mass is up. Will increase to 7.5 mg dose on next refill. Will plan to follow-up in 1 month. Continue higher protein diet in consistent exercise including resistance training. Follow-up sooner with any concerns. The patient will [...] Dictation was accomplished with the use of [employer] voice recognition software, prone to medical misidentifications and grammatical errors. This is unintentional and the practitioner does try to identify and correct these, but some could still be present. Please do not hesitate to contact practitioner for clarification. All questions answered to patients satisfaction. Patient verbalized understanding of diagnosis and treatments explained. To call sooner prior to next visit it any questions/concerns arise. 03/09/2025 Weight loss counseling, encounter for (ICD-10 - Z71.3) #Obesity. 03/09/25: 170.2, BMI 29.8. She was able to transition to Zepbound after plateauing on max dose Wegovy. Currently on Zepbound 5 mg. She is tolerating it well without side effects. Weight is up 2 pounds however fat mass is down and muscle mass is up. Will increase to 7.5 mg dose on next refill. Will plan to follow-up in 1 month. Continue higher protein diet in consistent exercise including resistance training. Follow-up sooner with any concerns. The patient will [...] Dictation was accomplished with the use of [employer] voice recognition software, prone to medical misidentifications [...] Dictation was accomplished with the use of [employer] voice recognition software, prone to medical misidentifications [...] Dictation was accomplished with the use of [employer] voice recognition software, prone to medical misidentifications and grammatical errors. This is unintentional and the practitioner does try to identify and correct these, but some could still be present. Please do not hesitate to contact practitioner for clarification. All questions answered to patients satisfaction. Patient verbalized understanding of diagnosis and treatments explained. To call sooner prior to next visit it any questions/concerns arise. Plan Of Treatment Next Appt Details Provider Name:Ping Lamb, Adwoa 04/14/2025 08:15:00 AM, [address] [facility] [address], [place], [address], Insurance Providers Payer Name Payer Address Payer Phone Subscriber Number Group Number Insured Name Patient Relationship to Insured Coverage Start Date Coverage End Date [facility] [address] [place] [address] [id number] Roma Irving Self - patient is the insured Medications Administered Medication Instructions Date of Administration Dosage Notes Semaglutide 02/24/2024 .25 mg Semaglutide 03/02/2024 0.25 mg Semaglutide 03/09/2024 Semaglutide 03/16/2024 0.25 mg Semaglutide 03/23/2024 5 mg Semaglutide 03/30/2024 0.5 mg Semaglutide 04/06/2024 1 mg Semaglutide 04/13/2024 1 mg Semaglutide 04/20/2024 1 mg Semaglutide 05/04/2024 1.5 mg Semaglutide 05/11/2024 1.5 mg Semaglutide 05/17/2024 1.5 mg Semaglutide 05/25/2024 1.5 mg Medical (General) History Medical History History ICD Code weight gain headache Surgical History Surgery Date(Month/Year) hysterectomy cholecystectomy left kidney removed
--- OUTSIDE RECORDS SUMMARY | 2025-03-17 10:21 | XMS_ITS | Patient Health Record ---
Author Organization [facility] Address [address] [place] [address] Care Team Providers Care Rod Piler Name Role Phone Jeffrey Rutledge Primary Care Provider Unavailab Yadiel Nixon Unavailable [phone] Elie BERNARD, Apollo Unavailable Unavailable Allergies Allergen (clinical drug ingredient) Drug/Non Drug Allergy documented on EMR Reaction Allergy Type Onset Date Status bupropion BuPROPion HCl Unknown Drug Allergy Act mikayla Results Component Value Reference Range Notes Pathology Reviewed date:10/13/2024 03:36:18 PM Interpretation: Performing Lab:[facility], [address] [place] [address] Notes/Report: Name: Roma Hernandes Ag e/Sex: 59/F : 1965 Unit#: [id number] Attend Dr: Yadiel Li MD Re05/07/24 Status : [facility] Location: [facility] Disch: SPEC : [id number] RECD : 05/07/24 STATUS: BRIAN MOSS NUM: [id number] MARRY: 05/07/[address] [facility] [address]: Yadiel Li MD ENTERED: 05/07/2411 [...] Roma Hernandes ge/Sex: 59/F : 1965 Unit#: [id number] Attend Dr: Yadiel Li MD Re05/07/24 Status : [facility] Location: [facility] Disch: SPEC : [id number] RECD : 05/07/24114 STATUS: BRIAN MOSS NUM: [id number] MARRY: 05/07/24-1041 [facility] [address]: Yadiel Li MD ENTERED: 05/07/24-11 [...] and B1. Copies To: Jeffrey Rutledge PA-C [address] [place] [address] [address] Yadiel Li MD [facility] [address] [place] [address] Signed (si gnature on file) Carol Kapadia [...] W/U Status Risk Notes Problem Epigastric pain (58852602) Epigastric abdominal pain (R10.13) Active confirmed Problem Epigastric pain (54356320) Epigastric pain (R10.13) Active confirmed Problem 356904938 Encounter for screening for malignant neoplasm of colon (Z12.11) Active confirmed Problem Screening for malignant neoplasm of rectum (667955230) Encounter for screening for malignant neoplasm of rectum (Z12.12) Active confirmed Problem Dysphagia (18284980) Dysphagia (R13.10) Active confirmed Problem 28331505 Abdominal pain, epigastric (R10.13) Active confirmed Problem Elevated liver enzymes level (214234287) Elevated liver function tests (R79.89) Active confirmed Problem 575396772 Gastroesophageal reflux disease without esophagitis (K21.9) Active confirmed Problem 08034184 Preprocedural examination (Z01.818) Active confirmed Problem Fatty liver (453342051) Fatty liver (K76.0) Active confirmed Problem 53507223 Constipation, unspecified constipation type (K59.00) Active confirmed Problem 726741995 GERD (gastroesophageal reflux disease) (K21.9) Active confirmed Problem Gastroesophageal reflux disease with esophagitis (disorder) (148597578) Gastro-esophageal reflux disease with esophagitis, without bleeding (K21.00) Active confirmed Problem 57507700319120714 Abnormal computerized tomography of abdominal wall (R93.5) Active confirmed Problem Gastroesophageal reflux disease (disorder) (262771332) Chronic GERD (K21.9) Active confirmed Problem Epigastric pain (36286940) Epigastric burning sensation (R10.13) Active confirmed Vital Signs Blood pressure diastolic 00 mm Hg 10/13/2024 Height 63.5 in 10/13/2024 Blood pressure systolic 00 mm Hg 10/13/2024 Weight 163 lbs 10/13/2024 BMI 28.42 kg/m2 10/13/2024 Encounters Encounter Location Date Provider Diagnosis [facility] Outpatient [address] [place], [place] [id number] 05/07/2024 Yadiel Li Gastro-esophageal reflux disease with esophagitis, without bleeding K21.00 ; Hiatal hernia K44.9 ; Pain of upper abdomen R10.10 and Heartburn R12 [facility] [address] [place] [address] 04/06/2024 Yadiel Li Chronic GERD K21.9 and Epigastric burning sensation R10.13 [facility] [address] [place] [address] 10/13/2024 Yadiel Li Encounter for screening for malignant neoplasm of colon Z12.11 ; Abdominal pain, epigastric R10.13 ; GERD (gastroesophageal reflux disease) K21.9 and Chronic GERD K21.9 [facility] [address] [place] [address] 01/17/2025 Yadiel Li Dysphagia R13.10 Assessments Encounter [...] Date BUN 11/22/2020 CREATININE 11/22/2020 LIVER PROFILE 09/10/2020 LIVER PROFILE 08/28/2020 LIVER PROFILE 11/22/2020 LIVER PROFILE 07/31/2022 AMYLASE 07/31/2022 AMYLASE 08/28/2020 LIPASE 07/31/2022 LIPASE 08/28/2020 IRON + IBC (FE) 09/10/2020 FERRITIN 09/10/2020 CBC w DIFF 07/31/2022 CBC w DIFF 08/28/2020 HEPATITIS B, C PROFILE 09/10/2020 [id number] (A1A) 09/10/2020 MITOCHONDRIAL AB 09/10/2020 SMOOTH MUSCLE [...] Insured Coverage Start Date Coverage End Date [facility] [address] [place] [phone] [id number] ROMA HERNANDES Self - patient is the insured Medical (General) History Medical History History ICD Code Renal cancer(left)-1990 Denies OH,DM,CVA,Lung disease She has undergone previous u pper [...] the rectosigmoid colon during one of her [employer] surgeries--the repair was done by 2011 Right shoulder Right knee CCY APPY Abdominoplasty 05/2020 in [facility] CT scan of the abdomen and in June of 2020 at [facility] revealed 2 seromas in the upper and lower abdominal wall. A F/U CT in 2021 revealed resolution of that.
--- OUTSIDE RECORDS SUMMARY | 2025-03-17 10:22 | XMS_ITS ---
Author Organization [facility] Address [address] [place] [address] Care Team Providers Care Pharmaceutical Service Representative Name Role Phone Aamir Jeffrey Primary Care Provider Unavailab Yadiel Nixon Unavailable [phone] Elie BERNARD, Apollo Unavailable Unavailable REASON FOR VISIT food is stuck Problems Problem Type SNOMED Code ICD Code Onset Dates Problem Status W/U Status Risk Notes Problem Dysphagia (R13.10) Active confirmed Encounters Encounter Location Date Provider Diagnosis [facility] [address] [place] [address] 01/17/2025 Yadiel Li Dysphagia R13.10 Assessments Encounter Date Diagnosis (ICD Code) Assessment Notes Treatment Notes Treatment Clinical Notes Section Notes 01/17/2025 Dysphagia (ICD-10 - R13.10) Plan Of Treatment Pending Test Test Name Order Date XR BARIUM SWALLOW-ESOPHAGUS 01/17/2025 Progress Notes * PHOENIX HERNANDESOB:1965 ( 59 yo F)Acc No.[id number]:01/17/2025 Patient:?HERNANDES DONNA :1965???Age:59 Y???Sex:Female Address:[address] [place] [address] Subjective: * Chief Complaints: * ???Food is stuck * Medical History:? * Surgical History:? * Hospitalization/Major Diagno stic Procedure:? * Medications:? Objective: * Vitals:? * Physical Examination:? Assessment: * Assessment: 1.?Dysphagia - R13.10 (Prima ry)??? Plan: * Treatment: * * Procedure Codes:? * true * Date:? Generated for Valerie cotto/Andrea/Alina on:?03/17/2025 10:21 AM EDT
== END 2025-03-17 09:59 | disposition home or self-care (01) ==
LOC: HO.HMCH 09:33
PROVIDERS: PCP Physician Assistant; Visit Provider Physician Assistant
DX: M25.50 Pain in unspecified joint (principal)

== ENCOUNTER → 2025-03-17 09:32 | Outpatient (BNVA) | payer OTHER, SELFPAY | PROVIDERS: PCP Physician Assistant; Visit Provider Physician Assistant | DX: K21.9 Gastro-esophageal reflux disease without esophagitis (principal); M25.50 Pain in unspecified joint; E03.9 Hypothyroidism, unspecified; E78.9 Disorder of lipoprotein metabolism, unspecified; E78.5 Hyperlipidemia, unspecified; G47.00 Insomnia, unspecified | CPT/HCPCS: 96127 ==

== ENCOUNTER 2025-03-18 06:16 | Outpatient (REF) | payer OTHER, SELFPAY ==
--- OUTSIDE RECORDS SUMMARY | 2025-03-18 06:17 | XMS_ITS | Patient Health Record ---
Author Organization [facility] Address [address] [place] [address] Care Team Providers Care Kiln Operator Name Role Phone Ping Lamb Unavailable [phone] MONIQUEBIMAL STUART Unavailable [phone] Allergies No Known Allergies Reason For Referral [...] Problem Status W/U Status Risk Notes Problem 515907805 Other obesity due to excess calories (E66.09) Active confirmed Problem 478627724 Overweight (E66.3) Active confirmed Problem 617654852 Body mass index [BMI] 32.0-32.9, adult (Z68.32) Active confirmed Problem 912741950 BMI 30.0-30.9,adult (Z68.30) Active confirmed Vital Signs Heart Rate 76 /min 03/09/2025 Blood pressure diastolic 82 mm Hg 03/09/2025 Oximetry 99 % 03/09/2025 Height 63.25 in 03/09/2025 Blood pressure systolic 116 mm Hg 03/09/2025 Weight 170.2 lbs 03/09/2025 BMI 29.91 kg/m2 03/09/2025 Encounters Encounter Location Date Provider Diagnosis [facility] [address] [place] [address] 03/30/2024 [facility] [address] [place] [address] 04/06/2024 [facility] [address] [place] [address] 04/13/2024 [facility] [address] [place] [address] 04/20/2024 [facility] [address] [place] [address] 05/04/2024 [facility] [address] [place] [address] 05/11/2024 [facility] [address] [place] [address] 05/17/2024 [facility] [address] [place] [address] 05/25/2024 [facility] [address] [place] [address] 03/23/2024 [facility] Other obesity due to excess calories E66.09 and Body mass index [BMI] 32.0-32.9, adult Z68.32 [address] [place] [address] 04/27/2024 Ping S[facility]ce[facility] Other obesity due to excess calories E66.09 and Body mass index [BMI] 32.0-32.9, adult Z68.32 [address] [address] 06/08/2024 Ping Svrcek Other obesity due to excess calories E66.09 and Body mass index [BMI] 32.0-32.9, adult Z68.32 [address] 07/22/2024 Ping S[facility] Other obesity due to excess calories E66.09 and BMI 30.0-30.9,adult Z68.30 [address] 08/18/2024 Ping Svrcek Other obesity due to excess calories E66.09 and BMI 30.0-30.9,adult Z68.30 [address] 09/16/2024 Ping Svrcek Other obesity due to excess calories E66.09 and BMI 30.0-30.9,adult Z68.30 [address] 10/25/2024 Ping Svrcek Other obesity due to excess calories E66.09 and BMI 29.0-29.9,adult Z68.29 [address] 11/30/2024 Ping Svrcek Other obesity due to excess calories E66.09 and BMI 29.0-29.9,adult Z68.29 [address] 01/05/2025 Ping Svrcek Other obesity due to excess calories E66.09 ; BMI 29.0-29.9,adult Z68.29 and Weight loss counseling, encounter for Z71.3 [address] 02/01/2025 Ping Svrcek Other obesity due to excess calories E66.09 ; BMI 29.0-29.9,adult Z68.29 and Weight loss counseling, encounter for Z71.3 [address] [address] 03/09/2025 Ping Svrcek BMI 29.0-29.9,adult Z68.29 ; Overweight E66.3 and Weight loss counseling, encounter for Z71.3 [facility] [address] [place] [address] 03/30/2024 Ping Svrcek [facility] [address] [place] [address] 10/14/2024 Ping Svrcek Other obesity due to excess calories E66.09 [address] [facility] [address] [place] [address] 01/05/2025 Ping Svrce[facility] [address] [place] [address] 03/18/[address] [place] [address] 05/26/2024 Ping Svrce[facility] [address] [place] [address] 09/20/2024 Ping Svrcek Other obesity due to excess calories E66.09 [address] [facility] [address] [facility] [address] [place] [address] 09/20/2024 Ping Svrcek [address] [place] [address] 12/14/2024 Ping Svrcek [address] [facility] [address] [place] [address] 01/16/2025 Ping Svrcek Other obesity due to [...] Dictation was accomplished with the use of Ravgen voice recognition software, prone to medical misidentifications [...] Dictation was accomplished with the use of Ravgen voice recognition software, prone to medical misidentifications [...] Dictation was accomplished with the use of Ravgen voice recognition software, prone to medical misidentifications [...] Dictation was accomplished with the use of Ravgen voice recognition software, prone to medical misidentifications [...] Dictation was accomplished with the use of Ravgen voice recognition software, prone to medical misidentifications [...] Dictation was accomplished with the use of Ravgen voice recognition software, prone to medical misidentifications [...] Dictation was accomplished with the use of Ravgen voice recognition software, prone to medical misidentifications [...] Dictation was accomplished with the use of Ravgen voice recognition software, prone to medical misidentifications [...] Dictation was accomplished with the use of Ravgen voice recognition software, prone to medical misidentifications [...] Dictation was accomplished with the use of Ravgen voice recognition software, prone to medical misidentifications [...] Dictation was accomplished with the use of Ravgen voice recognition software, prone to medical misidentifications [...] Dictation was accomplished with the use of Ravgen voice recognition software, prone to medical misidentifications [...] improvement could consider submitting to insurance for [employer]. Continue to work on protein intake, hydration [...] Dictation was accomplished with the use of Ravgen voice recognition software, prone to medical misidentifications [...] improvement could consider submitting to insurance for [employer]. Continue to work on protein intake, hydration [...] Dictation was accomplished with the use of Ravgen voice recognition software, prone to medical misidentifications [...] Dictation was accomplished with the use of Ravgen voice recognition software, prone to medical misidentifications [...] Dictation was accomplished with the use of Ravgen voice recognition software, prone to medical misidentifications [...] Dictation was accomplished with the use of Ravgen voice recognition software, prone to medical misidentifications [...] Dictation was accomplished with the use of Ravgen voice recognition software, prone to medical misidentifications [...] Dictation was accomplished with the use of Ravgen voice recognition software, prone to medical misidentifications [...] Dictation was accomplished with the use of Ravgen voice recognition software, prone to medical misidentifications [...] Dictation was accomplished with the use of Ravgen voice recognition software, prone to medical misidentifications [...] Dictation was accomplished with the use of Ravgen voice recognition software, prone to medical misidentifications [...] Dictation was accomplished with the use of Ravgen voice recognition software, prone to medical misidentifications [...] Dictation was accomplished with the use of Ravgen voice recognition software, prone to medical misidentifications [...] Dictation was accomplished with the use of Ravgen voice recognition software, prone to medical misidentifications [...] Name:Ping Lamb, Adwoa 04/14/2025 08:15:00 AM, [address] [facility] [address], [place], [address], Insurance Providers Payer Name Payer Address Payer Phone Subscriber Number Group Number Insured Name Patient Relationship to Insured Coverage Start Date Coverage End Date [facility] [address] [place] [address] [id number] Roma Irving Self - patient is the [...]
--- OUTSIDE RECORDS SUMMARY | 2025-03-18 06:17 | XMS_ITS ---
Author Organization [facility] Address [address] [place] [address] Care Team Providers Care Flow Specialist Name Role Phone Jefrfey Rutledge Primary Care Provider Unavailab Yadiel Nixon Unavailable [phone] Elie BERNARD, Apollo Unavailable Unavailable REASON FOR VISIT epigastric pain,gerd Problems Problem Type SNOMED Code ICD Code Onset Dates Problem Status W/U Status Risk Notes Problem Gastroesophageal reflux disease with esophagitis (disorder) (069879774) Gastro-esoph ageal reflux disease with esophagitis, without bleeding (K21.00) Active confirmed Encounters Encounter Location Date Provider Diagnosis [facility] Outpatient [address] [place] [phone] 05/07/2024 Yadiel Li Gastro-esophageal reflux disease with [...] * PHOENIX HERNANDESOB:1965 ( 59 yo F)Acc No.[id number]:05/07/2024 EGD/MAC Patient:?DONNA HERNANDES Provider:?Yadiel Li MD :1965???Age:59 Y???Sex:Female D ate:05/07/2024 Address:[address] [place], [place] [id number] Pcp:Jeffrey Rutledge Subjective: * Chief Complaints: * ???1. Epigastric pain,gerd. * Medical History:? Objective: * Vitals:? Assessment: * Assessment: 1.?Gastro-esophageal reflux disease with esophagitis, without bleeding - K21.00 (Primary)???2.?Hiatal hernia - K44.9???3.?Pain of upper abdomen - R10.10???4.?Heartburn - R12??? Plan: * Treatment: * Procedure Codes:?34584 UPPER GI ENDOSCOPY, BIOPSY * * The named appointment provid er may or may not be the originator of this progress note, and it is not deemed complete until electronically signed by the appointment provider. Sign off status: Pending * Provider:?Yadiel Li MD Date:? 024 Generated for Valerie cotto/Andrea/eTransmitting on:?03/18/2025 06:17 AM EDT
--- OUTSIDE RECORDS SUMMARY | 2025-03-18 06:17 | XMS_ITS ---
Author Organization [facility] Address [address] [place] [address] Care Team Providers Care Assistant At Surgery Name Role Phone Jeffrey Rutledge Primary Care Provider Unavailab Yadiel Nixon Unavailable [phone] Elie BERNARD, Apollo Unavailable Unavailable Allergies Allergen [...] 10/13/2024 Encounters Encounter Location Date Provider Diagnosis [facility] [address] [place] [address] 10/13/2024 Yadiel Li Encounter for screening for [...] * PHOENIX HERNANDESOB:1965 ( 59 yo F)Acc No.[id number]:10/13/2024 Progress Notes Patient:?ROMA HERNANDES Provider:?Yadiel Li MD :1965???Age:59 Y???Sex:Female D ate:10/13/2024 Address:[address] [place], [place] [address] Pcp:Jeffrey Rutledge Subjective: * Chief Complaints: * [...] * Surgical History:?Left ember y removed for cancer-[facility] 1991Hysterectomy and BSO--2 separate operations 2013Surgery for repair of a laceration of the rectosigmoid colon during one of her TORQUE TESTER surgeries--the repair was done by 2011Right shoulder Right knee CCY APPY Abdominoplasty 05/2020 in [place]--- CT scan of the abdomen and in June of [place] [facility] [place] 2 seromas in the upper and [...] cups per day. Marital status: single. 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 ???Nonsmoker; no sig alcohol. * Medications:?TakingLevothyro xine [...] Procedure Codes:?3017F COLOR ECTAL CA SCREEN DOC [id number] TOBACCO NON-GBLVN2905 BP SCR NOT PRFRM REC REASON NOS * Preventive Medicine:? ??Counseling:?Care goal follow-up plan:?Above Normal BMI Follow-up?Giving encouragement to exercise,?BMI management provided?Yes.? * Follow Up:?prn * * Sign off status: Completed true * Provider:?Yadiel Li MD Date:? 024 Generated for Valerie cotto/Andrea/eTransmitting on:?03/18/2025 06:17 AM EDT History and Physical Notes * [...]
--- OUTSIDE RECORDS SUMMARY | 2025-03-18 06:17 | XMS_ITS | Clinical Summary ---
Author Organization [facility] Address [address] [place] [address] Phone Care Team Providers Care Aircraft Inspection Record Clerk Name Role Phone Noel Carrizales DO Primary Care Provider [phone] Allergies Active Allergy Reactions Criticality Noted Date [...] 2014 Influenza Vaccine (Season Ended) 2025 Insurance [facility] Care Teams Aircraft Inspection Record Clerk Relationship Specialty Start Date End Date Noel Carrizales DO [facility] PCP - General 11/13/20
--- OUTSIDE RECORDS SUMMARY | 2025-03-18 06:18 | XMS_ITS ---
Author Organization [facility] Address [address] [place] [address] Care Team Providers Care Sanforizer Name Role Phone Aamir Jeffrey Primary Care Provider Unavailab Yadiel Nixon Unavailable [phone] Elie BERNARD, Apollo Unavailable Unavailable REASON FOR VISIT food is stuck Problems Problem Type SNOMED Code ICD Code Onset Dates Problem Status W/U Status Risk Notes Problem Dysphagia (R13.10) Active confirmed Encounters Encounter Location Date Provider Diagnosis [facility] [address] [place] [address] 01/17/2025 Yadiel Li Dysphagia R13.10 Assessments Encounter Date Diagnosis (ICD Code) Assessment Notes Treatment Notes Treatment Clinical Notes Section Notes 01/17/2025 Dysphagia (ICD-10 - R13.10) Plan Of Treatment Pending Test Test Name Order Date XR BARIUM SWALLOW-ESOPHAGUS 01/17/2025 Progress Notes * PHOENIX HERNANDESOB:1965 ( 59 yo F)Acc No.[id number]:01/17/2025 Patient:?HERNANDES DONNA :1965???Age:59 Y???Sex:Female Address:[address] [place] [address] Subjective: * Chief Complaints: * ???Food is stuck * Medical History:? * Surgical History:? * Hospitalization/Major Diagno stic Procedure:? * Medications:? Objective: * Vitals:? * Physical Examination:? Assessment: * Assessment: 1.?Dysphagia - R13.10 (Prima ry)??? Plan: * Treatment: * * Procedure Codes:? * true * Date:? Generated for Valerie cotto/Andrea/Alina on:?03/18/2025 06:18 AM EDT
--- OUTSIDE RECORDS SUMMARY | 2025-03-18 06:18 | XMS_ITS | Patient Health Record ---
Author Organization [facility] Address [address] [place] [address] Care Team Providers Care Legal Secretary Receptionist Name Role Phone Jeffrey Rutledge Primary Care Provider Unavailab Yadiel Nixon Unavailable [phone] Elie BERNARD, Apollo Unavailable Unavailable Allergies Allergen (clinical drug ingredient) Drug/Non Drug Allergy documented on EMR Reaction Allergy Type Onset Date Status bupropion BuPROPion HCl Unknown Drug Allergy Act mikayla Results Component Value Reference Range Notes Pathology Reviewed date:10/13/2024 03:36:18 PM Interpretation: Performing Lab:[facility], [address] [place] [address] Notes/Report: Name: Roma Hernandes Ag e/Sex: 59/F : 1965 Unit#: [id number] Attend Dr: Yadiel Li MD Re05/07/24 Status : [facility] Location: [facility] Disch: SPEC : [id number] RECD : 05/07/24 STATUS: BRIAN MOSS NUM: [id number] MARRY: 05/07/[address] [facility] [address]: Yadiel Li MD ENTERED: 05/07/2411 50 [...] Roma Hernandes ge/Sex: 59/F : 1965 Unit#: [id number] Attend Dr: Yadiel Li MD Re05/07/24 Status : [facility] Location: [facility] Disch: SPEC : [id number] RECD : 05/07/24114 STATUS: BRIAN MOSS NUM: [id number] MARRY: 05/07/24-10[address] [facility] [address]: Yadiel Li MD ENTERED: 05/07/24-11 50 [...] and B1. Copies To: Jeffrey Rutledge PA-C [address] [place] [address] [address] Yadiel Li MD [facility] [address] [place] [address] Signed (si gnature on file) Carol Kapadia [...] W/U Status Risk Notes Problem Epigastric pain (83233767) Epigastric abdominal pain (R10.13) Active confirmed Problem Epigastric pain (19151745) Epigastric pain (R10.13) Active confirmed Problem 292524169 Encounter for screening for malignant neoplasm of colon (Z12.11) Active confirmed Problem Screening for malignant neoplasm of rectum (435600122) Encounter for screening for malignant neoplasm of rectum (Z12.12) Active confirmed Problem Dysphagia (R13.10) Active confirmed Problem 68504550 Abdominal pain, epigastric (R10.13) Active confirmed Problem Elevated liver enzymes level (327870317) Elevated liver function tests (R79.89) Active confirmed Problem 169225992 Gastroesophageal reflux disease without esophagitis (K21.9) Active confirmed Problem 14318577 Preprocedural examination (Z01.818) Active confirmed Problem Fatty liver (775143820) Fatty liver (K76.0) Active confirmed Problem 92416639 Constipation, unspecified constipation type (K59.00) Active confirmed Problem 049123932 GERD (gastroesophageal reflux disease) (K21.9) Active confirmed Problem Gastroesophageal reflux disease with esophagitis (disorder) (056024832) Gastro-esophageal reflux disease with esophagitis, without bleeding (K21.00) Active confirmed Problem 72810215946944761 Abnormal computerized tomography of abdominal wall (R93.5) Active confirmed Problem Gastroesophageal reflux disease (disorder) (457923105) Chronic GERD (K21.9) Active confirmed Problem Epigastric pain (14581773) Epigastric burning sensation (R10.13) Active confirmed Vital Signs Blood pressure diastolic 00 mm Hg 10/13/2024 Height 63.5 in 10/13/2024 Blood pressure systolic 00 mm Hg 10/13/2024 Weight 163 lbs 10/13/2024 BMI 28.42 kg/m2 10/13/2024 Encounters Encounter Location Date Provider Diagnosis [facility] [place] [address] [place] [phone] 05/07/2024 Yadiel Li Gastro-esophageal reflux disease with esophagitis, without bleeding K21.00 ; Hiatal hernia K44.9 ; Pain of upper abdomen R10.10 and Heartburn R12 [facility] [address] [place] [address] 04/06/2024 Yadiel Li Chronic GERD K21.9 and Epigastric burning sensation R10.13 [facility] [address] [place] [address] 10/13/2024 Yadiel Li Encounter for screening for malignant neoplasm of colon Z12.11 ; Abdominal pain, epigastric R10.13 ; GERD (gastroesophageal reflux disease) K21.9 and Chronic GERD K21.9 [facility] [address] [facility] [address] [place] [address] 01/17/2025 Yadiel Li Dysphagia R13.10 Assessments Encounter [...] DIFF 08/28/2020 HEPATITIS B, C PROFILE 09/10/2020 [id number]-5-[id number] (A1A) 09/10/2020 MITOCHONDRIAL AB 09/10/2020 SMOOTH MUSCLE ANTIBODIES 09/10/2020 H PYLORI AG, STOOL 07/31/2022 CT ABD & PELVIS WITH CONTRAST 11/22/2020 CT ABD & PELVIS WITH PO CONT ONLY 2021 XR BARIUM SWALLOW-ESOPHAGUS 01/17/2025 FLUOR. ANTINUCLEAR AB SCREEN (SHRUTIH) 06/2020 Future Test Test Name Order Date COLONOSCOPY 11/16/2015 UPPER GI ENDOSCOPY 07/14/2019 UPPER GI ENDOSCOPY 04/06/2024 Insurance Providers Payer Name Payer Address Payer Phone Subscriber Number Group Number Insured Name Patient Relationship to Insured Coverage Start Date Coverage End Date [facility] [address] [place] [phone] [id number] ROMA HERNANDES Self - patient is the insured Medical (General) History Medical History History ICD Code Renal cancer(left)-1990 Denies MO,DM,CVA,Lung disease She has undergone previous u pper [...] negative for eosinophilic esophagitis Screening colonoscopy in 12/05 016-negative polyps, sigmoid diverticulosis, internal hemorrhoids Depression Hypothyroidism [...] the rectosigmoid colon during one of 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 A F/U CT in 2021 revealed resolution of that.
[2025-03-18 07:45] LABS: Hematocrit 42.7 % (37.0-47.0); Hemoglobin 13.9 g/dl (12.0-16.0); Mean Corpuscular HGB Conc 32.6 g/dl (31.0-35.0); Mean Corpuscular Hemoglobin 30.8 pg (27.0-33.0); Mean Corpuscular Volume 94.7 fL (80.0-98.0); Mean Platelet Volume 9.6 fL (9.4-12.3); Platelet Count 341 X10*3/uL (160-400); Red Blood Count 4.51 X10*6/uL (4.20-5.50); Red Cell Distribution Width 11.6 % (11.0-16.0); White Blood Count 5.7 X10*3/uL (4.8-10.8)
[2025-03-18 07:57] LABS: Alanine Aminotransferase 45 U/L (0-31); Alkaline Phosphatase 153 U/L (39-117); Anion Gap 12 (12-20); Aspartate Amino Transferase 40 U/L (5-31); Bilirubin Total 0.5 mg/dL (0.0-1.0); Blood Urea Nitrogen 15 mg/dL (9-16); Calcium 9.8 mg/dL (8.4-10.2); Carbon Dioxide 29 mmol/L (22-29); Chloride 107 mmol/L (96-108); Cholesterol 253 mg/dL (<200); Estimated Glomerular Filt Rate 57; Glucose Fasting 89 mg/dL (60-99); HDL Cholesterol 58 mg/dL (>40); LDL Cholesterol Calculated 173 mg/dL (<100); Potassium 4.4 mmol/L (3.3-5.1); Sodium 144 mmol/L (135-145); Total Protein 7.4 g/dL (6.5-8.0); Triglycerides 113 mg/dL (<150)
[2025-03-18 08:17] LABS: TSH reflex Free T4 0.45 uIU/mL (0.32-4.0)
[2025-03-18 08:59] LABS: Erythrocyte Sedimentation Rate 28 MM/HR (0-20)
[2025-03-19 04:38] LABS: CRP High Sensitivity 7.3 mg/L
[2025-03-19 14:43] LABS: A. Phagocytphilium DNA,RT-PCR NOT DETECTED (NOT DETECTED); Babesia Microti DNA, RT-PCR NOT DETECTED (NOT DETECTED); Borrelia Miyamotoi,DNA RT-PCR NOT DETECTED (NOT DETECTED); E.Chaffeensis DNA RT-PCR NOT DETECTED (NOT DETECTED); Lyme(Borrelia ssp)DNA RT-PCR NOT DETECTED (NOT DETECTED)
[2025-03-21 22:28] LABS: Anti DNA DS Antibody <1 IU/mL
[2025-03-22 11:33] LABS: Complement C3 177 mg/dL (83-193)
== END 2025-03-18 06:17 | disposition home or self-care (01) ==
LOC: HO.LAB 06:16
PROVIDERS: PCP Physician Assistant; Visit Provider Physician Assistant
DX: E03.9 Hypothyroidism, unspecified (principal); E78.5 Hyperlipidemia, unspecified; M25.50 Pain in unspecified joint; E78.9 Disorder of lipoprotein metabolism, unspecified
CPT/HCPCS: 36415; 80053; 80061; 84443; 85027; 85652; 86141; 86160; 86225; 87468; 87469; 87478; 87484; 87798

== ENCOUNTER 2025-03-18 13:02 | Outpatient (AMB) | payer OTHER, SELFPAY ==
--- OUTSIDE RECORDS SUMMARY | 2025-03-18 13:04 | XMS_ITS | Clinical Summary ---
Author Organization [facility] Address [address] [place] [address] Phone Care Team Providers Care Endoscopy Specialty Technician Name Role Phone Noel Carrizales DO Primary Care Provider [phone] Allergies Active Allergy Reactions Criticality Noted Date [...] 2014 Influenza Vaccine (Season Ended) 2025 Insurance [facility] Care Teams Endoscopy Specialty Technician Relationship Specialty Start Date End Date Noel Carrizales DO [facility] [address] PCP - General 11/13/20
--- NOTE | 2025-03-18 13:09 | MHC.OFFVIS ---
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 Her pain has been persistent and refractory to various therapies. Previous participation in physical therapy did not yield any improvement in symptoms, with her pain remaining unchanged. She describes the pain as sharp and stabbing, without radiation to her lower extremities, worse on the left side at times, while other times affecting the right side. The pain is often exacerbated by activities such as standing or bending, and she struggles with sleep due to persistent discomfort upon repositioning. Attempts at pharmacological interventions including knsv-fvr-telpllo pain medication, muscle relaxants, and lidocaine patches have been unsuccessful in providing relief. Her symptoms are suggestive of lumbar osteoarthritis. - Onset/Timing: Persistent lower back pain without specific onset - Quality/Character: Sharp, stabbing pain similar to needle pricks - Location: Primarily lower back, with shifting discomfort between the right and left sides - Radiation: Radiates to legs, sometimes to knee level; occasional deep thigh tenderness - Exacerbating Factors: Bending, standing for prolonged periods, engaging in activities such as washing dishes - Relieving Factors: None identified; spontaneous sharp pain can occur irrespective of activity - Interferes with: Sleep, due to pain upon movement at night - Affect: Significant impact on sleep and mood, reported feeling of misery due to activity limitation - Analgesia: Past use included acetaminophen, ibuprofen, muscle relaxants, and lidocaine patches, none effective; goal is better pain relief and improved function - Adverse Effects: None reported from current ineffective treatments - Activities of Daily Living: 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; severe disruption of sleep; aspiration to return to a higher level of activity - Aberrant Drug Related Behaviors: None reported [facility] Medical History Fatty liver Depression Solitary kidney, acquired GERD (gastroesophageal reflux disease) Borderline high cholesterol Adrenal adenoma Hypothyroidism Urinary frequency Migraine Surgical History H/O colonoscopy History of esophagogastroduodenoscopy (EGD) Hx of surgical procedure (04/23/24) History of cholecystectomy History of abdominoplasty History of arthroscopy of left knee History of arthroscopy of right shoulder History of tubal ligation History of ovarian cystectomy History of hysterectomy History of nephrectomy Family History Father History of throat cancer Mother No problems noted. Sister History of breast cancer History of ovarian cancer Brother History of kidney problems Maternal Grandmother History of pancreatic cancer Brother No problems noted. Son No problems noted. Daughter No problems noted. Daughter No problems noted. Daughter No problems noted. 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 Answers questions appropriately. Fully engaged in examination. Skin: warm, dry, intact HEENT: Normocephalic. Hearing intact. Cardiac: External chest normal in appearance. Respiratory: No cough, audible wheezing or stridor. Abdomen: without gross distension. MS: No obvious swelling or deformities. Able to stand on bilateral tiptoes and bilateral heels.? Able to transition from sit to stand unassisted. Ambulates with bilaterally normal heel strike and toe off Spurling positive SLR negative bilaterally Tenderness over midline lumbar vertebrae and lumbar paraspinal muscles. Neurological: Oriented to person, place, time and situation. Thought process intact. No gait abnormalities appreciated. Psychiatric: Appropriate mood and affect. Good judgment and insight. Assessment & Plan Assessment & Plan (1) Sacroiliac joint dysfunction of left side: Code(s): M53.3 - Sacrococcygeal disorders, not elsewhere classified Category: Medical (2) Compression fracture of L1 lumbar vertebra: Code(s): S32.010A - Wedge compression fracture of first lumbar vertebra, initial encounter for closed fracture Category: Medical (3) Low back pain: Code(s): M54.50 - Low back pain, unspecified Category: Medical Qualifiers: Chronicity: acute Back pain laterality: midline Sciatica presence: with sciatica Sciatica laterality: sciatica of right side Qualified Code(s): M54.41 - Lumbago with sciatica, right side Plan The treatment plan involves administering diagnostic injections to determine the source of the patient's lumbar pain, specifically addressing the potential involvement of arthritis-associated joint discomfort. The procedure will be guided by x-ray and utilize numbing agents for diagnostic purposes without initial corticosteroids. Following evaluation of relief, discussions on sustained interventions considering risks and benefits will occur. An escort arrangement for the procedure has been advised as patient requests Ativan preprocedure. . Ativan will be sent During this visit, I discussed with the patient that the previous unsuccessful treatments and the persistent nature of her pain likely indicate an underlying issue with her lumbar joints, possibly arthritis. The recommended approach is to perform diagnostic injections under x-ray guidance to isolate the source of her pain and evaluate arthritis-related contributions. The patient was informed about the procedure, including the use of local anesthetics without steroids initially and the necessity of an escort due to the effects of pre-procedure Ativan. Understanding the invasive nature and discomfort, she agreed to discuss further management steps post-diagnosis based on pain relief outcomes. Her consent to approach the insurance for the procedure's approval was obtained. Will schedule for bilateral diagnostic fluoroscopy guided L3-L4 DR L5 medial branch blocks with local anesthetic. Ativan will be sent for patient to take 30 minutes prior to arrival for the procedure Patient was informed and verbally consented to the use of an ambient scribe for clinic note documentation during this visit. Patient Instructions: - Arrange to have someone drive you for the procedure. - Expect contact from the office to schedule the procedure. - Take prescribed Ativan 30 minutes prior to the procedure. - Keep a pain diary post-procedure to evaluate effectiveness. - Follow up as advised for assessment of relief and further treatment planning. Coding Level of Care Code Est Pt Level 3 (26881) Complex EM visit Add On G2211 Diagnoses Sacroiliac joint dysfunction of left side M53.3 Compression fracture of L1 lumbar vertebra S32.010A Acute midline low back pain with right-sided sciatica M54.41 Chronicity: acute Back pain laterality: midline Sciatica presence: with sciatica Sciatica laterality: sciatica of right side
[2025-03-18 13:11] VITALS: BP 110/79; PULSE 79; O2SAT 98; BMI 29.7
== END 2025-03-18 13:30 | disposition home or self-care (01) ==
LOC: HO.PMC 13:03
PROVIDERS: PCP Physician Assistant; Visit Provider Registered Nurse Emergency
DX: M53.3 Sacrococcygeal disorders, not elsewhere classified (principal); S32.010A Wedge compression fracture of first lumbar vertebra, initial encounter for closed fracture; M54.41 Lumbago with sciatica, right side
CPT/HCPCS: 99213

== ENCOUNTER 2025-03-22 15:36 | Outpatient (AMB) | payer OTHER, SELFPAY ==
[2025-03-22 15:49] VITALS: BP 120/72; PULSE 78; TEMP 36.3; O2SAT 98; BMI 29.8
--- NOTE | 2025-03-22 15:49 | MHC.PC.OV ---
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 Required: No Accompanied by: Self / Same As Patient Allergies bupropion [From WELLBUTRIN] Allergy (Intermediate, Verified 03/22/25 16:53) HALLUCINATION Iodinated Contrast Media [IV DYE, IODINE CONTAINING CONTRAST ] Allergy (Intermediate, Verified 03/22/25 16:53) HIVES Medication List - Last Reconciled 03/22/25 by Jeffrey Rutledge PA-C cholecalciferol (vitamin D3) 25 mcg PO DAILY diclofenac sodium 1% (Arthritis Pain (diclofenac)) 4 grams topical QID hydroxyzine HCl 25 mg PO BEDTIME levothyroxine 125 mcg PO DAILY 90 days omeprazole 40 mg PO QAM prednisone 10 mg PO DIRECTED simvastatin 5 mg PO DAILY 90 days sumatriptan succinate take 1 tab at onset of headache; if no relief may repeat 1 tab after at least 2 hrs; max = 4 tabs/24 hr PO zolpidem ER 12.5 mg PO BEDTIME 30 days Tobacco use date assessed: 03/17/25 Dental Screening Dental Screen Date: 03/17/25 HPI Annual Exam HPI Details Roma is a 59 y/o F here today for a routine annual physical ? Pmhx significant for HYpothyroid, DONG, Migraines, insomnia, Vitd def, Right Adrenal mass, obese, ? Concerns--> The symptoms encompass widespread musculoskeletal discomfort, with a significant impact on functionality and previous activity levels. Despite attempting self-management measures with ibuprofen, the patient has refrained from persistent use due to her prior nephrectomy. Recent inflammatory markers elevated. She does have appointment with Rheumatology though not until 2025. She has tried gabapentin 100 mg twice a day though does not feel it is effective. . DONG:? Recent liver enzymes slightly elevated. Followed by gastroenterology d.. She also has gastritis noted on most recent EGD. She has a small hiatal hernia. She feels that her hernia has been causing her a lot of epigastric pain when she eats. She was on omeprazole and reports her gastritis/reflux has gone away. She will be following up with her family medicine physician next month .. ? Hyperlipidemia: Continued elevation in her total cholesterol and LDL. She does report having a family history of high cholesterol. She is now open to the idea of starting low-dose statin therapy. ? .. ? Right adrenal mass: patient is followed by Nephrology., mass is under surveillance ? .. ? HYpoththyroid: Followed by endocrinology- continued on levothyroxine 125mcg- most recent TSH has been stable ? .. ? Insomina: Patient continues with p.r.n. use of Ambien 10 mg with good effect on sleep. She does report waking in the middle night and not being able to fall back asleep. She is wondering if there is a extended release formulation of the medication. 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 ? Colonoscopy : Colonoscopy due in 2025 .. ? Vaccine: Up-to-date with tetanus, declines flu, UTD? COVID ( [employer])?, Considering shingles vaccine Labs: Noted slightly elevated liver enzymes and continued elevation in her cholesterol. .. PFSH Medical History Fatty liver Depression Solitary kidney, acquired GERD (gastroesophageal reflux disease) Borderline high cholesterol Adrenal adenoma Hypothyroidism Urinary frequency Migraine Surgical History H/O colonoscopy History of esophagogastroduodenoscopy (EGD) Hx of surgical procedure (04/23/24) History of cholecystectomy History of abdominoplasty History of arthroscopy of left knee History of arthroscopy of right shoulder History of tubal ligation History of ovarian cystectomy History of hysterectomy History of nephrectomy Family History Father History of throat cancer Mother No problems noted. Sister History of breast cancer History of ovarian cancer Brother History of kidney problems Maternal Grandmother History of pancreatic cancer Brother No problems noted. Son No problems noted. Daughter No problems noted. Daughter No problems noted. Daughter No problems noted. Social History Housing: House Alcohol intake: current Alcohol intake frequency: holidays/special occasions only Patient Tobacco Use Status: Never used Tobacco e-Cigarette/Vaping Use: Never Used Second Hand Smoke Exposure: No service: No Current occupational status: employed Current occupation: Working at [employer] Cognitive needs: No Hearing needs: No Vision needs: Yes (Glasses) Questionnaire Thrive Questionnaire Date Thrive assessed: 03/15/25 I am a: Patient What is your living situation today?: I have a steady place to live Within the past 12 months, did the food you bought not last and you didn't have the money to get more?: Never true Within the past 12 months, did you worry whether your food would run out before you got money to buy more?: Never true Do you have trouble paying for medicines?: No Do you have trouble getting transportation to medical appointments?: No Do you have trouble paying your heating and electricity bill?: No Do you have trouble taking care of your child, family member or friend?: No Do you have trouble with day-to-day activities such as bathing, preparing meals, shopping, managing finances, etc.?: No Are you currently unemployed and looking for a job?: No Are you interested in more education?: No Please select the resources that you would like help with: None Currently or been in a relationship where the following occur: No concerns reported THRIVE Score: 0 GEORGE-7 AMB Questionnaire GEORGE-7 Date GEORGE - 7 assessed: 03/17/25 Source: Developed by Drs. Yadiel Loera, Jeanne Rea, Dennys Vivar and colleagues, with an educational adamaris from [employer]. Review of Systems Const Denies body aches, Denies chills, Denies excessive sweating, Denies fatigue, Denies fever(s) and Denies headache(s) Eyes Denies blurry vision ENT Denies dysphagia, Denies vertigo, Denies dizziness, Denies headache(s), Denies hearing loss and Denies tinnitus Card Denies chest pain, Denies chest pain with activity, Denies syncope, Denies irregular heart rhythm and Denies dyspnea Resp Denies chest congestion, Denies cough, Denies hemoptysis, Denies dyspnea and Denies wheezing GI Denies abdominal pain, Denies melena, Denies hematochezia, Denies coffee ground emesis, Denies dysphagia, Denies diarrhea, Denies nausea and Denies vomiting Denies urinary frequency, Denies dysuria, Denies urinary hesitancy and Denies urinary urgency Musc Denies arthralgias, Denies limited range of motion, Denies muscle cramps and Denies muscle weakness Skin/Breast Denies rash and Denies skin ulcer Neuro Denies Abnormal speech present, Denies confusion, Denies vertigo, Denies dizziness, Denies syncope, Denies headache(s), Denies memory loss and Denies seizure-like activity Psych Denies anxiety, Denies confusion, Denies depression, Denies memory loss, Denies panic attacks and Denies paranoia Endo Denies excessive sweating, Denies fatigue, Denies flushing, Denies polydipsia and Denies polyuria Aller/Immun Denies wheezing Physical exam (Primary Care) Vital Signs: Last Vital Signs Temp 97.3 F 03/22/25 15:49 Pulse 78 03/22/25 15:49 BP 120/72 03/22/25 15:49 Pulse Ox 98 03/22/25 15:49 Oxygen Delivery Method Room Air 03/22/25 15:49 BMI result Body Mass Index 29.8 Tobacco/Smoking Status: Tobacco use Status Tobacco use date assessed 03/17/25 03/22/25 15:49 Patient Tobacco Use Status Never used Tobacco 03/22/25 15:49 e-Cigarette/Vaping Use Never Used 03/22/25 15:49 Thrive Assessment: Date of Thrive Assessment Date Thrive assessed 03/15/25 03/22/25 15:49 Currently or been in a relationship where the following occur: No concerns reported Const General: cooperative, comfortable, no acute distress, alert and awake; No confusion Orientation/consciousness: oriented to person, oriented to place, patient oriented x3 and No confusion HENMT Head: Yes normocephalic Ears: external ears normal and TM's normal bilaterally Face and sinus: No sinus tenderness Mouth: Normal oral and palatal mucosa present and tongue normal Teeth and gingiva: dentition normal and gingiva normal Throat: Yes posterior oropharynx normal, Yes tonsils normal and Yes uvula midline Eyes Conjunctivae: conjunctivae normal Sclerae: sclerae normal Pupils: Equal, round and reactive pupils present EOM: EOMs intact bilaterally Direct Ophthalmoscopy: No no photophobia Neck Neck: Yes no lymphadenopathy, No tender and Yes no JVD Thyroid: Thyroid normal Carotids: no bruits Chest Chest palpation & inspection: no tenderness Resp Effort & Inspection: normal respiratory effort, no audible wheezes, not labored and no stridor Auscultation: no crackles, no rales, no rhonchi and no wheezes Cardio Jugular venous distension: no JVD Rate: regular rate, not bradycardic and not tachycardic Rhythm: regular rhythm Bruits: no carotid bruits Peripheral pulses: Peripheral pulses 2+ throughout GI Inspection: Yes normal to inspection, No abdominal wall ecchymosis and No visible herniation Palpation (GI): Soft to palpation, nontender, no guarding, not rigid and No hepatosplenomegaly present Auscultation: normoactive bowel sounds General: Yes no CVA tenderness Back/Spine/Pelvis Back: no CVA tenderness and No back tenderness Cervical Spine: cervical ROM normal Thoracic/Lumbar Spine: thoracic and lumbar spine normal to inspection, straight leg raise negative bilaterally, No thoraco-lumbar ROM limited and No lumbar spinal tenderness Skin Lesions: no lesions Rashes: no rashes Wounds: no wounds Neuro General: oriented to person, oriented to place, patient oriented x3, CN's II-XI intact bilaterally and No confusion Cranial nerves: Yes Equal, round and reactive pupils present and Yes Normal accommodation reflex present Cognition (Neuro): normal cognition Speech: No Abnormal speech present Gait exam (Neuro): Normal gait present Motor exam (neuro): 5/5 motor strength present throughout Extrem Right upper extremity: full ROM; no cyanosis Left upper extremity: full ROM; no cyanosis Right lower extremity: no edema Left lower extremity: no edema Psych Appearance: grossly normal Mental Status: mental status grossly normal Affect: normal affect Attitude: cooperative Thought process: Normal thought process present Coding Level of Care Code Est Pt Prev Care 40-64y(94803) Diagnoses Annual physical exam Z00.00 Mixed hyperlipidemia E78.2 Hyperlipidemia type: mixed hyperlipidemia Insomnia, unspecified type G47.00 Insomnia type: unspecified Acute midline low back pain with right-sided sciatica M54.41 Back pain laterality: midline Chronicity: acute Sciatica laterality: sciatica of right side Sciatica presence: with sciatica Adenoma of right adrenal gland D35.01 Laterality: right Hypothyroidism, unspecified type E03.9 Hypothyroidism type: unspecified Assessment & Plan Assessment & Plan (1) Annual physical exam: Code(s): Z00.00 - Encounter for general adult medical examination without abnormal findings Category: Medical Plan: As per HPI (2) HLD (hyperlipidemia): Code(s): E78.5 - Hyperlipidemia, unspecified Category: Medical Qualifiers: Hyperlipidemia type: mixed hyperlipidemia Qualified Code(s): E78.2 - Mixed hyperlipidemia Plan: Patient's lipid panel continues to show elevated total cholesterol and LDL. She is willing to start low-dose statin therapy. She does admit to having a family history of hyperlipidemia. Goal LDL is to be below 160, goal total cholesterol to be below 200 (3) Insomnia: Code(s): G47.00 - Insomnia, unspecified Category: Medical Qualifiers: Insomnia type: unspecified Qualified Code(s): G47.00 - Insomnia, unspecified Plan: Continues with the use of zolpidem 10 mg with only little relief of her insomnia. (4) Low back pain: Code(s): M54.50 - Low back pain, unspecified Category: Medical Qualifiers: Back pain laterality: midline Chronicity: acute Sciatica laterality: sciatica of right side Sciatica presence: with sciatica Qualified Code(s): M54.41 - Lumbago with sciatica, right side Plan: Continues to follow pain management here in [place] in is considering pain reduction modalities for lower lumbar spine pain (5) Adrenal adenoma: Code(s): D35.00 - Benign neoplasm of unspecified adrenal gland Category: Medical Qualifiers: Laterality: right Qualified Code(s): D35.01 - Benign neoplasm of right adrenal gland Plan: Patient followed by endocrinology. She is under surveillance (6) Hypothyroidism: Code(s): E03.9 - Hypothyroidism, unspecified Category: Medical Qualifiers: Hypothyroidism type: unspecified Qualified Code(s): E03.9 - Hypothyroidism, unspecified Plan: Patient's most recent TSH has been stable. She continues on levothyroxine on a daily basis with good effect. Of note has lost weight since last office visit. Orders: Orders Comprehensive [place]. Panel Fast Today E78.2 - Mixed hyperlipidemia Lipid Panel Today E78.2 - Mixed hyperlipidemia Complete Blood Count no Diff Today E78.2 - Mixed hyperlipidemia Medications: New simvastatin 5 mg PO DAILY 90 tabs 1RF 90 days E78.2 - Mixed hyperlipidemia Discontinued gabapentin Discontinued Reason: Doctor's Order 100 mg PO BID 60 caps 0RF 30 days M25.50 - Pain in unspecified joint Patient Instructions: Goal: LDL to be below 160 Barriers: Adherence to physical activity and healthy eating habits
--- OUTSIDE RECORDS SUMMARY | 2025-03-22 16:34 | XMS_ITS ---
Author Organization [facility] Address [address] [place] [id number] Care Team Providers Care Business Office Coordinator Name Role Phone Jeffrey Rutledge Primary Care Provider Unavailab Yadiel Nixon Unavailable [phone] Elie BERNARD, Apollo Unavailable Unavailable Allergies Allergen [...] 10/13/2024 Encounters Encounter Location Date Provider Diagnosis [facility] [address] [place] [id number] 10/13/2024 Yadiel Li Encounter for screening for [...] in the interim on a p.r.n. basis. Roam was comfortable with this plan. Thank you [...] * PHOENIX HERNANDESOB:1965 ( 59 yo F)Acc No.[id number]:10/13/2024 Progress Notes Patient:?ROMA HERNANDES Provider:?Yadiel Li MD :1965???Age:59 Y???Sex:Female D ate:10/13/2024 Address:[address] [place], [place] [id number] Pcp:Jeffrey Rutledge Subjective: * Chief Complaints: * [...] * Surgical History:?Left ember y removed for cancer-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 Marital status: single. 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 ???Nonsmoker; no sig alcohol. * Medications:?TakingLevothyro xine [...] Procedure Codes:?3017F COLOR ECTAL CA SCREEN DOC [id number] TOBACCO NON-[id number] BP SCR NOT PRFRM REC REASON NOS * Preventive Medicine:? ??Counseling:?Care goal follow-up plan:?Above Normal BMI Follow-up?Giving encouragement to exercise,?BMI management provided?Yes.? * Follow Up:?prn * * Sign off status: Completed true * Provider:?Yadiel Li MD Date:? 024 Generated for Valerie cotto/Andrea/eTransmitting on:?03/22/2025 04:34 PM EDT History and Physical Notes * [...]
--- OUTSIDE RECORDS SUMMARY | 2025-03-22 16:34 | XMS_ITS ---
Author Organization [facility] Address [address] [place] [address] Care Team Providers Care Re Examiner Name Role Phone Jeffrey Rutledge Primary Care Provider Unavailab Yadiel Nixon Unavailable [phone] Elie BERNARD, Apollo Unavailable Unavailable REASON FOR VISIT epigastric pain,gerd Problems Problem Type SNOMED Code ICD Code Onset Dates Problem Status W/U Status Risk Notes Problem Gastroesophageal reflux disease with esophagitis (disorder) (054019033) Gastro-esoph ageal reflux disease with esophagitis, without bleeding (K21.00) Active confirmed Encounters Encounter Location Date Provider Diagnosis [facility] Outpatient [address] [place] [id number] 05/07/2024 Yadiel Li Gastro-esophageal reflux disease with [...] * PHOENIX HERNANDESOB:1965 ( 59 yo F)Acc No.[id number]:05/07/2024 EGD/MAC Patient:?DONNA HERNANDES Provider:?Yadiel Li MD :1965???Age:59 Y???Sex:Female D ate:05/07/2024 Address:[address] [place], [place] [id number] Pcp:Jeffrey Rutledge Subjective: * Chief Complaints: * ???1. Epigastric pain,gerd. * Medical History:? Objective: * Vitals:? Assessment: * Assessment: 1.?Gastro-esophageal reflux disease with esophagitis, without bleeding - K21.00 (Primary)???2.?Hiatal hernia - K44.9???3.?Pain of upper abdomen - R10.10???4.?Heartburn - R12??? Plan: * Treatment: * Procedure Codes:?27519 UPPER GI ENDOSCOPY, BIOPSY * * The named appointment provid er may or may not be the originator of this progress note, and it is not deemed complete until electronically signed by the appointment provider. Sign off status: Pending * Provider:?Yadiel Li MD Date:? 024 Generated for Valerie cotto/Andrea/eTransmitting on:?03/22/2025 04:34 PM EDT
--- OUTSIDE RECORDS SUMMARY | 2025-03-22 16:34 | XMS_ITS | Patient Health Record ---
Author Organization [facility] Address [address] [place] [address] Care Team Providers Care Metal Room Dental Technician Name Role Phone Jeffrey Rutledge Primary Care Provider Unavailab Yadiel Nixon Unavailable [phone] Elie BERNARD, Apollo Unavailable Unavailable Allergies Allergen (clinical drug ingredient) Drug/Non Drug Allergy documented on EMR Reaction Allergy Type Onset Date Status bupropion BuPROPion HCl Unknown Drug Allergy Act mikayla Results Component Value Reference Range Notes Pathology Reviewed date:10/13/2024 03:36:18 PM Interpretation: Performing Lab:[facility], [address] [place] [id number] Notes/Report: Name: Roma Hernandes Ag e/Sex: 59/F : 1965 Unit#: [id number] Attend Dr: Yadiel Li MD Re05/07/24 Status : [facility] Location: [facility] Disch: SPEC : [id number] RECD : 05/07/24 STATUS: BRIAN MOSS NUM: [id number] MARRY: 05/07/[address] [facility] [address]: Yadiel Li MD ENTERED: 05/07/2411 50 [...] Roma Hernandes ge/Sex: 59/F : 1965 Unit#: [id number] Attend Dr: Yadiel Li MD Re05/07/24 Status : [facility] Location: [facility] Disch: SPEC : [id number] RECD : 05/07/24114 STATUS: BRINA MOSS NUM: [id number] MARRY: 05/07/24-[address] [facility] [address]: Yadiel Li MD ENTERED: 05/07/24-11 50 [...] and B1. Copies To: Jeffrey Rutledge PA-C [address] [place] [address] [address] Yadiel Li MD [facility] [address] [place] [address] Signed (si gnature on file) Carol Kapadia [...] W/U Status Risk Notes Problem Epigastric pain (49620506) Epigastric abdominal pain (R10.13) Active confirmed Problem Epigastric pain (68917808) Epigastric pain (R10.13) Active confirmed Problem 604272191 Encounter for screening for malignant neoplasm of colon (Z12.11) Active confirmed Problem Screening for malignant neoplasm of rectum (048364890) Encounter for screening for malignant neoplasm of rectum (Z12.12) Active confirmed Problem Dysphagia (R13.10) Active confirmed Problem 18902951 Abdominal pain, epigastric (R10.13) Active confirmed Problem Elevated liver enzymes level (397378451) Elevated liver function tests (R79.89) Active confirmed Problem 516957900 Gastroesophageal reflux disease without esophagitis (K21.9) Active confirmed Problem 13802248 Preprocedural examination (Z01.818) Active confirmed Problem Fatty liver (789331890) Fatty liver (K76.0) Active confirmed Problem 78016352 Constipation, unspecified constipation type (K59.00) Active confirmed Problem 719535700 GERD (gastroesophageal reflux disease) (K21.9) Active confirmed Problem Gastroesophageal reflux disease with esophagitis (disorder) (366895396) Gastro-esophageal reflux disease with esophagitis, without bleeding (K21.00) Active confirmed Problem 68989665896358397 Abnormal computerized tomography of abdominal wall (R93.5) Active confirmed Problem Gastroesophageal reflux disease (disorder) (705360559) Chronic GERD (K21.9) Active confirmed Problem Epigastric pain (09373870) Epigastric burning sensation (R10.13) Active confirmed Vital Signs Blood pressure diastolic 00 mm Hg 10/13/2024 Height 63.5 in 10/13/2024 Blood pressure systolic 00 mm Hg 10/13/2024 Weight 163 lbs 10/13/2024 BMI 28.42 kg/m2 10/13/2024 Encounters Encounter Location Date Provider Diagnosis [facility] Outpatient [address] [place] [id number] 05/07/2024 Yadiel Li Gastro-esophageal reflux disease with esophagitis, without bleeding K21.00 ; Hiatal hernia K44.9 ; Pain of upper abdomen R10.10 and Heartburn R12 [facility] [address] [place] [address] 04/06/2024 Yadiel Li Chronic GERD K21.9 and Epigastric burning sensation R10.13 [facility] [address] [place] [address] 10/13/2024 Yadiel Li Encounter for screening for malignant neoplasm of colon Z12.11 ; Abdominal pain, epigastric R10.13 ; GERD (gastroesophageal reflux disease) K21.9 and Chronic GERD K21.9 [facility] [address] [place] [address] 01/17/2025 Yadiel Li Dysphagia R13.10 Assessments Encounter [...] DIFF 08/28/2020 HEPATITIS B, C PROFILE 09/10/2020 [id number] (A1A) 09/10/2020 MITOCHONDRIAL AB 09/10/2020 SMOOTH MUSCLE [...] Insured Coverage Start Date Coverage End Date [facility] [address] [facility] [phone] [id number] ROMA HERNANDES Self - patient is the insured Medical (General) History Medical History History ICD Code Renal cancer(left)-1990 Denies ID,DM,CVA,Lung disease She has undergone previous u pper [...] the rectosigmoid colon during one of 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 A F/U CT in 2021 revealed resolution of that.
--- OUTSIDE RECORDS SUMMARY | 2025-03-22 16:34 | XMS_ITS | Patient Health Record ---
Author Organization [facility] Address [address] [place] [address] Care Team Providers Care Automatic Corn Grinder Operator Name Role Phone Ping Lamb Unavailable [phone] MONIQUEBIMAL STUART Unavailable [phone] Allergies No Known Allergies Reason For Referral [...] Problem Status W/U Status Risk Notes Problem 905131099 Other obesity due to excess calories (E66.09) Active confirmed Problem 553401023 Overweight (E66.3) Active confirmed Problem 835236758 Body mass index [BMI] 32.0-32.9, adult (Z68.32) Active confirmed Problem 513016629 BMI 30.0-30.9,adult (Z68.30) Active confirmed Vital Signs Heart Rate 76 /min 03/09/2025 Blood pressure diastolic 82 mm Hg 03/09/2025 Oximetry 99 % 03/09/2025 Height 63.25 in 03/09/2025 Blood pressure systolic 116 mm Hg 03/09/2025 Weight 170.2 lbs 03/09/2025 BMI 29.91 kg/m2 03/09/2025 Encounters Encounter Location Date Provider Diagnosis [facility] [address] [place] [address] 03/30/[address] [facility] [address] [place] [address] 04/06/20[address] [facility] [address] [place] [address] 04/13/2024 [facility] [address] [place] [address] 04/20/2024 [facility] [address] [place] [address] 05/04/20[address] [facility] [address] [place] [address] 05/11/[address] [facility] [address] [place] [address] 05/17/2024 [facility] [address] [place] [address] 05/25/2024 [facility] [address] [place] [address] 03/23/2024 Ping Svrcek Other obesity due to excess calories E66.09 and Body mass index [BMI] 32.0-32.9, adult Z68.32 [address] [place] [address] 04/27/2024 Pnig Svrcek Other obesity due to excess calories E66.09 and Body mass index [BMI] 32.0-32.9, adult Z68.32 [address] [address] 06/08/2024 Ping Svrcek Other obesity due to excess calories E66.09 and Body mass index [BMI] 32.0-32.9, adult Z68.32 [address] 07/22/2024 Ping Svrcek Other obesity due to excess calories E66.09 and BMI 30.0-30.9,adult Z68.30 [address] 08/18/2024 Ping Svrcek Other obesity due to excess calories E66.09 and BMI 30.0-30.9,adult Z68.30 [address] 09/16/2024 Ping Svrcek Other obesity due to excess calories E66.09 and BMI 30.0-30.9,adult Z68.30 [address] 10/25/2024 Ping Svrcek Other obesity due to excess calories E66.09 and BMI 29.0-29.9,adult Z68.29 [address] 11/30/2024 Ping Svrcek Other obesity due to excess calories E66.09 and BMI 29.0-29.9,adult Z68.29 [address] 01/05/2025 Ping Svrcek Other obesity due to excess calories E66.09 ; BMI 29.0-29.9,adult Z68.29 and Weight loss counseling, encounter for Z71.3 [address] 02/01/2025 Ping Svrcek Other obesity due to excess calories E66.09 ; BMI 29.0-29.9,adult Z68.29 and Weight loss counseling, encounter for Z71.3 [address] [address] 03/09/2025 Ping Svrcek BMI 29.0-29.9,adult Z68.29 ; Overweight E66.3 and Weight loss counseling, encounter for Z71.3 [facility] [address] [place] [address] 03/30/2024 Ping Svrce[address] [facility] [address] [place] [address] 10/14/2024 Ping Svrcek Other obesity due to excess calories E66.09 [address] [place] [address] 01/05/[address] [place] [address] 05/26/2024 Ping Svrcek [address] [place] [address] 09/20/2024 Ping Svrcek Other obesity due to excess calories E66.09 [address] [place] [address] 09/20/2024 Ping Svrcek [address] [place] [address] 12/14/2024 Ping Svrcek [address] [place] [address] 01/16/2025 Ping Svrcek Other obesity due to [...] Dictation was accomplished with the use of [employer] voice recognition software, prone to medical misidentifications [...] Dictation was accomplished with the use of Dragon voice recognition software, prone to medical misidentifications [...] Dictation was accomplished with the use of [employer] voice recognition software, prone to medical misidentifications [...] Dictation was accomplished with the use of [employer] voice recognition software, prone to medical misidentifications [...] Dictation was accomplished with the use of [employer] voice recognition software, prone to medical misidentifications [...] Dictation was accomplished with the use of [employer] voice recognition software, prone to medical misidentifications [...] Dictation was accomplished with the use of [employer] voice recognition software, prone to medical misidentifications [...] visit it any questions/concerns arise. 07/22/2024 BMI 30.0-30.9,adul t (ICD-10 - Z68.30) #Obesity. 07/22/24: 174.9 pounds, [...] Dictation was accomplished with the use of [employer] voice recognition software, prone to medical misidentifications [...] Dictation was accomplished with the use of [employer] voice recognition software, prone to medical misidentifications [...] Dictation was accomplished with the use of [employer] voice recognition software, prone to medical misidentifications [...] Dictation was accomplished with the use of [employer] voice recognition software, prone to medical misidentifications [...] Dictation was accomplished with the use of [employer] voice recognition software, prone to medical misidentifications [...] improvement could consider submitting to insurance for [employer]. Continue to work on protein intake, hydration [...] Dictation was accomplished with the use of [employer] voice recognition software, prone to medical misidentifications [...] Dictation was accomplished with the use of [employer] voice recognition software, prone to medical misidentifications [...] Dictation was accomplished with the use of [employer] voice recognition software, prone to medical misidentifications [...] Dictation was accomplished with the use of [employer] voice recognition software, prone to medical misidentifications [...] Dictation was accomplished with the use of [employer] voice recognition software, prone to medical misidentifications [...] Dictation was accomplished with the use of [employer] voice recognition software, prone to medical misidentifications [...] Dictation was accomplished with the use of [employer] voice recognition software, prone to medical misidentifications [...] Dictation was accomplished with the use of [employer] voice recognition software, prone to medical misidentifications [...] Dictation was accomplished with the use of [employer] voice recognition software, prone to medical misidentifications [...] Dictation was accomplished with the use of [employer] voice recognition software, prone to medical misidentifications [...] Dictation was accomplished with the use of [employer] voice recognition software, prone to medical misidentifications [...] Dictation was accomplished with the use of [employer] voice recognition software, prone to medical misidentifications [...] Dictation was accomplished with the use of [employer] voice recognition software, prone to medical misidentifications [...] Treatment Next Appt Details Provider Name:Ping Lamb, 0 04/14/2025 08:15:00 AM, [address] [facility] [address], [place], [address], Insurance Providers Payer Name Payer Address Payer Phone Subscriber Number Group Number Insured Name Patient Relationship to Insured Coverage Start Date Coverage End Date [facility] [address] [place] [address] [id number] Roma Irving Self - patient is the [...]
--- OUTSIDE RECORDS SUMMARY | 2025-03-22 16:34 | XMS_ITS | Clinical Summary ---
Author Organization [facility] Address [address] [place] [address] Phone Care Team Providers Care Staff Internist Office Based Only Name Role Phone Noel Carrizales DO Primary Care Provider Allergies Active Allergy Reactions Criticality Noted Date [...] 2014 Influenza Vaccine (Season Ended) 2025 Insurance [facility] Care Teams Staff Internist Office Based Only Relationship Specialty Start Date End Date Noel Carrizales DO [facility] PCP - General 11/13/20
--- OUTSIDE RECORDS SUMMARY | 2025-03-22 16:35 | XMS_ITS ---
Author Organization [facility] Address [address] [place] [address] Care Team Providers Care Filament Tester Name Role Phone Aamir Jeffrey Primary Care Provider Unavailab Yadiel Nixon Unavailable [phone] Elie BERNARD, Apollo Unavailable Unavailable REASON FOR VISIT food is stuck Problems Problem Type SNOMED Code ICD Code Onset Dates Problem Status W/U Status Risk Notes Problem Dysphagia (91434223) Dysphagia (R13.10) Active confirmed Encounters Encounter Location Date Provider Diagnosis [facility] [address] [place] [address] 01/17/2025 Yadiel Li Dysphagia R13.10 Assessments Encounter Date Diagnosis (ICD Code) Assessment Notes Treatment Notes Treatment Clinical Notes Section Notes 01/17/2025 Dysphagia (ICD-10 - R13.10) Plan Of Treatment Pending Test Test Name Order Date XR BARIUM SWALLOW-ESOPHAGUS 01/17/2025 Progress Notes * PHOENIX HERNANDESOB:1965 ( 59 yo F)Acc No.[id number]:01/17/2025 Patient:?HERNANDES DONNA :1965???Age:59 Y???Sex:Female Address:[address] [place] [address] Subjective: * Chief Complaints: * ???Food is stuck * Medical History:? * Surgical History:? * Hospitalization/Major Diagno stic Procedure:? * Medications:? Objective: * Vitals:? * Physical Examination:? Assessment: * Assessment: 1.?Dysphagia - R13.10 (Prima ry)??? Plan: * Treatment: * * Procedure Codes:? * true * Date:? Generated for Valerie cotto/Andrea/Alina on:?03/22/2025 04:34 PM EDT
== END 2025-03-22 16:43 | disposition home or self-care (01) ==
LOC: HO.HMCH 15:37
PROVIDERS: PCP Physician Assistant; Visit Provider Physician Assistant
DX: Z00.00 Encounter for general adult medical examination without abnormal findings (principal); E78.2 Mixed hyperlipidemia; G47.00 Insomnia, unspecified; M54.41 Lumbago with sciatica, right side; D35.01 Benign neoplasm of right adrenal gland; E03.9 Hypothyroidism, unspecified

== ENCOUNTER → 2025-03-22 15:36 | Outpatient (BNVA) | payer OTHER, SELFPAY | PROVIDERS: PCP Physician Assistant; Visit Provider Physician Assistant | DX: Z13.89 Encounter for screening for other disorder (principal) ==

== ENCOUNTER 2025-03-23 13:11 | Outpatient (AMB) | payer OTHER, SELFPAY ==
--- NOTE | 2025-03-23 13:28 | MHC.OFFVIS ---
Vital Signs 03/23/25 13:35 Height 5 ft 3.5 in Weight 171 lb BMI 29.8 Intake Visit Reasons: NewProb- RT shoulder pain Intake Note: Roma is a 59 year old female who presents today with complaints of right shoulder pain. Patient reports her pain has been present for about 2 months. Denies injury. Her pain is primarily in her shoulder however with ROM her pain radiates down her arm to her bicep area. She avoids having to use her arm due to her pain and weakness. No numbness or tingling. States most of her discomfort comes at night. No other tx. Allergies bupropion [From WELLBUTRIN] Allergy (Intermediate, Verified 03/23/25 13:35) HALLUCINATION Iodinated Contrast Media [IV DYE, IODINE CONTAINING CONTRAST ] Allergy (Intermediate, Verified 03/23/25 13:35) HIVES HPI HPI NewProb- RT shoulder pain: Details: 59-year-old female presents to the office today for pain in the right shoulder for the last 2 months. H/o Right shoulder SAD DCE [address] Worley. She denies recent injury. She does mentioned the pain radiates down her arm into the biceps region. She states the pain is constant and worse with overhead movements. She denies n/t tingling of the arm. She us unable to sleep on the right side due to the pain. No pain that extends into her neck. No treatment to date on the right shoulder. [facility] Medical History Fatty liver Depression Solitary kidney, acquired GERD (gastroesophageal reflux disease) Borderline high cholesterol Adrenal adenoma Hypothyroidism Urinary frequency Migraine Surgical History H/O colonoscopy History of esophagogastroduodenoscopy (EGD) Hx of surgical procedure (04/23/24) History of cholecystectomy History of abdominoplasty History of arthroscopy of left knee History of arthroscopy of right shoulder History of tubal ligation History of ovarian cystectomy History of hysterectomy History of nephrectomy Family History Father History of throat cancer Mother No problems noted. Sister History of breast cancer History of ovarian cancer Brother History of kidney problems Maternal Grandmother History of pancreatic cancer Brother No problems noted. Son No problems noted. Daughter No problems noted. Daughter No problems noted. Daughter No problems noted. Social History Housing: House Alcohol intake: current Alcohol intake frequency: holidays/special occasions only Patient Tobacco Use Status: Never used Tobacco e-Cigarette/Vaping Use: Never Used Second Hand Smoke Exposure: No service: No Current occupational status: employed Current occupation: Working at [employer], right hand dominant Cognitive needs: No Hearing needs: No Vision needs: Yes (Glasses) Review of Systems Const All systems reviewed & are unremarkable except as noted in HPI and below Physical Exam Vital Signs: BMI result Body Mass Index 29.8 Const General: cooperative and no acute distress Orientation/consciousness: patient oriented x3 Resp Effort & Inspection: normal respiratory effort and able to speak in complete sentences Cardio Peripheral pulses: Peripheral pulses 2+ throughout Neuro General: patient oriented x3 Extrem Other: Shoulder normal to inspection. She has forward flexion to 100 degrees with discomfort. She can internally rotate to the back pocket. She is able to perform rotator cuff strength testing however there is significant discomfort and weakness with empty can and external rotation. Neurovascularly intact. Office Procedures AMB Joint Injection/Aspiration Joint Injection/Aspiration Primary Site: right shoulder Prep: site was prepped using aseptic technique, ethochloride spray was applied and injection warnings given Injected: 80 mg of, DepoMedrol, with 8 mL of, 1% plain lidocaine and in the subcromial space Approach Used: posterolateral Procedure: The patient tolerated the procedure well and there was some relief with the local anesthesia Coding 59610 - Glenohumeral/Tronchanteric Bursa/Intraarticular Procedure code (CPT) selection complete Results Reviewed Results Reviewed: xrays of the right shoulder obtained from february show evidence of sad dce, mild ac joint oa Assessment & Plan Assessment & Plan (1) Right shoulder tendonitis: Code(s): M77.8 - Other enthesopathies, not elsewhere classified Category: Medical Plan: We discussed options today which include physical therapy and steroid injection. I explained to the patient the steroid injection can help with inflammation and discomfort as she works with physical therapy to regain her strength and shoulder mechanics with activities. She did consent to the injection today which she tolerated well. I gave her an order for physical therapy and also the phone number to contact them and make an appointment. If symptoms persist or worsen over the next 6-8 weeks she will contact our office and we can order an MRI of the right shoulder for further evaluation. Patient is content with this plan and will see me back as needed. Orders: Orders PT Evaluation and Treatment Today M77.8 - Other enthesopathies, not elsewhere classified Coding Level of Care Code Est Pt Level 3 (04890) Complex EM visit Add On G2211 Diagnoses Right shoulder tendonitis M77.8 CPT Codes Coding - Joint 7: 60204 - Glenohumeral/Tronchanteric Bursa/Intraarticular ([id number])
[2025-03-23 13:35] VITALS: BMI 29.8
--- OUTSIDE RECORDS SUMMARY | 2025-03-23 13:46 | XMS_ITS | Patient Health Record ---
Author Organization [facility] Address [address] [place] [address] Care Team Providers Care Hand Stone Polisher Name Role Phone Ping Lamb Unavailable [phone] MONIQUEBIMAL STUART Unavailable [phone] Allergies No Known Allergies Reason For Referral [...] Problem Status W/U Status Risk Notes Problem 636213212 Other obesity due to excess calories (E66.09) Active confirmed Problem 425737106 Overweight (E66.3) Active confirmed Problem 870067305 Body mass index [BMI] 32.0-32.9, adult (Z68.32) Active confirmed Problem 520025146 BMI 30.0-30.9,adult (Z68.30) Active confirmed Vital Signs Heart Rate 76 /min 03/09/2025 Blood pressure diastolic 82 mm Hg 03/09/2025 Oximetry 99 % 03/09/2025 Height 63.25 in 03/09/2025 Blood pressure systolic 116 mm Hg 03/09/2025 Weight 170.2 lbs 03/09/2025 BMI 29.91 kg/m2 03/09/2025 Encounters Encounter Location Date Provider Diagnosis [facility] [address] [place] [address] 03/30/2024 [facility] [address] [place] [address] 04/06/2024 [facility] [address] [place] [address] 04/13/2024 [facility] [facility] [address] [place] [address] 04/20/2024 [facility] [facility] [address] [place] [address] 05/04/2024 [facility] [address] [facility] [address] [place] [address] 05/11/2024 [facility] [address] [place] [address] 05/17/2024 [facility] [address] [place] [address] 05/25/2024 [facility] [address] [place] [address] 03/23/2024 Ping Svrcek Other obesity due to excess calories E66.09 and Body mass index [BMI] 32.0-32.9, adult Z68.32 [address] [place] [address] 04/27/2024 Ping Svrcek Other obesity due to excess calories E66.09 and Body mass index [BMI] 32.0-32.9, adult Z68.32 [address] [address] 06/08/2024 Ping Svrcek Other obesity due to excess calories E66.09 and Body mass index [BMI] 32.0-32.9, adult Z68.32 [address] 07/22/2024 Ping Svrcek Other obesity due to excess calories E66.09 and BMI 30.0-30.9,adult Z68.30 [address] 08/18/2024 Ping Svrcek Other obesity due to excess calories E66.09 and BMI 30.0-30.9,adult Z68.30 [address] 09/16/2024 Ping Svrcek Other obesity due to excess calories E66.09 and BMI 30.0-30.9,adult Z68.30 [address] 10/25/2024 Ping Svrcek Other obesity due to excess calories E66.09 and BMI 29.0-29.9,adult Z68.29 [address] 11/30/2024 Ping Svrcek Other obesity due to excess calories E66.09 and BMI 29.0-29.9,adult Z68.29 [address] 01/05/2025 Ping Svrcek Other obesity due to excess calories E66.09 ; BMI 29.0-29.9,adult Z68.29 and Weight loss counseling, encounter for Z71.3 [address] 02/01/2025 Ping Svrcek Other obesity due to excess calories E66.09 ; BMI 29.0-29.9,adult Z68.29 and Weight loss counseling, encounter for Z71.3 [address] [address] 03/09/2025 Ping Svrcek BMI 29.0-29.9,adult Z68.29 ; Overweight E66.3 and Weight loss counseling, encounter for Z71.3 [facility] [address] [place] [address] 03/30/2024 Ping Svrcek [facility] [address] [place], [place] [address] 10/14/2024 Ping Svrcek Other obesity due to excess calories E66.09 [address] [place] [address] 01/05/[address] [place] [address] 05/26/2024 Ping Svrcek [address] [place] [address] 09/20/2024 Ping Svrcek Other obesity due to excess calories E66.09 [address] [place] [address] 09/20/2024 Ping Svrcek [address] [place] [address] 12/14/2024 Ping Svrcek [address] [place] [address] 01/16/2025 Ping Svrcek Other obesity due to [...] Dictation was accomplished with the use of [employer] voice recognition software, prone to medical misidentifications [...] Dictation was accomplished with the use of [employer] voice recognition software, prone to medical misidentifications [...] Dictation was accomplished with the use of [employer] voice recognition software, prone to medical misidentifications [...] Dictation was accomplished with the use of [employer] voice recognition software, prone to medical misidentifications [...] Dictation was accomplished with the use of [employer] voice recognition software, prone to medical misidentifications [...] Dictation was accomplished with the use of [employer] voice recognition software, prone to medical misidentifications [...] Dictation was accomplished with the use of [employer] voice recognition software, prone to medical misidentifications [...] Dictation was accomplished with the use of [employer] voice recognition software, prone to medical misidentifications [...] Dictation was accomplished with the use of [employer] voice recognition software, prone to medical misidentifications [...] Dictation was accomplished with the use of [employer] voice recognition software, prone to medical misidentifications [...] Dictation was accomplished with the use of [employer] voice recognition software, prone to medical misidentifications [...] improvement could consider submitting to insurance for [employer]. Continue to work on protein intake, hydration [...] Dictation was accomplished with the use of [employer] voice recognition software, prone to medical misidentifications [...] Dictation was accomplished with the use of [employer] voice recognition software, prone to medical misidentifications [...] Dictation was accomplished with the use of [employer] voice recognition software, prone to medical misidentifications [...] Dictation was accomplished with the use of [employer] voice recognition software, prone to medical misidentifications [...] Dictation was accomplished with the use of [employer] voice recognition software, prone to medical misidentifications [...] Dictation was accomplished with the use of [employer] voice recognition software, prone to medical misidentifications [...] Dictation was accomplished with the use of [employer] voice recognition software, prone to medical misidentifications [...] Dictation was accomplished with the use of [employer] voice recognition software, prone to medical misidentifications [...] Dictation was accomplished with the use of [employer] voice recognition software, prone to medical misidentifications [...] Dictation was accomplished with the use of [employer] voice recognition software, prone to medical misidentifications [...] Dictation was accomplished with the use of [employer] voice recognition software, prone to medical misidentifications [...] Dictation was accomplished with the use of [employer] voice recognition software, prone to medical misidentifications [...] Dictation was accomplished with the use of [employer] voice recognition software, prone to medical misidentifications [...] Name:Ping Lamb, 0 04/14/2025 08:15:00 AM, [address] [facility] [address], [place], [address], Insurance Providers Payer Name Payer Address Payer Phone Subscriber Number Group Number Insured Name Patient Relationship to Insured Coverage Start Date Coverage End Date [facility] [address] [place] [address] [id number] Roma Irving Self - patient is the [...]
--- OUTSIDE RECORDS SUMMARY | 2025-03-23 13:46 | XMS_ITS ---
Author Organization [facility] Address [address] [place] [address] Care Team Providers Care Leather Goods Maker Name Role Phone Jeffrey Rutledge Primary Care Provider Unavailab Yadiel Nixon Unavailable [phone] Elie BERNARD, Apollo Unavailable Unavailable REASON FOR VISIT epigastric pain,gerd Problems Problem Type SNOMED Code ICD Code Onset Dates Problem Status W/U Status Risk Notes Problem Gastroesophageal reflux disease with esophagitis (disorder) (628229004) Gastro-esoph ageal reflux disease with esophagitis, without bleeding (K21.00) Active confirmed Encounters Encounter Location Date Provider Diagnosis [facility] [address] [place] [phone] 05/07/2024 Yadiel Li Gastro-esophageal reflux disease with [...] * PHOENIX HERNANDESOB:1965 ( 59 yo F)Acc No.[id number]:05/07/2024 EGD/MAC Patient:?DONNA HERNANDES Provider:?Yadiel Li MD :1965???Age:59 Y???Sex:Female D ate:05/07/2024 Address:[address] [place], [place] [id number] Pcp:Jeffrey Rutledge Subjective: * Chief Complaints: * ???1. Epigastric pain,gerd. * Medical History:? Objective: * Vitals:? Assessment: * Assessment: 1.?Gastro-esophageal reflux disease with esophagitis, without bleeding - K21.00 (Primary)???2.?Hiatal hernia - K44.9???3.?Pain of upper abdomen - R10.10???4.?Heartburn - R12??? Plan: * Treatment: * Procedure Codes:?20950 UPPER GI ENDOSCOPY, BIOPSY * * The named appointment provid er may or may not be the originator of this progress note, and it is not deemed complete until electronically signed by the appointment provider. Sign off status: Pending * Provider:?Yadiel Li MD Date:? 024 Generated for Valerie cotto/Andrea/eTransmitting on:?03/23/2025 01:46 PM EDT
--- OUTSIDE RECORDS SUMMARY | 2025-03-23 13:46 | XMS_ITS ---
Author Organization [facility] Address [address] [place] [address] Care Team Providers Care Rollway Worker Name Role Phone Jeffrey Rutledge Primary Care Provider Unavailab Yadiel Nixon Unavailable [phone] Elie BERNARD, Apollo Unavailable Unavailable Allergies Allergen [...] 10/13/2024 Encounters Encounter Location Date Provider Diagnosis [facility] [address] [place] [address] 10/13/2024 Yadiel Li Encounter for screening for [...] * PHOENIX HERNANDESOB:1965 ( 59 yo F)Acc No.[id number]:10/13/2024 Progress Notes Patient:?ROMA HERNANDES Provider:?Yadiel Li MD :1965???Age:59 Y???Sex:Female D ate:10/13/2024 Address:[address] [place], [place] [phone] Pcp:Jeffrey Rutledge Subjective: * Chief Complaints: * [...] * Surgical History:?Left ember y removed for cancer-[facility] 1991Hysterectomy and BSO--2 separate operations 2013Surgery for repair of a laceration of the rectosigmoid colon 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 Marital status: single. 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 ???Nonsmoker; no sig alcohol. * Medications:?TakingLevothyro xine [...] Procedure Codes:?3017F COLOR ECTAL CA SCREEN DOC MSZ2305K TOBACCO NON-JSQUE1964 BP SCR NOT PRFRM REC REASON NOS * Preventive Medicine:? ??Counseling:?Care goal follow-up plan:?Above Normal BMI Follow-up?Giving encouragement to exercise,?BMI management provided?Yes.? * Follow Up:?prn * * Sign off status: Completed true * Provider:?Yadiel Li MD Date:? 024 Generated for Valerie cotto/Andrea/eTaliyasmitting on:?03/23/2025 01:46 PM EDT History and Physical Notes * [...]
--- OUTSIDE RECORDS SUMMARY | 2025-03-23 13:46 | XMS_ITS | Clinical Summary ---
Author Organization [facility] Address [address] [place] [address] Phone Care Team Providers Care Sizing Sprayer Name Role Phone Noel Carrizales DO Primary Care Provider [phone] Allergies Active Allergy Reactions Criticality Noted Date [...] 2014 Influenza Vaccine (Season Ended) 2025 Insurance [facility] Care Teams Sizing Sprayer Relationship Specialty Start Date End Date Noel Carrizales DO [facility] [address] PCP - General 11/13/20
--- OUTSIDE RECORDS SUMMARY | 2025-03-23 13:47 | XMS_ITS | Patient Health Record ---
Author Organization [facility] Address [address] [place] [address] Care Team Providers Care Marshmallow Runner Name Role Phone Jeffrey Rutledge Primary Care Provider Unavailab Yadiel Nixon Unavailable [phone] Elie BERNARD, Apollo Unavailable Unavailable Allergies Allergen (clinical drug ingredient) Drug/Non Drug Allergy documented on EMR Reaction Allergy Type Onset Date Status bupropion BuPROPion HCl Unknown Drug Allergy Act mikayla Results Component Value Reference Range Notes Pathology Reviewed date:10/13/2024 03:36:18 PM Interpretation: Performing Lab:[facility], [address] [place] [address] Notes/Report: Name: Roma Hernandes Ag e/Sex: 59/F : 1965 Unit#: [id number] Attend Dr: Yadiel Li MD Re05/07/24 Status : [facility] Location: [facility] Disch: SPEC : [id number] RECD : 05/07/24 STATUS: BRIAN MOSS NUM: [id number] MARRY: 05/07/[address] [facility] [address]: Yadiel Li MD ENTERED: 05/07/2411 [...] Roma Hernandes ge/Sex: 59/F : 1965 Unit#: [id number] Attend Dr: Yadiel Li MD Re05/07/24 Status : [facility] Location: [facility] Disch: SPEC : [id number] RECD : 05/07/24114 STATUS: BRIAN MOSS NUM: [id number] MARRY: 05/07/24-[address] [facility] [address]: Yadiel Li MD ENTERED: 05/07/24-11 [...] and B1. Copies To: Jeffrey Rutledge PA-C [address] [place] [address] [address] Yadiel Li MD [facility] [address] [place] [address] Signed (si gnature on file) Carol Kapadia [...] W/U Status Risk Notes Problem Epigastric pain (61721649) Epigastric abdominal pain (R10.13) Active confirmed Problem Epigastric pain (41390399) Epigastric pain (R10.13) Active confirmed Problem 583636854 Encounter for screening for malignant neoplasm of colon (Z12.11) Active confirmed Problem Screening for malignant neoplasm of rectum (914847150) Encounter for screening for malignant neoplasm of rectum (Z12.12) Active confirmed Problem Dysphagia (R13.10) Active confirmed Problem 66974870 Abdominal pain, epigastric (R10.13) Active confirmed Problem Elevated liver enzymes level (116464129) Elevated liver function tests (R79.89) Active confirmed Problem 274449455 Gastroesophageal reflux disease without esophagitis (K21.9) Active confirmed Problem 51582787 Preprocedural examination (Z01.818) Active confirmed Problem Fatty liver (856445283) Fatty liver (K76.0) Active confirmed Problem 42367882 Constipation, unspecified constipation type (K59.00) Active confirmed Problem 659741672 GERD (gastroesophageal reflux disease) (K21.9) Active confirmed Problem Gastroesophageal reflux disease with esophagitis (disorder) (456662270) Gastro-esophageal reflux disease with esophagitis, without bleeding (K21.00) Active confirmed Problem 80212875783789582 Abnormal computerized tomography of abdominal wall (R93.5) Active confirmed Problem Gastroesophageal reflux disease (disorder) (513430004) Chronic GERD (K21.9) Active confirmed Problem Epigastric pain (92982009) Epigastric burning sensation (R10.13) Active confirmed Vital Signs Blood pressure diastolic 00 mm Hg 10/13/2024 Height 63.5 in 10/13/2024 Blood pressure systolic 00 mm Hg 10/13/2024 Weight 163 lbs 10/13/2024 BMI 28.42 kg/m2 10/13/2024 Encounters Encounter Location Date Provider Diagnosis [facility] [address] [place] [phone] 05/07/2024 Yadiel Li Gastro-esophageal reflux disease with esophagitis, without bleeding K21.00 ; Hiatal hernia K44.9 ; Pain of upper abdomen R10.10 and Heartburn R12 [facility] [address] [place] [address] 04/06/2024 Yadiel Li Chronic GERD K21.9 and Epigastric burning sensation R10.13 [facility] [address] [place] [address] 10/13/2024 Yadiel Li Encounter for screening for malignant neoplasm of colon Z12.11 ; Abdominal pain, epigastric R10.13 ; GERD (gastroesophageal reflux disease) K21.9 and Chronic GERD K21.9 [facility] [address] [facility] [address] [place] [address] 01/17/2025 Yadiel Li Dysphagia R13.10 Assessments Encounter [...] DIFF 08/28/2020 HEPATITIS B, C PROFILE 09/10/2020 [id number] (A1A) 09/10/2020 MITOCHONDRIAL AB 09/10/2020 SMOOTH MUSCLE [...] Insured Coverage Start Date Coverage End Date [facility] [address] [place] [phone] [id number] ROMA HERNANDES Self - patient is the insured Medical (General) History Medical History History ICD Code Renal cancer(left)-1990 Denies [place],DM,CVA,Lung disease She has undergone previous u pper [...] the rectosigmoid colon 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 A F/U CT in 2021 revealed resolution of that.
--- OUTSIDE RECORDS SUMMARY | 2025-03-23 13:47 | XMS_ITS ---
Author Organization [facility] Address [address] [place] [address] Care Team Providers Care Baseball Sewer Hand Name Role Phone Aamir Jeffrey Primary Care Provider Unavailab Yadiel Nixon Unavailable [phone] Elie BERNARD, Apollo Unavailable Unavailable REASON FOR VISIT food is stuck Problems Problem Type SNOMED Code ICD Code Onset Dates Problem Status W/U Status Risk Notes Problem Dysphagia (58672502) Dysphagia (R13.10) Active confirmed Encounters Encounter Location Date Provider Diagnosis [facility] [address] [place] [address] 01/17/2025 Yadiel Li Dysphagia R13.10 Assessments Encounter Date Diagnosis (ICD Code) Assessment Notes Treatment Notes Treatment Clinical Notes Section Notes 01/17/2025 Dysphagia (ICD-10 - R13.10) Plan Of Treatment Pending Test Test Name Order Date XR BARIUM SWALLOW-ESOPHAGUS 01/17/2025 Progress Notes * PHOENIX HERNANDESOB:1965 ( 59 yo F)Acc No.[id number]:01/17/2025 Patient:?HERNANDES DONNA :1965???Age:59 Y???Sex:Female Address:[address] [place] [address] Subjective: * Chief Complaints: * ???Food is stuck * Medical History:? * Surgical History:? * Hospitalization/Major Diagno stic Procedure:? * Medications:? Objective: * Vitals:? * Physical Examination:? Assessment: * Assessment: 1.?Dysphagia - R13.10 (Prima ry)??? Plan: * Treatment: * * Procedure Codes:? * true * Date:? Generated for Valerie cotto/Andrea/Alina on:?03/23/2025 01:46 PM EDT
== END 2025-03-23 14:52 | disposition home or self-care (01) ==
LOC: HO.HOS 13:12
PROVIDERS: PCP Physician Assistant; Visit Provider Physician Assistant
DX: M77.8 Other enthesopathies, not elsewhere classified (principal); M25.511 Pain in right shoulder
CPT/HCPCS: 20610; 99213

== ENCOUNTER → 2025-03-23 13:11 | Outpatient (BNVA) | payer OTHER, SELFPAY | PROVIDERS: PCP Physician Assistant; Visit Provider Physician Assistant | DX: M77.8 Other enthesopathies, not elsewhere classified (principal) | CPT/HCPCS: 20610; J1010; J2003 ==

== ENCOUNTER 2025-04-01 09:26 | Outpatient (REF) | payer OTHER, SELFPAY ==
--- NOTE | ~2025-04-01 | FL_ITS ---
EXAMINATION: XR BARIUM SWALLOW CLINICAL INFORMATION: Dysphagia COMPARISON: None available. TECHNIQUE: Routine barium swallow upright was performed with thick barium and barium coated saltine cracker. Thin barium was administered with patient lying prone. FINDINGS: On oral administration of thick barium there is normal propagation bolus from the oral cavity through the pharynx, esophagus into stomach without obstruction, narrowing or stricture. No laryngeal penetration or aspiration seen. No retention in the valleculae or piriform sinuses. On oral administration of barium coated saltine crackers is normal oral mastication and propagation of bolus from the oral cavity through the pharynx, esophagus into stomach. On placing patient in prone lying and oral administration of thin barium there is normal flow of thin barium through the pharynx, esophagus into stomach. There is no gastroesophageal reflux or hiatal hernia seen. FLUOROSCOPY TIME: 1 minute 37 seconds DOSE AREA PRODUCT: 1444 uGy-m2 (microgray-meter squared) FL/FL barium swallow IMPRESSION: Unremarkable barium swallow examination. Electronically signed by: Abilio Jimenez MD 04/01/2025 10:39 AM EDT
--- OUTSIDE RECORDS SUMMARY | 2025-04-01 09:44 | XMS_ITS ---
Author Organization [facility] Address [address] [place] [address] Care Team Providers Care Telecommunications Sales Representative Name Role Phone Jeffrey Rutledge Primary Care Provider Unavailab Yadiel Nixon Unavailable [phone] Elie BERNARD, Apollo Unavailable Unavailable REASON FOR VISIT epigastric pain,gerd Problems Problem Type SNOMED Code ICD Code Onset Dates Problem Status W/U Status Risk Notes Problem Gastroesophageal reflux disease with esophagitis (disorder) (017437810) Gastro-esoph ageal reflux disease with esophagitis, without bleeding (K21.00) Active confirmed Encounters Encounter Location Date Provider Diagnosis [facility] [place] [address] [place] [phone] 05/07/2024 Yadiel Li Gastro-esophageal reflux disease with [...] * PHOENIX HERNANDESOB:1965 ( 59 yo F)Acc No.[id number]:05/07/2024 EGD/MAC Patient:?DONNA HERNANDES Provider:?Yadiel Li MD :1965???Age:59 Y???Sex:Female D ate:05/07/2024 Address:[address] [place], [place] [phone] Pcp:Jeffrey Rutledge Subjective: * Chief Complaints: * ???1. Epigastric pain,gerd. * Medical History:? Objective: * Vitals:? Assessment: * Assessment: 1.?Gastro-esophageal reflux disease with esophagitis, without bleeding - K21.00 (Primary)???2.?Hiatal hernia - K44.9???3.?Pain of upper abdomen - R10.10???4.?Heartburn - R12??? Plan: * Treatment: * Procedure Codes:?76440 UPPER GI ENDOSCOPY, BIOPSY * * The named appointment provid er may or may not be the originator of this progress note, and it is not deemed complete until electronically signed by the appointment provider. Sign off status: Pending * Provider:?Yadiel Li MD Date:? 024 Generated for Valerie cotto/Andrea/eTransmitting on:?04/01/2025 09:43 AM EDT
== END 2025-04-01 09:27 | disposition home or self-care (01) ==
LOC: HO.XRAY 09:26
PROVIDERS: PCP Physician Assistant; Visit Provider Internal Medicine
DX: R13.10 Dysphagia, unspecified (principal)
CPT/HCPCS: 74220

== ENCOUNTER → 2025-04-01 09:27 | Outpatient (BNV) | payer OTHER, SELFPAY | PROVIDERS: PCP Physician Assistant; Visit Provider Radiology Diagnostic Radiology | DX: R13.10 Dysphagia, unspecified (principal) | CPT/HCPCS: 74220 ==

== ENCOUNTER 2025-05-12 06:44 | Outpatient (REF) | payer OTHER, SELFPAY ==
--- OUTSIDE RECORDS SUMMARY | 2024-05-07 06:40 | XMS_ITS ---
Author Organization [facility] Address [address] [place] [address] Care Team Providers Care Dev Technical Mgr Name Role Phone Jeffrey Rutledge Primary Care Provider Unavailab Yadiel Nixon Unavailable [phone] Elie BERNARD, Apollo Unavailable Unavailable REASON FOR VISIT epigastric pain,gerd Problems Problem Type SNOMED Code ICD Code Onset Dates Problem Status W/U Status Risk Notes Problem Gastroesophageal reflux disease with esophagitis (disorder) (661583125) Gastro-esoph ageal reflux disease with esophagitis, without bleeding (K21.00) Active confirmed Encounters Encounter Location Date Provider Diagnosis [facility] [place] Outpatient [address] [place] [id number] 05/07/2024 Yadiel Li Gastro-esophageal reflux disease with [...] * PHOENIX HERNANDESOB:1965 ( 60 yo F)Acc No.[id number]:05/07/2024 EGD/MAC Patient: DONNA DINH Provider: Miguel Li MD :1965 A ge:59 Y S ex:Female Date:05/07/2024 Address:[address] [place], [place] [phone] Pcp:Jeffrey Rutledge Subjective: * Chief Complaints: * [...] Li MD Date: 05/07/2024 Generated for Valerie cotto/Andrea/Adrianitting on: 05/12/2025 06:45 AM EDT
--- NOTE | ~2025-05-12 | FL_ITS ---
EXAMINATION: FL GUIDANCE ONLY HISTORY: M47.816 - Spondylosis without myelopathy or radiculopathy, lumbar region COMPARISON: None available. TECHNIQUE: Fluoroscopy time: 0.2 minutes. Cumulative Dose: 2.68 mGy. DAP: 0.357 mGym2 Images: 2. FINDINGS: Fluoroscopic spot films of the lumbar spine demonstrate needles in the regions of the bilateral L3-4, L4-5, and L5-S1 facet joints. FL/FL guidance in treatment room IMPRESSION: Fluoroscopy during procedure. Please see procedure report for additional information. Electronically signed by: Yadiel Cutler MD 05/12/2025 03:11 PM EDT
--- OUTSIDE RECORDS SUMMARY | 2025-05-12 06:46 | XMS_ITS | Clinical Summary ---
Author Organization [facility] Address [address] [place] [address] Phone Care Team Providers Care Smokehouse Worker Name Role Phone Noel Carrizales DO Primary Care Provider [phone] Allergies Active Allergy Reactions Criticality Noted Date [...] Comments Breast Cancer Screening 1965 Pneumococcal Vaccine: 50+ Ye ars (1 of 2 - PCV) 1984 Colorectal Cancer Screening: Annual FOBT 2014 Colorectal Cancer Screening: Colonoscopy 2014 Colorectal Cancer Screening: Sigmoidoscopy 2014 Influenza Vaccine (#1) 2025 Hepatitis B Vaccine Aged Out No longe r eligible based on patient's age to complete this [place] [address] [facility] Care Teams Smokehouse Worker Relationship Specialty Start Date End Date Noel Carrizales DO [address] [facility] [address] [place], [place] PCP - General 11/13/20
--- OUTSIDE RECORDS SUMMARY | 2025-05-12 06:46 | XMS_ITS | Patient Health Record ---
Author Organization [facility] [address] Address [address] [place] [address] Care Team Providers Care Ribbon Hanking Machine Operator Name Role Phone Ping Lamb Unavailable [phone] MONIQUEBIMAL STUART Unavailable [phone] Allergies No Known Allergies Reason For Referral No Information Medications Medication SIG (Take, Route, Frequency, Duration) Notes Start Date End Date Status Levothyroxine Sodium 125 MCG TAKE 1 TABLET BY MOUTH DAILY Oral; Duration: 90 Days Active Zepbound 10 MG/0.5ML 0.5 mL Subcutaneous once weekly; Duration: 30 days replaces wegovy Active Vitamin D3 25 MCG (1000 UT) TAKE 1 CAPSULE BY MOUTH EVERY DAY Oral; Duration: 90 Days Active Zolpidem Tartrate 10 MG TAKE 1 TABLET BY MOUTH AT BEDTIME FOR 14 DAYS Oral; Duration: 14 Days Active Omeprazole 20 MG 1 capsule 30 minutes before morning meal Orally Once a day; Duration: 30 day(s) 02/24/2024 Active Topiramate 25 MG TAKE 1 TABLET BY MOUTH ONE A DAY; Duration: 90 Active Sucralfate 1 GM TAKE 1 TABLET BY MOUTH THREE TIMES DAILY Oral; Duration: 30 Days Not-Taking Social History Tobacco Use: Social History Observation [...] Problem Status W/U Status Risk Notes Problem Obesity due to excess calories (523303336) Other obesity due to excess calories (E66.09) Active confirmed Problem Overweight (119845223) Overweight (E66.3) Active confirmed Problem Body mass index 30.00 to 34.99 (99029762649619 7) Body mass index [BMI] 32.0-32.9, adult (Z68.32) Active confirmed Problem Body mass index 30+ - obesity (031070947) BMI 30.0-30.9,adult (Z68.30) Active confirmed Vital Signs Heart Rate 86 /min 04/14/2025 Oximetry 98 % 04/14/2025 Blood pressure diastolic 82 mm Hg 04/14/2025 Height 63.25 in 04/14/2025 Blood pressure systolic 120 mm Hg 04/14/2025 Weight 168.9 lbs 04/14/2025 BMI 29.68 kg/m2 04/14/2025 Encounters Encounter Location Date Provider Diagnosis [facility] [address] [address] 05/17/2024 [facility] [address] [address] 05/25/2024 [facility] [address] [address] 06/08/2024 P[facility] Other obesity due to excess calories E66.09 and Body mass index [BMI] 32.0-32.9, adult Z68.32 [facility] [address] [address] 07/22/2024 Ping Svrcek Other obesity due to excess calories E66.09 and BMI 30.0-30.9,adult Z68.30 [facility] [address] [address] 08/18/2024 Ping Svrcek Other obesity due to excess calories E66.09 and BMI 30.0-30.9,adult Z68.30 [facility] [address] [address] 09/16/2024 Ping Svrcek Other obesity due to excess calories E66.09 and BMI 30.0-30.9,adult Z68.30 [facility] [address] [address] 10/25/2024 Ping Svrcek Other obesity due to excess calories E66.09 and BMI 29.0-29.9,adult Z68.29 [facility] [address] 11/30/2024 Ping Svrcek Other obesity due to excess calories E66.09 and BMI 29.0-29.9,adult Z68.29 [facility] [address] [facility] [address] [place], [place] 01/05/2025 Ping Svrcek Other obesity due to excess calories E66.09 ; BMI 29.0-29.9,adult Z68.29 and Weight loss counseling, encounter for Z71.3 [facility] [address] 02/01/2025 Ping Svrcek Other obesity due to excess calories E66.09 ; BMI 29.0-29.9,adult Z68.29 and Weight loss counseling, encounter for Z71.3 [facility] [address] 03/09/2025 Ping Svrcek BMI 29.0-29.9,adult Z68.29 ; Overweight E66.3 and Weight loss counseling, encounter for Z71.3 [facility] [address] 04/14/2025 Ping S[facility]ce[facility] Overweight E66.3 ; B LA 29.0-29.9,adult Z68.29 ; Weight loss counseling, encounter for Z71.3 and Encounter for examination of blood pressure without abnormal findings Z01.[address] [facility] [place] [address] 10/14/2024 Ping Svrcek Other obesity due to excess calories E66.09 [facility] [address] 01/05/2025 Ping S[facility]ce[facility] [address] [facility] [address] [place] [address] 05/26/2024 Ping Svrcek [facility] [address] [address] 09/20/2024 Ping Svrcek Other obesity due to excess calories E66.09 [facility] [address] [facility] [address] [place] [address] 09/20/2024 Ping Svrcek [facility] [address] [facility] [address] [place] [address] 12/14/2024 Ping Svrcek [facility] [address] [facility] [address] [place] [address] 01/16/2025 Ping Svrcek Other obesity due to excess calories E66.09 Assessments Encounter Date Diagnosis (ICD Code) Assessment Notes Treatment Notes Treatment Clinical Notes Section Notes 06/08/2024 Other obesity due to excess calories [...] Dictation was accomplished with the use of Vaughn Burton voice recognition software, prone to medical misidentifications [...] Dictation was accomplished with the use of [employer]n [employer] voice recognition software, prone to medical misidentifications [...] Dictation was accomplished with the use of [employer]n [employer] voice recognition software, prone to medical misidentifications [...] Dictation was accomplished with the use of [employer]n [employer] voice recognition software, prone to medical misidentifications [...] Dictation was accomplished with the use of Vaughn Burton voice recognition software, prone to medical misidentifications [...] Dictation was accomplished with the use of Vaughn Burton voice recognition software, prone to medical misidentifications [...] Dictation was accomplished with the use of Vaughn Burton voice recognition software, prone to medical misidentifications [...] Dictation was accomplished with the use of Vaughn Burton voice recognition software, prone to medical misidentifications [...] Dictation was accomplished with the use of Vaughn Burton voice recognition software, prone to medical misidentifications [...] Dictation was accomplished with the use of Vaughn Burton voice recognition software, prone to medical misidentifications [...] Dictation was accomplished with the use of Vaughn Burton voice recognition software, prone to medical misidentifications [...] Dictation was accomplished with the use of Vaughn Burton voice recognition software, prone to medical misidentifications [...] Dictation was accomplished with the use of Vaughn Burton voice recognition software, prone to medical misidentifications [...] Dictation was accomplished with the use of Vaughn Burton voice recognition software, prone to medical misidentifications [...] Dictation was accomplished with the use of Vaughn Burton voice recognition software, prone to medical misidentifications [...] of an obesity medicine certified physician, Dr. aZc Valerio. Case discussed with collaborating physician Jesús Valerio who reviewed the assessment and plan. Chart, medications, labs, vital signs reviewed. Dictation was accomplished with the use of Vaughn Burton voice recognition software, prone to medical misidentifications [...] Dictation was accomplished with the use of Vaughn [employer] voice recognition software, prone to medical misidentifications [...] Dictation was accomplished with the use of [employer] voice recognition software, prone to medical misidentifications and grammatical errors. This is unintentional and the practitioner does try to identify and correct these, but some could still be present. Please do not hesitate to contact practitioner for clarification. All questions answered to patients satisfaction. Patient verbalized understanding of diagnosis and treatments explained. To call sooner prior to next visit it any questions/concerns arise. 04/14/2025 Overweight (ICD-10 - E66.3) #Obesity. 04/14/25: 168.9, BMI 29.6. She is doing well on Zepbound but still has not noticed much appetite suppression. Continues to have positive body composition changes. Will increase to 10 mg dose on next refill. Will plan [...] Dictation was accomplished with the use of Vaughn Burton voice recognition software, prone to medical misidentifications and grammatical errors. This is unintentional and the practitioner does try to identify and correct these, but some could still be present. Please do not hesitate to contact practitioner for clarification. All questions answered to patients satisfaction. Patient verbalized understanding of diagnosis and treatments explained. To call sooner prior to next visit it any questions/concerns arise. 04/14/2025 BMI 29.0-29.9,adul t (ICD-10 - Z68.29) #Obesity. 04/14/25: 168.9, BMI 29.6. She is doing well on Zepbound but still has not noticed much appetite suppression. Continues to have positive body composition changes. Will increase to 10 mg dose on next refill. Will plan [...] Dictation was accomplished with the use of Vaugh[employer] voice recognition software, prone to medical misidentifications and grammatical errors. This is unintentional and the practitioner does try to identify and correct these, but some could still be present. Please do not hesitate to contact practitioner for clarification. All questions answered to patients satisfaction. Patient verbalized understanding of diagnosis and treatments explained. To call sooner prior to next visit it any questions/concerns arise. 04/14/2025 Weight loss counseling, encounter for (ICD-10 - Z71.3) #Obesity. 04/14/25: 168.9, BMI 29.6. She is doing well on Zepbound but still has not noticed much appetite suppression. Continues to have positive body composition changes. Will increase to 10 mg dose on next refill. Will plan [...] Dictation was accomplished with the use of Vaughn Burton voice recognition software, prone to medical misidentifications [...] Dictation was accomplished with the use of Vaughn Burton voice recognition software, prone to medical misidentifications [...] Dictation was accomplished with the use of Vaughn Burton voice recognition software, prone to medical misidentifications [...] Dictation was accomplished with the use of [employer]n Burton voice recognition software, prone to medical misidentifications and grammatical errors. This is unintentional and the practitioner does try to identify and correct these, but some could still be present. Please do not hesitate to contact practitioner for clarification. All questions answered to patients satisfaction. Patient verbalized understanding of diagnosis and treatments explained. To call sooner prior to next visit it any questions/concerns arise. 04/14/2025 Encounter for examination of blood pressure without abnormal findings (ICD-10 - Z01.30) #Obesity. 04/14/25: 168.9, BMI 29.6. She is doing well on Zepbound but still has not noticed much appetite suppression. Continues to have positive body composition changes. Will increase to 10 mg dose on next refill. Will plan [...] Dictation was accomplished with the use of Vaughn Burton voice recognition software, prone to medical misidentifications [...] Next Appt Details Provider Name:Ping Lamb, 0 05/26/2025 08:30:00 AM, [address] [facility] [address], [place], [address], Insurance Providers Payer Name Payer Address Payer Phone Subscriber Number Group Number Insured Name Patient Relationship to Insured Coverage Start Date Coverage End Date [facility] [address] [place] [address] [phone] [id number] Roma Irving Self - patient is the [...]
== END 2025-05-12 06:45 | disposition home or self-care (01) ==
LOC: CF 06:44
PROVIDERS: Visit Provider Internal Medicine
DX: M47.816 Spondylosis without myelopathy or radiculopathy, lumbar region (principal)
CPT/HCPCS: 64493; 64494; J2003; J2795; Q9967

== ENCOUNTER 2025-05-12 13:14 | Outpatient (AMB) | payer OTHER, SELFPAY ==
[2025-05-12 13:22] VITALS: BP 121/78; PULSE 80; RESP 16; O2SAT 90; BMI 29.8
--- NOTE | 2025-05-12 13:22 | A.OFFVIS_ITS ---
Vital Signs 05/12/25 13:22 Height 5 ft 3.5 in Weight 171 lb BMI 29.8 BP 121/78 Blood Pressure Location Lt brachial Position Sitting Respiration 16 Pulse 80 Pulse Source Pulse Oximeter Pulse Oximetry (%) 90 L Oxygen Delivery Method Room Air Intake Visit Reasons: Sunday Dx L3-L4-DR-L5 MBB/ ativan Allergies bupropion (From WELLBUTRIN) Allergy (Intermediate, Verified 03/23/25 13:35) HALLUCINATION Iodinated Contrast Media (IV DYE, IODINE CONTAINING CONTRAST ) Allergy (Intermediate, Verified 03/23/25 13:35) HIVES HPI HPI Sunday Dx L3-L4-DR-L5 MBB/ ativan: Details: Patient presents for scheduled procedure. Denies any recent cough, cold, infection, fever or other significant changes in medical history since last office visit. [facility] Medical History Fatty liver Depression Solitary kidney, acquired GERD (gastroesophageal reflux disease) Borderline high cholesterol Adrenal adenoma Hypothyroidism Urinary frequency Migraine Surgical History H/O colonoscopy History of esophagogastroduodenoscopy (EGD) Hx of surgical procedure (04/23/24) History of cholecystectomy History of abdominoplasty History of arthroscopy of left knee History of arthroscopy of right shoulder History of tubal ligation History of ovarian cystectomy History of hysterectomy History of nephrectomy Family History Father History of throat cancer Mother No problems noted. Sister History of breast cancer History of ovarian cancer Brother History of kidney problems Maternal Grandmother History of pancreatic cancer Brother No problems noted. Son No problems noted. Daughter No problems noted. Daughter No problems noted. Daughter No problems noted. Social History Housing: House Alcohol intake: current Alcohol intake frequency: holidays/special occasions only Patient Tobacco Use Status: Never used Tobacco e-Cigarette/Vaping Use: Never Used Second Hand Smoke Exposure: No service: No Current occupational status: employed Current occupation: Working at [employer], right hand dominant Cognitive needs: No Hearing needs: No Vision needs: Yes (Glasses) Physical Exam Vital Signs: Last Vital Signs Pulse 80 05/12/25 13:22 Resp 16 05/12/25 13:22 BP 121/78 05/12/25 13:22 Pulse Ox 90 L 05/12/25 13:22 Oxygen Delivery Method Room Air 05/12/25 13:22 BMI result Body Mass Index 29.8 Office Procedures Details: Lumbar Medial Branch Block, Bilateral L3, L4 medial branches and L5 Dorsal Ramus (2 levels, 3 nerves) After obtaining written consent, pre-procedure blood pressure and pulse were recorded and are in the nursing record for review. The patient was placed in a prone position. The respective lumbosacral area was prepped with chloraprep and draped in sterile fashion. The skin over the target medial branch nerves was anesthetized with 0.5% lidocaine. A 22 gauge 3.5 inch needle was inserted into the target medial branch nerve under fluoroscopic guidance. No paresthesias were elicited with needle placement and aspiration was negative for blood and CSF. Next, 0.2cc of omnipaque 180 was injected to verify positioning in AP and oblique imaging. Next 0.5 ml 0.5% ropivicaine was injected (0.5cc total per level). The identical procedure was performed at the remaining levels. The skin was cleansed and a sterile bandage was applied. Following the procedure the patient's vital signs were stable. The patient tolerated the procedure well and no complications were encountered. Following the procedure the patient's vital signs were stable. The patient was discharged home in good condition with post-procedural instructions. Time Out: Immediately prior to the procedure, the following was verbally confirmed that there is a signed consent form and that the correct patient, plan francisco procedure, site and side are consistent with documentation and that necessary equipment and/or blood products are available prior to the start of the case. Complications: none EBL: <5 cc 61283 - with Fluoroscopy (L3-L4) 94942 - second level with Fluoroscopy (L3-L4-L5) Procedure code (CPT) selection complete Assessment & Plan Assessment & Plan (1) Lumbar spondylosis: Code(s): M47.816 - Spondylosis without myelopathy or radiculopathy, lumbar region Category: Medical Plan Patient is status post bilateral diagnostic lumbar medial branch blocks. Patient tolerated procedure well and was discharged home in stable condition with discharge instructions. All questions were answered. We will follow-up via telephone or in clinic to assess response to therapy. A follow-up appointment was made during today's visit. Orders: Orders FL guidance in treatment room Today Kristal Massey APRN, [employer] M47.816 - Spondylosis without myelopathy or radiculopathy, lumbar region AMB Medial Branch Block - Lumbar/Sacral Today Omi Yang MD M47.816 - Spondylosis without myelopathy or radiculopathy, lumbar region Medications: New lorazepam (Ativan) Take 30 minutes prior to arrival to procedure 1 mg PO ONCE 1 tab 0RF anxiety Kristal Massey APRN, [employer] Coding Level of Care Code Procedure Only Diagnoses Lumbar spondylosis M47.816 CPT Codes Medial Branch Block Lumbar/Sacral1 - Branch Block Lumb/Sac 1: 47873 - with Fluoroscopy (L3-L4) ([id number]) Medial Branch Block Lumbar/Sacral1 - Branch Block Lumb/Sac 2: 31552 - second level with Fluoroscopy (L3-L4-L5) ([id number])
== END 2025-05-12 13:52 | disposition home or self-care (01) ==
LOC: HO.PMCPRC 13:14
PROVIDERS: PCP Physician Assistant; Visit Provider Internal Medicine
DX: M47.816 Spondylosis without myelopathy or radiculopathy, lumbar region (principal)
CPT/HCPCS: 64493; 64494

== ENCOUNTER 2025-05-16 07:29 | Outpatient (REF) | payer OTHER, SELFPAY ==
--- OUTSIDE RECORDS SUMMARY | 2024-05-07 06:40 | XMS_ITS ---
Author Organization [facility] Address [address] [place] [address] Care Team Providers Care Director Community Organization Name Role Phone Jeffrey Rutledge Primary Care Provider Unavailab Yadiel Nixon Unavailable [phone] Elie BERNARD, Apollo Unavailable Unavailable REASON FOR VISIT epigastric pain,gerd Problems Problem Type SNOMED Code ICD Code Onset Dates Problem Status W/U Status Risk Notes Problem Gastroesophageal reflux disease with esophagitis (disorder) (384937564) Gastro-esoph ageal reflux disease with esophagitis, without bleeding (K21.00) Active confirmed Encounters Encounter Location Date Provider Diagnosis [facility] [place] Outpatient [address] [place] [phone] 05/07/2024 Yadiel Li Gastro-esophageal reflux disease with [...] * PHOENIX HERNANDESOB:1965 ( 60 yo F)Acc No.[id number]:05/07/2024 EGD/MAC Patient: DONNA DINH Provider: Miguel Li MD :1965 A ge:59 Y S ex:Female Date:05/07/2024 Address:[address] [place], [place] [phone] Pcp:Jeffrey Rutledge Subjective: * Chief Complaints: * 1 . Epigastric pain,gerd. * Medical History: Objective: * Vitals: Assessment: * Assessment: 1. G yogesh-esophageal reflux disease with esophagitis, without bleeding - K21.00 (Primary) 2 . H iatal hernia - K44.9 3 . P ain of upper abdomen - R10.10? 4. H eartburn - R12 Plan: * Treatment: * Procedure Codes: 4 3239 UPPER GI ENDOSCOPY, BIOPSY * * The named appointment provid er may or may not be the originator of this progress note, and it is not deemed complete until electronically signed by the appointment provider. Sign off status: Pending * Provider: Miguel Li MD Date: 05/07/2024 Generated for Valerie cotto/Andera/Adrianitting on: 05/16/2025 07:32 AM EDT
--- OUTSIDE RECORDS SUMMARY | 2025-05-16 07:32 | XMS_ITS | Patient Health Record ---
Author Organization [facility] [address] Address [address] [place] [address] Care Team Providers Care Slasher Runner Name Role Phone Ping Lamb Unavailable [phone] MONIQUEBIMAL STUART Unavailable [phone] Allergies No Known Allergies Reason For Referral [...] Notes Problem Obesity due to excess calories (098009136) Other obesity due to excess calories (E66.09) Active confirmed Problem Overweight (991540734) Overweight (E66.3) Active confirmed Problem Body mass index 30.00 to 34.99 (93976852095874 7) Body mass index [BMI] 32.0-32.9, adult (Z68.32) Active confirmed Problem Body mass index 30+ - obesity (832498539) BMI 30.0-30.9,adult (Z68.30) Active confirmed Vital Signs Heart Rate 86 /min 04/14/2025 Blood pressure diastolic 82 mm Hg 04/14/2025 Oximetry 98 % 04/14/2025 Height 63.25 in 04/14/2025 Blood pressure systolic 120 mm Hg 04/14/2025 Weight 168.9 lbs 04/14/2025 BMI 29.68 kg/m2 04/14/2025 Encounters Encounter Location Date Provider Diagnosis [facility] [address] [address] 05/17/2024 [facility] [address] [address] 05/25/2024 [facility] [address] [address] 06/08/2024 [facility] Other obesity due to excess calories E66.09 and Body mass index [BMI] 32.0-32.9, adult Z68.[address] [facility] [address] [address] 07/22/2024 [facility] Other obesity due to excess calories E66.09 and BMI 30.0-30.9,adult Z68.[address] [facility] [address] [address] 08/18/2024 Ping [facility] Other obesity due to excess calories E66.09 and BMI 30.0-30.9,adult Z68.[address] [facility] [address] [address] 09/16/2024 Ping [facility] Other obesity due to excess calories E66.09 and BMI 30.0-30.9,adult Z68.30 [facility] [address] [address] 10/25/2024 Ping [facility] Other obesity due to excess calories E66.09 and BMI 29.0-29.9,adult Z68.29 [facility] [address] 11/30/2024 P[facility] Other obesity due to excess calories E66.09 and BMI 29.0-29.9,adult Z68.29 [facility] [address] [facility] [address] [place], [place] 01/05/2025 Ping S[facility]ce[facility] Other obesity due to excess calories E66.09 ; BMI 29.0-29.9,adult Z68.29 and Weight loss counseling, encounter for Z71.3 [facility] [address] 02/01/2025 Ping [facility] Other obesity due to excess calories E66.09 ; BMI 29.0-29.9,adult Z68.29 and Weight loss counseling, encounter for Z71.3 [facility] [address] 03/09/2025 Ping S[facility] BMI 29.0-29.9,adult Z68.29 ; Overweight E66.3 and Weight loss counseling, encounter for Z71.3 [facility] [address] 04/14/2025 Ping [facility] Overweight E66.3 ; B ND 29.0-29.9,adult Z68.29 ; Weight loss counseling, encounter for Z71.3 and Encounter for examination of blood pressure without abnormal findings Z01.[address] [place] [address] 10/14/2024 Ping S[facility]ce[facility] Other obesity due to excess calories E66.09 [facility] [address] 01/05/2025 [facility] [address] [facility] [address] [place] [address] 05/26/2024 [facility]ing [facility] [address] [address] 09/20/2024 P[facility] Other obesity due to excess calories E66.09 [facility] [address] [facility] [address] [place] [address] 09/20/2024 [facility] [address] [facility] [address] [place] [address] 12/14/2024 [facility] [address] [facility] [address] [place] [address] 01/16/2025 [facility] Other obesity due to [...] Dictation was accomplished with the use of JumpIn voice recognition software, prone to medical misidentifications [...] Dictation was accomplished with the use of JumpIn voice recognition software, prone to medical misidentifications [...] Dictation was accomplished with the use of JumpIn voice recognition software, prone to medical misidentifications [...] Dictation was accomplished with the use of JumpIn voice recognition software, prone to medical misidentifications [...] Dictation was accomplished with the use of JumpIn voice recognition software, prone to medical misidentifications [...] Dictation was accomplished with the use of JumpIn voice recognition software, prone to medical misidentifications [...] Dictation was accomplished with the use of JumpIn voice recognition software, prone to medical misidentifications [...] Dictation was accomplished with the use of JumpIn voice recognition software, prone to medical misidentifications [...] Dictation was accomplished with the use of JumpIn voice recognition software, prone to medical misidentifications [...] Dictation was accomplished with the use of JumpIn voice recognition software, prone to medical misidentifications [...] Dictation was accomplished with the use of JumpIn voice recognition software, prone to medical misidentifications [...] Dictation was accomplished with the use of JumpIn voice recognition software, prone to medical misidentifications [...] Dictation was accomplished with the use of JumpIn voice recognition software, prone to medical misidentifications [...] Dictation was accomplished with the use of JumpIn voice recognition software, prone to medical misidentifications [...] Dictation was accomplished with the use of JumpIn voice recognition software, prone to medical misidentifications [...] Dictation was accomplished with the use of JumpIn voice recognition software, prone to medical misidentifications [...] Dictation was accomplished with the use of JumpIn voice recognition software, prone to medical misidentifications [...] Dictation was accomplished with the use of JumpIn voice recognition software, prone to medical misidentifications [...] Dictation was accomplished with the use of JumpIn voice recognition software, prone to medical misidentifications [...] Dictation was accomplished with the use of JumpIn voice recognition software, prone to medical misidentifications [...] Dictation was accomplished with the use of JumpIn voice recognition software, prone to medical misidentifications [...] Dictation was accomplished with the use of JumpIn voice recognition software, prone to medical misidentifications [...] Dictation was accomplished with the use of JumpIn voice recognition software, prone to medical misidentifications [...] Dictation was accomplished with the use of JumpIn voice recognition software, prone to medical misidentifications [...] Dictation was accomplished with the use of JumpIn voice recognition software, prone to medical misidentifications [...] Name:Ping Lamb, 0 05/26/2025 08:30:00 AM, [address] [facility] [address], [place], [address], Insurance Providers Payer Name Payer Address Payer Phone Subscriber Number Group Number Insured Name Patient Relationship to Insured Coverage Start Date Coverage End Date [facility] [address] [place] [address] [id number] Roma Irving Self - patient is the [...]
--- OUTSIDE RECORDS SUMMARY | 2025-05-16 07:32 | XMS_ITS | Clinical Summary ---
Author Organization [facility] Address [address] [place] [address] Phone Care Team Providers Care Cmm Inspector Name Role Phone Noel Carrizales DO Primary Care Provider [phone] Allergies Active Allergy Reactions Criticality Noted Date [...] patient's age to complete this topic [place] [address] [facility] Care Teams Cmm Inspector Relationship Specialty Start Date End Date Noel Carrizales DO [address] [facility] [address] [place], [place] PCP - General 11/13/20
== END 2025-05-16 07:30 | disposition home or self-care (01) ==
LOC: HO.MAMMO 07:29
PROVIDERS: PCP Physician Assistant; Visit Provider Physician Assistant
DX: Z12.31 Encounter for screening mammogram for malignant neoplasm of breast (principal)
CPT/HCPCS: 77063; 77067

== ENCOUNTER → 2025-05-16 07:30 | Outpatient (BNV) | payer OTHER, SELFPAY | PROVIDERS: PCP Physician Assistant; Visit Provider Internal Medicine | DX: Z12.31 Encounter for screening mammogram for malignant neoplasm of breast (principal) | CPT/HCPCS: 77063; 77067 ==

== ENCOUNTER 2025-05-25 08:35 | Outpatient (AMB) | payer OTHER, SELFPAY ==
--- OUTSIDE RECORDS SUMMARY | 2024-05-07 06:40 | XMS_ITS ---
Author Organization [facility] Address [address] [place] [address] Care Team Providers Care Power Tong Operator Name Role Phone Jeffrey Rutledge Primary Care Provider Unavailab Yadiel Nixon Unavailable [phone] Elie BERNARD, Apollo Unavailable Unavailable REASON FOR VISIT epigastric pain,gerd Problems Problem Type SNOMED Code ICD Code Onset Dates Problem Status W/U Status Risk Notes Problem Gastroesophageal reflux disease with esophagitis (disorder) (562042646) Gastro-esoph ageal reflux disease with esophagitis, without bleeding (K21.00) Active confirmed Encounters Encounter Location Date Provider Diagnosis [facility] [place] [address] [place] [id number] 05/07/2024 Yadiel Li Gastro-esophageal reflux disease with [...] * PHOENIX HERNANDESOB:1965 ( 60 yo F)Acc No.[id number]:05/07/2024 EGD/MAC Patient: DONNA DINH Provider: Miguel Li MD :1965 A ge:59 Y S ex:Female Date:05/07/2024 Address:[address] [place], [place] [phone] Pcp:Jeffrey Rutledge Subjective: * Chief Complaints: * [...] Date: 05/07/2024 Generated for Valerie cotto/Andrea/Adrianitting on: 05/25/2025 08:52 AM EDT
[2025-05-25 08:39] VITALS: BP 133/92; PULSE 82; RESP 16; O2SAT 95; BMI 29.6
--- NOTE | 2025-05-25 08:39 | A.OFFVIS_ITS ---
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 She underwent bilateral diagnostic L3-L4-DR-L5 medial branch blocks on 05/12/2025, which did not alleviate her pain, rated today at 5/10. The patient has been prescribed gabapentin but has not taken it due to concerns about kidney issues, expressing frustration over ineffective past interventions. She experiences insomnia due to pain, describing it as needle-like sensations that disrupt her sleep. The patient is concerned about her kidney health, having only one functioning kidney, and is cautious about medications that could cause harm. - Onset: Persistent pain post-procedure - Quality: Described as needle-like pinching sensations - Severity: Rated at 5/10 - Exacerbating factors: Movement during sleep - Interference: Disrupts sleep - Affect: Pain causes frustration and impacts sleep - Analgesia: Gabapentin prescribed but not taken; pain rated at 5/10 - Adverse Effects: Concerns about kidney damage from medications - Activities of Daily Living: Pain disrupts sleep - Aberrant Drug Related Behaviors: None reported PFSH Medical History Fatty liver Depression Solitary kidney, acquired GERD (gastroesophageal reflux disease) Borderline high cholesterol Adrenal adenoma Hypothyroidism Urinary frequency Migraine Surgical History H/O colonoscopy History of esophagogastroduodenoscopy (EGD) Hx of surgical procedure (04/23/24) History of cholecystectomy History of abdominoplasty History of arthroscopy of left knee History of arthroscopy of right shoulder History of tubal ligation History of ovarian cystectomy History of hysterectomy History of nephrectomy Family History Father History of throat cancer Mother No problems noted. Sister History of breast cancer History of ovarian cancer Brother History of kidney problems Maternal Grandmother History of pancreatic cancer Brother No problems noted. Son No problems noted. Daughter No problems noted. Daughter No problems noted. Daughter No problems noted. Social History Housing: House Alcohol intake: current Alcohol intake frequency: holidays/special occasions only Patient Tobacco Use Status: Never used Tobacco e-Cigarette/Vaping Use: Never Used Second Hand Smoke Exposure: No service: No Current occupational status: employed Current occupation: Working at [employer], right hand dominant Cognitive needs: No Hearing needs: No Vision needs: Yes (Glasses) Review of Systems Const Details: - Musculoskeletal: Reports persistent pain rated at 5/10 - Neurological: Reports needle-like sensations - Renal: Concern about kidney health - Sleep: Reports insomnia due to pain Physical Exam Vital Signs: Last Vital Signs Pulse 82 05/25/25 08:39 Resp 16 05/25/25 08:39 BP 133/92 H 05/25/25 08:39 Pulse Ox 95 05/25/25 08:39 Oxygen Delivery Method Room Air 05/25/25 08:39 BMI result Body Mass Index 29.6 General: awake, alert, oriented. Answers questions appropriately. Fully engaged in examination. Skin: warm, dry, intact HEENT: Normocephalic. Hearing intact. Cardiac: External chest normal in appearance. Respiratory: No cough, audible wheezing or stridor. Abdomen: without gross distension. Neurological: Oriented to person, place, time and situation. Thought process intact. No gait abnormalities appreciated. Psychiatric: Appropriate mood and affect. Good judgment and insight. Results Reviewed Results Reviewed: 11/2024 MRI LS Findings: Bony alignment of the lumbar vertebral bodies is anatomic. No fracture or concerning bone marrow signal alteration is identified. The conus terminates at L1-2. No abnormal signal intensity is identified within the conus medullaris. Partial visualization of an 8 mm cyst within the right kidney. No concerning retroperitoneal mass lesions are identified. Segmental analysis: L1-2: Mild disc desiccation without disc bulge or protrusion. Central canal and neural foramina are patent. L2-3: Minimal disc desiccation without significant disc height loss. Mild facet joint degenerative change. Central canal and neural foramina are patent. L3-4: Mild broad-based disc bulge with facet joint degenerative change bilaterally, vriz-mhioqun-khvk-right. There is hypertrophy of the ligamentum flavum. Central canal remains patent. Neural foramina are patent. L4-5: Minimal posterior annular bulging, asymmetric to the right. Wpri-pi-juzfxvvj facet joint degenerative change. Central canal and neural foramina are patent. L5-S1: Broad-based disc bulge with subtle high intensity zone within the central left central location indicative of an annular tear. No protrusion. Rpop-nv-mpgqobxn facet joint degenerative change. Central canal and neural foramina are patent. IMPRESSION: Degenerative changes as above without neural impingement. 09/23/24 XR/XR lumbar spine 2-3V FINDINGS: Minimal age indeterminate superior endplate compression deformity of L1 vertebral body. The remaining lumbar vertebral bodies demonstrate normal height. Overall sagittal alignment is maintained. Mild multilevel intervertebral space narrowing. Mild facet arthropathy of the lower lumbar spine. Multiple surgical clips within the abdomen and pelvis. The lateral sacroiliac joints and pubic symphysis are intact. IMPRESSION: Mild age-indeterminate superior endplate compression deformity of L1 vertebral body. Mild multilevel degenerative changes. Assessment & Plan Assessment & Plan (1) Sacroiliac joint dysfunction of left side: Code(s): M53.3 - Sacrococcygeal disorders, not elsewhere classified Category: Medical (2) Compression fracture of L1 lumbar vertebra: Code(s): S32.010A - Wedge compression fracture of first lumbar vertebra, initial encounter for closed fracture Category: Medical (3) Low back pain: Code(s): M54.50 - Low back pain, unspecified Category: Medical Qualifiers: Chronicity: acute Back pain laterality: midline Sciatica presence: with sciatica Sciatica laterality: sciatica of right side Qualified Code(s): M54.41 - Lumbago with sciatica, right side Plan 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 If deemed safe, she should consider taking gabapentin at bedtime to help manage her pain and improve sleep quality. Gabapentin previously prescribed by PCP however patient did not get it from the pharmacy. She is requesting new prescription be sent today. The patient is encouraged to follow up with rheumatology to explore potential underlying inflammatory conditions that may be contributing to her pain. She should inquire about being placed on a waitlist for earlier appointments due to the long wait time for her scheduled visit. Patient was informed and verbally consented to the use of an ambient scribe for clinic note documentation during this visit. Patient Instructions: - Check with your kidney doctor about the safety of taking gabapentin. - If safe, consider taking gabapentin at bedtime to help with pain and sleep. - Follow up with rheumatology to explore potential inflammatory conditions. - Ask about being placed on a waitlist for an earlier rheumatology appointment. Coding Level of Care Code Est Pt Level 3 (66774) Complex EM visit Add On G2211 Diagnoses Sacroiliac joint dysfunction of left side M53.3 Compression fracture of L1 lumbar vertebra S32.010A Acute midline low back pain with right-sided sciatica M54.41 Chronicity: acute Back pain laterality: midline Sciatica presence: with sciatica Sciatica laterality: sciatica of right side
--- OUTSIDE RECORDS SUMMARY | 2025-05-25 08:52 | XMS_ITS | Clinical Summary ---
Author Organization [facility] Address [address] [place] [address] Phone Care Team Providers Care Tower Supervisor Name Role Phone Noel Carrizales DO Primary Care Provider [phone] Allergies Active Allergy Reactions Criticality Noted Date [...] patient's age to complete this topic [place] [address] [facility] Care Teams Tower Supervisor Relationship Specialty Start Date End Date Noel Carrizales DO [address] [facility] [address] [place], [place] PCP - General 11/13/20
--- OUTSIDE RECORDS SUMMARY | 2025-05-25 08:52 | XMS_ITS | Patient Health Record ---
Author Organization [facility] [address] Address [address] [place] [address] Care Team Providers Care Orthotics Technician Name Role Phone Ping Lamb Unavailable [phone] MONIQUEBIMAL STUART Unavailable [phone] Allergies No Known Allergies Reason For Referral No Information Medications Medication SIG (Take, Route, Frequency, Duration) Notes Start Date End Date Status Levothyroxine Sodium 125 MCG TAKE 1 TABLET BY MOUTH DAILY Oral; Duration: 90 Days Active Vitamin D3 25 MCG (1000 UT) TAKE 1 CAPSULE BY MOUTH EVERY DAY Oral; Duration: 90 Days Active Zolpidem Tartrate 10 MG TAKE 1 TABLET BY MOUTH AT BEDTIME FOR 14 DAYS Oral; Duration: 14 Days Active Omeprazole 20 MG 1 capsule 30 minutes before morning meal Orally Once a day; Duration: 30 day(s) 02/24/2024 Active Zepbound 12.5 MG/0.5ML 0.5 mL Subcutaneous once weekly; Duration: 30 days replaces wegovy Active Topiramate 25 MG TAKE 1 TABLET [...] Notes Problem Obesity due to excess calories (340747111) Other obesity due to excess calories (E66.09) Active confirmed Problem Overweight (233372821) Overweight (E66.3) Active confirmed Problem Body mass index 30.00 to 34.99 (98389630095395 7) Body mass index [BMI] 32.0-32.9, adult (Z68.32) Active confirmed Problem Body mass index 30+ - obesity (336866004) BMI 30.0-30.9,adult (Z68.30) Active confirmed Vital Signs Heart Rate 86 /min 04/14/2025 Oximetry 98 % 04/14/2025 Blood pressure diastolic 82 mm Hg 04/14/2025 Height 63.25 in 04/14/2025 Blood pressure systolic 120 mm Hg 04/14/2025 Weight 168.9 lbs 04/14/2025 BMI 29.68 kg/m2 04/14/2025 Encounters Encounter Location Date Provider Diagnosis [facility] [address] [facility] [address] [place] [address] 05/25/2024 BIMAL VEERETT [facility] [address] [facility] [address] [place] [address] 06/08/2024 Ping Svrcek Other obesity due to excess calories E66.09 and Body mass index [BMI] 32.0-32.9, adult Z68.32 [facility] [address] [facility] [address] [place] [address] 07/22/2024 Ping Svrcek Other obesity due to excess calories E66.09 and BMI 30.0-30.9,adult Z68.30 [facility] [address] [facility] [address] [place] [address] 08/18/2024 Ping Svrcek Other obesity due to excess calories E66.09 and BMI 30.0-30.9,adult Z68.30 [facility] [address] [address] 09/16/2024 Ping Svrcek Other obesity due to excess calories E66.09 and BMI 30.0-30.9,adult Z68.30 [facility] [address] [address] 10/25/2024 Ping Svrcek Other obesity due to excess calories E66.09 and BMI 29.0-29.9,adult Z68.29 [facility] [address] [facility] [address] [place] [address] 11/30/2024 Ping Svrcek Other obesity due to excess calories E66.09 and BMI 29.0-29.9,adult Z68.29 [facility] [address] [address] 01/05/2025 Ping Svrcek Other obesity due to excess calories E66.09 ; BMI 29.0-29.9,adult Z68.29 and Weight loss counseling, encounter for Z71.3 [facility] [address] [facility] [address] [place] [address] 02/01/2025 Ping Svrcek Other obesity due to excess calories E66.09 ; BMI 29.0-29.9,adult Z68.29 and Weight loss counseling, encounter for Z71.3 [facility] [address] 03/09/2025 Ping Svrcek BMI 29.0-29.9,adult Z68.29 ; Overweight E66.3 and Weight loss counseling, encounter for Z71.3 [facility] [address] [address] 04/14/2025 Ping Svrcek Overweight E66.3 ; B VT 29.0-29.9,adult Z68.29 ; Weight loss counseling, encounter for Z71.3 and Encounter for examination of blood pressure without abnormal findings Z01.30 [facility] [address] [address] 05/24/2025 Ping Svrcek Overweight E66.[address] [facility] [address] [place] [address] 10/14/2024 Ping Svrcek Other obesity due to excess calories E66.09 [facility] [address] 01/05/2025 Ping Svrcek [facility] [address] [facility] [address] [place] [address] 05/26/2024 Ping Svrcek [facility] [address] [address] 09/20/2024 Ping Svrcek Other obesity due to excess calories E66.09 [facility] [address] [facility] [address] [place] [address] 09/20/2024 Ping Svrcek [facility] [address] [facility] [address] [place] [address] 12/14/2024 Ping Svrcek [facility] [address] [facility] [address] [facility] [address] [place] [address] 01/16/2025 Ping Svrcek Other obesity due to [...] Dictation was accomplished with the use of iSkoot voice recognition software, prone to medical misidentifications [...] care coordination Case discussed with collaborating physician eJsús Valerio who reviewed the assessment and plan. Chart, medications, labs, vital signs reviewed. Dictation was accomplished with the use of iSk[employer] voice recognition software, prone to medical misidentifications [...] Dictation was accomplished with the use of iSk[employer] voice recognition software, prone to medical misidentifications [...] Dictation was accomplished with the use of [employer]Sk[employer] voice recognition software, prone to medical misidentifications [...] Dictation was accomplished with the use of [employer]Sk[employer] voice recognition software, prone to medical misidentifications [...] Dictation was accomplished with the use of iSk[employer] voice recognition software, prone to medical misidentifications [...] improvement could consider submitting to insurance for [employer]. Continue to work on protein intake, hydration [...] Dictation was accomplished with the use of iSk[employer] voice recognition software, prone to medical misidentifications [...] Dictation was accomplished with the use of iSk[employer] voice recognition software, prone to medical misidentifications [...] Dictation was accomplished with the use of [employer]Sk[employer] voice recognition software, prone to medical misidentifications [...] Dictation was accomplished with the use of [employer] voice recognition software, prone to medical misidentifications [...] Dictation was accomplished with the use of iSk[employer] voice recognition software, prone to medical misidentifications [...] Dictation was accomplished with the use of iSk[employer] voice recognition software, prone to medical misidentifications [...] BMI 29.0-29.9,adul t (ICD-10 - Z68.29) #Obesity. 3/5/25: 170.5 pounds, BMI 29.8. She is doing [...] Dictation was accomplished with the use of iSk[employer] voice recognition software, prone to medical misidentifications [...] Dictation was accomplished with the use of iSk[employer] voice recognition software, prone to medical misidentifications [...] Dictation was accomplished with the use of iSk[employer] voice recognition software, prone to medical misidentifications [...] Dictation was accomplished with the use of iSk[employer] voice recognition software, prone to medical misidentifications [...] Dictation was accomplished with the use of [employer]Sk[employer] voice recognition software, prone to medical misidentifications [...] Dictation was accomplished with the use of iSk[employer] voice recognition software, prone to medical misidentifications [...] Dictation was accomplished with the use of iSkoot voice recognition software, prone to medical misidentifications and grammatical errors. This is unintentional and the practitioner does try to identify and correct these, but some could still be present. Please do not hesitate to contact practitioner for clarification. All questions answered to patients satisfaction. Patient verbalized understanding of diagnosis and treatments explained. To call sooner prior to next visit it any questions/concerns arise. 05/24/2025 Overweight (ICD-10 - E66.3) 04/14/2025 Weight loss counseling, encounter for (ICD-10 [...] Dictation was accomplished with the use of iSkoot voice recognition software, prone to medical misidentifications [...] Dictation was accomplished with the use of iSkoot voice recognition software, prone to medical misidentifications [...] Dictation was accomplished with the use of iSk[employer] voice recognition software, prone to medical misidentifications [...] Dictation was accomplished with the use of iSk[employer] voice recognition software, prone to medical misidentifications [...] Dictation was accomplished with the use of iSk[employer] voice recognition software, prone to medical misidentifications [...] Name:Ping Lamb, 0 05/26/2025 08:30:00 AM, [address] [facility], [facility] [address], [place], [address], Insurance Providers Payer Name Payer Address Payer Phone Subscriber Number Group Number Insured Name Patient Relationship to Insured Coverage Start Date Coverage End Date [facility] [address] [place] [address] [phone] [id number] Roma Irving Self - patient is the [...]
== END 2025-05-25 09:12 | disposition home or self-care (01) ==
LOC: HO.PMC 08:36
PROVIDERS: PCP Physician Assistant; Visit Provider Registered Nurse Emergency
DX: M53.3 Sacrococcygeal disorders, not elsewhere classified (principal); S32.010A Wedge compression fracture of first lumbar vertebra, initial encounter for closed fracture; M54.41 Lumbago with sciatica, right side
CPT/HCPCS: 99213; G2211

== ENCOUNTER 2025-05-25 08:35 | Outpatient (REF) | payer OTHER, SELFPAY ==
[2025-06-02 23:58] LABS: Saliva Cortisol 0.11 mcg/dL
== END 2025-05-25 08:36 | disposition home or self-care (01) ==
LOC: HO.LNP 08:35
PROVIDERS: Internal Medicine Endocrinology, Diabetes & Metabolism; PCP Physician Assistant; Visit Provider Registered Nurse Emergency
DX: S32.010A Wedge compression fracture of first lumbar vertebra, initial encounter for closed fracture (principal); D35.00 Benign neoplasm of unspecified adrenal gland; M53.3 Sacrococcygeal disorders, not elsewhere classified; M54.41 Lumbago with sciatica, right side
CPT/HCPCS: 82530

== ENCOUNTER 2025-06-08 07:44 | Outpatient (AMB) | payer OTHER, SELFPAY ==
--- OUTSIDE RECORDS SUMMARY | 2024-05-07 06:40 | XMS_ITS ---
Author Organization [facility] Address [address] [place] [address] Care Team Providers Care Aircraft Steel Fabricator Name Role Phone Jeffrey Rutledge Primary Care Provider Unavailab Yadiel Nixon Unavailable [phone] Elie BERNARD, Apollo Unavailable Unavailable REASON FOR VISIT epigastric pain,gerd Problems Problem Type SNOMED Code ICD Code Onset Dates Problem Status W/U Status Risk Notes Problem Gastroesophageal reflux disease with esophagitis (disorder) (816810673) Gastro-esoph ageal reflux disease with esophagitis, without bleeding (K21.00) Active confirmed Encounters Encounter Location Date Provider Diagnosis [facility] [place] Out[place] [address] [place] [phone] 05/07/2024 Yadiel Li Gastro-esophageal reflux disease with [...] * PHOENIX HERNANDESOB:1965 ( 60 yo F)Acc No.[id number]:05/07/2024 EGD/MAC Patient: DONNA DINH Provider: Miguel Li MD :1965 A ge:59 Y S ex:Female Date:05/07/2024 Address:[address] [place], [place] [phone] Pcp:Jeffrey Rutledge Subjective: * Chief Complaints: * [...] 05/07/2024 Generated for Valerie cotto/Andrea/Adrianitting on: 0 06/08/2025 07:46 AM EDT
--- OUTSIDE RECORDS SUMMARY | 2025-06-08 07:46 | XMS_ITS | Clinical Summary ---
Author Organization [facility] Address [address] [place] [address] Phone Care Team Providers Care Engagement Lead Name Role Phone Noel Carrizales DO Primary Care Provider [phone] Allergies Active Allergy Reactions Criticality Noted Date [...] patient's age to complete this topic [place] [address] [facility] Care Teams Engagement Lead Relationship Specialty Start Date End Date Noel Carrizales DO [address] [facility] [address] [place], [place] PCP - General 11/13/20
--- OUTSIDE RECORDS SUMMARY | 2025-06-08 07:46 | XMS_ITS | Patient Health Record ---
Author Organization [facility] Address [address] [place] [address] Care Team Providers Care Phlebotomy Services Technician Name Role Phone Ping Lamb Unavailable [phone] Allergies No Known Allergies Reason For Referral No Information Medications Medication SIG (Take, Route, Frequency, Duration) Notes Start Date End Date Status Omeprazole 20 MG 1 capsule 30 minutes before morning meal Orally Once a day; Duration: 30 day(s) 02/24/2024 Active Zolpidem Tartrate 10 MG TAKE 1 TABLET BY MOUTH AT BEDTIME FOR 14 DAYS Oral; Duration: 14 Days Active Vitamin D3 25 MCG (1000 UT) TAKE 1 CAPSULE BY MOUTH EVERY DAY Oral; Duration: 90 Days Active Levothyroxine Sodium 125 MCG TAKE 1 TABLET BY MOUTH DAILY Oral; Duration: 90 Days Active Sucralfate 1 GM TAKE 1 TABLET BY MOUTH THREE TIMES DAILY Oral; Duration: 30 Days Not-Taking Zepbound 12.5 MG/0.5ML 0.5 mL Subcutaneous once weekly; Duration: 30 days replaces wegovy Active Topiramate 25 MG TAKE 1 TABLET BY MOUTH ONE A DAY; Duration: 90 Active Social History Tobacco Use: Social History [...] Notes Problem Obesity due to excess calories (271059835) Other obesity due to excess calories (E66.09) Active confirmed Problem Overweight (258081200) Overweight (E66.3) Active confirmed Problem Body mass index 30.00 to 34.99 (13429559280265 7) Body mass index [BMI] 32.0-32.9, adult (Z68.32) Active confirmed Problem Body mass index 30+ - obesity (633961206) BMI 30.0-30.9,adult (Z68.30) Active confirmed Vital Signs Heart Rate 69 /min 05/26/2025 Oximetry 98 % 05/26/2025 Blood pressure diastolic 72 mm Hg 05/26/2025 Height 63.25 in 05/26/2025 Blood pressure systolic 124 mm Hg 05/26/2025 Weight 169.3 lbs 05/26/2025 BMI 29.75 kg/m2 05/26/2025 Encounters Encounter Location Date Provider Diagnosis [facility] [address] [address] 06/08/2024 Ping Svrcek Other obesity due to excess calories E66.09 and Body mass index [BMI] 32.0-32.9, adult Z68.32 [facility] [address] [address] 07/22/2024 Ping Svrcek Other obesity due to excess calories E66.09 and BMI 30.0-30.9,adult Z68.30 [facility] [address] [address] 08/18/2024 Ping Svrcek Other obesity due to excess calories E66.09 and BMI 30.0-30.9,adult Z68.30 [facility] [address] [address] 09/16/2024 Ping Svrcek Other obesity due to excess calories E66.09 and BMI 30.0-30.9,adult Z68.30 [facility] [address] [address] 10/25/2024 Ping Svrcek Other obesity due to excess calories E66.09 and BMI 29.0-29.9,adult Z68.29 [facility] [address] [address] 11/30/2024 Ping Svrcek Other obesity due to excess calories E66.09 and BMI 29.0-29.9,adult Z68.29 [facility] [address] 01/05/2025 Ping Svrcek Other obesity due to excess calories E66.09 ; BMI 29.0-29.9,adult Z68.29 and Weight loss counseling, encounter for Z71.3 [facility] [address] 02/01/2025 Ping Svrcek Other obesity due to excess calories E66.09 ; BMI 29.0-29.9,adult Z68.29 and Weight loss counseling, encounter for Z71.3 [facility] [address] 03/09/2025 Ping Svrcek BMI 29.0-29.9,adult Z68.29 ; Overweight E66.3 and Weight loss counseling, encounter for Z71.3 [facility] [address] 04/14/2025 Ping Svrcek Overweight E66.3 ; B NM 29.0-29.9,adult Z68.29 ; Weight loss counseling, encounter for Z71.3 and Encounter for examination of blood pressure without abnormal findings Z01.30 [facility] [address] 05/26/2025 Ping Svrcek Overweight E66.3 ; B NM 29.0-29.9,adult Z68.29 ; Weight loss counseling, encounter for Z71.3 and Encounter for examination of blood pressure without abnormal findings Z01.[address] [address] [place] [address] 10/14/2024 Ping Svrcek Other obesity due to excess calories E66.09 [facility] [address] 01/05/2025 Ping Svrcek [facility] [address] 05/24/2025 Ping Svrcek Overweight E66.3 [facility] [address] 09/20/2024 Ping Svrcek Other obesity due to excess calories E66.09 [facility] [address] [facility] [address] [place] [address] 09/20/2024 Ping Svrcek [facility] [address] [facility] [address] [place] [address] 12/14/2024 Ping Svrcek [facility] [address] [facility] [address] [place] [address] 01/16/2025 Ping Svrcek Other obesity due to [...] Dictation was accomplished with the use of Lams[employer] voice recognition software, prone to medical misidentifications [...] Dictation was accomplished with the use of Lams[employer] voice recognition software, prone to medical misidentifications [...] Dictation was accomplished with the use of Lams[employer] voice recognition software, prone to medical misidentifications [...] Dictation was accomplished with the use of Lamsa voice recognition software, prone to medical misidentifications [...] Dictation was accomplished with the use of Lamsa voice recognition software, prone to medical misidentifications [...] Dictation was accomplished with the use of Lams[employer] voice recognition software, prone to medical misidentifications [...] Dictation was accomplished with the use of Lamsa voice recognition software, prone to medical misidentifications [...] Dictation was accomplished with the use of Lamsa voice recognition software, prone to medical misidentifications [...] Dictation was accomplished with the use of Lamsa voice recognition software, prone to medical misidentifications [...] Dictation was accomplished with the use of Lamsa voice recognition software, prone to medical misidentifications [...] Dictation was accomplished with the use of Lamsa voice recognition software, prone to medical misidentifications [...] Dictation was accomplished with the use of Lamsa voice recognition software, prone to medical misidentifications [...] has not tolerated. We will submit for [employer]. Reviewed risk benefits adverse effects of medication. [...] Dictation was accomplished with the use of Lamsa voice recognition software, prone to medical misidentifications [...] Dictation was accomplished with the use of Lamsa voice recognition software, prone to medical misidentifications [...] Dictation was accomplished with the use of Lamsa voice recognition software, prone to medical misidentifications [...] Dictation was accomplished with the use of Lamsa voice recognition software, prone to medical misidentifications [...] Dictation was accomplished with the use of Lams[employer] voice recognition software, prone to medical misidentifications [...] Dictation was accomplished with the use of Lamsa voice recognition software, prone to medical misidentifications [...] an obesity medicine certified physician, Dr. Zac Vaelrio. Case discussed with collaborating physician Jesús Valerio who reviewed the assessment and plan. Chart, medications, labs, vital signs reviewed. Dictation was accomplished with the use of Lamsa voice recognition software, prone to medical misidentifications [...] Dictation was accomplished with the use of Lamsa voice recognition software, prone to medical misidentifications [...] questions/concerns arise. 05/24/2025 Overweight (ICD-10 - E66.3) 05/26/2025 Overweight (ICD-10 - E66.3) #Obesity. 169.8, BMI 29.7. She is currently on Zepbound 12.5 mg which was just started yesterday. Mild nausea with increased dose. Discussed consistent eating habits, hydration and protein intake. She will let me know if symptoms persist or worsen. Continue to work on increased exercise. Encouraged to add resistance training 3 times a week. Follow-up in 4 weeks sooner with any concerns The patient will continue exercise regimen with [...] to next visit it any questions/concerns arise. 05/26/2025 BMI 29.0-29.9,adul t (ICD-10 - Z68.29) #Obesity. 169.8, BMI 29.7. She is currently on Zepbound 12.5 mg which was just started yesterday. Mild nausea with increased dose. Discussed consistent eating habits, hydration and protein intake. She will let me know if symptoms persist or worsen. Continue to work on increased exercise. Encouraged to add resistance training 3 times a week. Follow-up in 4 weeks sooner with any concerns The patient will continue exercise regimen with [...] Dictation was accomplished with the use of Lamsa voice recognition software, prone to medical misidentifications and grammatical errors. This is unintentional and the practitioner does try to identify and correct these, but some could still be present. Please do not hesitate to contact practitioner for clarification. All questions answered to patients satisfaction. Patient verbalized understanding of diagnosis and treatments explained. To call sooner prior to next visit it any questions/concerns arise. 05/26/2025 Weight loss counseling, encounter for (ICD-10 - Z71.3) #Obesity. 169.8, BMI 29.7. She is currently on Zepbound 12.5 mg which was just started yesterday. Mild nausea with increased dose. Discussed consistent eating habits, hydration and protein intake. She will let me know if symptoms persist or worsen. Continue to work on increased exercise. Encouraged to add resistance training 3 times a week. Follow-up in 4 weeks sooner with any concerns The patient will continue exercise regimen with [...] Dictation was accomplished with the use of Lamsa voice recognition software, prone to medical misidentifications [...] Dictation was accomplished with the use of Lamsa voice recognition software, prone to medical misidentifications [...] Dictation was accomplished with the use of Lamsa voice recognition software, prone to medical misidentifications [...] Dictation was accomplished with the use of Lamsa voice recognition software, prone to medical misidentifications [...] Dictation was accomplished with the use of Lamsa voice recognition software, prone to medical misidentifications [...] Dictation was accomplished with the use of Lamsa voice recognition software, prone to medical misidentifications and grammatical errors. This is unintentional and the practitioner does try to identify and correct these, but some could still be present. Please do not hesitate to contact practitioner for clarification. All questions answered to patients satisfaction. Patient verbalized understanding of diagnosis and treatments explained. To call sooner prior to next visit it any questions/concerns arise. 05/26/2025 Encounter for examination of blood pressure without abnormal findings (ICD-10 - Z01.30) #Obesity. 169.8, BMI 29.7. She is currently on Zepbound 12.5 mg which was just started yesterday. Mild nausea with increased dose. Discussed consistent eating habits, hydration and protein intake. She will let me know if symptoms persist or worsen. Continue to work on increased exercise. Encouraged to add resistance training 3 times a week. Follow-up in 4 weeks sooner with any concerns The patient will continue exercise regimen with [...] Dictation was accomplished with the use of Lamsa voice recognition software, prone to medical misidentifications [...] Next Appt Details Provider Name:Ping Lamb, 0 07/06/2025 08:30:00 AM, [address] [facility] [address], [place], [address], Insurance Providers Payer Name Payer Address Payer Phone Subscriber Number Group Number Insured Name Patient Relationship to Insured Coverage Start Date Coverage End Date [facility] [address] [place] [address] [id number] Roma Irving Self - patient is the [...]
--- NOTE | 2025-06-08 07:49 | A.OFFVIS_ITS ---
Vital Signs 06/08/25 07:52 Height 5 ft 3.5 in Weight 169 lb 0.773 oz BMI 29.5 BP 114/78 Blood Pressure Location Rt brachial Position Sitting Pulse 91 Pulse Source Pulse Oximeter Pulse Oximetry (%) 97 Oxygen Delivery Method Room Air Intake Visit Reasons: f/u adrenal adenoma Intake Note: Patient present today for Adrenal Adenoma follow up visit. Senior Manufacturing Supervisor Required: No Accompanied by: Self / Same As Patient Allergies bupropion (From WELLBUTRIN) Allergy (Intermediate, Verified 06/08/25 07:53) HALLUCINATION Iodinated Contrast Media (IV DYE, IODINE CONTAINING CONTRAST ) Allergy (Intermediate, Verified 06/08/25 07:53) HIVES Medication List - Last Reconciled 06/08/25 by Yadiel Cm MD cholecalciferol (vitamin D3) 25 mcg PO DAILY dexamethasone 1 mg PO ONCE diclofenac sodium 1% (Arthritis Pain (diclofenac)) 4 grams topical QID gabapentin 100 mg PO BID hydroxyzine HCl 25 mg PO BEDTIME levothyroxine 125 mcg PO DAILY 90 days lorazepam (Ativan) 1 mg PO ONCE omeprazole 40 mg PO QAM prednisone 10 mg PO DIRECTED simvastatin 5 mg PO DAILY 90 days sumatriptan succinate take 1 tab at onset of headache; if no relief may repeat 1 tab after at least 2 hrs; max = 4 tabs/24 hr PO zolpidem ER 12.5 mg PO BEDTIME 30 days HPI Comments Details: This is a 59-year-old female for management of obesity and hypothyroidism. Patient has ?There is a stable 2.5 x 2.8 cm right adrenal lesion and history of left adrenalectomy. She previously had a dexamethasone suppression test which was normal in 2018. A recent repeat dexamethasone suppression test showed cortisol level 1.6. . A midnight salivary cortisol at midnight was normal . A repeat salivary cortisol was not done at CT . No sx of [place]'s . No sx of pheo. [facility] Medical History Fatty liver Depression Solitary kidney, acquired GERD (gastroesophageal reflux disease) Borderline high cholesterol Adrenal adenoma Hypothyroidism Urinary frequency Migraine Surgical History H/O colonoscopy History of esophagogastroduodenoscopy (EGD) Hx of surgical procedure (04/23/24) History of cholecystectomy History of abdominoplasty History of arthroscopy of left knee History of arthroscopy of right shoulder History of tubal ligation History of ovarian cystectomy History of hysterectomy History of nephrectomy Family History Father History of throat cancer Mother No problems noted. Sister History of breast cancer History of ovarian cancer Brother History of kidney problems Maternal Grandmother History of pancreatic cancer Brother No problems noted. Son No problems noted. Daughter No problems noted. Daughter No problems noted. Daughter No problems noted. Social History Housing: House Alcohol intake: current Alcohol intake frequency: holidays/special occasions only Patient Tobacco Use Status: Never used Tobacco e-Cigarette/Vaping Use: Never Used Second Hand Smoke Exposure: No service: No Current occupational status: employed Current occupation: Working at [employer], right hand dominant Cognitive needs: No Hearing needs: No Vision needs: Yes (Glasses) Assessment & Plan Assessment & Plan (1) Adrenal adenoma: Code(s): D35.00 - Benign neoplasm of unspecified adrenal gland Category: Medical Qualifiers: Laterality: right Qualified Code(s): D35.01 - Benign neoplasm of right adrenal gland Plan: This is a 60-year-old female with a history of left adrenalectomy and right adrenal mass stable in size and chronically present. Workup for pheochromocytoma was negative. she had a normal dexamethasone suppression test but t salivary cortisol was slightly elevated but not performed at CT Will repeat 1 mg dexamethasone suppression test with dexamethasone a cortisol level If 1 mg dexamethasone test is normal meeting suppression under 1.8 we will continue to observe Orders: Orders Adrenocorticotropic Hormone Today D35.01 - Benign neoplasm of right adrenal gland Dexamethasone 1 Week D35.01 - Benign neoplasm of right adrenal gland DHEA Sulfate Today D35.01 - Benign neoplasm of right adrenal gland Cortisol Random 1 Week D35.01 - Benign neoplasm of right adrenal gland Medications: New dexamethasone 1 mg PO ONCE 1 tab 0RF Coding Level of Care Code Est Pt Level 3 (43276) Diagnoses Adenoma of right adrenal gland D35.01 Laterality: right
[2025-06-08 07:52] VITALS: BP 114/78; PULSE 91; O2SAT 97; BMI 29.5
== END 2025-06-08 08:10 | disposition home or self-care (01) ==
LOC: HO.ENCR 07:44
PROVIDERS: PCP Physician Assistant; Visit Provider Internal Medicine Endocrinology, Diabetes & Metabolism
DX: D35.01 Benign neoplasm of right adrenal gland (principal)
CPT/HCPCS: 99213

== ENCOUNTER 2025-07-26 07:14 | Outpatient (REF) | payer OTHER, SELFPAY ==
--- OUTSIDE RECORDS SUMMARY | 2024-05-07 06:40 | XMS_ITS ---
Author Organization [facility] Address [address] [place] [address] Care Team Providers Care Market Research Manager Name Role Phone Jeffrey Rutledge Primary Care Provider Unavailab Yadiel Nixon Unavailable [phone] Elie BERNARD, Apollo Unavailable Unavailable REASON FOR VISIT epigastric pain,gerd Problems Problem Type SNOMED Code ICD Code Onset Dates Problem Status W/U Status Risk Notes Problem Gastroesophageal reflux disease with esophagitis (disorder) (901437354) Gastro-esoph ageal reflux disease with esophagitis, without bleeding (K21.00) Active confirmed Encounters Encounter Location Date Provider Diagnosis [facility] [place] [place] [address] [place] [id number] 05/07/2024 Yadiel Li Gastro-esophageal reflux disease with [...] * PHOENIX HERNANDESOB:1965 ( 60 yo F)Acc No.[id number]:05/07/2024 EGD/MAC Patient: DONNA DINH Provider: Miguel Li MD :1965 A ge:59 Y S ex:Female Date:05/07/2024 Address:[address] [place], [place] [phone] Pcp:Jeffrey Rutledge Subjective: * Chief Complaints: * [...] MD Date: 0 05/07/2024 Generated for Valerie cotto/Andrea/Adrianitting on: 0 07/26/2025 07:17 AM EDT
--- OUTSIDE RECORDS SUMMARY | 2025-07-26 07:17 | XMS_ITS | Patient Health Record ---
Author Organization [facility] Address [address] [place] [address] Care Team Providers Care Registered Nurse Teacher Name Role Phone Jeffrey Rutledge Primary Care Provider Unavailab Yadiel Nixon Unavailable [phone] Elie BRENARD, Apollo Unavailable Unavailable Allergies Allergen (clinical drug ingredient) Drug/Non Drug Allergy documented on EMR Reaction Allergy Type Onset Date Status bupropion BuPROPion HCl Unknown Drug Allergy Act mikayla Results Component Value Reference Range Notes FL barium swallow (Not yet r eviewed by provider) Interpretation: Performing Lab: Notes/Report: [address] [address] Fluoroscopy Report Signed Patient: Roma Hernandes MR#: [id number] : 1965 Acct:[id number] Age/Sex: 59 / F ADM Date: 04/01/25 Loc: [facility] Attending Dr: Yadiel Li MD Ordering Physician: Yadiel Li MD Date of Service: 04/01/25 Procedure(s): FL barium swallow Accession Number(s): [id number] cc: Jeffrey Rutledge PA-C; Yadiel Li MD EXAMINATION: XR BARIUM SWALLOW CLINICAL INFORMATION: Dysphagia COMPARISON: None available. TECHNIQUE: Routine barium swallow upright was performed with thick barium and barium coated saltine cracker. Thin barium was administered with patient lying prone. FINDINGS: On oral administration of thick barium there is normal propagation bolus from the oral cavity through the pharynx, esophagus into stomach without obstruction, narrowing or stricture. No laryngeal penetration or aspiration seen. No retention in the valleculae or piriform sinuses. On oral administration of barium coated saltine crackers is normal oral mastication and propagation of bolus from the oral cavity through the pharynx, esophagus into stomach. On placing patient in prone lying and oral administration of thin barium there is normal flow of thin barium through the pharynx, esophagus into stomach. There is no gastroesophageal reflux or hiatal hernia seen. FLUOROSCOPY TIME: 1 minute 37 seconds DOSE AREA PRODUCT: 1444 uGy-m2 (microgray-meter squared) FL/FL barium swallow IMPRESSION: Unremarkable barium swallow examination. Electronically signed by: Abilio Jimenez MD 04/01/2025 10:39 AM EDT RP Dictated By: Abilio Jimenez MD Signed By: <Electronically signed by Abilio Jimenez MD in OV> 04/01/25 1039 DD/ 1010 TD/TT: 04/01/25 1019 Ring Attacher: ISIS Reason For Referral No Information Medications Medication [...] W/U Status Risk Notes Problem Epigastric pain (53224092) Epigastric abdominal pain (R10.13) Active confirmed Problem Epigastric pain (95107457) Epigastric pain (R10.13) Active confirmed Problem 953609681 Encounter for screening for malignant neoplasm of colon (Z12.11) Active confirmed Problem Screening for malignant neoplasm of rectum (351450342) Encounter for screening for malignant neoplasm of rectum (Z12.12) Active confirmed Problem Dysphagia (10028598) Dysphagia (R13.10) Active confirmed Problem 90609891 Abdominal pain, epigastric (R10.13) Active confirmed Problem Elevated liver enzymes level (939519308) Elevated liver function tests (R79.89) Active confirmed Problem 251741497 Gastroesophageal reflux disease without esophagitis (K21.9) Active confirmed Problem 43100629 Preprocedural examination (Z01.818) Active confirmed Problem Fatty liver (976790104) Fatty liver (K76.0) Active confirmed Problem 34839068 Constipation, unspecified constipation type (K59.00) Active confirmed Problem 972802960 GERD (gastroesophageal reflux disease) (K21.9) Active confirmed Problem Gastroesophageal reflux disease with esophagitis (disorder) (849393342) Gastro-esophageal reflux disease with esophagitis, without bleeding (K21.00) Active confirmed Problem 77546623164374497 Abnormal computerized tomography of abdominal wall (R93.5) Active confirmed Problem Gastroesophageal reflux disease (disorder) (725457685) Chronic GERD (K21.9) Active confirmed Problem Epigastric pain (44409921) Epigastric burning sensation (R10.13) Active confirmed Vital Signs Blood pressure diastolic 00 mm Hg 10/13/2024 Height 63.5 in 10/13/2024 Blood pressure systolic 00 mm Hg 10/13/2024 Weight 163 lbs 10/13/2024 BMI 28.42 kg/m2 10/13/2024 Encounters Encounter Location Date Provider Diagnosis [facility] [address] [place] [address] 10/13/2024 Yadiel Li Encounter for screening for malignant neoplasm of colon Z12.11 ; Abdominal pain, epigastric R10.13 ; GERD (gastroesophageal reflux disease) K21.9 and Chronic GERD K21.9 [facility] [address] [place] [address] 01/17/2025 Yadiel Li Dysphagia R13.10 Assessments Encounter [...] as needed. 01/17/2025 Dysphagia (ICD-10 - R13.10) 10/13/2024 GERD (gastroesophag eal reflux disease) (ICD-10 [...] (FE) 09/10/2020 FERRITIN 09/10/2020 CBC w DIFF 08/28/2020 CBC w DIFF 07/31/2022 HEPATITIS B, C PROFILE 09/10/2020 [id number] (A1A) 09/10/2020 MITOCHONDRIAL AB 09/10/2020 SMOOTH MUSCLE ANTIBODIES 09/10/2020 H PYLORI AG, STOOL 07/31/2022 CT ABD & PELVIS WITH CONTRAST 11/22/2020 CT ABD & PELVIS WITH PO CONT ONLY 2021 XR BARIUM SWALLOW-ESOPHAGUS 01/17/2025 FLUOR. ANTINUCLEAR AB SCREEN (SHRUTHI) 06/2020 FL barium swallow 04/01/2025 Future Test Test Name Order Date COLONOSCOPY 11/16/2015 UPPER GI ENDOSCOPY 07/14/2019 UPPER GI ENDOSCOPY 04/06/2024 Insurance Providers Payer Name Payer Address Payer Phone Subscriber Number Group Number Insured Name Patient Relationship to Insured Coverage Start Date Coverage End Date [facility] [address] [facility] [place]AVERI [phone] [id number] ROMA HERNANDES Self - patient is the insured Medical (General) History Medical History History ICD Code Renal cancer(left)-1990 Denies NV,DM,CVA,Lung disease She has undergone previous u pper [...] the rectosigmoid colon during one of her SUGAR PRESSER surgeries--the repair was done by 2011 Right shoulder Right knee CCY APPY Abdominoplasty 05/2020 in [facility] CT scan of the abdomen [place] [facility] [place] 2 seromas in the upper and lower abdominal wall. A F/U CT in 2021 revealed resolution of that.
--- OUTSIDE RECORDS SUMMARY | 2025-07-26 07:17 | XMS_ITS | Clinical Summary ---
Author Organization [facility] Address [address] [place] [address] Phone Care Team Providers Care Agility Instructor Name Role Phone Noel Carrizales DO Primary [...] patient's age to complete this topic [place] [address] [facility] Care Teams Agility Instructor Relationship Specialty Start Date End Date Noel Carrizales DO [address] [place], [place] PCP - General 11/13/20
--- OUTSIDE RECORDS SUMMARY | 2025-07-26 07:17 | XMS_ITS | Patient Health Record ---
Author Organization [facility] [address] [address] Address [address] [place] [address] Care Team Providers Care Health Director Name Role Phone Ping Lamb Unavailable [phone] Allergies No Known Allergies Reason For Referral No Information Medications Medication SIG (Take, Route, Frequency, Duration) Notes Start Date End Date Status Topiramate 25 MG TAKE 1 TABLET BY MOUTH ONE A DAY; Duration: 90 Active Zepbound 15 MG/0.5ML 0.5 mL Subcutaneous once weekly; Duration: 30 days replaces wegovy Active Omeprazole 20 MG 1 capsule 30 [...] MOUTH DAILY Oral; Duration: 90 Days Active Social History Tobacco Use: Social History [...] Notes Problem Obesity due to excess calories (901696536) Other obesity due to excess calories (E66.09) Active confirmed Problem Overweight (568028792) Overweight (E66.3) Active confirmed Problem Body mass index 30.00 to 34.99 (34810041194452 7) Body mass index [BMI] 32.0-32.9, adult (Z68.32) Active confirmed Problem Body mass index 30+ - obesity (844874101) BMI 30.0-30.9,adult (Z68.30) Active confirmed Vital Signs Heart Rate 79 /min 07/06/2025 Oximetry 99 % 07/06/2025 Blood pressure diastolic 74 mm Hg 07/06/2025 Height 63.25 in 07/06/2025 Blood pressure systolic 126 mm Hg 07/06/2025 Weight 167.3 lbs 07/06/2025 BMI 29.4 kg/m2 07/06/2025 Encounters Encounter Location Date Provider Diagnosis [facility] [address] [address] 08/18/2024 Ping Svrcek Other obesity due to excess calories E66.09 and BMI 30.0-30.9,adult Z68.30 [facility] [address] [address] 09/16/2024 Ping Svrcek Other obesity due to excess calories E66.09 and BMI 30.0-30.9,adult Z68.30 [facility] [address] [address] 10/25/2024 Ping Svrcek Other obesity due to excess calories E66.09 and BMI 29.0-29.9,adult Z68.29 [facility] [address] [address] 11/30/2024 Ping Svrcek Other obesity due to excess calories E66.09 and BMI 29.0-29.9,adult Z68.29 [facility] [address] [address] 01/05/2025 Ping Svrcek Other obesity due to excess calories E66.09 ; BMI 29.0-29.9,adult Z68.29 and Weight loss counseling, encounter for Z71.3 [facility] [address] [address] 02/01/2025 Ping Svrcek Other obesity due to excess calories E66.09 ; BMI 29.0-29.9,adult Z68.29 and Weight loss counseling, encounter for Z71.3 [facility] [address] [facility] [address] [place] [address] 03/09/2025 Ping Svrcek BMI 29.0-29.9,adult Z68.29 ; Overweight E66.3 and Weight loss counseling, encounter for Z71.3 [facility] [address] [address] 04/14/2025 Ping Svrcek Overweight E66.3 ; B DE 29.0-29.9,adult Z68.29 ; Weight loss counseling, encounter for Z71.3 and Encounter for examination of blood pressure without abnormal findings Z01.30 [facility] [address] [address] 05/26/2025 Ping Svrcek Overweight E66.3 ; B DE 29.0-29.9,adult Z68.29 ; Weight loss counseling, encounter for Z71.3 and Encounter for examination of blood pressure without abnormal findings Z01.30 [facility] [address] 07/06/2025 Ping Svrcek Overweight E66.3 ; B DE 29.0-29.9,adult Z68.29 ; Weight loss counseling, encounter for Z71.3 and Encounter for examination of blood pressure without abnormal findings Z01.[address] [address] [place] [address] 10/14/2024 Ping Svrcek Other obesity due to excess calories E66.09 [facility] [address] [address] 01/05/2025 Ping Svrcek [facility] [address] [address] 05/24/2025 Ping Svrcek Overweight E66.3 [facility] [address] [facility] [address] [place] [address] 06/16/2025 Ping Svrcek Overweight E66.3 [facility] [address] [address] 09/20/2024 Ping Svrcek Other obesity due to excess calories E66.09 [facility] [address] [address] 09/20/2024 Ping Svrcek [facility] [address] [address] 12/14/2024 Ping Svrcek [facility] [address] [address] 01/16/2025 Ping Svrcek Other obesity due to excess calories E66.09 [facility] [address] [address] 07/18/2025 Ping Svrcek [facility] [address] [address] 07/20/2025 Ping Svrcek Assessments Encounter Date Diagnosis (ICD Code) Assessment Notes Treatment Notes Treatment Clinical Notes Section Notes 08/18/2024 Other obesity due to excess calories [...] Dictation was accomplished with the use of Expert TA voice recognition software, prone to medical misidentifications [...] Dictation was accomplished with the use of Expert TA voice recognition software, prone to medical misidentifications [...] Dictation was accomplished with the use of Expert TA voice recognition software, prone to medical misidentifications [...] improvement could consider submitting to insurance for [employer]. Continue to work on protein intake, hydration [...] Dictation was accomplished with the use of Expert TA voice recognition software, prone to medical misidentifications [...] next visit it any questions/concerns arise. 10/25/2024 Other obesity due to excess calories [...] Dictation was accomplished with the use of Expert TA voice recognition software, prone to medical misidentifications [...] 184.3, BMI 32.2. 04/20/24: Sema 1 mg 6/11/24: Sema 1 mg 04/06/24: Sema 1 mg [...] Dictation was accomplished with the use of Expert TA voice recognition software, prone to medical misidentifications and grammatical errors. This is unintentional and the practitioner does try to identify and correct these, but some could still be present. Please do not hesitate to contact practitioner for clarification. All questions answered to patients satisfaction. Patient verbalized understanding of diagnosis and treatments explained. To call sooner prior to next visit it any questions/concerns arise. 06/16/2025 Overweight (ICD-10 - E66.3) 05/26/2025 Overweight (ICD-10 [...] Dictation was accomplished with the use of Expert TA voice recognition software, prone to medical misidentifications [...] Dictation was accomplished with the use of Expert TA voice recognition software, prone to medical misidentifications [...] arise. 05/24/2025 Overweight (ICD-10 - E66.3) 04/14/2025 Overweight (ICD-10 - E66.3) #Obesity. 04/14/25: [...] Dictation was accomplished with the use of Expert TA voice recognition software, prone to medical misidentifications [...] Dictation was accomplished with the use of Expert TA voice recognition software, prone to medical misidentifications [...] Dictation was accomplished with the use of Expert TA voice recognition software, prone to medical misidentifications [...] Dictation was accomplished with the use of Expert TA voice recognition software, prone to medical misidentifications [...] Dictation was accomplished with the use of Expert TA voice recognition software, prone to medical misidentifications [...] Dictation was accomplished with the use of Expert TA voice recognition software, prone to medical misidentifications and grammatical errors. This is unintentional and the practitioner does try to identify and correct these, but some could still be present. Please do not hesitate to contact practitioner for clarification. All questions answered to patients satisfaction. Patient verbalized understanding of diagnosis and treatments explained. To call sooner prior to next visit it any questions/concerns arise. 10/14/2024 Other obesity due to excess calories (ICD-10 - E66.09) 09/20/2024 Other obesity due to excess calories [...] Dictation was accomplished with the use of Expert TA voice recognition software, prone to medical misidentifications [...] Dictation was accomplished with the use of Expert TA voice recognition software, prone to medical misidentifications [...] Dictation was accomplished with the use of Expert TA voice recognition software, prone to medical misidentifications [...] Dictation was accomplished with the use of Expert TA voice recognition software, prone to medical misidentifications and grammatical errors. This is unintentional and the practitioner does try to identify and correct these, but some could still be present. Please do not hesitate to contact practitioner for clarification. All questions answered to patients satisfaction. Patient verbalized understanding of diagnosis and treatments explained. To call sooner prior to next visit it any questions/concerns arise. 07/06/2025 Overweight (ICD-10 - E66.3) #Obesity. 167.2, BMI 29.3. She is currently on Zepbound 12.5 mg , tolerating well, however weight loss has platuead. Will increase to 15 mg dose. Continue to work on consistent protein intake, hydration and regular exercise including resistance training. Continue bowel regimen and probiotics. Follow-up in 1 month sooner with any [...] Dictation was accomplished with the use of Expert TA voice recognition software, prone to medical misidentifications and grammatical errors. This is unintentional and the practitioner does try to identify and correct these, but some could still be present. Please do not hesitate to contact practitioner for clarification. All questions answered to patients satisfaction. Patient verbalized understanding of diagnosis and treatments explained. To call sooner prior to next visit it any questions/concerns arise. 07/06/2025 BMI 29.0-29.9,nohelia sellers (ICD-10 - Z68.29) #Obesity. 167.2, BMI 29.3. She is currently on Zepbound 12.5 mg , tolerating well, however weight loss has platuead. Will increase to 15 mg dose. Continue to work on consistent protein intake, hydration and regular exercise including resistance training. Continue bowel regimen and probiotics. Follow-up in 1 month sooner with any [...] Dictation was accomplished with the use of Expert TA voice recognition software, prone to medical misidentifications [...] due to excess calories (ICD-10 - E66.09) 07/06/2025 Weight loss counseling, encounter for (ICD-10 - Z71.3) #Obesity. 167.2, BMI 29.3. She is currently on Zepbound 12.5 mg , tolerating well, however weight loss has platuead. Will increase to 15 mg dose. Continue to work on consistent protein intake, hydration and regular exercise including resistance training. Continue bowel regimen and probiotics. Follow-up in 1 month sooner with any [...] Dictation was accomplished with the use of Expert TA voice recognition software, prone to medical misidentifications [...] Dictation was accomplished with the use of Expert TA voice recognition software, prone to medical misidentifications [...] Dictation was accomplished with the use of Expert TA voice recognition software, prone to medical misidentifications [...] Dictation was accomplished with the use of Expert TA voice recognition software, prone to medical misidentifications [...] Dictation was accomplished with the use of Expert TA voice recognition software, prone to medical misidentifications [...] Dictation was accomplished with the use of Expert TA voice recognition software, prone to medical misidentifications [...] Dictation was accomplished with the use of Expert TA voice recognition software, prone to medical misidentifications [...] Dictation was accomplished with the use of Expert TA voice recognition software, prone to medical misidentifications and grammatical errors. This is unintentional and the practitioner does try to identify and correct these, but some could still be present. Please do not hesitate to contact practitioner for clarification. All questions answered to patients satisfaction. Patient verbalized understanding of diagnosis and treatments explained. To call sooner prior to next visit it any questions/concerns arise. 07/06/2025 Encounter for examination of blood pressure without abnormal findings (ICD-10 - Z01.30) #Obesity. 167.2, BMI 29.3. She is currently on Zepbound 12.5 mg , tolerating well, however weight loss has platuead. Will increase to 15 mg dose. Continue to work on consistent protein intake, hydration and regular exercise including resistance training. Continue bowel regimen and probiotics. Follow-up in 1 month sooner with any [...] Dictation was accomplished with the use of Expert TA voice recognition software, prone to medical misidentifications [...] Treatment Next Appt Details Provider Name:Ping Lamb, 1 08:15:00 AM, [address] [facility] [address], [place], [address], Insurance Providers Payer Name Payer Address Payer Phone Subscriber Number Group Number Insured Name Patient Relationship to Insured Coverage Start Date Coverage End Date [facility] [address] [place] [address] [id number] Roma Irving Self - patient is the [...]
== END 2025-07-26 07:15 | disposition home or self-care (01) ==
LOC: HO.LAB 07:14
PROVIDERS: PCP Physician Assistant; Visit Provider Physician Assistant
DX: E78.5 Hyperlipidemia, unspecified (principal); M79.7 Fibromyalgia; E78.2 Mixed hyperlipidemia; D35.01 Benign neoplasm of right adrenal gland; E03.9 Hypothyroidism, unspecified; Z79.890 Hormone replacement therapy; Z79.52 Long term (current) use of systemic steroids; Z79.899 Other long term (current) drug therapy
CPT/HCPCS: 36415; 80053; 80061; 85027

== ENCOUNTER 2025-07-26 15:27 | Outpatient (AMB) | payer OTHER, SELFPAY ==
[2025-07-26 15:41] VITALS: BP 126/70; PULSE 74; TEMP 36.3; O2SAT 100; BMI 29.9
--- NOTE | 2025-07-26 15:41 | A.OFFPC_ITS ---
Vital Signs 07/26/25 15:41 Height 5 ft 3.5 in Weight 171 lb 6 oz BMI 29.9 BP 126/70 Blood Pressure Location Lt brachial Position Sitting Pulse 74 Pulse Source Pulse Oximeter Temp 97.3 F Temp Source Temporal Artery Scan Pulse Oximetry (%) 100 Oxygen Delivery Method Room Air Intake Visit Reasons: Follow-up hyperlipidemia Intake Note: Patient is here to follow up on HLD. Neuroradiologist Required: No Ceramic Restorer: Not Required per policy Accompanied by: Self / Same As Patient Allergies bupropion (From WELLBUTRIN) Allergy (Intermediate, Verified 07/26/25 15:57) HALLUCINATION Iodinated Contrast Media (IV DYE, IODINE CONTAINING CONTRAST ) Allergy (Intermediate, Verified 07/26/25 15:57) HIVES Medication List - Last Reconciled 07/26/25 by Jeffrey Rutledge PA-C cholecalciferol (vitamin D3) 25 mcg PO DAILY dexamethasone 1 mg PO ONCE diclofenac sodium 1% (Arthritis Pain (diclofenac)) 4 grams topical QID gabapentin 100 mg PO BID hydroxyzine HCl 25 mg PO BEDTIME levothyroxine 125 mcg PO DAILY 90 days lorazepam (Ativan) 1 mg PO ONCE omeprazole 40 mg PO QAM prednisone 10 mg PO DIRECTED simvastatin 5 mg PO DAILY 90 days sumatriptan succinate take 1 tab at onset of headache; if no relief may repeat 1 tab after at least 2 hrs; max = 4 tabs/24 hr PO zolpidem ER 12.5 mg PO BEDTIME 30 days Tobacco use date assessed: 07/26/25 Dental Screening Dental Screen Date: 03/17/25 HPI Follow-up hyperlipidemia HPI Details Roma is a 60 y/o F here today for a follow-up visit ? Pmhx significant for HYpothyroid, DONG, Migraines, insomnia, Vitd def, Right Adrenal mass, obese, ? Concerns--> The symptoms encompass widespread musculoskeletal discomfort, with a significant impact on functionality and previous activity levels. Despite attempting self-management measures with ibuprofen, the patient has refrained from persistent use due to her prior nephrectomy. Recent inflammatory markers elevated. She does have appointment with Rheumatology though not until 2025. She has followed up with pain management gotten injections in her back though does not feel they are effective at all for pain. She has been prescribed gabapentin though has not started this medication that she was concerned about the medication be renally metabolized. of note she has a family history of fibromyalgia, as her sister has been diagnosed with the condition and manages it with pain medication. .. . DOGN:? Recent liver enzymes slightly elevated. Followed by gastroenterology d.. She also has gastritis noted on most recent EGD. She has a small hiatal hernia. She feels that her hernia has been causing her a lot of epigastric pain when she eats. She was on omeprazole and reports her gastritis/reflux has gone away. Will send patient for repeat ultrasound abdomen to evaluate her liver. .. ? Hyperlipidemia: The patient has a history of hyperlipidemia, which has been noted to be borderline high despite previous medication use. She has stopped taking cholesterol medication, but there is a consideration to resume it to manage cardiovascular risk. ? .. ? Right adrenal mass: patient is followed by Nephrology., mass is under surveillance ? .. ? HYpoththyroid: Followed by endocrinology- continued on levothyroxine 125mcg- most recent TSH has been stable ? .. ? Insomina: Patient continues with p.r.n. use of Ambien 10 mg with good effect on sleep. She does report waking in the middle night and not being able to fall back asleep. She is wondering if there is a extended release formulation of the medication. FOR[facility]LY [facility], [facility] Medical History Fatty liver Depression Solitary kidney, acquired GERD (gastroesophageal reflux disease) Borderline high cholesterol Adrenal adenoma Hypothyroidism Urinary frequency Migraine Surgical History H/O colonoscopy History of esophagogastroduodenoscopy (EGD) Hx of surgical procedure (04/23/24) History of cholecystectomy History of abdominoplasty History of arthroscopy of left knee History of arthroscopy of right shoulder History of tubal ligation History of ovarian cystectomy History of hysterectomy History of nephrectomy Family History Father History of throat cancer Mother No problems noted. Sister History of breast cancer History of ovarian cancer Brother History of kidney problems Maternal Grandmother History of pancreatic cancer Brother No problems noted. Son No problems noted. Daughter No problems noted. Daughter No problems noted. Daughter No problems noted. Social History Housing: House Alcohol intake: current Alcohol intake frequency: holidays/special occasions only Patient Tobacco Use Status: Never used Tobacco e-Cigarette/Vaping Use: Never Used Second Hand Smoke Exposure: No service: No Current occupational status: employed Current occupation: Working at [employer], right hand dominant Cognitive needs: No Hearing needs: No Vision needs: Yes (Glasses) Questionnaire Thrive Questionnaire Date Thrive assessed: 03/15/25 I am a: Patient What is your living situation today?: I have a steady place to live Within the past 12 months, did the food you bought not last and you didn't have the money to get more?: Never true Within the past 12 months, did you worry whether your food would run out before you got money to buy more?: Never true Do you have trouble paying for medicines?: No Do you have trouble getting transportation to medical appointments?: No Do you have trouble paying your heating and electricity bill?: No Do you have trouble taking care of your child, family member or friend?: No Do you have trouble with day-to-day activities such as bathing, preparing meals, shopping, managing finances, etc.?: No Are you currently unemployed and looking for a job?: No Are you interested in more education?: No Please select the resources that you would like help with: None Currently or been in a relationship where the following occur: No concerns reported THRIVE Score: 0 GEORGE-7 AMB Questionnaire GEORGE-7 Date GEORGE - 7 assessed: 03/17/25 Source: Developed by Drs. Yadiel Loera, Jeanne Rea, Dennys Vivar and colleagues, with an educational adamaris from [employer]. Review of Systems Const Reports fatigue and Denies headache(s) Eyes Denies loss of vision ENT Denies vertigo, Denies dizziness, Denies headache(s), Reports neck pain and Denies sore throat Card Denies chest pain, Denies leg edema and Denies lightheadedness Resp Denies cough, Denies hemoptysis and Denies wheezing GI Denies abdominal pain, Denies melena, Denies constipation, Denies diarrhea and Denies vomiting Denies urinary frequency, Denies dysuria and Denies urinary urgency Musc Details: + globalized pain Reports back pain, Reports arthralgias, Denies joint swelling, Reports neck pain, Denies numbness and Denies tingling Neuro Denies Abnormal speech present, Denies behavioral changes, Denies vertigo, Denies dizziness, Denies headache(s), Denies loss of vision, Denies memory loss, Denies numbness and Denies tingling Psych Denies anxiety, Denies behavioral changes, Denies depression, Denies memory loss and Denies panic attacks Endo Reports fatigue Romaine/Lymph Denies easy bleeding and Denies easy bruising Aller/Immun Denies wheezing Physical exam (Primary Care) Vital Signs: Last Vital Signs Temp 97.3 F 07/26/25 15:41 Pulse 74 07/26/25 15:41 BP 126/70 07/26/25 15:41 Pulse Ox 100 07/26/25 15:41 Oxygen Delivery Method Room Air 07/26/25 15:41 BMI result Body Mass Index 29.9 Tobacco/Smoking Status: Tobacco use Status Tobacco use date assessed 07/26/25 07/26/25 15:46 Patient Tobacco Use Status Never used Tobacco 07/26/25 15:46 e-Cigarette/Vaping Use Never Used 07/26/25 15:46 Thrive Assessment: Date of Thrive Assessment Date Thrive assessed 03/15/25 07/26/25 15:46 Currently or been in a relationship where the following occur: No concerns reported Const General: healthy appearing, no acute distress, alert and awake Nutritional Appearance: well nourished Orientation/consciousness: oriented to person, oriented to place and oriented to time [facility] Ears: TM's normal bilaterally General nose exam: Normal nasal mucous membranes and turbinates present Eyes Conjunctivae: conjunctivae normal Sclerae: sclerae normal Pupils: Equal, round and reactive pupils present Neck Neck: Yes no lymphadenopathy and Yes no JVD Thyroid: Thyroid normal Carotids: no bruits Resp Effort & Inspection: normal respiratory effort and not tachypneic Auscultation: no crackles, no rales, no rhonchi and no wheezes Cardio Rate: regular rate Rhythm: regular rhythm Heart sounds: no murmurs and normal S1 and S2 GI Palpation (GI): Soft to palpation, nontender, no hepatomegaly and no splenomegaly Auscultation: normal bowel sounds Skin General skin exam: no rashes or lesions noted and dry skin Neuro General: oriented to person, oriented to place and oriented to time Cranial nerves: Yes Equal, round and reactive pupils present Speech: No Abnormal speech present Gait exam (Neuro): Normal gait present Motor exam (neuro): no tremor noted Extrem Right upper extremity: full ROM Left upper extremity: full ROM Right lower extremity: full ROM; no edema Left lower extremity: full ROM; no edema Psych Mental Status: mental status grossly normal Speech and movement: Normal speech and movement present Affect: normal affect Attitude: cooperative Thought process: Normal thought process present Coding Level of Care Code Est Pt Level 4 (12791) Diagnoses Fibromyalgia M79.7 Mixed hyperlipidemia E78.2 Hyperlipidemia type: mixed hyperlipidemia Adenoma of right adrenal gland D35.01 Laterality: right BMI 29.0-29.9,adult Z68.29 Hypothyroidism, unspecified type E03.9 Hypothyroidism type: unspecified Assessment & Plan Assessment & Plan (1) Fibromyalgia: Code(s): M79.7 - Fibromyalgia Category: Medical Plan: At this point patient's pain seems most consistent with fibromyalgia The plan for managing the patient's fibromyalgia includes initiating gabapentin therapy, starting with a low dose at night to assess tolerance and effectiven ess. If gabapentin is ineffective, alternative medications such as Cymbalta or Lyrica may be considered, as they also target neuromuscular pain without significant renal metabolism. The patient is advised to engage in non- weightbearing exercises like biking or swimming to help manage fibromyalgia symptoms. (2) HLD (hyperlipidemia): Code(s): E78.5 - Hyperlipidemia, unspecified Category: Medical Qualifiers: Hyperlipidemia type: mixed hyperlipidemia Qualified Code(s): E78.2 - Mixed hyperlipidemia Plan: Patient's lipid panel continues to show elevated total cholesterol and LDL. patient is encouraged to resume low-dose cholesterol medication to manage cardiovascular risk, given her borderline high cholesterol levels. Additionally, weight loss is recommended to address fatty liver disease, with a focus on dietary modifications and possibly using phentermine for appetite suppression under careful monitoring due to its cardiovascular effects. Goal LDL is to be below 160, goal total cholesterol to be below 200 (3) Adrenal adenoma: Code(s): D35.00 - Benign neoplasm of unspecified adrenal gland Category: Medical Qualifiers: Laterality: right Qualified Code(s): D35.01 - Benign neoplasm of right adrenal gland Plan: Patient followed by endocrinology. She is under surveillance (4) BMI 29.0-29.9,adult: Code(s): Z68.29 - Body mass index [BMI] 29.0-29.9, adult Category: Medical Plan: As above (5) Hypothyroidism: Code(s): E03.9 - Hypothyroidism, unspecified Category: Medical Qualifiers: Hypothyroidism type: unspecified Qualified Code(s): E03.9 - Hypothyroidism, unspecified Plan: Patient's most recent TSH has been stable. She continues on levothyroxine on a daily basis with good effect. Of note has lost weight since last office visit. Orders: Orders Lipid Panel Today E78.2 - Mixed hyperlipidemia Comprehensive [place]. Panel Fast Today E78.2 - Mixed hyperlipidemia Complete Blood Count no Diff Today E78.2 - Mixed hyperlipidemia Medications: New phentermine must administer 30 minutes before or 1-2 hours after breakfast 37.5 mg PO DAILY 30 caps 2RF 30 days Z68.29 - Body mass index [BMI] 29.0-29.9, adult Refilled simvastatin 5 mg PO DAILY 90 tabs 3RF 90 days E78.2 - Mixed hyperlipidemia
--- OUTSIDE RECORDS SUMMARY | 2025-07-26 18:19 | XMS_ITS | Clinical Summary ---
Author Organization [facility] Address [address] [place] [address] Phone Care Team Providers Care Hand Rug Cleaner Name Role Phone Noel Carrizales DO Primary Care Provider [phone] Allergies Active Allergy Reactions Criticality Noted Date [...] patient's age to complete this topic [place] [place] [address] [facility] Care Teams Hand Rug Cleaner Relationship Specialty Start Date End Date Noel Carrizales DO [address] [facility] [address] [place], [place] PCP - General 11/13/20
== END 2025-07-26 16:22 | disposition home or self-care (01) ==
LOC: HO.HMCH 15:28
PROVIDERS: PCP Physician Assistant; Visit Provider Physician Assistant
DX: M79.7 Fibromyalgia (principal); E78.2 Mixed hyperlipidemia; D35.01 Benign neoplasm of right adrenal gland; Z68.29 Body mass index [BMI] 29.0-29.9, adult; E03.9 Hypothyroidism, unspecified

== ENCOUNTER 2025-10-28 15:10 | Outpatient (AMB) | payer OTHER, SELFPAY ==
--- OUTSIDE RECORDS SUMMARY | 2024-05-07 05:40 | XMS_ITS ---
Author Organization [facility] Address [address] [place] [address] Care Team Providers Care Gang Punch Operator Name Role Phone Jeffrey Rutledge Primary Care Provider Unavailab Yadiel Nixon Unavailable [phone] Elie BERNARD, Apollo Unavailable Unavailable REASON FOR VISIT epigastric pain,gerd Problems Problem Type SNOMED Code ICD Code Onset Dates Problem Status W/U Status Risk Notes Problem Gastroesophageal reflux disease with esophagitis (disorder) (456152912) Gastro-esoph ageal reflux disease with esophagitis, without bleeding (K21.00) Active confirmed Encounters Encounter Location Date Provider Diagnosis [facility] [place] Outpatient [address] [place] [id number] 05/07/2024 Yadiel Li Gastro-esophageal reflux disease with esophagitis, without bleeding K21.00 ; Hiatal hernia K44.9 ; Pain of upper abdomen R10.10 and Heartburn R12 Assessments Encounter Date Diagnosis (ICD Code) Assessment Notes Treatment Notes Treatment Clinical Notes Section Notes 05/07/2024 Gastro-esophage al reflux disease with esophagitis, without bleeding (ICD-10 - K21.00) 05/07/2024 Hiatal hernia (ICD-10 - K44.9) 05/07/2024 Pain of upper abdomen (ICD-10 - R10.10) 05/07/2024 Heartburn (ICD-10 - R12) Plan Of Treatment No Information Progress Notes * PHOENIX HERNANDESOB:1965 ( 60 yo F)Acc No.[id number]:05/07/2024 EGD/MAC Patient: DONNA DINH Provider: Miguel Li MD :1965 A ge:59 Y S ex:Female Date:05/07/2024 Address:[address] [place], [place] [phone] Pcp:Jeffrey Rutledge Subjective: * Chief Complaints: * E pigastric pain,gerd Assessment: * Assessment: 1. G yogesh-esophageal reflux disease with esophagitis, without bleeding - K21.00 (Primary) 2 . H iatal hernia - K44.9 3 . P ain of upper abdomen - R10.10? 4. H eartburn - R12 Plan: * Procedure Codes: 4 3239 UPPER GI ENDOSCOPY, BIOPSY Billing Information: * Procedure Codes: 62744 UPPER GI ENDOSCOPY, BIOPSY. * The named appointment provid er may or may not be the originator of this progress note, and it is not deemed complete until electronically signed by the appointment provider. Sign off status: Pending * Provider: Miguel Li MD Date: 0 05/07/2024 Generated for Valerie cotto/Andrea/Donsmitting on: 12/29/2024 03:12 PM EST
--- OUTSIDE RECORDS SUMMARY | 2025-08-04 03:15 | XMS_ITS ---
Author Organization [facility] [address] Address [address] [place] [address] Care Team Providers Care Rubber Compounder Name Role Phone Ping Lamb Unavailable [phone] Encounters Encounter Location Date Provider Diagnosis [facility] [address] [address] 08/04/2025 Ping Lamb Plan Of Treatment No Information Progress Notes * Mary HERNANDESOB:1965 ( 60 yo F)Acc No.[id number]:08/04/2025 Patient: Roma Nunez Provider: Shonna Lamb PA-C :1965 A ge:60 Y S ex:Female Date:08/04/2025 Address:[address] [place] [id number] * Electronic signature of Ping Lamb PA-C on 10/28/2025 at 03:12 PM EST Sign off status: Pending * Provider: Shonna Lamb PA-C Date: 1 Generated for Valerie cotto/Andrea/eTransmitting on: 1 12/29/2024 03:12 PM EST
--- OUTSIDE RECORDS SUMMARY | 2025-10-28 15:12 | XMS_ITS | Patient Health Record ---
Author Organization [facility] Address [address] [place] [address] Care Team Providers Care Unix System Administrator Name Role Phone Ping Lamb Unavailable [phone] Allergies No Known Allergies Reason For Referral No Information Medications Medication SIG (Take, Route, Frequency, Duration) Notes Start Date End Date Status Topiramate 25 MG Tablet TAKE 1 TABLET BY MOUTH ONE A DAY; Duration: 90 Active Zepbound 15 MG/0.5ML Solution Auto-injector 0.5 mL Subcutaneous once weekly; Duration: 30 days replaces wego Active Omeprazole 20 MG Capsule Delayed Release 1 capsule 30 minutes before morning meal Orally Once a day; Duration: 30 day(s) 02/24/2024 Active Zolpidem Tartrate 10 MG Tablet TAKE 1 TABLET BY MOUTH AT BEDTIME FOR 14 DAYS Oral; Duration: 14 Days Active Vitamin D3 25 MCG (1000 UT) Capsule TAKE 1 CAPSULE BY MOUTH EVERY DAY Oral; Duration: 90 Days Active Levothyroxine Sodium 125 MCG Tablet TAKE 1 TABLET BY MOUTH DAILY Oral; Duration: 90 Days Active Social History Tobacco Use: Social History Observation Description Date Details (start date - stop date) Never Smoker NA - NA Social History Drugs/Alcohol: Social Info Question Answer Notes Alcohol Screen (Audit-C) Did you have a drink containing alcohol in the past year? Yes How often did you have a drink containing alcohol in the past year? 2 to 4 times a month (2 points) Points 2 Interpretation Negative Drugs Have you used drugs other than those for medical reasons in the past 12 months? No Tobacco Use: Social Info Question Answer Notes Tobacco Use/Smoking Are you a nonsmoker Additional Details Category Social Info Options Details Drugs/Alcohol: Do you smoke marijuana? De nies Do you drink alcohol? No Problems Problem Type SNOMED Code ICD Code Onset Dates Problem Status W/U Status Risk Notes Problem Obesity due to excess calories (385869565) Other obesity due to excess calories (E66.09) Active confirmed Problem Overweight (938887665) Overweight (E66.3) Active confirmed Problem Body mass index 30.00 to 34.99 ([id number] 7) Body mass index [BMI] 32.0-32.9, adult (Z68.32) Active confirmed Problem Body mass index 30+ - obesity (240469122) BMI 30.0-30.9,adult (Z68.30) Active confirmed Vital Signs Heart Rate 79 /min 07/06/2025 Oximetry 99 % 07/06/2025 Blood pressure diastolic 74 mm Hg 07/06/2025 Height 63.25 in 07/06/2025 Blood pressure systolic 126 mm Hg 07/06/2025 Weight 167.3 lbs 07/06/2025 BMI 29.4 kg/m2 07/06/2025 Encounters Encounter Location Date Provider Diagnosis [facility] [address] [address] 11/30/2024 Ping Svrcek Other obesity due to excess calories E66.09 and BMI 29.0-29.9,adult Z68.29 [facility] [address] [address] 01/05/2025 Ping Svrcek Other obesity due to excess calories E66.09 ; BMI 29.0-29.9,adult Z68.29 and Weight loss counseling, encounter for Z71.3 [facility] [address] [address] 02/01/2025 Ping Svrcek Other obesity due to excess calories E66.09 ; BMI 29.0-29.9,adult Z68.29 and Weight loss counseling, encounter for Z71.3 [facility] [address] [address] 03/09/2025 Ping Svrcek BMI 29.0-29.9,adult Z68.29 ; Overweight E66.3 and Weight loss counseling, encounter for Z71.3 [facility] [address] [address] 04/14/2025 Ping Svrcek Overweight E66.3 ; B FL 29.0-29.9,adult Z68.29 ; Weight loss counseling, encounter for Z71.3 and Encounter for examination of blood pressure without abnormal findings Z01.30 [facility] [address] [address] 05/26/2025 Ping Svrcek Overweight E66.3 ; B FL 29.0-29.9,adult Z68.29 ; Weight loss counseling, encounter for Z71.3 and Encounter for examination of blood pressure without abnormal findings Z01.30 [facility] [address] [address] 07/06/2025 Ping Svrcek Overweight E66.3 ; B FL 29.0-29.9,adult Z68.29 ; Weight loss counseling, encounter for Z71.3 and Encounter for examination of blood pressure without abnormal findings Z01.30 [facility] [address] [address] 01/05/2025 Ping Svrcek [facility] [address] [address] 05/24/2025 Ping Svrcek Overweight E66.3 [facility] [address] [facility] [address] [place] [address] 06/16/2025 Ping Svrcek Overweight E66.3 [facility] [address] [address] 12/14/2024 Ping Svrcek [facility] [address] [address] 01/16/2025 Ping Svrcek Other obesity due to excess calories E66.09 [facility] [address] [address] 07/18/2025 Ipng Svrcek [facility] [address] [address] 07/20/2025 Ping Svrcek Assessments Encounter Date Diagnosis (ICD Code) Assessment Notes Treatment Notes Treatment Clinical Notes Section Notes 11/30/2024 Other obesity due to excess calories [...] Dictation was accomplished with the use of Ubersense voice recognition software, prone to medical misidentifications [...] Dictation was accomplished with the use of [employer] voice recognition software, prone to medical misidentifications [...] Dictation was accomplished with the use of [employer] voice recognition software, prone to medical misidentifications [...] Dictation was accomplished with the use of [employer] voice recognition software, prone to medical misidentifications [...] Dictation was accomplished with the use of [employer] voice recognition software, prone to medical misidentifications [...] Dictation was accomplished with the use of [employer] voice recognition software, prone to medical misidentifications [...] Dictation was accomplished with the use of [employer] voice recognition software, prone to medical misidentifications [...] Dictation was accomplished with the use of [employer] voice recognition software, prone to medical misidentifications [...] Dictation was accomplished with the use of [employer] voice recognition software, prone to medical misidentifications [...] Dictation was accomplished with the use of [employer] voice recognition software, prone to medical misidentifications [...] Dictation was accomplished with the use of [employer] voice recognition software, prone to medical misidentifications [...] Dictation was accomplished with the use of [employer] voice recognition software, prone to medical misidentifications [...] questions/concerns arise. 06/16/2025 Overweight (ICD-10 - E66.3) 07/06/2025 Overweight (ICD-10 - E66.3) #Obesity. 167.2, [...] Dictation was accomplished with the use of [employer] voice recognition software, prone to medical misidentifications [...] visit it any questions/concerns arise. 07/06/2025 BMI 29.0-29.9,adul t (ICD-10 - Z68.29) #Obesity. 167.2, BMI 29.3. [...] Dictation was accomplished with the use of [employer] voice recognition software, prone to medical misidentifications [...] next visit it any questions/concerns arise. 07/06/2025 Weight loss counseling, encounter for (ICD-10 [...] Dictation was accomplished with the use of [employer] voice recognition software, prone to medical misidentifications [...] Dictation was accomplished with the use of [employer] voice recognition software, prone to medical misidentifications [...] Dictation was accomplished with the use of [employer] voice recognition software, prone to medical misidentifications [...] Dictation was accomplished with the use of [employer]bers[employer] voice recognition software, prone to medical misidentifications [...] Dictation was accomplished with the use of [employer]bersense voice recognition software, prone to medical misidentifications [...] Dictation was accomplished with the use of [employer] voice recognition software, prone to medical misidentifications [...] Dictation was accomplished with the use of [employer]bers[employer] voice recognition software, prone to medical misidentifications [...] Dictation was accomplished with the use of [employer] voice recognition software, prone to medical misidentifications [...] Dictation was accomplished with the use of [employer]bers[employer] voice recognition software, prone to medical misidentifications [...] it any questions/concerns arise. Plan Of Treatment No Information Insurance Providers Payer Name Payer Address Payer Phone Subscriber Number Group Number Insured Name Patient Relationship to Insured Coverage Start Date Coverage End Date [facility] [address] [place] [address] [id number] Roma Irving Self - patient is the [...]
--- OUTSIDE RECORDS SUMMARY | 2025-10-28 15:12 | XMS_ITS | Clinical Summary ---
Author Organization [facility] Address [address] [place] [address] Phone Care Team Providers Care Metalizing Machine Operator Automatic Name Role Phone Noel Carrizales DO Primary Care Provider [phone] Allergies Active Allergy Reactions Criticality Noted Date [...] patient's age to complete this topic [place] [address] [facility] Care Teams Metalizing Machine Operator Automatic Relationship Specialty Start Date End Date Noel Carrizales DO [address] [facility] [address] [place], [place] PCP - General 11/13/20
[2025-10-28 15:13] VITALS: BP 136/78; PULSE 75; RESP 18; O2SAT 98; BMI 30.7
--- NOTE | 2025-10-28 15:13 | MHC.PC.OV ---
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 Accompanied by: Self / Same As Patient Allergies bupropion (From WELLBUTRIN) Allergy (Intermediate, Verified 10/28/25 15:16) HALLUCINATION Iodinated Contrast Media (IV DYE, IODINE CONTAINING CONTRAST ) Allergy (Intermediate, Verified 10/28/25 15:16) HIVES Medication List - Last Reconciled 10/28/25 by Cassi Ridley MD gabapentin 100 mg PO BID levothyroxine 125 mcg PO DAILY 90 days omeprazole 40 mg PO QAM phentermine 37.5 mg PO DAILY 30 days simvastatin 5 mg PO DAILY 90 days sumatriptan succinate take 1 tab at onset of headache; if no relief may repeat 1 tab after at least 2 hrs; max = 4 tabs/24 hr PO zolpidem ER 12.5 mg PO BEDTIME 30 days Tobacco use date assessed: 10/28/25 Dental Screening Dental Screen Date: 10/28/25 Did you have a dental visit in the last 12 months?: Yes Did you have a dental problem in the last 6 months where you did not have access to dental care?: No Was dental information given to patient?: Patient has dentist HPI HPI Comments History of Present Illness Details The patient is a 60 year old female presenting with new onset left-sided abdominal pain. The pain began yesterday, is located in the left abdomen, is constant, and rated 5/10 in severity. She describes it as a deep, internal pain that does not radiate and has no clear alleviating or aggravating factors. Two days ago, she experienced a single episode of black stool, which she has never had before. She denies recent constipation, diarrhea, or vomiting. Denies any hematuria, increased urinary frequency or urgency. The patient has a history of chronic heartburn and associated nausea, for which she uses omeprazole as needed. Past medical history includes a left nephrectomy for a tumor. Her last colonoscopy was a few years ago, and she is due for a repeat screening in 2025. Current medications include gabapentin, levothyroxine, simvastatin, sumatriptan, and zolpidem. She denies smoking, illicit drug use, and reports only social alcohol consumption. [facility] Medical History Fatty liver Depression Solitary kidney, acquired GERD (gastroesophageal reflux disease) Borderline high cholesterol Adrenal adenoma Hypothyroidism Urinary frequency Migraine Surgical History H/O colonoscopy History of esophagogastroduodenoscopy (EGD) Hx of surgical procedure (04/23/24) History of cholecystectomy History of abdominoplasty History of arthroscopy of left knee History of arthroscopy of right shoulder History of tubal ligation History of ovarian cystectomy History of hysterectomy History of nephrectomy Family History Father History of throat cancer Mother No problems noted. Sister History of breast cancer History of ovarian cancer Brother History of kidney problems Maternal Grandmother History of pancreatic cancer Brother No problems noted. Son No problems noted. Daughter No problems noted. Daughter No problems noted. Daughter No problems noted. Social History Housing: House Alcohol intake: current Alcohol intake frequency: holidays/special occasions only Patient Tobacco Use Status: Never used Tobacco e-Cigarette/Vaping Use: Never Used Second Hand Smoke Exposure: No service: No Current occupational status: employed Current occupation: Working at [employer], right hand dominant Cognitive needs: No Hearing needs: No Vision needs: Yes (Glasses) Questionnaire Thrive Questionnaire Date Thrive assessed: 10/28/25 I am a: Patient What is your living situation today?: I have a steady place to live Within the past 12 months, did the food you bought not last and you didn't have the money to get more?: Never true Within the past 12 months, did you worry whether your food would run out before you got money to buy more?: Never true Do you have trouble paying for medicines?: No Do you have trouble getting transportation to medical appointments?: No Do you have trouble paying your heating and electricity bill?: No Do you have trouble taking care of your child, family member or friend?: No Do you have trouble with day-to-day activities such as bathing, preparing meals, shopping, managing finances, etc.?: No Are you currently unemployed and looking for a job?: No Are you interested in more education?: No Currently or been in a relationship where the following occur: No concerns reported THRIVE Score: 0 GEORGE-7 AMB Questionnaire GEORGE-7 Date GEORGE - 7 assessed: 03/17/25 Source: Developed by Drs. Yadiel Loera, Jenane Rea, Dennys Vivar and colleagues, with an educational adamaris from [employer]. Physical exam (Primary Care) Vital Signs: Last Vital Signs Pulse 75 10/28/25 15:13 Resp 18 10/28/25 15:13 BP 136/78 10/28/25 15:13 Pulse Ox 98 10/28/25 15:13 Oxygen Delivery Method Room Air 10/28/25 15:13 General: Well-appearing, alert, oriented ?3, in no acute distress.ruits. Cardiovascular: RRR, S1-S2 appreciated, no murmurs, rubs or gallops. Respiratory: Lungs clear to auscultation bilaterally, no wheezes, rales or rhonchi. Abdomen: Soft, nondistended, tenderness to palpation of left abdomen. Normoactive bowel sounds. BMI result Body Mass Index 30.7 Tobacco/Smoking Status: Tobacco use Status Tobacco use date assessed 10/28/25 10/28/25 15:23 Patient Tobacco Use Status Never used Tobacco 10/28/25 15:23 e-Cigarette/Vaping Use Never Used 10/28/25 15:23 Thrive Assessment: Date of Thrive Assessment Date Thrive assessed 10/28/25 10/28/25 15:23 Currently or been in a relationship where the following occur: No concerns reported Coding Level of Care Code Est Pt Level 4 (07771) Diagnoses Left sided abdominal pain R10.9 Melena K92.1 Assessment & Plan Assessment & Plan (1) Left sided abdominal pain: Code(s): R10.9 - Unspecified abdominal pain (2) Melena: Code(s): K92.1 - Melena Plan Patient presenting with new onset constant left-sided abdominal pain for 1 day, associated with 1 episode of melena 2 days prior. She has a history of heartburn and intermittent nausea for which she uses omeprazole 40 mg. denies constipation, diarrhea, or vomiting. Denies any hematuria, increased urinary frequency or urgency. Workup with urinalysis to rule out UTI, abdominal x-ray. Obtain CBC Start dicyclomine to use p.r.n. We will need to follow up with Gastroenterology, as her colonoscopies due soon in 2025. Continue to monitor symptoms Present to the emergency department for worsening pain Orders: Orders UA CC w/rflx Micro + Cult Today R10.9 - Unspecified abdominal pain XR KUB Today R10.9 - Unspecified abdominal pain Comprehensive Met. Panel Today Z00.00 - Encounter for general adult medical examination without abnormal findings Complete Blood Count Auto Diff Today Z00.00 - Encounter for general adult medical examination without abnormal findings Medications: New dicyclomine 10 mg PO BID 30 caps 0RF dicyclomine 10 mg PO BID PRN 30 caps 0RF abdominal pain Discontinued lorazepam (Ativan) Take 30 minutes prior to arrival to procedure Discontinued Reason: Patient no longer taking 1 mg PO ONCE 1 tab 0RF anxiety
--- OUTSIDE RECORDS SUMMARY | 2025-10-28 15:13 | XMS_ITS | Patient Health Record ---
Author Organization [facility] Address [address] [place] [address] Care Team Providers Care Surgical Resident Name Role Phone Jeffrey Rutledge Primary Care Provider Unavailab Yadiel Nixon Unavailable [phone] Elie BERNARD, Apollo Unavailable Unavailable Allergies Allergen (clinical drug ingredient) Drug/Non Drug Allergy documented on EMR Reaction Allergy Type Onset Date Status bupropion BuPROPion HCl Unknown Drug Allergy Act mikayla Results Component Value Reference Range Notes FL barium swallow (Not yet r eviewed by provider) Interpretation: Performing Lab: Notes/Report: [address] [address] Fluoroscopy Report Signed Patient: Roma Hernandes MR#: [id number] : 1965 Acct:[id number] Age/Sex: 59 / F ADM Date: 04/01/25 Loc: [facility] Attending Dr: Yadiel Li MD Ordering Physician: Yadiel Li MD Date of Service: 04/01/25 Procedure(s): FL barium swallow Accession Number(s): [id number] cc: Jeffrey Rutledge PA-C; Yadiel Li MD [...] 04/01/25 1039 DD/ 1010 TD/TT: 04/01/25 1019 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: [employer] Reason For Referral No Information Medications Medication SIG (Take, Route, Frequency, Duration) Notes Start Date End Date Status Vitamin D Active Levothyroxine Sodium 75 MCG Tablet take 1 tablet by mouth every morning ON AN EMPTY STOMACH Oral; Duration: 90 Active Omeprazole 40 MG Capsule Delayed Release 1 Orally Once a day every morning; Duration: 30 day(s) 04/07/2024 Active Zolpidem Tartrate 10 MG Tablet TAKE 1 TABLET BY MOUTH AT BEDTIME FOR 14 DAYS Oral; Duration: 14 G4700,Unavailab le Active Immunizations Vaccine Route Administration Date Status Comme nts Influenza Unknown 07/14/2019 Refused Influenza Unknown 11/22/2020 Refused Influenza Unknown 11/07/2021 Refused Social History Social History Additional Details Category Social Info Options Details Miscellaneous: Marital status: single 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 Caffeine: 1-2 cups per day Section Notes: Nonsmoker; no sig alcohol Nonsmoker; no sig alcohol Nonsmoker; no sig alcohol Nonsmoker; no sig alcohol Nonsmoker; no sig alcohol Nonsmoker; no sig alcohol Nonsmoker; no sig alcohol Nonsmoker; no sig alcohol Nonsmoker; no sig alcohol Nonsmoker; no sig alcohol Nonsmoker; no sig alcohol Problems Problem Type SNOMED Code ICD Code Onset Dates Problem Status W/U Status Risk Notes Problem Epigastric pain (05459501) Epigastric abdominal pain (R10.13) Active confirmed Problem Epigastric pain (42700748) Epigastric pain (R10.13) Active confirmed Problem Screening for malignant neoplasm of colon (417362443) Encounter for screening for malignant neoplasm of colon (Z12.11) Active confirmed Problem Screening for malignant neoplasm of rectum (923176479) Encounter for screening for malignant neoplasm of rectum (Z12.12) Active confirmed Problem Dysphagia (39444930) Dysphagia (R13.10) Active confirmed Problem Epigastric pain (71853862) Abdominal pain, epigastric (R10.13) Active confirmed Problem Elevated liver enzymes level (711890966) Elevated liver function tests (R79.89) Active confirmed Problem Gastroesophageal reflux disease without esophagitis (856516932) Gastroesophageal reflux disease without esophagitis (K21.9) Active confirmed Problem Preprocedural examination (298590863376763) Preprocedural examination (Z01.818) Active confirmed Problem Fatty liver (781583235) Fatty liver (K76.0) Active confirmed Problem Constipation (38245575) Constipation, unspecified constipation type (K59.00) Active confirmed Problem Gastroesophageal reflux disease (974896324) GERD (gastroesophageal reflux disease) (K21.9) Active confirmed Problem Gastroesophageal reflux disease with esophagitis (disorder) (848339520) Gastro-esophageal reflux disease with esophagitis, without bleeding (K21.00) Active confirmed Problem Imaging of abdomen abnormal (542624812) Abnormal computerized tomography of abdominal wall (R93.5) Active confirmed Problem Gastroesophageal reflux disease (disorder) (151542083) Chronic GERD (K21.9) Active confirmed Problem Epigastric pain (04409063) Epigastric burning sensation (R10.13) Active confirmed Encounters Encounter Location Date Provider Diagnosis [facility] [address] [place] [address] 01/17/2025 Yadiel Li Dysphagia R13.10 Assessments Encounter Date Diagnosis (ICD Code) Assessment Notes Treatment Notes Treatment Clinical Notes Section Notes 01/17/2025 Dysphagia (ICD-10 - R13.10) Plan Of Treatment Pending Test Test Name Order Date BUN 11/22/2020 CREATININE 11/22/2020 LIVER PROFILE 11/22/2020 LIVER PROFILE 08/28/2020 LIVER PROFILE 09/10/2020 LIVER PROFILE 07/31/2022 AMYLASE 07/31/2022 AMYLASE 08/28/2020 LIPASE 08/28/2020 LIPASE 07/31/2022 IRON + IBC (FE) 09/10/2020 FERRITIN 09/10/2020 CBC w DIFF 07/31/2022 CBC w DIFF 08/28/2020 HEPATITIS B, C PROFILE 09/10/2020 UAIPO-6-PMMAYMHCUIH (A1A) 09/10/2020 MITOCHONDRIAL AB 09/10/2020 SMOOTH MUSCLE [...] Insured Coverage Start Date Coverage End Date [facility] [address] [place] [phone] [id number] ROMA HERNANDES Self - patient is the insured Medical (General) History Medical History History ICD Code Renal cancer(left)-1990 Denies SC,DM,CVA,Lung disease She has undergone previous u pper [...] and iron studies. Upper endoscopy in May 024 revealed a small hiatal hernia, but no evidence of any significant esophagitis, gastritis, nor ulcer disease. Biopsies were negative for H. pylori and Jaffe's esophagus. Surgical History Surgery Date(Month/Year) Left kidney removed for cancer-Theodora bradford 1990 Hysterectomy and BSO--2 separate operati ons 2012 Surgery for repair of a lace ration of the rectosigmoid colon during one of her LAMP SHADE JOINER surgeries--the repair was done by 2011 Right shoulder Right knee CCY APPY Abdominoplasty 05/2020 in [facility] CT scan of the abdomen and in June of 2020 at [facility] revealed 2 seromas in the upper and lower abdominal wall. A F/U CT in 2021 revealed resolution of that.
== END 2025-10-28 16:04 | disposition home or self-care (01) ==
LOC: HO.HMCH 15:10
PROVIDERS: PCP Physician Assistant; Visit Provider Student in an Organized Health Care Education/Training Program
DX: R10.9 Unspecified abdominal pain (principal); K92.1 Melena

== ENCOUNTER 2025-10-28 15:10 | Outpatient (REF) | payer OTHER, SELFPAY ==
--- NOTE | ~2025-10-28 | XR_ITS ---
EXAMINATION: XR ABDOMEN KUB CLINICAL INDICATION: R10.9 - Unspecified abdominal pain COMPARISON: None available. TECHNIQUE: KUB of the abdomen. FINDINGS: The bowel gas pattern is nonspecific. No organomegaly. No radiopaque densities. There are surgical tyrese in left epigastric and mid abdomen from previous intervention. No gross bony abnormality. XR/XR KUB IMPRESSION: Unremarkable KUB.. Electronically signed by: Abilio Jimenez MD 10/31/2025 07:13 AM [facility]
[2025-10-28 17:45] LABS: Appearance Urine Clear; Glucose Urine UA Negative (Negative); PH 6.5 (5.0-9.0); Specific Gravity - Urine 1.020 (1.005-1.025); UMIC TRIGGER UACC YES
[2025-10-28 17:56] LABS: Alanine Aminotransferase 41 U/L (0-31); Albumin Level 4.3 g/dL (3.5-5.0); Alkaline Phosphatase 155 U/L (39-117); Anion Gap 12 (12-20); Aspartate Amino Transferase 48 U/L (5-31); Blood Urea Nitrogen 15 mg/dL (9-16); Calcium 9.5 mg/dL (8.4-10.2); Carbon Dioxide 29 mmol/L (22-29); Chloride 105 mmol/L (96-108); Estimated Glomerular Filt Rate > 60; Potassium 3.8 mmol/L (3.3-5.1); Sodium 142 mmol/L (135-145); Total Protein 7.4 g/dL (6.5-8.0)
== END 2025-10-28 15:11 | disposition home or self-care (01) ==
LOC: HO.XRAY 15:10
PROVIDERS: PCP Physician Assistant; Visit Provider Student in an Organized Health Care Education/Training Program
DX: Z00.00 Encounter for general adult medical examination without abnormal findings (principal); R10.9 Unspecified abdominal pain
CPT/HCPCS: 36415; 74018; 80053; 81001

== ENCOUNTER → 2025-10-28 16:15 | Outpatient (BNV) | payer OTHER, SELFPAY | PROVIDERS: PCP Physician Assistant; Visit Provider Radiology Diagnostic Radiology | DX: R10.9 Unspecified abdominal pain (principal) | CPT/HCPCS: 74018 ==

== ENCOUNTER 2025-10-31 07:40 | Outpatient (REF) | payer OTHER, SELFPAY ==
--- OUTSIDE RECORDS SUMMARY | 2024-05-07 05:40 | XMS_ITS ---
Author Organization [facility] Address [address] [place] [address] Care Team Providers Care Writer Producer Name Role Phone Jeffrey Rutledge Primary Care Provider Unavailab Yadiel Nixon Unavailable [phone] Elie BERNARD, Apollo Unavailable Unavailable REASON FOR VISIT epigastric pain,gerd Problems Problem Type SNOMED Code ICD Code Onset Dates Problem Status W/U Status Risk Notes Problem Gastroesophageal reflux disease with esophagitis (disorder) (895926811) Gastro-esoph ageal reflux disease with esophagitis, without bleeding (K21.00) Active confirmed Encounters Encounter Location Date Provider Diagnosis [facility] [place] Out[place] [address] [place] [phone] 05/07/2024 Yadiel Li Gastro-esophageal reflux disease with [...] * PHOENIX HERNANDESOB:1965 ( 60 yo F)Acc No.[id number]:05/07/2024 EGD/MAC Patient: DONNA DINH Provider: Miguel Li MD :1965 A ge:59 Y S ex:Female Date:05/07/2024 Address:[address] [place], [place] [phone] Pcp:Jeffrey Rutledge Subjective: * Chief Complaints: * E pigastric pain,gerd Assessment: * Assessment: 1. G yogesh-esophageal reflux disease with esophagitis, without bleeding - K21.00 (Primary) 2 . H iatal hernia - K44.9 3 . P ain of upper abdomen - R10.10? 4. H eartburn - R12 Plan: * Procedure Codes: 4 3239 UPPER GI ENDOSCOPY, BIOPSY Billing Information: * Procedure Codes: 38727 UPPER GI ENDOSCOPY, BIOPSY. * The named appointment provid er may or may not be the originator of this progress note, and it is not deemed complete until electronically signed by the appointment provider. Sign off status: Pending * Provider: Miguel Li MD Date: 0 05/07/2024 Generated for Valerie cotto/Andrea/Donsmitting on: 07:42 AM EST
--- OUTSIDE RECORDS SUMMARY | 2025-08-04 03:15 | XMS_ITS ---
Author Organization [facility] [address] Address [address] [place] [address] Care Team Providers Care Acid Etch Operator Name Role Phone Ping Lamb Unavailable [phone] Encounters Encounter Location Date Provider Diagnosis [facility] [address] [place] [address] 08/04/2025 Ping Lamb Plan Of Treatment No Information Progress Notes * Mary HERNANDESOB:1965 ( 60 yo F)Acc No.[id number]:08/04/2025 Patient: Ana Nunezra Provider: Shonna Lamb PA-C :1965 A ge:60 Y S ex:Female Date:08/04/2025 Address:[address] [place] [id number] * Electronic signature of Ping Lamb PA-C on 10/31/2025 at 07:42 AM EST Sign off status: Pending * Provider: Shonna Lamb PA-C Date: 1 Generated for Valerie cotto/Andrea/eTransmitting on: 1 07:42 AM EST
--- OUTSIDE RECORDS SUMMARY | 2025-10-31 07:42 | XMS_ITS | Clinical Summary ---
Author Organization [facility] Address [address] [place] [address] Phone Care Team Providers Care Supervising Appraiser Name Role Phone Noel Carrizales DO Primary Care Provider [phone] Allergies Active Allergy Reactions Criticality Noted Date [...] patient's age to complete this topic [place] [address] [facility] Care Teams Supervising Appraiser Relationship Specialty Start Date End Date Noel Carrizales DO [address] [place], [place] PCP - General 11/13/20
--- OUTSIDE RECORDS SUMMARY | 2025-10-31 07:42 | XMS_ITS | Patient Health Record ---
Author Organization [facility] Address [address] [place] [address] Care Team Providers Care Supervisor Wire Rope Fabrication Name Role Phone Ping Lamb Unavailable [phone] Allergies No Known Allergies Reason For Referral [...] Notes Problem Obesity due to excess calories (198479139) Other obesity due to excess calories (E66.09) Active confirmed Problem Overweight (075418156) Overweight (E66.3) Active confirmed Problem Body mass index 30.00 to 34.99 (43771579472880 7) Body mass index [BMI] 32.0-32.9, adult (Z68.32) Active confirmed Problem Body mass index 30+ - obesity (828670657) BMI 30.0-30.9,adult (Z68.30) Active confirmed Vital Signs Heart Rate 79 /min 07/06/2025 Oximetry 99 % 07/06/2025 Blood pressure diastolic 74 mm Hg 07/06/2025 Height 63.25 in 07/06/2025 Blood pressure systolic 126 mm Hg 07/06/2025 Weight 167.3 lbs 07/06/2025 BMI 29.4 kg/m2 07/06/2025 Encounters Encounter Location Date Provider Diagnosis [facility] [address] [address] 11/30/2024 Ping Svrcek Other obesity due to excess calories E66.09 and BMI 29.0-29.9,adult Z68.29 [facility] [address] [address] 01/05/2025 Ping Svrcek Other obesity due to excess calories E66.09 ; BMI 29.0-29.9,adult Z68.29 and Weight loss counseling, encounter for Z71.3 [facility] [address] [address] 02/01/2025 Ping Svrcek Other obesity due to excess calories E66.09 ; BMI 29.0-29.9,adult Z68.29 and Weight loss counseling, encounter for Z71.3 [facility] [address] [address] 03/09/2025 Ping Svrcek BMI 29.0-29.9,adult Z68.29 ; Overweight E66.3 and Weight loss counseling, encounter for Z71.3 [facility] [address] [address] 04/14/2025 Ping Svrcek Overweight E66.3 ; B [place] 29.0-29.9,adult Z68.29 ; Weight loss counseling, encounter for Z71.3 and Encounter for examination of blood pressure without abnormal findings Z01.30 [facility] [address] [address] 05/26/2025 Ping Svrcek Overweight E66.3 ; B AK 29.0-29.9,adult Z68.29 ; Weight loss counseling, encounter for Z71.3 and Encounter for examination of blood pressure without abnormal findings Z01.30 [facility] [address] [address] 07/06/2025 Ping Svrcek Overweight E66.3 ; B [place] 29.0-29.9,adult Z68.29 ; Weight loss counseling, encounter for Z71.3 and Encounter for examination of blood pressure without abnormal findings Z01.30 [facility] [address] [address] 01/05/2025 Ping Svrcek [facility] [address] [address] 05/24/2025 Ping Svrcek Overweight E66.3 [facility] [address] [facility] [address] [place] [address] 06/16/2025 Ping Svrcek Overweight E66.3 [facility] [address] [address] 12/14/2024 Ping Svrcek [facility] [address] [address] 01/16/2025 Ping Svrcek Other obesity due to excess calories E66.09 [facility] [address] [address] 07/18/2025 Ping Svrcek [facility] [address] [address] 07/20/2025 Ping Svrcek Assessments Encounter Date Diagnosis [...] Dictation was accomplished with the use of [employer] voice recognition software, prone to medical misidentifications [...] Dictation was accomplished with the use of [employer] voice recognition software, prone to medical misidentifications [...] Dictation was accomplished with the use of [employer] voice recognition software, prone to medical misidentifications [...] Dictation was accomplished with the use of [employer] voice recognition software, prone to medical misidentifications [...] Dictation was accomplished with the use of [employer] voice recognition software, prone to medical misidentifications [...] Dictation was accomplished with the use of [employer] voice recognition software, prone to medical misidentifications [...] due to excess calories (ICD-10 - E66.09) 03/09/2025 Overweight (ICD-10 - E66.3) #Obesity. 03/09/25: [...] Dictation was accomplished with the use of [employer] voice recognition software, prone to medical misidentifications [...] Dictation was accomplished with the use of [employer] voice recognition software, prone to medical misidentifications [...] next visit it any questions/concerns arise. 02/01/2025 Other obesity due to excess calories [...] Dictation was accomplished with the use of [employer] voice recognition software, prone to medical misidentifications [...] Dictation was accomplished with the use of [employer] voice recognition software, prone to medical misidentifications [...] next visit it any questions/concerns arise. 05/26/2025 Overweight (ICD-10 - E66.3) #Obesity. 169.8, [...] Dictation was accomplished with the use of [employer] voice recognition software, prone to medical misidentifications [...] Dictation was accomplished with the use of [employer] voice recognition software, prone to medical misidentifications [...] Dictation was accomplished with the use of [employer] voice recognition software, prone to medical misidentifications [...] Dictation was accomplished with the use of [employer] voice recognition software, prone to medical misidentifications [...] Dictation was accomplished with the use of [employer] voice recognition software, prone to medical misidentifications [...] Dictation was accomplished with the use of [employer] voice recognition software, prone to medical misidentifications [...] Dictation was accomplished with the use of [employer] voice recognition software, prone to medical misidentifications [...] Dictation was accomplished with the use of [employer] voice recognition software, prone to medical misidentifications [...] Dictation was accomplished with the use of [employer] voice recognition software, prone to medical misidentifications [...] Dictation was accomplished with the use of [employer] voice recognition software, prone to medical misidentifications [...] Dictation was accomplished with the use of [employer] voice recognition software, prone to medical misidentifications [...] Dictation was accomplished with the use of [employer] voice recognition software, prone to medical misidentifications [...] Dictation was accomplished with the use of [employer] voice recognition software, prone to medical misidentifications [...] Insured Coverage Start Date Coverage End Date [facility] [address] [place] [address] [id number] Roma Irving Self - patient is the [...]
--- OUTSIDE RECORDS SUMMARY | 2025-10-31 07:43 | XMS_ITS | Patient Health Record ---
Author Organization [facility] Address [address] [place] [address] Care Team Providers Care Bindery Operator Name Role Phone Jeffrey Rutledge Primary Care Provider Unavailab Yadiel Nixon Unavailable [phone] Elie BERNARD, Apollo Unavailable Unavailable Allergies Allergen (clinical drug ingredient) Drug/Non Drug Allergy documented on EMR Reaction Allergy Type Onset Date Status bupropion BuPROPion HCl Unknown Drug Allergy Act mikayla Results Component Value Reference Range Notes FL barium swallow (Not yet r eviewed by provider) Interpretation: Performing Lab: Notes/Report: [address] [address] Fluoroscopy Report Signed Patient: Roma Hernandes MR#: [id number] : 1965 Acct:[id number] Age/Sex: 59 / F ADM Date: 04/01/25 Loc: [facility] Attending Dr: Yadiel Li MD Ordering Physician: Yadiel Li MD Date of Service: 04/01/25 Procedure(s): FL barium swallow Accession Number(s): [id number] cc: Jeffrey Rutledge PA-C; Yadiel Li MD [...] 04/01/25 1039 DD/ 1010 TD/TT: 04/01/25 1019 Final Inspector Balance Wheel: ISIS Reason For Referral No Information Medications [...] Options Details Miscellaneous: Marital status: single 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 Caffeine: 1-2 cups per day Section Notes: [...] W/U Status Risk Notes Problem Epigastric pain (60372892) Epigastric abdominal pain (R10.13) Active confirmed Problem Epigastric pain (44398700) Epigastric pain (R10.13) Active confirmed Problem Screening for malignant neoplasm of colon (581030713) Encounter for screening for malignant neoplasm of colon (Z12.11) Active confirmed Problem Screening for malignant neoplasm of rectum (570265940) Encounter for screening for malignant neoplasm of rectum (Z12.12) Active confirmed Problem Dysphagia (15774425) Dysphagia (R13.10) Active confirmed Problem Epigastric pain (00128326) Abdominal pain, epigastric (R10.13) Active confirmed Problem Elevated liver enzymes level (436594282) Elevated liver function tests (R79.89) Active confirmed Problem Gastroesophageal reflux disease without esophagitis (567442129) Gastroesophageal reflux disease without esophagitis (K21.9) Active confirmed Problem Preprocedural examination (553127134466976) Preprocedural examination (Z01.818) Active confirmed Problem Fatty liver (561925814) Fatty liver (K76.0) Active confirmed Problem Constipation (30382650) Constipation, unspecified constipation type (K59.00) Active confirmed Problem Gastroesophageal reflux disease (014332006) GERD (gastroesophageal reflux disease) (K21.9) Active confirmed Problem Gastroesophageal reflux disease with esophagitis (disorder) (543868749) Gastro-esophageal reflux disease with esophagitis, without bleeding (K21.00) Active confirmed Problem Imaging of abdomen abnormal (390095636) Abnormal computerized tomography of abdominal wall (R93.5) Active confirmed Problem Gastroesophageal reflux disease (disorder) (404707857) Chronic GERD (K21.9) Active confirmed Problem Epigastric pain (84747033) Epigastric burning sensation (R10.13) Active confirmed Encounters Encounter Location Date Provider Diagnosis [facility] [address] [place] [address] 01/17/2025 Yadile Li Dysphagia R13.10 Assessments Encounter Date Diagnosis [...] DIFF 08/28/2020 HEPATITIS B, C PROFILE 09/10/2020 [id number] (A1A) 09/10/2020 MITOCHONDRIAL AB 09/10/2020 SMOOTH MUSCLE [...] Insured Coverage Start Date Coverage End Date [facility] [address] [place] [phone] [id number] ROMA HERNANDES Self - patient is the insured Medical (General) History Medical History History ICD Code Renal cancer(left)-1990 Denies ND,DM,CVA,Lung disease She has undergone previous u pper [...] the rectosigmoid colon during one of her [employer]IST[employer] surgeries--the repair was done by 2011 Right shoulder Right knee CCY APPY Abdominoplasty 05/2020 in [facility] CT scan of the abdomen and in June of 2020 at [facility] [place] revealed 2 seromas in the upper and lower abdominal wall. A F/U CT in 2021 revealed resolution of that.
[2025-10-31 07:53] LABS: MANUAL DIFF FLAG NO
[2025-10-31 08:14] LABS: Hematocrit 43.5 % (37.0-47.0); Hemoglobin 13.9 g/dl (12.0-16.0); Imm Gran Abs Auto 0.02 X10*3/uL (0.00-0.03); Imm Gran Pct Auto 0.4 % (0.0-0.4); Lymphocytes Absolute Auto 1.8 X10*3/uL (1.2-4.9); Mean Corpuscular HGB Conc 32.0 g/dl (31.0-35.0); Mean Corpuscular Hemoglobin 30.3 pg (27.0-33.0); Mean Corpuscular Volume 94.8 fL (80.0-98.0); NRBC Abs Auto 0.000 X10*3/uL (0.0-0.012); NRBC Pct Auto 0.0 /100WBC (0.0-0.2); Platelet Count 341 X10*3/uL (160-400); Red Blood Count 4.59 X10*6/uL (4.20-5.50); White Blood Count 5.5 X10*3/uL (4.8-10.8)
[2025-10-31 08:35] LABS: Anion Gap 11 (12-20); Blood Urea Nitrogen 10 mg/dL (9-16); Calcium 9.4 mg/dL (8.4-10.2); Carbon Dioxide 30 mmol/L (22-29); Chloride 107 mmol/L (96-108); Estimated Glomerular Filt Rate 59; Potassium 4.1 mmol/L (3.3-5.1); Sodium 144 mmol/L (135-145)
[2025-10-31 12:16] LABS: Appearance Urine Clear; Glucose Urine UA Negative (Negative); PH 6.5 (5.0-9.0); Specific Gravity - Urine 1.020 (1.005-1.025); UMIC TRIGGER UACC YES
[2025-10-31 12:44] LABS: Total Protein Urine Random 8 mg/dL (<12)
== END 2025-10-31 07:41 ==
LOC: HO.LAB 07:40
PROVIDERS: Internal Medicine Hypertension Specialist; PCP Student in an Organized Health Care Education/Training Program; Visit Provider Student in an Organized Health Care Education/Training Program
DX: Z00.00 Encounter for general adult medical examination without abnormal findings (principal); Z90.5 Acquired absence of kidney
CPT/HCPCS: 36415; 80048; 81001; 84156; 85025